=== PATIENT | female | born 1970 | race African-American/Black ===

== ENCOUNTER 2021-04-22 20:33 | Inpatient (IN) | payer OTHER ==
[2021-04-22] MEDS ORDERED: NITROGLYCERIN-D5W PMX 50 MG in DEXTROSE/WATER 1 250ML.BAG IV ONE (21:03)
[2021-04-22] MEDS ORDERED: MORPHINE SULFATE 4 MG/ML SYRINGE IVP STA (21:09)
--- NOTE | 2021-04-22 21:27 | ED ---
SOB HPI - General Chief Complaint: Chest Pain Stated Complaint: chest pain, SOB Time Seen by Provider: 04/22/21 20:52 Source: patient Mode of arrival: ambulatory Limitations: no limitations - History of Present Illness Initial Comments: This patient is a 50-year-old woman who comes in with chief complaint that she is short of breath. This is been getting progressively worse for the past 2 days. Today she has also had chest tightness accompanying. Patient denies fever or chills. No productive cough. She has noticed that her breathing has become noisy. She has orthopnea. Patient states she has history of hypertension but states has not been able take her medications for a little over a year now. No previous history of pulmonary or cardiac disease. MD Complaint: shortness of breath Onset/Timin -: days(s) Severity: moderate Quality: other (Tight) Consistency: constant Improves With: nothing Worsens With: lying flat Associated Symptoms: denies other symptoms Treatments Prior to Arrival: none - Related Data Home Oxygen Therapy: No Previous Rx's Medication Instructions Recorded Acetaminophen Tab [Tylenol] 325 mg PO Q6HR PRN tab 04/30/21 Aspirin 81 mg PO DAILY #30 chew 04/30/21 Cefuroxime Axetil [Ceftin] 500 mg PO BID 4 Days #8 tab 04/30/21 Darbepoetin Solomon [Aranesp] 60 mcg SQ Q7D syringe 04/30/21 Furosemide [Lasix] 60 mg PO DAILY #90 tab 04/30/21 Metoprolol Tartrate [Lopressor] 50 mg PO BID #60 tab 04/30/21 amLODIPine [Norvasc] 5 mg PO BID #60 tab 04/30/21 hydrALAZINE HCL [Apresoline] 25 mg PO BID #60 tab 04/30/21 levOCARNitine [Levocarnitine] 330 mg PO AC-BID #60 tablet 04/30/21 Allergies Allergy/AdvReac Type Severity Reaction Status Date / Time No Known Allergies Allergy Verified 04/22/21 22:29 Review of Systems ROS Statement: Those systems with pertinent positive or pertinent negative responses have been documented in the HPI. ROS Other: All systems not noted in ROS Statement are negative. Constitutional: Denies: fever, chills, weakness Respiratory: Reports: dyspnea. Denies: cough, wheezes, hemoptysis Cardiovascular: Reports: chest pain, orthopnea. Denies: palpitations, edema, syncope Gastrointestinal: Denies: abdominal pain, nausea, vomiting, diarrhea Genitourinary: Denies: dysuria, hematuria Musculoskeletal: Denies: back pain Skin: Denies: rash Neurological: Denies: headache, weakness, numbness Past Medical History Past Medical History: No Reported History History of Any Multi-Drug Resistant Organisms: None Reported Past Surgical History: No Surgical Hx Reported Past Psychological History: No Psychological Hx Reported Smoking Status: Former smoker Past Alcohol Use History: None Reported Past Drug Use History: None Reported - Past Family History Father History Unknown: Yes Family Medical History: Hypertension Mother History Unknown: Yes Additional Family Medical History / Comment(s): in her sleep Brother(s) Family Medical History: Myocardial Infarction (MS) Additional Family Medical History / Comment(s): Brother with myocardial infarction at 43 years old General Exam Limitations: no limitations General appearance: alert, anxious, in distress Head exam: Present: atraumatic, normocephalic Eye exam: Present: normal appearance. Absent: scleral icterus, conjunctival injection ENT exam: Present: normal oropharynx Neck exam: Present: normal inspection Respiratory exam: Present: respiratory distress, wheezes, rales, accessory muscle use. Absent: rhonchi, stridor, decreased breath sounds, prolonged expiratory Cardiovascular Exam: Present: normal rhythm, tachycardia, gallop. Absent: systolic murmur, diastolic murmur, rubs GI/Abdominal exam: Present: soft. Absent: distended, tenderness, guarding, rebound, rigid, mass Extremities exam: Present: normal inspection, normal capillary refill. Absent: pedal edema, calf tenderness Back exam: Present: normal inspection. Absent: CVA tenderness (R), CVA tenderness (L) Neurological exam: Present: alert Skin exam: Present: warm, dry, intact, normal color. Absent: rash Course Vital Signs 04/22/21 04/22/21 04/22/21 20:39 21:00 21:05 Temperature 98 F Pulse Rate 124 H 137 H Pulse Rate [ 137 H Left Pulse Oximetery] Respiratory 18 47 H 36 H Rate Blood Pressure 202/115 215/136 O2 Sat by Pulse 88 L 97 Oximetry 04/22/21 04/22/21 04/22/21 21:10 21:20 21:25 Temperature Pulse Rate 124 H 122 H 117 H Pulse Rate [ Left Pulse Oximetery] Respiratory 37 H 35 H 26 H Rate Blood Pressure 202/130 186/124 175/116 O2 Sat by Pulse 87 L 100 100 Oximetry 04/22/21 04/22/21 04/22/21 21:30 21:35 21:40 Temperature Pulse Rate 114 H 113 H 118 H Pulse Rate [ Left Pulse Oximetery] Respiratory 13 12 13 Rate Blood Pressure 181/116 175/115 178/119 O2 Sat by Pulse 100 100 100 Oximetry 04/22/21 04/22/21 04/22/21 21:45 21:50 21:55 Temperature Pulse Rate 112 H 109 H 103 H Pulse Rate [ Left Pulse Oximetery] Respiratory 19 26 H 27 H Rate Blood Pressure 188/116 176/116 180/108 O2 Sat by Pulse 100 100 100 Oximetry 04/22/21 04/22/21 04/22/21 22:00 22:05 22:10 Temperature Pulse Rate 104 H 103 H 101 H Pulse Rate [ Left Pulse Oximetery] Respiratory 25 H 18 26 H Rate Blood Pressure 168/103 156/113 179/109 O2 Sat by Pulse 100 100 100 Oximetry 04/22/21 04/22/21 04/22/21 22:15 22:30 22:45 Temperature Pulse Rate 102 H 102 H 110 H Pulse Rate [ Left Pulse Oximetery] Respiratory 19 20 22 Rate Blood Pressure 170/106 180/112 175/111 O2 Sat by Pulse 100 100 100 Oximetry 04/22/21 04/22/21 04/22/21 23:00 23:15 23:30 Temperature Pulse Rate 103 H 109 H 116 H Pulse Rate [ Left Pulse Oximetery] Respiratory 24 29 H 27 H Rate Blood Pressure 181/105 184/112 180/112 O2 Sat by Pulse 100 100 100 Oximetry 04/22/21 04/23/21 04/23/21 23:45 00:00 00:39 Temperature Pulse Rate 102 H 110 H 109 H Pulse Rate [ 137 H Left Pulse Oximetery] Respiratory 19 14 23 Rate Blood Pressure 162/102 128/79 171/100 O2 Sat by Pulse 100 100 100 Oximetry Medical Decision Making - Medical Decision Making This patient is a 50-year-old woman presenting with acute respiratory distress. I was called to see the patient and went directly to the bedside where she was tachycardic, tachypnea, hypertensive. Clinically patient does appear to be in congestive heart failure and his symptoms IV is started I began giving aliquots of intravenous nitroglycerin. Patient placed on BiPAP. Remained at the bedside for over 30 minutes and was able to stabilize patient's respiratory status. Ck comer heart rate, respiratory rate, blood pressure and pulse oximetry on improving, and she clinically appears to be in less distress. Case discussed with admitting physician, with the wreath maker on-call, and with the quilting machine helper on-call, their treatment recommendations are incorporated. - Lab Data Result diagrams: 04/30/21 04:57 04/30/21 04:57 Lab Results 04/22/21 04/22/21 04/22/21 Range/Units 21:11 21:11 21:11 WBC 9.4 (3.8-10.6) k/uL RBC 3.41 L (3.80-5.40) m/uL Hgb 8.8 L (11.4-16.0) gm/dL Hct 25.7 L (34.0-46.0) % MCV 75.4 L (80.0-100.0) fL MCH 25.8 (25.0-35.0) pg MCHC 34.3 (31.0-37.0) g/dL RDW 15.2 (11.5-15.5) % Plt Count 286 (150-450) k/uL MPV 8.6 Neutrophils % 59 % Lymphocytes % 31 % Monocytes % 3 % Eosinophils % 4 % Basophils % 1 % Neutrophils # 5.6 (1.3-7.7) k/uL Lymphocytes # 2.9 (1.0-4.8) k/uL Monocytes # 0.3 (0-1.0) k/uL Eosinophils # 0.4 (0-0.7) k/uL Basophils # 0.1 (0-0.2) k/uL Microcytosis Slight PT 10.3 (9.0-12.0) sec INR 1.0 (<1.2) APTT 23.1 (22.0-30.0) sec D-Dimer 0.92 H (<0.60) mg/L FEU Sodium 135 L (137-145) mmol/L Potassium 4.2 (3.5-5.1) mmol/L Chloride 95 L (98-107) mmol/L Carbon Dioxide 17 L (22-30) mmol/L Anion Gap 23 mmol/L BUN 110 H* (7-17) mg/dL Creatinine 17.87 H* (0.52-1.04) mg/dL Est GFR (CKD-EPI)AfAm 2 (>60 ml/min/1.73 sqM) Est GFR (CKD-EPI)NonAf 2 (>60 ml/min/1.73 sqM) Glucose 186 H (74-99) mg/dL Plasma Lactic Acid Isauro (0.7-2.0) mmol/L Calcium 7.2 L (8.4-10.2) mg/dL Total Bilirubin 0.4 (0.2-1.3) mg/dL AST 16 (14-36) U/L ALT 9 (4-34) U/L Alkaline Phosphatase 118 (38-126) U/L Troponin I (0.000-0.034) ng/mL NT-Pro-B Natriuret Pep pg/mL Total Protein 7.8 (6.3-8.2) g/dL Albumin 4.7 (3.5-5.0) g/dL 04/22/21 04/22/21 04/22/21 Range/Units 21:11 21:11 21:11 WBC (3.8-10.6) k/uL RBC (3.80-5.40) m/uL Hgb (11.4-16.0) gm/dL Hct (34.0-46.0) % MCV (80.0-100.0) fL MCH (25.0-35.0) pg MCHC (31.0-37.0) g/dL RDW (11.5-15.5) % Plt Count (150-450) k/uL MPV Neutrophils % % Lymphocytes % % Monocytes % % Eosinophils % % Basophils % % Neutrophils # (1.3-7.7) k/uL Lymphocytes # (1.0-4.8) k/uL Monocytes # (0-1.0) k/uL Eosinophils # (0-0.7) k/uL Basophils # (0-0.2) k/uL Microcytosis PT (9.0-12.0) sec INR (<1.2) APTT (22.0-30.0) sec D-Dimer (<0.60) mg/L FEU Sodium (137-145) mmol/L Potassium (3.5-5.1) mmol/L Chloride (98-107) mmol/L Carbon Dioxide (22-30) mmol/L Anion Gap mmol/L BUN (7-17) mg/dL Creatinine (0.52-1.04) mg/dL Est GFR (CKD-EPI)AfAm (>60 ml/min/1.73 sqM) Est GFR (CKD-EPI)NonAf (>60 ml/min/1.73 sqM) Glucose (74-99) mg/dL Plasma Lactic Acid Isauro 1.5 (0.7-2.0) mmol/L Calcium (8.4-10.2) mg/dL Total Bilirubin (0.2-1.3) mg/dL AST (14-36) U/L ALT (4-34) U/L Alkaline Phosphatase (38-126) U/L Troponin I 0.093 H* (0.000-0.034) ng/mL NT-Pro-B Natriuret Pep 51871 pg/mL Total Protein (6.3-8.2) g/dL Albumin (3.5-5.0) g/dL Critical Care Time Critical Care Time: Yes (50 minutes) Disposition Clinical Impression: CHF (congestive heart failure), Hypertensive emergency, Renal failure, Anemia, Elevated troponin I level Disposition: ADMITTED IP TO THIS [facility] Condition: Stable Is patient prescribed a controlled substance at d/c from ED?: No
[2021-04-22 21:30] LABS: Basophils # (A) 0.1 k/uL (0-0.2); Basophils % (A) 1 %; Eosinophils # (A) 0.4 k/uL (0-0.7); Eosinophils % (A) 4 %; HCT 25.7 % (34.0-46.0); HGB 8.8 gm/dL (11.4-16.0); Lymphocytes # (A) 2.9 k/uL (1.0-4.8); Lymphocytes % (A) 31 %; MCH 25.8 pg (25.0-35.0); MCHC 34.3 g/dL (31.0-37.0); MCV 75.4 fL (80.0-100.0); Mean Platelet Volume 8.6; Microcytosis Slight; Monocytes # (A) 0.3 k/uL (0-1.0); Monocytes % (A) 3 %; Neutrophils # (A) 5.6 k/uL (1.3-7.7); Neutrophils % (A) 59 %; Platelet Count 286 k/uL (150-450); RBC 3.41 m/uL (3.80-5.40); RDW 15.2 % (11.5-15.5); WBC 9.4 k/uL (3.8-10.6)
[2021-04-22 21:43] LABS: Albumin 4.7 g/dL (3.5-5.0); Calcium 7.2 mg/dL (8.4-10.2); Potassium 4.2 mmol/L (3.5-5.1); Total Bilirubin 0.4 mg/dL (0.2-1.3); Total Protein 7.8 g/dL (6.3-8.2)
--- NOTE | 2021-04-22 21:44 | XR ---
EXAMINATION TYPE: XR chest 1V portable DATE OF EXAM: 04/22/2021 COMPARISON: NONE HISTORY: Chest pain TECHNIQUE: Single view FINDINGS: Heart is enlarged. There is pulmonary interstitial and airspace edema. There is blunting of the costophrenic angles. There are chest leads. IMPRESSION: Changes of congestive heart failure with pulmonary edema and pleural fluid.
[2021-04-22] MEDS ORDERED: FUROSEMIDE 10 MG/ML 4 ML VIAL IV STA (21:47)
[2021-04-22 21:53] LABS: Partial Thromboplastin Time 23.1 sec (22.0-30.0); Prothrombin Time 10.3 sec (9.0-12.0)
[2021-04-22] MEDS ORDERED: MORPHINE SULFATE 4 MG/ML SYRINGE IV STA (22:03)
[2021-04-22] MEDS ORDERED: ENOXAPARIN 30 MG/0.3 ML SYRINGE SQ ONE (22:45)
[2021-04-22] MEDS ORDERED: hydrALAZINE HCL 20 MG/ML 1 ML VIAL IVP STA (23:05)
[2021-04-22] MEDS: FUROSEMIDE 10 MG/ML 4 ML VIAL IV SCH (23:10)
[2021-04-22] MEDS: SODIUM CHLORIDE 0.9% 1,000 ML IV SCH (23:13)
[2021-04-23 01:21] LABS: Glucose,Whole Blood 227 mg/dL (75-99)
[2021-04-23] MEDS ORDERED: NALOXONE 0.4 MG/ML 1 ML VIAL IV PRN (01:31)
[2021-04-23] MEDS ORDERED: hydrALAZINE HCL 20 MG/ML 1 ML VIAL IVP PRN (01:33)
[2021-04-23] MEDS: CLEVIDIPINE BUTYRATE 25 MG in EMPTY BAG 1 BAG IV SCH ×2 (02:38→08:07)
[2021-04-23 04:26] LABS: Basophils % (A) 0 %; Eosinophils # (A) 0.1 k/uL (0-0.7); Eosinophils % (A) 1 %; HCT 21.9 % (34.0-46.0); HGB 7.5 gm/dL (11.4-16.0); Lymphocytes % (A) 10 %; MCH 26.1 pg (25.0-35.0); MCHC 34.3 g/dL (31.0-37.0); MCV 75.9 fL (80.0-100.0); Microcytosis Slight; Monocytes # (A) 0.3 k/uL (0-1.0); Monocytes % (A) 3 %; Neutrophils # (A) 8.3 k/uL (1.3-7.7); Neutrophils % (A) 85 %; Platelet Count 243 k/uL (150-450); RBC 2.88 m/uL (3.80-5.40); WBC 9.8 k/uL (3.8-10.6)
[2021-04-23 05:08] LABS: Calcium 6.9 mg/dL (8.4-10.2)
[2021-04-23 05:32] LABS: Potassium 4.1 mmol/L (3.5-5.1)
--- NOTE | 2021-04-23 07:55 | XR ---
EXAMINATION TYPE: XR chest 1V DATE OF EXAM: 04/23/2021 COMPARISON: 04/22/2021 HISTORY: Chest pain TECHNIQUE: Single frontal view of the chest is obtained. FINDINGS: Improved perihilar and basilar infiltrates with pleural effusions and cardiomegaly. The cardiac silhouette size is within normal limits. The osseous structures are intact. IMPRESSION: 1. Improved perihilar and basilar infiltrates with pleural effusions and cardiomegaly.
[2021-04-23] MEDS: ENOXAPARIN 30 MG/0.3 ML SYRINGE SQ SCH (08:08)
[2021-04-23] MEDS: METOPROLOL TARTRATE 25 MG TAB PO SCH ×2 (08:52→20:56)
[2021-04-23] MEDS ORDERED: ASPIRIN 81 MG PO SCH (09:00)
[2021-04-23] MEDS ORDERED: ASPIRIN 325 MG TAB PO SCH (09:00)
--- NOTE | 2021-04-23 10:20 | P.CNPUL ---
History of Present Illness Consult date: 04/23/21 Reason for consult: dyspnea History of present illness: 50-year-old female patient, essentially negative past medical history other history of CKD GFR 14 from 2 years ago hypertension and smoking, comes in to the hospital yesterday because of worsening shortness of breath and chest pain on a 2 day duration. For that reason, the patient came in and the patient was found to have markedly abnormalities in her blood work. Her white cell count was at 9.8 with hemoglobin of 7.5. The patient's sodium level was at 135. The patient had an acute kidney injury with a BUN of 110 and a creatinine of 17.8, potassium level was at 4.2 with a serum bicarb of 17 and an anion gap of 23. Troponins were elevated at 0.09 0.1 and 0.1 respectively 3. Glucose was up to 27, LFTs were normal, proBNP level was 99,400. The blood pressure was as high as 215 over 136. As part of her workup, the patient underwent a chest x-ray that showed CHF with increased interstitial edema and probably some consolidation of the lower lobes bilaterally and addition to a cardiomegaly. No past history of cardiac disease. This morning, the patient is on oxygen at 2 L per minute nasal cannula. Overnight, the patient was on a BiPAP at a pressure of 10/5 with an FiO2 of 30% and this morning she was switched oxygen at 2 L. Her blood pressure was quite elevated and the patient was started on Cleviprex and currently is running at 2 mg an hour. The patient was also given Lasix 40 mg IV every 12 hours. Urine output is noted of 30-40 mL an hour. CBC much more comfortable. The urine output is in order of 30-40 mL an hour. 36. Review of Systems Constitutional: Denies chills, Denies fever Eyes: denies as per HPI, denies blurred vision, denies bulging eye, denies decreased vision, denies diplopia, denies discharge, denies dry eye, denies irritation, denies itching, denies pain, denies photophobia, denies loss of peripheral vision, denies loss of vision, denies tunnel vision/blind spots Ears: deny: decreased hearing, ear discharge, earache, tinnitus Ears, nose, mouth and throat: Denies headache, Denies sore throat Breasts: absent: as per HPI, change in shape, gynecomastia, masses, nipple discharge, pain, skin changes, swelling Cardiovascular: Reports decreased exercise tolerance, Reports dyspnea on exertion Respiratory: Reports dyspnea Gastrointestinal: Reports as per HPI Genitourinary: Reports as per HPI Menstruation: Reports as per HPI Musculoskeletal: Reports as per HPI Musculoskeletal: absent: ankle pain, ankle stiffness, ankle swelling Integumentary: Reports as per HPI Neurological: Reports as per HPI Psychiatric: Reports as per HPI Endocrine: Reports as per HPI Past Medical History Past Medical History: No Reported History Additional Past Medical History / Comment(s): CKD with a previous GFR GFR of 14, HTN History of Any Multi-Drug Resistant Organisms: None Reported Past Surgical History: No Surgical Hx Reported Past Psychological History: No Psychological Hx Reported Smoking Status: Former smoker Past Alcohol Use History: None Reported Past Drug Use History: None Reported - Past Family History Father History Unknown: Yes Family Medical History: Hypertension Medications and Allergies Home Medications Medication Instructions Recorded Confirmed Type No Known Home Medications 04/22/21 04/22/21 History Allergies Allergy/AdvReac Type Severity Reaction Status Date / Time No Known Allergies Allergy Verified 04/22/21 22:29 Physical Exam Vitals: Vital Signs Temp Pulse Pulse Resp BP Pulse Ox 04/23/21 10:00 100 16 133/79 97 04/23/21 09:45 103 H 19 142/82 98 04/23/21 09:30 107 H 23 144/85 98 04/23/21 09:15 112 H 18 148/81 98 04/23/21 09:00 113 H 17 150/84 97 04/23/21 08:45 123 H 16 132/73 98 04/23/21 08:30 112 H 19 130/74 96 04/23/21 08:15 112 H 18 131/84 98 04/23/21 08:00 98.3 F 112 H 16 138/80 98 04/23/21 07:52 98 04/23/21 07:45 110 H 16 135/78 98 04/23/21 07:30 111 H 16 141/109 97 04/23/21 07:15 115 H 6 L 136/80 96 04/23/21 07:00 112 H 15 134/81 99 04/23/21 06:45 111 H 135/79 99 04/23/21 06:30 112 H 133/76 99 04/23/21 06:15 112 H 137/76 99 04/23/21 06:00 112 H 16 139/80 98 04/23/21 05:45 112 H 17 134/74 98 04/23/21 05:30 113 H 19 141/80 98 04/23/21 05:15 114 H 130/76 96 04/23/21 05:00 113 H 14 124/68 99 04/23/21 04:45 112 H 127/70 04/23/21 04:30 113 H 131/71 98 04/23/21 04:15 112 H 131/74 99 04/23/21 04:00 114 H 137 H 13 132/68 99 04/23/21 03:45 111 H 15 131/73 98 04/23/21 03:30 114 H 17 132/76 100 04/23/21 03:15 114 H 16 133/79 100 04/23/21 03:00 114 H 16 162/94 99 04/23/21 02:45 111 H 153/90 100 04/23/21 02:30 112 H 155/89 99 04/23/21 02:15 113 H 164/91 04/23/21 02:00 113 H 13 166/98 04/23/21 01:45 114 H 14 157/92 99 04/23/21 01:15 97.4 F L 112 H 173/100 04/23/21 00:39 109 H 23 171/100 100 04/23/21 00:00 110 H 137 H 14 128/79 100 04/22/21 23:45 102 H 19 162/102 100 04/22/21 23:30 116 H 27 H 180/112 100 04/22/21 23:15 109 H 29 H 184/112 100 04/22/21 23:00 103 H 24 181/105 100 04/22/21 22:45 110 H 22 175/111 100 04/22/21 22:30 102 H 20 180/112 100 04/22/21 22:15 102 H 19 170/106 100 04/22/21 22:10 101 H 26 H 179/109 100 04/22/21 22:05 103 H 18 156/113 100 04/22/21 22:00 104 H 25 H 168/103 100 04/22/21 21:55 103 H 27 H 180/108 100 04/22/21 21:50 109 H 26 H 176/116 100 04/22/21 21:45 112 H 19 188/116 100 04/22/21 21:40 118 H 13 178/119 100 04/22/21 21:35 113 H 12 175/115 100 04/22/21 21:30 114 H 13 181/116 100 04/22/21 21:25 117 H 26 H 175/116 100 04/22/21 21:20 122 H 35 H 186/124 100 04/22/21 21:10 124 H 37 H 202/130 87 L 04/22/21 21:05 137 H 36 H 04/22/21 21:00 137 H 47 H 215/136 97 04/22/21 20:39 98 F 124 H 18 202/115 88 L Intake and Output 04/22/21 04/23/21 04/23/21 22:59 06:59 14:59 Intake Total 3 202.334 80 Output Total 275 110 Balance 3 -72.666 -30 Intake: IV 120 80 Sodium Chloride 0.9% 1, 120 80 000 ml @ 20 mls/hr IV . Q24H [facility] Rx#:[id number] Intake, IV Titration 3 82.334 Amount Clevidipine Butyrate 25 3.834 mg In Empty Bag 1 bag @ 1 MG/HR 2 mls/hr IV .Q24H [facility] Rx#:[id number] Nitroglycerin-D5w Pmx 50 3 78.5 mg In Dextrose/Water 1 250ml.bag @ 50 MCG/MIN 15 mls/hr IV .[id number] [facility] Rx#:[id number] Output: Urine 275 110 Other: Voiding Method Indwelling Catheter Indwelling Catheter Weight 57.606 kg 62.2 kg Gen. appearance the patient is calm and comfortable Head exam was generally normal. There was no scleral icterus or corneal arcus. Mucous membranes were moist. Neck was supple and without jugular venous distension, thyromegaly, or carotid bruits. Carotids were easily palpable bilaterally. There was no adenopathy. Lungs sounds are diminished and the patient has crackles and diminished breath on lung bases bilaterally Heart sounds there is accentuation of second heart sound without any significant murmurs appreciated. [place] is shifted to the left Abdominal exam revealed normal bowel sounds. The abdomen was soft, non-tender, and without masses, organomegaly, or appreciable enlargement of the abdominal aorta. Examination of the extremities revealed easily palpable radial, femoral and pedal pulses. There was no cyanosis, clubbing or edema. Examination of the skin revealed no evidence of significant rashes, suspicious appearing nevi or other concerning lesions. Neurologically, the patient is awake and alert and the patient does not have any focal neurological deficit. Cranial nerves are essentially intact. Results - Laboratory Findings CBC and BMP: 04/23/21 03:07 04/23/21 03:07 PT/INR, D-dimer PT 10.3 sec (9.0-12.0) 04/22/21 21:11 INR 1.0 (<1.2) 04/22/21 21:11 D-Dimer 0.92 mg/L FEU (<0.60) H 04/22/21 21:11 Abnormal lab findings: Abnormal Labs 04/22/21 04/22/21 04/22/21 21:11 21:11 21:11 RBC 3.41 L Hgb 8.8 L Hct 25.7 L MCV 75.4 L Neutrophils # D-Dimer 0.92 H Sodium 135 L Chloride 95 L Carbon Dioxide 17 L BUN 110 H* Creatinine 17.87 H* Glucose 186 H POC Glucose (mg/dL) Calcium 7.2 L Troponin I 04/22/21 04/22/21 04/23/21 21:11 23:37 01:19 RBC Hgb Hct MCV Neutrophils # D-Dimer Sodium Chloride Carbon Dioxide BUN Creatinine Glucose POC Glucose (mg/dL) 227 H Calcium Troponin I 0.093 H* 0.115 H* 04/23/21 04/23/21 04/23/21 03:07 03:07 03:07 RBC 2.88 L Hgb 7.5 L Hct 21.9 L MCV 75.9 L Neutrophils # 8.3 H D-Dimer Sodium 133 L Chloride 94 L Carbon Dioxide 17 L BUN 112 H* Creatinine 17.51 H* Glucose 193 H POC Glucose (mg/dL) Calcium 6.9 L Troponin I 0.141 H* 04/23/21 08:57 RBC Hgb Hct MCV Neutrophils # D-Dimer Sodium Chloride Carbon Dioxide BUN Creatinine Glucose POC Glucose (mg/dL) Calcium Troponin I 0.136 H* - Diagnostic Findings Chest x-ray: image reviewed Assessment and Plan Plan: 1 acute hypoxic respiratory failure secondary to pulmonary edema with bilateral pleural effusion. Consider chronic systolic heart failure versus hypertensive heart disease/diastolic failure. Echocardiogram is pending. The patient was on a BiPAP initially currently on Lasix 40 mg IV every 12 hours. BP is under better control 2 acute on chronic kidney injury. According to the patient she has chronic kidney disease with a GFR of 14. She hasn't taken any medication an outpatient basis, seen Dr. Adler an outpatient basis in the past 3 acute hypertensive emergency, currently on Cleviprex at 2 mg an hour 4 acute troponin leak/non-ST segment elevation myocardial infarction. EKG showing sinus tachycardia with LVH 5 history of hypertension 6 chronic anemia, hemoglobin is at 7.5, this is microcytic, consider iron deficiency Plan Continue the Cleviprex drip for blood pressure control Continue IV Lasix Echocardiogram to evaluate LV function Dopplers and ultrasound the kidneys Check iron studies Nephrology consultation Cardiology consultation Start beta blockers in the form of metoprolol 25 mg by mouth twice a day start The patient ASA 81 milligram by mouth daily Check a lipid profile We'll continue to follow
[2021-04-23] MEDS: FUROSEMIDE 10 MG/ML 4 ML VIAL IV SCH ×2 (10:22→23:14)
--- NOTE | 2021-04-23 10:42 | ECHOF ---
Referral Reason:sob MEASUREMENTS -------- HEIGHT: 167.6 cm WEIGHT: 62.1 kg BP: 131/84 RVIDd: 1.8 cm (< 3.3) IVSd: 1.7 cm (0.6 - 1.1) LVIDd: 4.7 cm (3.9 - 5.3) LVPWd: 1.8 cm (0.6 - 1.1) IVSs: 1.7 cm LVIDs: 3.6 cm LVPWs: 2.0 cm LAESV Index (A-L): 41.55 ml/m Ao Diam: 3.2 cm (2.0 - 3.7) AV Cusp: 2.1 cm (1.5 - 2.6) LA Diam: 3.9 cm (2.7 - 3.8) MV E Gaudencio: 1.59 m/s MV DecT: 109 ms MV A Gaudencio: 1.21 m/s MV E/A Ratio: 1.32 AV maxP.78 mmHg AV meanP.02 mmHg RAP: 5.00 mmHg RVSP: 45.48 mmHg FINDINGS -------- Resting tachycardia (HR>100bpm). This was a technically good study. The left ventricular size is normal. There is severe concentric left ventricular hypertrophy. Ove rall left ventricular systolic function is mildly impaired with, an EF between 45 - 50 %. Normal LA P Grade 1 Diastolic Dysfunction. The right ventricle is normal in size. LA is severely dilated >40 ml/m2 The right atrial size is normal. Interatrial and interventricular septum intact. The aortic valve is trileaflet and appears structurally normal. Peak/mean gradient across the Aorti c Valve is 15.78mmHg / 9.02mmHg. The mitral valve is normal. The mitral valve leaflets are mildly thickened. Severe mitral regurgi tation is present. Cannot rule out vegetation on the PMVL. The tricuspid valve appears structurally normal. Mild tricuspid regurgitation present. There is m ild pulmonary hypertension. The right ventricular systolic pressure, as measured by Doppler, is 45. 48mmHg. Trace/mild (physiologic) pulmonic regurgitation. The aortic root size is normal. Normal inferior vena cava with normal inspiratory collapse consistent with estimated right atrial pre ssure of 5 mmHg. There is a small, generalized pericardial effusion present. CONCLUSIONS -------- 1. The left ventricular size is normal. 2. There is severe concentric left ventricular hypertrophy. 3. Overall left ventricular systolic function is mildly impaired with, an EF between 45 - 50 %. 4. Normal LAP Grade 1 Diastolic Dysfunction. 5. LA is severely dilated >40 ml/m2 6. The aortic valve is trileaflet and appears structurally normal. 7. Peak/mean gradient across the Aortic Valve is 15.78mmHg / 9.02mmHg. 8. The mitral valve leaflets are mildly thickened. 9. Severe mitral regurgitation is present. 10. Cannot rule out vegetation on the PMVL. 11. Mild tricuspid regurgitation present. 12. There is mild pulmonary hypertension. 13. The right ventricular systolic pressure, as measured by Doppler, is 45.48mmHg. 14. Trace/mild (physiologic) pulmonic regurgitation. 15. There is a small, generalized pericardial effusion present. LIBRARY ASSISTANT: Edwige Centeno RDCS
[2021-04-23] MEDS ORDERED: amLODIPine 5 MG TAB PO SCH (11:15)
--- NOTE | 2021-04-23 11:26 | US ---
EXAMINATION TYPE: US kidneys/renal and bladder DATE OF EXAM: 04/23/2021 COMPARISON: us CLINICAL HISTORY: acute renal failure. barry PER patient EXAM MEASUREMENTS: Right Kidney: 7.8 x 4.4 x 3.6 cm Left Kidney: 9.0 x 4.7 x 4.1 cm Post Void Residual Volume: not assessed on inpatient with indwelling bladder catheter Right Kidney: multiple renal cysts seen with largest at inferior pole = 2.6 x 2.5 x 2.1cm. Mid pole hyperechoic parallel lines are noted and suggest vascular wall calcifications. Left Kidney: multiple renal cysts seen with largest simple cyst at superior pole = 2.4 x 2.2 x 2.6cm Bladder: indwelling bladder catheter is present Incidental US findings: bilateral pleural effusions are imaged with larger left pleural effusion seen = 6.8cm A/P and seen left coronal view. There is no evidence for hydronephrosis at this point in time. No nephrolithiasis is seen. IMPRESSION: 1. Renal cystic changes. 2. Bilateral pleural effusions incidentally noted.
--- NOTE | 2021-04-23 11:55 | P.CRDCN ---
History of Present Illness History of present illness: HISTORY OF PRESENTING ILLNESS This is a pleasant 50-year-old -[place] female past medical history significant for hypertension and kidney disease, she stopped all medical therapy approximately 2 years ago. She denies prior history of coronary artery disease and does not follow in the office with radiologist. We have been asked to see in consultation for heart failure and elevated troponin. Presented to the hospital with complaints of nausea, vomiting and diarrhea that has been going on for the previous 4-5 days. She then developed shortness of breath and palpitations over the previous 24-48 hours. She denies any chest discomfort or dizziness. She states at home she had multiple episodes where she felt hot and lightheaded however she never passed out. On arrival to the emergency department EKG reveals sinus rhythm , left axis deviation, poor R-wave progression and nonspecific ST abnormalities. Initial chest x-ray revealed pulmonary edema pleural fluid. Blood pressure was 202/115. She was initiated on IV nitroglycerin infusion. She was having a significant headache and this was discontinued. Currently she is on cleviprex. Repeat chest x-ray this morning after diuresis revealed improved. Hilar and basal infiltrates. Laboratory data reviewed, WBC 9.8, hemoglobin 7.5, platelets 243, d-dimer 0.92, sodium 133, potassium 4.1, creatinine 17, troponin 0.093, 0.115, 0.141, 0.136, NT proBNP 99,400 and TSH 3.46. Echocardiogram obtained reveals mildly impaired LV systolic function with ejection fraction 45-50%, grade 1 diastolic dysfunction, severely dilated left atrium, mild aortic stenosis with a mean gradient of 9 mmHg, severe mitral regurgitation,, mild tricuspid regurgitation and mild pulmonary hypertension with an RVSP of 45 mmHg. REVIEW OF SYSTEMS At the time of my exam: CONSTITUTIONAL: Denies fever or chills. CARDIOVASCULAR: Complains of shortness of breath and orthopnea. Denies chest pain, PND or palpitations. RESPIRATORY: Denies cough. GASTROINTESTINAL: Denies abdominal pain, diarrhea, constipation, nausea or vomiting. MUSCULOSKELETAL: Denies myalgias. NEUROLOGIC: Denies numbness, tingling, headacbe or weakness. ENDOCRINE: Denies fatigue, weight change, polydipsia or polyurina. GENITOURINARY: Denies burning, hematuria or urgency with micturation. HEMATOLOGIC: Denies history of anemia or bleeding. PHYSICAL EXAMINATION Blood pressure 132/79 heart rate 101 afebrile and maintaining oxygen saturation on room air. CONSTITUTIONAL: No apparent distress. HEENT: Head is normocephalic. Pupils are equal, round. Sclerae anicteric. Mucous membranes of the mouth are moist. No JVD. No carotid bruit. CHEST EXAMINATION: Bibasila rales. No rhonchi or wheezes. No chest wall tenderness is noted on palpation or with deep breathing. HEART EXAMINATION: Regular rate and rhythm. S1, S2 heard. Sytolic ejection murmur at the base, no gallops or rub. ABDOMEN: Soft, nontender. Positive bowel sounds. EXTREMITIES: 2+ peripheral pulses, no lower extremity edema and no calf tenderness. NEUROLOGIC EXAMINATION: Patient is awake, alert and oriented x3. ASSESSMENT Acute systolic heart failure Aortic stenosis Acute renal failure Troponin elevation secondary to renal function Anemia Hypertension emergency Medical non-compliance PLAN Continue IV diuresis. Add lopressor 25 mg BID. Follow renal function and electrolytes in the morning. Document accurate intake and output along with daily weights. Further recommendations to follow based on clinical course. Thank you kindly for this consultation. Nurse Practitioner note has been reviewed, I agree with a documented findings and plan of care. Patient was seen and examined. Past Medical History Past Medical History: No Reported History History of Any Multi-Drug Resistant Organisms: None Reported Past Surgical History: No Surgical Hx Reported Past Psychological History: No Psychological Hx Reported Smoking Status: Former smoker Past Alcohol Use History: None Reported Past Drug Use History: None Reported - Past Family History Father History Unknown: Yes Family Medical History: Hypertension Medications and Allergies Home Medications Medication Instructions Recorded Confirmed Type No Known Home Medications 04/22/21 04/22/21 History Allergies Allergy/AdvReac Type Severity Reaction Status Date / Time No Known Allergies Allergy Verified 04/22/21 22:29 Physical Exam Vitals: Vital Signs Temp Pulse Pulse Resp BP Pulse Ox 04/23/21 07:52 98 04/23/21 07:00 112 H 15 134/81 99 04/23/21 06:45 111 H 135/79 99 04/23/21 06:30 112 H 133/76 99 04/23/21 06:15 112 H 137/76 99 04/23/21 06:00 112 H 16 139/80 98 04/23/21 05:45 112 H 17 134/74 98 04/23/21 05:30 113 H 19 141/80 98 04/23/21 05:15 114 H 130/76 96 04/23/21 05:00 113 H 14 124/68 99 04/23/21 04:45 112 H 127/70 04/23/21 04:30 113 H 131/71 98 04/23/21 04:15 112 H 131/74 99 04/23/21 04:00 114 H 137 H 13 132/68 99 04/23/21 03:45 111 H 15 131/73 98 04/23/21 03:30 114 H 17 132/76 100 04/23/21 03:15 114 H 16 133/79 100 04/23/21 03:00 114 H 16 162/94 99 04/23/21 02:45 111 H 153/90 100 04/23/21 02:30 112 H 155/89 99 04/23/21 02:15 113 H 164/91 04/23/21 02:00 113 H 13 166/98 04/23/21 01:45 114 H 14 157/92 99 04/23/21 01:15 97.4 F L 112 H 173/100 04/23/21 00:39 109 H 23 171/100 04/23/21 00:00 110 H 137 H 14 128/79 100 04/22/21 23:45 102 H 19 162/102 100 04/22/21 23:30 116 H 27 H 180/112 04/22/21 23:15 109 H 29 H 184/112 100 04/22/21 23:00 103 H 24 181/105 100 04/22/21 22:45 110 H 22 175/111 100 04/22/21 22:30 102 H 20 180/112 100 04/22/21 22:15 102 H 19 170/106 100 04/22/21 22:10 101 H 26 H 179/109 100 04/22/21 22:05 103 H 18 156/113 100 04/22/21 22:00 104 H 25 H 168/103 100 04/22/21 21:55 103 H 27 H 180/108 100 04/22/21 21:50 109 H 26 H 176/116 100 04/22/21 21:45 112 H 19 188/116 100 04/22/21 21:40 118 H 13 178/119 100 04/22/21 21:35 113 H 12 175/115 100 04/22/21 21:30 114 H 13 181/116 100 04/22/21 21:25 117 H 26 H 175/116 100 04/22/21 21:20 122 H 35 H 186/124 100 04/22/21 21:10 124 H 37 H 202/130 87 L 04/22/21 21:05 137 H 36 H 04/22/21 21:00 137 H 47 H 215/136 97 04/22/21 20:39 98 F 124 H 18 202/115 88 L Intake and Output 04/22/21 04/23/21 04/23/21 22:59 06:59 14:59 Intake Total 3 202.334 Output Total 275 Balance 3 -72.666 Intake: IV 120 Sodium Chloride 0.9% 1, 120 000 ml @ 20 mls/hr IV . Q24H [facility] Rx#:[id number] Intake, IV Titration 3 82.334 Amount Clevidipine Butyrate 25 3.834 mg In Empty Bag 1 bag @ 1 MG/HR 2 mls/hr IV .Q24H [facility] Rx#:[id number] Nitroglycerin-D5w Pmx 50 3 78.5 mg In Dextrose/Water 1 250ml.bag @ 50 MCG/MIN 15 mls/hr IV .[id number] [facility] Rx#:[id number] Output: Urine 275 Other: Voiding Method Indwelling Catheter Weight 57.606 kg 62.2 kg Results 04/23/21 03:07 04/23/21 03:07 Cardiac Enzymes 04/22/21 04/22/21 04/22/21 Range/Units 21:11 21:11 23:37 AST 16 (14-36) U/L Troponin I 0.093 H* 0.115 H* (0.000-0.034) ng/mL 04/23/21 Range/Units 03:07 AST (14-36) U/L Troponin I 0.141 H* (0.000-0.034) ng/mL Coagulation 04/22/21 Range/Units 21:11 PT 10.3 (9.0-12.0) sec APTT 23.1 (22.0-30.0) sec CBC 04/22/21 04/23/21 Range/Units 21:11 03:07 WBC 9.4 9.8 (3.8-10.6) k/uL RBC 3.41 L 2.88 L (3.80-5.40) m/uL Hgb 8.8 L 7.5 L (11.4-16.0) gm/dL Hct 25.7 L 21.9 L (34.0-46.0) % Plt Count 286 243 (150-450) k/uL Comprehensive Metabolic Panel 04/22/21 04/23/21 Range/Units 21:11 03:07 Sodium 135 L 133 L (137-145) mmol/L Potassium 4.2 4.1 (3.5-5.1) mmol/L Chloride 95 L 94 L (98-107) mmol/L Carbon Dioxide 17 L 17 L (22-30) mmol/L BUN 110 H* 112 H* (7-17) mg/dL Creatinine 17.87 H* 17.51 H* (0.52-1.04) mg/dL Glucose 186 H 193 H (74-99) mg/dL Calcium 7.2 L 6.9 L (8.4-10.2) mg/dL AST 16 (14-36) U/L ALT 9 (4-34) U/L Alkaline Phosphatase 118 (38-126) U/L Total Protein 7.8 (6.3-8.2) g/dL Albumin 4.7 (3.5-5.0) g/dL Current Medications Generic Name Dose Route Start Last Admin Trade Name Freq PRN Reason Stop Dose Admin Aspirin 81 mg 04/23/21 09:00 04/23/21 08:09 Aspirin 81 Mg PO 81 mg DAILY MAKEDA Administration Enoxaparin Sodium 30 mg 04/23/21 09:00 04/23/21 08:08 Enoxaparin 30 Mg/0.3 Ml Syringe SQ 30 mg DAILY MAKEDA Administration Furosemide 40 mg 04/22/21 23:00 04/22/21 23:10 Furosemide 10 Mg/Ml 4 Ml Vial IV Not Given Q12H MAKEDA Hydralazine HCl 10 mg 04/23/21 01:33 Hydralazine Hcl 20 Mg/Ml 1 Ml Vial IVP Q6HR PRN Blood Pressure - High Sodium Chloride 1,000 mls @ 20 mls/hr 04/22/21 23:00 04/22/21 23:13 Saline 0.9% IV 20 mls/hr .Q24H MAKEDA Administration Clevidipine 25 mg/ IV Solution 50 mls @ 2 mls/hr 04/23/21 02:30 04/23/21 08:07 IV 1 mg/hr .Q24H MAKEDA 2 mls/hr Administration Protocol 1 MG/HR Naloxone HCl 0.2 mg 04/23/21 01:31 Naloxone 0.4 Mg/Ml 1 Ml Vial IV Q2M PRN Opioid Reversal Intake and Output 04/22/21 04/23/21 04/23/21 22:59 06:59 14:59 Intake Total 3 202.334 Output Total 275 Balance 3 -72.666 Intake: IV 120 Sodium Chloride 0.9% 1, 120 000 ml @ 20 mls/hr IV . Q24H [facility] Rx#:[id number] Intake, IV Titration 3 82.334 Amount Clevidipine Butyrate 25 3.834 mg In Empty Bag 1 bag @ 1 MG/HR 2 mls/hr IV .Q24H [facility] Rx#:[id number] Nitroglycerin-D5w Pmx 50 3 78.5 mg In Dextrose/Water 1 250ml.bag @ 50 MCG/MIN 15 mls/hr IV .[id number] Rx#:[id number] Output: Urine 275 Other: Voiding Method Indwelling Catheter Weight 57.606 kg 62.2 kg 04/23/21 03:07 04/23/21 03:07
[2021-04-23 11:57] LABS: Albumin 3.9 g/dL (3.5-5.0); Calcium 6.8 mg/dL (8.4-10.2); Potassium 4.3 mmol/L (3.5-5.1); Total Bilirubin 0.3 mg/dL (0.2-1.3); Total Protein 6.6 g/dL (6.3-8.2)
[2021-04-23] MEDS: DARBEPOETIN ALFA 60 MCG/0.3 ML SYRINGE SQ SCH (13:34)
--- NOTE | 2021-04-23 14:35 | P.GSCN ---
History of Present Illness Consult date: 04/23/21 Reason for Consult: acute kidney injury, need for hemodialysis catheter Requesting physician: Vanessa Adler History of present illness: This is a 50-year-old female, with a past medical history other history of CKD GFR 14 from 2 years ago hypertension and smoking, comes in to the hospital yesterday because of worsening shortness of breath and chest pain on a 2 day duration. For that reason, the patient presented to emergency department for evaluation. Her white cell count was at 9.8 with hemoglobin of 7.5. The patient's sodium level was at 135. The patient had an acute kidney injury with a BUN of 110 and a creatinine of 17.8, potassium level was at 4.2 with a serum bicarb of 17 and an anion gap of 23. Troponins were elevated at 0.09 0.1 and 0.1 respectively 3. Glucose was up to 27, LFTs were normal, proBNP level was 99,400. The blood pressure was as high as 215 over 136. As part of her workup, the patient underwent a chest x-ray that showed CHF with increased interstitial edema and probably some consolidation of the lower lobes bilaterally and addition to a cardiomegaly. No past history of cardiac disease. Overnight, the patient was on a BiPAP. Her blood pressure was quite elevated and the patient was started on Cleviprex and currently is running at 2 mg an hour. The patient was also given Lasix 40 mg IV every 12 hours. Urine output is noted of 30-40 mL an hour. The patient was noted to have acute kidney injury and seen by nephrology, who is requesting a temporary hemodialysis catheter. BUN 16, creatinine 17.23. patient states she's having shortness of breath, no chest pain, no nausea, no vomiting. She states she did notice having some decreased urine output at home prior to coming in. Review of Systems a 14 point review of systems was completed all pertinent positives and negatives as stated in the HPI Past Medical History Past Medical History: No Reported History Additional Past Medical History / Comment(s): CKD with a previous GFR GFR of 14, HTN History of Any Multi-Drug Resistant Organisms: None Reported Past Surgical History: No Surgical Hx Reported Past Psychological History: No Psychological Hx Reported Smoking Status: Former smoker Past Alcohol Use History: None Reported Past Drug Use History: None Reported - Past Family History Father History Unknown: Yes Family Medical History: Hypertension Medications and Allergies Home Medications Medication Instructions Recorded Confirmed Type No Known Home Medications 04/22/21 04/22/21 History Allergies Allergy/AdvReac Type Severity Reaction Status Date / Time No Known Allergies Allergy Verified 04/22/21 22:29 Surgical - Exam Vital Signs Temp Pulse Resp BP Pulse Ox 98 F 124 H 18 202/115 88 L 04/22/21 20:39 04/22/21 20:39 04/22/21 20:39 04/22/21 20:39 04/22/21 20:39 General appearance: The patient is alert, oriented, appears in no acute distress. HET: Head is normocephalic and atraumatic. Neck: Supple without lymphadenopathy. Trachea midline. Heart: S1 S2. Regular rate and rhythm. Lungs: Clear to auscultation. Abdomen: Soft, nontender, nondistended. Extremities: Normal skin color and turgor. Bilateral lower extremity edema. Radial and pedal pulses are 2/4 bilaterally. Neurological: No focal deficits. Alert and orientated. Results - Labs 04/23/21 03:07 04/23/21 08:57 Abnormal Lab Results - Last 24 Hours (Table) 04/22/21 04/22/21 04/22/21 Range/Units 21:11 21:11 21:11 RBC 3.41 L (3.80-5.40) m/uL Hgb 8.8 L (11.4-16.0) gm/dL Hct 25.7 L (34.0-46.0) % MCV 75.4 L (80.0-100.0) fL Neutrophils # (1.3-7.7) k/uL D-Dimer 0.92 H (<0.60) mg/L FEU Sodium 135 L (137-145) mmol/L Chloride 95 L (98-107) mmol/L Carbon Dioxide 17 L (22-30) mmol/L BUN 110 H* (7-17) mg/dL Creatinine 17.87 H* (0.52-1.04) mg/dL Glucose 186 H (74-99) mg/dL POC Glucose (mg/dL) (75-99) mg/dL Calcium 7.2 L (8.4-10.2) mg/dL Troponin I (0.000-0.034) ng/mL 04/22/21 04/22/21 04/23/21 Range/Units 21:11 23:37 01:19 RBC (3.80-5.40) m/uL Hgb (11.4-16.0) gm/dL Hct (34.0-46.0) % MCV (80.0-100.0) fL Neutrophils # (1.3-7.7) k/uL D-Dimer (<0.60) mg/L FEU Sodium (137-145) mmol/L Chloride (98-107) mmol/L Carbon Dioxide (22-30) mmol/L BUN (7-17) mg/dL Creatinine (0.52-1.04) mg/dL Glucose (74-99) mg/dL POC Glucose (mg/dL) 227 H (75-99) mg/dL Calcium (8.4-10.2) mg/dL Troponin I 0.093 H* 0.115 H* (0.000-0.034) ng/mL 04/23/21 04/23/21 04/23/21 Range/Units 03:07 03:07 03:07 RBC 2.88 L (3.80-5.40) m/uL Hgb 7.5 L (11.4-16.0) gm/dL Hct 21.9 L (34.0-46.0) % MCV 75.9 L (80.0-100.0) fL Neutrophils # 8.3 H (1.3-7.7) k/uL D-Dimer (<0.60) mg/L FEU Sodium 133 L (137-145) mmol/L Chloride 94 L (98-107) mmol/L Carbon Dioxide 17 L (22-30) mmol/L BUN 112 H* (7-17) mg/dL Creatinine 17.51 H* (0.52-1.04) mg/dL Glucose 193 H (74-99) mg/dL POC Glucose (mg/dL) (75-99) mg/dL Calcium 6.9 L (8.4-10.2) mg/dL Troponin I 0.141 H* (0.000-0.034) ng/mL 04/23/21 04/23/21 Range/Units 08:57 08:57 RBC (3.80-5.40) m/uL Hgb (11.4-16.0) gm/dL Hct (34.0-46.0) % MCV (80.0-100.0) fL Neutrophils # (1.3-7.7) k/uL D-Dimer (<0.60) mg/L FEU Sodium 131 L (137-145) mmol/L Chloride 96 L (98-107) mmol/L Carbon Dioxide 15 L (22-30) mmol/L BUN 116 H* (7-17) mg/dL Creatinine 17.23 H* (0.52-1.04) mg/dL Glucose 216 H (74-99) mg/dL POC Glucose (mg/dL) (75-99) mg/dL Calcium 6.8 L (8.4-10.2) mg/dL Troponin I 0.136 H* (0.000-0.034) ng/mL Diabetes panel 04/22/21 04/23/21 04/23/21 Range/Units 21:11 03:07 08:57 Sodium 135 L 133 L 131 L (137-145) mmol/L Potassium 4.2 4.1 4.3 (3.5-5.1) mmol/L Chloride 95 L 94 L 96 L (98-107) mmol/L Carbon Dioxide 17 L 17 L 15 L (22-30) mmol/L BUN 110 H* 112 H* 116 H* (7-17) mg/dL Creatinine 17.87 H* 17.51 H* 17.23 H* (0.52-1.04) mg/dL Glucose 186 H 193 H 216 H (74-99) mg/dL Calcium 7.2 L 6.9 L 6.8 L (8.4-10.2) mg/dL AST 16 16 (14-36) U/L ALT 9 9 (4-34) U/L Alkaline Phosphatase 118 99 (38-126) U/L Total Protein 7.8 6.6 (6.3-8.2) g/dL Albumin 4.7 3.9 (3.5-5.0) g/dL Thyroid panel 04/23/21 Range/Units 08:57 TSH 3.460 (0.465-4.680) mIU/L Calcium panel 04/22/21 04/23/21 04/23/21 Range/Units 21:11 03:07 08:57 Calcium 7.2 L 6.9 L 6.8 L (8.4-10.2) mg/dL Albumin 4.7 3.9 (3.5-5.0) g/dL Pituitary panel 04/22/21 04/23/21 04/23/21 Range/Units 21:11 03:07 08:57 Sodium 135 L 133 L (137-145) mmol/L Potassium 4.2 4.1 (3.5-5.1) mmol/L Chloride 95 L 94 L (98-107) mmol/L Carbon Dioxide 17 L 17 L (22-30) mmol/L BUN 110 H* 112 H* (7-17) mg/dL Creatinine 17.87 H* 17.51 H* (0.52-1.04) mg/dL Glucose 186 H 193 H (74-99) mg/dL Calcium 7.2 L 6.9 L (8.4-10.2) mg/dL TSH 3.460 (0.465-4.680) mIU/L 04/23/21 Range/Units 08:57 Sodium 131 L (137-145) mmol/L Potassium 4.3 (3.5-5.1) mmol/L Chloride 96 L (98-107) mmol/L Carbon Dioxide 15 L (22-30) mmol/L BUN 116 H* (7-17) mg/dL Creatinine 17.23 H* (0.52-1.04) mg/dL Glucose 216 H (74-99) mg/dL Calcium 6.8 L (8.4-10.2) mg/dL TSH (0.465-4.680) mIU/L Adrenal panel 04/22/21 04/23/21 04/23/21 Range/Units 21:11 03:07 08:57 Sodium 135 L 133 L 131 L (137-145) mmol/L Potassium 4.2 4.1 4.3 (3.5-5.1) mmol/L Chloride 95 L 94 L 96 L (98-107) mmol/L Carbon Dioxide 17 L 17 L 15 L (22-30) mmol/L BUN 110 H* 112 H* 116 H* (7-17) mg/dL Creatinine 17.87 H* 17.51 H* 17.23 H* (0.52-1.04) mg/dL Glucose 186 H 193 H 216 H (74-99) mg/dL Calcium 7.2 L 6.9 L 6.8 L (8.4-10.2) mg/dL Total Bilirubin 0.4 0.3 (0.2-1.3) mg/dL AST 16 16 (14-36) U/L ALT 9 9 (4-34) U/L Alkaline Phosphatase 118 99 (38-126) U/L Total Protein 7.8 6.6 (6.3-8.2) g/dL Albumin 4.7 3.9 (3.5-5.0) g/dL Assessment and Plan Assessment: 1. Acute on chronic Kidney Injury requiring hemodialysis Plan: Will plan for temporary hemodialysis catheter placement today. Please obtain consent. Hemodialysis per nephrology orders. Thank you for this consultation. The impression and plan of care has been dictated as directed. I performed a history and examination of this patient, discussed the same with the dictator. I agree with the dictator's note ,documented as a scribe. Any additional findings or plans will be noted.
[2021-04-23 16:11] LABS: Chol/HDL Ratio 4.04; LDL Cholesterol,Calculated 113.6 mg/dL (0.0-131.0); VLDL Calculation 26.4 mg/dL (5.00-40.00)
--- NOTE | 2021-04-23 16:34 | P.OP ---
Date of Procedure: 04/23/21 Description of Procedure: SURGEON: Anne-Marie Buckley DO TRANSPORTATION SERVICES REPRESENTATIVE: None PREOPERATIVE DIAGNOSIS: [Acute on chronic kidney injury, hypertensive emergency] POSTOPERATIVE DIAGNOSIS: Same OPERATION: Ultrasound-guided [right]common femoral vein access, placement of temporary dialysis catheter DESCRIPTION OF PROCEDURE: An ultrasound was utilized and the [right] common femoral vein was identified. The groin was prepped and draped in usual sterile fashion. A preprocedure timeout was performed, all parties were in agreement. The skin overlying the vein was anesthetized with 1% lidocaine plain. A multipurpose needle was utilized and the femoral vein was accessed on first attempt with return of dark venous, nonpulsatile blood. The guidewire was passed easily. Serial dilation was performed of the subcutaneous tissues. The catheter was placed and secured with suture. It aspirated and flushed freely. A dressing including a Biopatch was applied. The patient tolerated the procedure well.
--- NOTE | 2021-04-23 17:17 | CONS ---
CONSULTATION REASON FOR CONSULT: Renal failure. HISTORY OF PRESENT ILLNESS: Patient is a 50-year-old female with history of chronic kidney disease, NKF stage 5, who has had pretty stable renal function for many years. She also had an AV graft placed in her left arm but never needed. The patient was last seen in our office about a year ago at which time her renal function had been stable, but was lost to followup and she is admitted at this time with complaints of increased fatigue, nausea, not feeling well. She also had some diarrhea. Patient's serum creatinine is noted to be 17.87. She was volume overloaded and has been diuresed. Urine output at about 275 cc last 8 hours. Blood pressure has not been low. Patient denies any use of nonsteroidal anti-inflammatory agents prior to admission. She has not been taking any medications at home. Blood pressure was significantly elevated at the time of admission, with systolic around 230 and diastolic above 110. The patient has been started on Cleviprex drip. PAST MEDICAL HISTORY: CKD stage 5 with previous AV graft left arm which clotted. The patient had it for 3 years and it was not used as patient did not need dialysis. Also significant for anemia of chronic disease, CKD mineral bone disorder, hypertension. PAST SURGICAL HISTORY: Patient is a former smoker. No history of drug abuse or alcohol abuse. FAMILY HISTORY: Patient's brother is on dialysis. He has CKD secondary to diabetic kidney disease/ MEDICATIONS: Currently none. ALLERGIES: None. REVIEW OF SYSTEMS: As per HPI. Other systems negative. EXAMINATION: Comfortable, awake, alert, oriented x3, not in any acute distress. Blood pressure 132/79, heart rate 101 per minute, she is afebrile. Examination of the heart S1, S2. Examination of the lungs, bilateral breath sounds are heard. Abdomen is soft, nontender. Examination of lower extremities shows trace edema bilaterally. The patient is noted to have asterixis. MA[employer]CE [employer] exam otherwise grossly intact. She is moving all 4 extremities. LAB: Show sodium 133, potassium 4.1, chloride 94, CO2 17, BUN 112, serum creatinine 17.5, hemoglobin 7.5 g/dL. Troponin 0.115. TSH 3.4. ASSESSMENT: 1. Acute kidney injury on top of chronic kidney disease, most likely progression of underlying chronic kidney disease. Will start renal replacement therapy. I will check her office records as well as patient was seen about a year ago according to her. 2. Uremia. Expect improvement with hemodialysis today and then and patient will be dialyzed again tomorrow. 3. Anion gap metabolic acidosis associated with renal failure, expect improvement with dialysis. 4. Volume overload, currently improved, expect further improvement with dialysis. 5. Hypertension partly volume sensitive, improving. Can add calcium channel blockers to the Lopressor and wean off the Cleviprex drip. 6. Anemia, rule out iron deficiency. PLAN: Consult vascular surgery for dialysis catheter placement and hemodialysis today. Repeat in a.m. Check iron profile. Add Aranesp for anemia. Wean down Cleviprex drip. Add calcium channel blockers. Repeat labs in a.m. Thank you for this consultation. We will continue to follow the patient with you during her hospitalization. MMODL / IJN: [id number] /
[2021-04-23 17:21] LABS: % Iron Saturation 9.05 (12.00-45.00)
[2021-04-23 20:19] LABS: Hepatitis B Surface AB- Quant <3.5 mIU/mL; Hepatitis B Surface Antibody Non-Reactive (Non-Reactive); Hepatitis B Surface Antigen Non-Reactive (Non-Reactive)
[2021-04-23 20:56] LABS: Glucose,Whole Blood 253 mg/dL (75-99)
[2021-04-23] MEDS: amLODIPine 5 MG TAB PO SCH (20:56)
[2021-04-23] MEDS: INSULIN ASPART (NovoLOG) 100 UNIT/ML VIAL SQ SCH (21:00)
--- NOTE | 2021-04-24 00:49 | P.HPIM ---
History of Present Illness H&P Date: 04/23/21 Chief Complaint: SOB Patient is a 50-year-old female with a known history of hypertension, chronic kidney disease currently not on follow-up and not take any medications presents to ER with complaints of nausea vomiting and diarrhea for the past 1 week. She is also complaining of shortness of breath on admission which has been getting worse for the past 2 days. Shortness of breath is with chest tightness. No prior history of coronary disease. No complaints of fever or chills. Denies any severe abdominal pain. Also developed orthopnea and minimal swelling of the legs. Episodes of lightheadedness. Patient is not taking any medications at home currently. Chest x-ray showed changes consistent with CHF with pulmonary edema and pleural fluid. EKG showed sinus tachycardia with possible left atrial enlargement. Repeat chest x-ray this morning after diuresis seems improved. Laboratory data showed WBC 9.4 hemoglobin 8.8 MCV 75.4 Sodium 135 potassium 4.2 bicarb is 17 BUN 110 and creatinine 17.87 Blood sugar is 186 and calcium 7.2 Troponin 0 0.093, 0.115 and 0.141 and 0.136 proBNP 54014 TSH 3.46 and hepatitis panel nonreactive. 2D echocardiogram showed mildly impaired left ventricular systolic function with ejection fraction 45 to 50% with severely dilated left atrium, mild aortic stenosis and severe MR and mild pulmonary hypertension. On admission blood pressure was 202/115 with pulse 124, respiration 18 and pulse ox 88% on room air. Review of Systems Constitutional: Patient denies any fever or chills . No generalized weakness or weight loss. Abdomen: Patient does have nausea vomiting and diarrhea. No abdominal pain. Cardiovascular: Patient does have shortness of breath and chest tightness on admission, no palpitations. Respiratory: patient denied any cough or sputum production. No shortness of breath Neurologic: Patient denied any numbness or tingling headache. Musculoskeletal: Patient denies any complaints of joint swelling or deformity. Skin: Negative Psychiatric: Negative Endocrine: No heat or cold intolerance. No recent weight gain. Genitourinary: No dysuria or hematuria. All other 14 point ROS negative except the above Past Medical History Past Medical History: No Reported History History of Any Multi-Drug Resistant Organisms: None Reported Past Surgical History: No Surgical Hx Reported Past Psychological History: No Psychological Hx Reported Smoking Status: Former smoker Past Alcohol Use History: None Reported Past Drug Use History: None Reported - Past Family History Father History Unknown: Yes Family Medical History: Hypertension Medications and Allergies Home Medications Medication Instructions Recorded Confirmed Type No Known Home Medications 04/22/21 04/22/21 History Allergies Allergy/AdvReac Type Severity Reaction Status Date / Time No Known Allergies Allergy Verified 04/22/21 22:29 Physical Exam Vitals: Vital Signs Temp Pulse Pulse Resp BP Pulse Ox 04/23/21 09:00 113 H 17 150/84 97 04/23/21 08:45 123 H 16 132/73 98 04/23/21 08:30 112 H 19 130/74 96 04/23/21 08:15 112 H 18 131/84 98 04/23/21 08:00 98.3 F 112 H 16 138/80 98 04/23/21 07:52 98 04/23/21 07:45 110 H 16 135/78 98 04/23/21 07:30 111 H 16 141/109 97 04/23/21 07:15 115 H 6 L 136/80 96 04/23/21 07:00 112 H 15 134/81 99 04/23/21 06:45 111 H 135/79 99 04/23/21 06:30 112 H 133/76 99 04/23/21 06:15 112 H 137/76 99 04/23/21 06:00 112 H 16 139/80 98 04/23/21 05:45 112 H 17 134/74 98 04/23/21 05:30 113 H 19 141/80 98 04/23/21 05:15 114 H 130/76 96 04/23/21 05:00 113 H 14 124/68 99 04/23/21 04:45 112 H 127/70 04/23/21 04:30 113 H 131/71 98 04/23/21 04:15 112 H 131/74 99 04/23/21 04:00 114 H 137 H 13 132/68 99 04/23/21 03:45 111 H 15 131/73 98 04/23/21 03:30 114 H 17 132/76 100 04/23/21 03:15 114 H 16 133/79 100 04/23/21 03:00 114 H 16 162/94 99 04/23/21 02:45 111 H 153/90 100 04/23/21 02:30 112 H 155/89 99 04/23/21 02:15 113 H 164/91 04/23/21 02:00 113 H 13 166/98 04/23/21 01:45 114 H 14 157/92 99 04/23/21 01:15 97.4 F L 112 H 173/100 04/23/21 00:39 109 H 23 171/100 100 04/23/21 00:00 110 H 137 H 14 128/79 100 04/22/21 23:45 102 H 19 162/102 100 04/22/21 23:30 116 H 27 H 180/112 100 04/22/21 23:15 109 H 29 H 184/112 100 04/22/21 23:00 103 H 24 181/105 100 04/22/21 22:45 110 H 22 175/111 100 04/22/21 22:30 102 H 20 180/112 100 04/22/21 22:15 102 H 19 170/106 100 04/22/21 22:10 101 H 26 H 179/109 100 04/22/21 22:05 103 H 18 156/113 100 04/22/21 22:00 104 H 25 H 168/103 100 04/22/21 21:55 103 H 27 H 180/108 100 04/22/21 21:50 109 H 26 H 176/116 100 04/22/21 21:45 112 H 19 188/116 100 04/22/21 21:40 118 H 13 178/119 100 04/22/21 21:35 113 H 12 175/115 100 04/22/21 21:30 114 H 13 181/116 100 04/22/21 21:25 117 H 26 H 175/116 100 04/22/21 21:20 122 H 35 H 186/124 100 04/22/21 21:10 124 H 37 H 202/130 87 L 04/22/21 21:05 137 H 36 H 04/22/21 21:00 137 H 47 H 215/136 97 04/22/21 20:39 98 F 124 H 18 202/115 88 L Intake and Output 04/22/21 04/23/21 04/23/21 22:59 06:59 14:59 Intake Total 3 202.334 60 Output Total 275 80 Balance 3 -72.666 -20 Intake: IV 120 60 Sodium Chloride 0.9% 1, 120 60 000 ml @ 20 mls/hr IV . Q24H [facility] Rx#:[id number] Intake, IV Titration 3 82.334 Amount Clevidipine Butyrate 25 3.834 mg In Empty Bag 1 bag @ 1 MG/HR 2 mls/hr IV .Q24H [facility] Rx#:[id number] Nitroglycerin-D5w Pmx 50 3 78.5 mg In Dextrose/Water 1 250ml.bag @ 50 MCG/MIN 15 mls/hr IV .[id number] [facility] Rx#:[id number] Output: Urine 275 80 Other: Voiding Method Indwelling Catheter Indwelling Catheter Weight 57.606 kg 62.2 kg PHYSICAL EXAMINATION: Patient is lying in the bed comfortably, no acute distress, awake alert and puneet ented.. HEENT: Normocephalic. Neck is supple. Pupils reactive. Nostrils clear. Oral cavity is moist. Neck reveals no JVD, carotid bruits, or thyromegaly. CHEST EXAMINATION: Trachea is central. Symmetrical expansion. Basal crackles. No wheezing.. Nonlabored breathing. CARDIAC: Normal S1, S2 with no gallops. Systolic murmur present. ABDOMEN: Soft. Bowel sounds normal. No organomegaly. No abdominal bruits. Extremities: trace edema. No clubbing or cyanosis Neurologically awake, alert, oriented x3 with well-coordinated movements. No focal deficits noted Skin: No rash or skin lesions. Psychiatric: Coperative. Nonsuicidal Musculoskeletal: No joint swelling or deformity. Normal range of motion. Results CBC & Chem 7: 04/23/21 03:07 04/23/21 08:57 Labs: Abnormal Lab Results - Last 24 Hours (Table) 04/22/21 04/22/21 04/22/21 Range/Units 21:11 21:11 21:11 RBC 3.41 L (3.80-5.40) m/uL Hgb 8.8 L (11.4-16.0) gm/dL Hct 25.7 L (34.0-46.0) % MCV 75.4 L (80.0-100.0) fL Neutrophils # (1.3-7.7) k/uL D-Dimer 0.92 H (<0.60) mg/L FEU Sodium 135 L (137-145) mmol/L Chloride 95 L (98-107) mmol/L Carbon Dioxide 17 L (22-30) mmol/L BUN 110 H* (7-17) mg/dL Creatinine 17.87 H* (0.52-1.04) mg/dL Glucose 186 H (74-99) mg/dL POC Glucose (mg/dL) (75-99) mg/dL Calcium 7.2 L (8.4-10.2) mg/dL Troponin I (0.000-0.034) ng/mL 04/22/21 04/22/21 04/23/21 Range/Units 21:11 23:37 01:19 RBC (3.80-5.40) m/uL Hgb (11.4-16.0) gm/dL Hct (34.0-46.0) % MCV (80.0-100.0) fL Neutrophils # (1.3-7.7) k/uL D-Dimer (<0.60) mg/L FEU Sodium (137-145) mmol/L Chloride (98-107) mmol/L Carbon Dioxide (22-30) mmol/L BUN (7-17) mg/dL Creatinine (0.52-1.04) mg/dL Glucose (74-99) mg/dL POC Glucose (mg/dL) 227 H (75-99) mg/dL Calcium (8.4-10.2) mg/dL Troponin I 0.093 H* 0.115 H* (0.000-0.034) ng/mL 04/23/21 04/23/21 04/23/21 Range/Units 03:07 03:07 03:07 RBC 2.88 L (3.80-5.40) m/uL Hgb 7.5 L (11.4-16.0) gm/dL Hct 21.9 L (34.0-46.0) % MCV 75.9 L (80.0-100.0) fL Neutrophils # 8.3 H (1.3-7.7) k/uL D-Dimer (<0.60) mg/L FEU Sodium 133 L (137-145) mmol/L Chloride 94 L (98-107) mmol/L Carbon Dioxide 17 L (22-30) mmol/L BUN 112 H* (7-17) mg/dL Creatinine 17.51 H* (0.52-1.04) mg/dL Glucose 193 H (74-99) mg/dL POC Glucose (mg/dL) (75-99) mg/dL Calcium 6.9 L (8.4-10.2) mg/dL Troponin I 0.141 H* (0.000-0.034) ng/mL Thrombosis Risk Factor Assmnt - DVT/VTE Prophylaxis DVT/VTE Prophylaxis: Pharmacologic Prophylaxis ordered - Choose All That Apply Each Factor Represents 1 point: Age 41-60 years Thrombosis Risk Factor Assessment Total Risk Factor Score: 1 Thrombosis Risk Factor Assessment Level: Low Risk Assessment and Plan Assessment: Acute hypoxic respiratory failure secondary to pulmonary edema requiring BiPAP Acute CHF with systolic dysfunction ejection fraction 5 to 45%. Severe MR and mild AR and TR. Acute on chronic kidney injury stage IV with creatinine level 17.87 on admission. baseline creatinine not known. Metabolic acidosis secondary to acute kidney injury Hypertensive emergency on admission Elevated troponin level/leak likely due to acute kidney injury Iron deficiency anemia and ACD Hypertension Noncompliance with medications and follow-up. DVT prophylaxis with lovenox Sq. Plan: Patient was admitted to MICU. Started on Cleviprex drip for blood pressure control. Patient is being dosed with IV Lasix 40 mg every 12 hourly. 2D echocardiogram showed ejection fraction of 45% and severe MR. Nephrology is planning for hemodialysis. Pulmonary and cardiology on board. Patient was started on aspirin and metoprolol. Continue to follow closely. Prognosis guarded at this time. Time with Patient: Greater than 30
[2021-04-24 01:35] LABS: Glucose,Whole Blood 151 mg/dL (75-99)
[2021-04-24 04:12] LABS: Basophils % (A) 1 %; Eosinophils # (A) 0.1 k/uL (0-0.7); Eosinophils % (A) 2 %; HCT 21.2 % (34.0-46.0); HGB 7.1 gm/dL (11.4-16.0); Lymphocytes # (A) 1.5 k/uL (1.0-4.8); Lymphocytes % (A) 22 %; MCH 25.6 pg (25.0-35.0); MCHC 33.5 g/dL (31.0-37.0); MCV 76.3 fL (80.0-100.0); Mean Platelet Volume 8.8; Microcytosis Slight; Monocytes # (A) 0.3 k/uL (0-1.0); Monocytes % (A) 4 %; Neutrophils # (A) 4.9 k/uL (1.3-7.7); Neutrophils % (A) 71 %; Platelet Count 188 k/uL (150-450); RBC 2.77 m/uL (3.80-5.40); RDW 15.2 % (11.5-15.5); WBC 6.9 k/uL (3.8-10.6)
[2021-04-24 04:21] LABS: Calcium 7.3 mg/dL (8.4-10.2); Potassium 4.2 mmol/L (3.5-5.1)
[2021-04-24 07:01] LABS: Glucose,Whole Blood 121 mg/dL (75-99)
[2021-04-24] MEDS ORDERED: SODIUM CHLORIDE 0.9% 1,000 ML in EMPTY BAG 1 BAG IV ONE (08:06)
[2021-04-24] MEDS ORDERED: ALPRAZolam 0.25 MG TAB PO PRN (08:06)
[2021-04-24] MEDS ORDERED: ASPIRIN 325 MG TAB PO STA (08:06)
[2021-04-24] MEDS ORDERED: ATORVASTATIN 80 MG TAB PO STA (08:06)
[2021-04-24] MEDS ORDERED: NITROGLYCERIN SL TABS 0.4 MG TAB SUBLINGUAL PRN (08:06)
[2021-04-24] MEDS: INSULIN ASPART (NovoLOG) 100 UNIT/ML VIAL SQ SCH ×4 (08:49→21:40)
[2021-04-24] MEDS: METOPROLOL TARTRATE 25 MG TAB PO SCH ×2 (09:07→21:39)
[2021-04-24] MEDS: ALPRAZolam 0.5 MG TAB PO PRN ×2 (09:07→21:39)
[2021-04-24] MEDS: amLODIPine 5 MG TAB PO SCH ×2 (09:07→21:39)
[2021-04-24] MEDS: ENOXAPARIN 30 MG/0.3 ML SYRINGE SQ SCH (09:07)
--- NOTE | 2021-04-24 09:53 | P.PN ---
Subjective Progress Note Date: 04/24/21 50-year-old female patient, essentially negative past medical history other history of CKD GFR 14 from 2 years ago hypertension and smoking, comes in to the hospital yesterday because of worsening shortness of breath and chest pain on a 2 day duration. For that reason, the patient came in and the patient was found to have markedly abnormalities in her blood work. Her white cell count was at 9.8 with hemoglobin of 7.5. The patient's sodium level was at 135. The patient had an acute kidney injury with a BUN of 110 and a creatinine of 17.8, potassium level was at 4.2 with a serum bicarb of 17 and an anion gap of 23. Troponins were elevated at 0.09 0.1 and 0.1 respectively 3. Glucose was up to 27, LFTs were normal, proBNP level was 99,400. The blood pressure was as high as 215 over 136. As part of her workup, the patient underwent a chest x-ray that showed CHF with increased interstitial edema and probably some consolidation of the lower lobes bilaterally and addition to a cardiomegaly. No past history of cardiac disease. This morning, the patient is on oxygen at 2 L per minute nasal cannula. Overnight, the patient was on a BiPAP at a pressure of 10/5 with an FiO2 of 30% and this morning she was switched oxygen at 2 L. Her blood pressure was quite elevated and the patient was started on Cleviprex and currently is running at 2 mg an hour. The patient was also given Lasix 40 mg IV every 12 hours. Urine output is noted of 30-40 mL an hour. CBC much more comfortable. The urine output is in order of 30-40 mL an hour. 77 2020, patient is being seen for a follow-up. The patient is feeling better. She is less short of breath compared to yesterday. Note that she is off the BiPAP and the patient is currently on oxygen at 3 L per minute. On examination she continues to have bilateral pleural effusions. She is on Lasix 40 mg IV every 12 hours and her urine output is in order of 30-40 mL an hour. He is diuresing well while being on Lasix. Meanwhile, ultrasound the kidneys shows no evidence of any hydronephrosis. It revealed bilateral pleural effusions. The echocardiogram showed an ejection fraction of 40-45%. Nevertheless the patient had severe mitral regurgitation and the possibility of vegetation was also entertained. Based on that, the patient is going to have a TASNEEM done today. Not sure if she's been ago for a cardiac catheterization as the patient's renal function is impaired. This basically further discussed with nephrology. The patient is going to undergo a TASNEEM today. In terms of blood pressure control, her BPs under better control for now and she is also on Norvasc at a dose of 5 mg by mouth twice a day. She is also on Lopressor 25 mg by mouth twice a day. No other significant events overnight. The blood work from today shows a white cell count of 6.9 with a hemoglobin of 7.4. Note that she has chronic microcytic anemia. Her iron studies showed low iron level of 21. She has also a BUN of 72 with a creatinine of 11.5 improved compared to yesterday. Potassium level is at 4.2. Hepatitis profile has been negative. No other significant events otherwise for now. Dialysis catheter has been inserted yesterday and the dialysis cath is currently at her right femoral vein. The patient underwent hemodialysis yesterday and with limited ultrafiltration. A total of 1 L of fluid was removed during hemodialysis. Objective - Vital Signs Vital signs: Vital Signs Temp 98.7 F 04/24/21 04:00 Pulse 102 H 04/24/21 08:00 Resp 15 04/24/21 08:00 BP 138/86 04/24/21 08:00 Pulse Ox 92 L 04/24/21 09:08 Intake & Output 04/23/21 04/24/21 04/24/21 18:59 06:59 18:59 Intake Total 267.3 420 40 Output Total 557 876 8893 Balance -208.7 83 -1025 Weight 62.8 kg Intake: IV 260 220 40 Sodium Chloride 0.9% 1, 260 220 40 000 ml @ 20 mls/hr IV . Q24H [id number] Rx#:[id number] Intake, IV Titration 7.3 Amount Clevidipine Butyrate 25 7.3 mg In Empty Bag 1 bag @ 1 MG/HR 2 mls/hr IV .Q24H [facility] Rx#:[id number] Oral 200 Output: Urine 476 337 65 Hemodialysis 1000 Other: Voiding Method Indwelling Catheter Indwelling Catheter - Exam Gen. appearance the patient is calm and comfortable, currently on 3 L of oxygen by nasal cannula Head exam was generally normal. There was no scleral icterus or corneal arcus. M ucous membranes were moist. Neck was supple and without jugular venous distension, thyromegaly, or carotid bruits. Carotids were easily palpable bilaterally. There was no adenopathy. Lungs sounds are diminished and the patient has crackles and diminished breath on lung bases bilaterally Heart sounds there is accentuation of second heart sound without any significant murmurs appreciated. [place] is shifted to the left Abdominal exam revealed normal bowel sounds. The abdomen was soft, non-tender, and without masses, organomegaly, or appreciable enlargement of the abdominal aorta. Examination of the extremities revealed easily palpable radial, femoral and pedal pulses. There was no cyanosis, clubbing or edema. Examination of the skin revealed no evidence of significant rashes, suspicious appearing nevi or other concerning lesions. Neurologically, the patient is awake and alert and the patient does not have any focal neurological deficit. Cranial nerves are essentially intact. - Labs CBC & Chem 7: 04/24/21 03:02 04/24/21 03:02 Labs: Abnormal Lab Results - Last 24 Hours (Table) 04/23/21 04/23/21 04/23/21 Range/Units 08:57 08:57 08:57 RBC (3.80-5.40) m/uL Hgb (11.4-16.0) gm/dL Hct (34.0-46.0) % MCV (80.0-100.0) fL Sodium 131 L (137-145) mmol/L Chloride 96 L (98-107) mmol/L Carbon Dioxide 15 L (22-30) mmol/L BUN 116 H* (7-17) mg/dL Creatinine 17.23 H* (0.52-1.04) mg/dL Glucose 216 H (74-99) mg/dL POC Glucose (mg/dL) (75-99) mg/dL Plasma Lactic Acid Isauro (0.7-2.0) mmol/L Calcium 6.8 L (8.4-10.2) mg/dL Iron 21 L (50-170) ug/dL % Saturation 9.05 L (12.00-45.00) Troponin I 0.136 H* (0.000-0.034) ng/mL 04/23/21 04/24/21 04/24/21 Range/Units 20:53 01:33 03:02 RBC 2.77 L (3.80-5.40) m/uL Hgb 7.1 L (11.4-16.0) gm/dL Hct 21.2 L (34.0-46.0) % MCV 76.3 L (80.0-100.0) fL Sodium (137-145) mmol/L Chloride (98-107) mmol/L Carbon Dioxide (22-30) mmol/L BUN (7-17) mg/dL Creatinine (0.52-1.04) mg/dL Glucose (74-99) mg/dL POC Glucose (mg/dL) 253 H 151 H (75-99) mg/dL Plasma Lactic Acid Isauro (0.7-2.0) mmol/L Calcium (8.4-10.2) mg/dL Iron (50-170) ug/dL % Saturation (12.00-45.00) Troponin I (0.000-0.034) ng/mL 04/24/21 04/24/21 04/24/21 Range/Units 03:02 06:59 07:47 RBC (3.80-5.40) m/uL Hgb (11.4-16.0) gm/dL Hct (34.0-46.0) % MCV (80.0-100.0) fL Sodium 133 L (137-145) mmol/L Chloride 96 L (98-107) mmol/L Carbon Dioxide (22-30) mmol/L BUN 72 H (7-17) mg/dL Creatinine 11.59 H* (0.52-1.04) mg/dL Glucose (74-99) mg/dL POC Glucose (mg/dL) 121 H (75-99) mg/dL Plasma Lactic Acid Isauro 0.6 L (0.7-2.0) mmol/L Calcium 7.3 L (8.4-10.2) mg/dL Iron (50-170) ug/dL % Saturation (12.00-45.00) Troponin I (0.000-0.034) ng/mL Assessment and Plan Plan: 1 acute hypoxic respiratory failure secondary to pulmonary edema with bilateral pleural effusion. Consider chronic systolic heart failure versus hypertensive heart disease/diastolic failure. Cardiac exam showed an ejection fraction of 40-45%. A consent and the patient was found to have severe mitral regurgitation and TASNEEM to follow. Questionable vegetation. Clinically doesn't look to be a case of infective endocarditis. 2 acute on chronic kidney injury. According to the patient she has chronic kidney disease with a GFR of 14. The patient underwent a hemodialysis catheter insertion and the patient has a temporary dialysis catheter in right groin and the patient will be started on hemodialysis. She received her first session of hemodialysis yesterday. The second is to follow following her TASNEEM today. 3 acute hypertensive emergency, currently off Cleviprex today morning and the patient is currently on a combination of metoprolol and Norvasc and she is also on IV Lasix with adequate urine output 4 acute troponin leak/non-ST segment elevation myocardial infarction. EKG showing sinus tachycardia with LVH 5 history of hypertension 6 chronic anemia, hemoglobin is at 7.1 with microcytosis and iron deficiency Plan TASNEEM today regarding severe mitral regurgitation Possible catheterization Hemodialysis today following the TASNEEM Continue IV Lasix Echocardiogram was noted Dopplers and ultrasound the kidneys was noted Put the patient IV iron to replace iron deficiency Nephrology consultation Cardiology consultation metoprolol 25 mg by mouth twice a day, and Norvasc 5 mg by mouth twice a day start The patient ASA 81 milligram by mouth daily Check a lipid profile, LDL level is at 113 We'll continue to follow
[2021-04-24 10:40] VITALS: BMI 22.3
--- NOTE | 2021-04-24 11:00 | P.GSCN ---
<Edwige Beckham - Last Filed: 04/24/21 10:31> History of Present Illness Consult date: 04/24/21 Reason for Consult: Acute mitral regurgitation Requesting physician: Daiana Aguilar History of present illness: This is a 50-year-old active female patient who follows on an outpatient basis with Dr. Guzman for primary care. She has a previous medical history of hypertension, diabetes mellitus, previous tobacco dependence with recent cessation, and family history of premature coronary artery disease with a brother having myocardial infarction at 43 years old. She states she has been off all medication for approximately one year, she previously was on antihypertensives and diabetic medication, but took herself off because she didn't like the way they made her feel. She presented to [facility] emergency room 04/22/2021 with complaints of severe progressive shortness of breath and lower extremity edema for approximately 2 days along with nausea and vomiting for approximately one week. She denies ever having this symptomatology prior. She denied any chest pain or any other aggravating or alleviating symptoms. In the emergency room she was found to be extremely hypertensive with blood pressures 200s/100s, tachycardic, and was hypoxic on room air with oxygen saturation in the mid to high 80s. She was initiated on BiPAP and administered antihypertensives with blood pressure slowly getting under control. She was admitted for evaluation and treatment with consultation placed to cardiology and pulmonology. She was also found to be in acute renal failure with creatinine as high as 17.87, nephrology was consulted as well as vascular surgery for temporary dialysis catheter placement with subsequent planned dialysis. Yesterday a transthoracic echocardiogram was completed demonstrating mildly impaired left ventricular systolic function with EF of 45-50%, normal diastolic dysfunction, severely dilated left atrium, and severe mitral regurgitation. Due to these findings plans were made for patient to be nothing by mouth after midnight for transesophageal echocardiogram and heart catheterization this morning, and consultation was placed to cardiothoracic surgery for recommendations. Review of Systems Review of systems was completed and was negative except as noted - Constitutional Reports weight loss - Cardiovascular Reports as per HPI, Reports high blood pressure, Reports leg edema, Reports rapid heart beat, Reports shortness of breath - Gastrointestinal Reports as per HPI, Reports nausea, Reports vomiting Past Medical History Past Medical History: Diabetes Mellitus, Hypertension, Renal Disease Additional Past Medical History / Comment(s): CKD with a previous GFR GFR of 14 History of Any Multi-Drug Resistant Organisms: None Reported Additional Past Surgical History / Comment(s): Colposcopy after finding of abnormal cervical cells Past Psychological History: No Psychological Hx Reported Smoking Status: Former smoker Past Alcohol Use History: None Reported Past Drug Use History: None Reported Additional History: Quit smoking 3 months ago, prior to that smoked half a pack a day for 30 years; no Covid vaccine - Past Family History Father History Unknown: Yes Family Medical History: Hypertension, Renal Disease Mother History Unknown: Yes Additional Family Medical History / Comment(s): in her sleep Brother(s) Family Medical History: Myocardial Infarction ([place]) Additional Family Medical History / Comment(s): Brother with myocardial infarction at 43 years old Medications and Allergies Home Medications Medication Instructions Recorded Confirmed Type No Known Home Medications 04/22/21 04/22/21 History Allergies Allergy/AdvReac Type Severity Reaction Status Date / Time No Known Allergies Allergy Verified 04/22/21 22:29 Surgical - Exam Vital Signs Temp Pulse Resp BP Pulse Ox 98 F 124 H 18 202/115 88 L 04/22/21 20:39 04/22/21 20:39 04/22/21 20:39 04/22/21 20:39 04/22/21 20:39 CONSTITUTIONAL: Awake and alert, appears comfortable, cooperative, well- developed, well-nourished, no pain, no acute distress EYES: Pupils equal, round, reactive to light, normal ocular movement ENT: Moist mucous membranes without oral lesions present NECK: No masses, no bruits, trachea midline RESPIRATORY: Lungs sounds clear to auscultation bilaterally. Respirations even, nonlabored. Currently on 3 L nasal cannula with oxygen saturation 92%. Strong cough. No chest wall deformities. No clubbing or cyanosis present CARDIOVASCULAR: S1, S2 present. Tachycardic but regular rate and rhythm, sinus tach in the low 100s on telemetry. Palpable peripheral pulses bilaterally. No edema present. No calf pain or tenderness noted. GASTROINTESTINAL: Abdomen soft, nontender, nondistended without masses or organomegaly noted. There is no rebound or guarding present. Active bowel sounds present 4 quadrants. GENITOURINARY: Deferred INTEGUMENTARY: Skin is warm and dry with evidence of good perfusion. NEUROLOGIC: Cranial nerves II through XII intact, normal coordination, no obvious motor or sensory deficits, speech is normal MUSKULOSKELETAL: Able to move all extremities, strength equal bilaterally, normal posture PSYCHIATRIC: Alert and oriented to person place and time, appropriate affect, intact judgment and insight, a little teary-eyed, overwhelmed Results - Labs 04/24/21 03:02 04/24/21 03:02 Abnormal Lab Results - Last 24 Hours (Table) 04/23/21 04/23/21 04/23/21 Range/Units 08:57 08:57 20:53 RBC (3.80-5.40) m/uL Hgb (11.4-16.0) gm/dL Hct (34.0-46.0) % MCV (80.0-100.0) fL Sodium 131 L (137-145) mmol/L Chloride 96 L (98-107) mmol/L Carbon Dioxide 15 L (22-30) mmol/L BUN 116 H* (7-17) mg/dL Creatinine 17.23 H* (0.52-1.04) mg/dL Glucose 216 H (74-99) mg/dL POC Glucose (mg/dL) 253 H (75-99) mg/dL Plasma Lactic Acid Isauro (0.7-2.0) mmol/L Calcium 6.8 L (8.4-10.2) mg/dL Iron 21 L (50-170) ug/dL % Saturation 9.05 L (12.00-45.00) 04/24/21 04/24/21 04/24/21 Range/Units 01:33 03:02 03:02 RBC 2.77 L (3.80-5.40) m/uL Hgb 7.1 L (11.4-16.0) gm/dL Hct 21.2 L (34.0-46.0) % MCV 76.3 L (80.0-100.0) fL Sodium 133 L (137-145) mmol/L Chloride 96 L (98-107) mmol/L Carbon Dioxide (22-30) mmol/L BUN 72 H (7-17) mg/dL Creatinine 11.59 H* (0.52-1.04) mg/dL Glucose (74-99) mg/dL POC Glucose (mg/dL) 151 H (75-99) mg/dL Plasma Lactic Acid Isauro (0.7-2.0) mmol/L Calcium 7.3 L (8.4-10.2) mg/dL Iron (50-170) ug/dL % Saturation (12.00-45.00) 04/24/21 04/24/21 Range/Units 06:59 07:47 RBC (3.80-5.40) m/uL Hgb (11.4-16.0) gm/dL Hct (34.0-46.0) % MCV (80.0-100.0) fL Sodium (137-145) mmol/L Chloride (98-107) mmol/L Carbon Dioxide (22-30) mmol/L BUN (7-17) mg/dL Creatinine (0.52-1.04) mg/dL Glucose (74-99) mg/dL POC Glucose (mg/dL) 121 H (75-99) mg/dL Plasma Lactic Acid Isauro 0.6 L (0.7-2.0) mmol/L Calcium (8.4-10.2) mg/dL Iron (50-170) ug/dL % Saturation (12.00-45.00) Diabetes panel 04/23/21 04/23/21 04/24/21 Range/Units 08:57 08:57 03:02 Sodium 131 L 133 L (137-145) mmol/L Potassium 4.3 4.2 (3.5-5.1) mmol/L Chloride 96 L 96 L (98-107) mmol/L Carbon Dioxide 15 L 25 (22-30) mmol/L BUN 116 H* 72 H (7-17) mg/dL Creatinine 17.23 H* 11.59 H* (0.52-1.04) mg/dL Glucose 216 H 91 (74-99) mg/dL Calcium 6.8 L 7.3 L (8.4-10.2) mg/dL AST 16 (14-36) U/L ALT 9 (4-34) U/L Alkaline Phosphatase 99 (38-126) U/L Total Protein 6.6 (6.3-8.2) g/dL Albumin 3.9 (3.5-5.0) g/dL Triglycerides 132.0 (0.0-149.0) mg/dL HDL Cholesterol 46.0 (40.0-60.0) mg/dL Calcium panel 04/23/21 04/24/21 Range/Units 08:57 03:02 Calcium 6.8 L 7.3 L (8.4-10.2) mg/dL Albumin 3.9 (3.5-5.0) g/dL Pituitary panel 04/23/21 04/24/21 Range/Units 08:57 03:02 Sodium 131 L 133 L (137-145) mmol/L Potassium 4.3 4.2 (3.5-5.1) mmol/L Chloride 96 L 96 L (98-107) mmol/L Carbon Dioxide 15 L 25 (22-30) mmol/L BUN 116 H* 72 H (7-17) mg/dL Creatinine 17.23 H* 11.59 H* (0.52-1.04) mg/dL Glucose 216 H 91 (74-99) mg/dL Calcium 6.8 L 7.3 L (8.4-10.2) mg/dL Adrenal panel 04/23/21 04/24/21 Range/Units 08:57 03:02 Sodium 131 L 133 L (137-145) mmol/L Potassium 4.3 4.2 (3.5-5.1) mmol/L Chloride 96 L 96 L (98-107) mmol/L Carbon Dioxide 15 L 25 (22-30) mmol/L BUN 116 H* 72 H (7-17) mg/dL Creatinine 17.23 H* 11.59 H* (0.52-1.04) mg/dL Glucose 216 H 91 (74-99) mg/dL Calcium 6.8 L 7.3 L (8.4-10.2) mg/dL Total Bilirubin 0.3 (0.2-1.3) mg/dL AST 16 (14-36) U/L ALT 9 (4-34) U/L Alkaline Phosphatase 99 (38-126) U/L Total Protein 6.6 (6.3-8.2) g/dL Albumin 3.9 (3.5-5.0) g/dL - Imaging Chest x-ray: report reviewed, image reviewed EKG: image reviewed Additional studies: Transthoracic echocardiogram films reviewed with Dr. Barbosa Assessment and Plan Assessment: 1. Severe mitral regurgitation with possible flail posterior leaflet 2. Mildly impaired left ventricular systolic function with EF 45-50%, acute systolic heart failure 3. Hypertensive emergency on admission 4. Acute troponin leak, possible non-STEMI, more likely from kidney failure 5. Acute hypoxic respiratory failure on admission, placed on BiPAP, currently on nasal cannula 6. Acute renal failure on admission, subsequent placement of temporary dialysis catheter with planned dialysis 7. Anemia 8. History of hypertension 9. History of diabetes 10. Previous tobacco dependence with recent cessation 11. Family history of premature coronary artery disease 12. Medical noncompliance, patient took herself off antihypertensives and diabetic medication proximal vein one year ago because she didn't like the way they made her feel Plan: The patient was seen and examined at the bedside. Chart/diagnostics were reviewed with Dr. Barbosa including transthoracic echocardiogram completed yesterday. The usual perioperative course open heart surgery was discussed with the patient, risks and benefits were reviewed, all questions were answered. At this time we will await the results of transesophageal echocardiogram and left heart catheterization for further recommendations regarding surgery. The patient will not need dental clearance as she has full dentures. She does need continued management of her failure, kidney failure, respiratory failure. Continue to maximize medical therapy with aspirin, antihypertensives, diuresis. Preoperative testing initiated. Medical management of other comorbidities per primary care, cardiology, nephrology, pulmonology. More recommendations to follow. Thank you for this consult. We will follow along with you Time with Patient: Greater than 30 <Topher Barbosa - Last Filed: 04/24/21 17:03> Surgical - Exam Vital Signs Temp Pulse Resp BP Pulse Ox 98 F 124 H 18 202/115 88 L 04/22/21 20:39 04/22/21 20:39 04/22/21 20:39 04/22/21 20:39 04/22/21 20:39 Results - Labs 04/24/21 03:02 04/24/21 03:02 Abnormal Lab Results - Last 24 Hours (Table) 04/23/21 04/23/21 04/24/21 Range/Units 08:57 20:53 01:33 RBC (3.80-5.40) m/uL Hgb (11.4-16.0) gm/dL Hct (34.0-46.0) % MCV (80.0-100.0) fL Sodium (137-145) mmol/L Chloride (98-107) mmol/L BUN (7-17) mg/dL Creatinine (0.52-1.04) mg/dL POC Glucose (mg/dL) 253 H 151 H (75-99) mg/dL Plasma Lactic Acid Isauro (0.7-2.0) mmol/L Calcium (8.4-10.2) mg/dL Iron 21 L (50-170) ug/dL % Saturation 9.05 L (12.00-45.00) 04/24/21 04/24/21 04/24/21 Range/Units 03:02 03:02 06:59 RBC 2.77 L (3.80-5.40) m/uL Hgb 7.1 L (11.4-16.0) gm/dL Hct 21.2 L (34.0-46.0) % MCV 76.3 L (80.0-100.0) fL Sodium 133 L (137-145) mmol/L Chloride 96 L (98-107) mmol/L BUN 72 H (7-17) mg/dL Creatinine 11.59 H* (0.52-1.04) mg/dL POC Glucose (mg/dL) 121 H (75-99) mg/dL Plasma Lactic Acid Isauro (0.7-2.0) mmol/L Calcium 7.3 L (8.4-10.2) mg/dL Iron (50-170) ug/dL % Saturation (12.00-45.00) 04/24/21 04/24/21 Range/Units 07:47 16:57 RBC (3.80-5.40) m/uL Hgb (11.4-16.0) gm/dL Hct (34.0-46.0) % MCV (80.0-100.0) fL Sodium (137-145) mmol/L Chloride (98-107) mmol/L BUN (7-17) mg/dL Creatinine (0.52-1.04) mg/dL POC Glucose (mg/dL) 173 H (75-99) mg/dL Plasma Lactic Acid Isauro 0.6 L (0.7-2.0) mmol/L Calcium (8.4-10.2) mg/dL Iron (50-170) ug/dL % Saturation (12.00-45.00) Diabetes panel 04/24/21 04/24/21 Range/Units 03:02 03:02 Sodium 133 L (137-145) mmol/L Potassium 4.2 (3.5-5.1) mmol/L Chloride 96 L (98-107) mmol/L Carbon Dioxide 25 (22-30) mmol/L BUN 72 H (7-17) mg/dL Creatinine 11.59 H* (0.52-1.04) mg/dL Glucose 91 (74-99) mg/dL Hemoglobin A1c 5.7 (4.0-6.0) % Calcium 7.3 L (8.4-10.2) mg/dL Calcium panel 04/24/21 Range/Units 03:02 Calcium 7.3 L (8.4-10.2) mg/dL Pituitary panel 04/24/21 Range/Units 03:02 Sodium 133 L (137-145) mmol/L Potassium 4.2 (3.5-5.1) mmol/L Chloride 96 L (98-107) mmol/L Carbon Dioxide 25 (22-30) mmol/L BUN 72 H (7-17) mg/dL Creatinine 11.59 H* (0.52-1.04) mg/dL Glucose 91 (74-99) mg/dL Calcium 7.3 L (8.4-10.2) mg/dL Adrenal panel 04/24/21 Range/Units 03:02 Sodium 133 L (137-145) mmol/L Potassium 4.2 (3.5-5.1) mmol/L Chloride 96 L (98-107) mmol/L Carbon Dioxide 25 (22-30) mmol/L BUN 72 H (7-17) mg/dL Creatinine 11.59 H* (0.52-1.04) mg/dL Glucose 91 (74-99) mg/dL Calcium 7.3 L (8.4-10.2) mg/dL Assessment and Plan Plan: Transesophageal echo reveals moderate, central, functional mitral regurgitation which appears improved after initiating mediacal therapy when compared to surfa ce echo. No indication for surgical intervention at this time. Plan for medical management for now. Thank you for this consult. Please call with any questions.
--- NOTE | 2021-04-24 11:02 | US ---
EXAMINATION TYPE: US carotid duplex BILAT DATE OF EXAM: 04/24/2021 COMPARISON: NONE CLINICAL HISTORY: preop cardiac surgery. Exam done portable in ICU. EXAM MEASUREMENTS: RIGHT: Peak Systolic Velocity (PSV) cm/sec ----- Right CCA: 73.2 ----- Right ICA: 86.5 ----- Right ECA: 73.1 ICA/CCA ratio: 1.2 RIGHT: End Diastole cm/sec ----- Right CCA: 19.3 ----- Right ICA: 34.8 ----- Right ECA: 3.6 LEFT: Peak Systolic Velocity (PSV) cm/sec ----- Left CCA: 66.2 ----- Left ICA: 87.9 ----- Left ECA: 54.7 ICA/CCA ratio: 1.3 LEFT: End Diastole cm/sec ----- Left CCA: 14.2 ----- Left ICA: 34.3 ----- Left ECA: 7.2 VERTEBRALS (direction of flow): Right Vertebral: Antegrade Left Vertebral: Antegrade Rhythm: Normal No significant stenosis. IMPRESSION: 1. No significant flow-limiting stenosis Criteria for Assigning % of Stenosis / Diameter reduction (Estimation based on the indirect measurements of the internal carotid artery velocities (ICA PSV). 1. Normal (no stenosis)=ICA PSV < 125 cm/s: ratio < 2.0: ICA EDV<40 cm/s. 2. Less than 50% stenosis=ICA PSV < 125 cm/s: ratio < 2.0: ICA EDV<40 cm/s. 3. 50 to 69% stenosis=ICA PSV of 125 to 230 cm/s: ration 2.0 ? 4.0: ICA EDV 40-100 cm/s. 4. Greater than 70% stenosis to near occlusion= ICA PSV > 230 cm/s: ratio > 4.0: ICA EDV > 100 cm/s. 5. Near occlusion= ICA PSV velocities may be low or undetectable: variable ratio and ICA EDV. 6. Total occlusion=unable to detect flow.
--- NOTE | 2021-04-24 11:56 | P.PN ---
Subjective HISTORY OF PRESENTING ILLNESS This is a pleasant 50-year-old -[place] female past medical history significant for hypertension and kidney disease, she stopped all medical therapy approximately 2 years ago. She denies prior history of coronary artery disease and does not follow in the office with radiologist. We have been asked to see in consultation for heart failure and elevated troponin. Presented to the hospital with complaints of nausea, vomiting and diarrhea that has been going on for the previous 4-5 days. She then developed shortness of breath and palpitations over the previous 24-48 hours. She denies any chest discomfort or dizziness. She states at home she had multiple episodes where she felt hot and lightheaded casarez dalia she never passed out. On arrival to the emergency department EKG reveals sinus rhythm , left axis deviation, poor R-wave progression and nonspecific ST abnormalities. Initial chest x-ray revealed pulmonary edema pleural fluid. Blood pressure was 202/115. She was initiated on IV nitroglycerin infusion. She was having a significant headache and this was discontinued. Currently she is on cleviprex. Repeat chest x-ray this morning after diuresis revealed improved. Hilar and basal infiltrates. Laboratory data reviewed, WBC 9.8, hemoglobin 7.5, platelets 243, d-dimer 0.92, sodium 133, potassium 4.1, creatinine 17, troponin 0.093, 0.115, 0.141, 0.136, NT proBNP 99,400 and TSH 3.46. Echocardiogram obtained reveals mildly impaired LV systolic function with ejection fraction 45-50%, grade 1 diastolic dysfunction, severely dilated left atrium, mild aortic stenosis with a mean gradient of 9 mmHg, severe mitral regurgitation,, mild tricuspid regurgitation and mild pulmonary hypertension with an RVSP of 45 mmHg. 04/24/2021 Pt seen and examined sitting up in bed. She states her breathing improved initially after dialysis and then shortly thereafter her breathing worsened again. Echo reviewed again by Dr. Chan. He is recommending TASNEEM, R/LHC and CT surgery evaluation. Blood pressure 138/86 heart rate 102 afebrile maintaining oxygen saturation on room air. Laboratory data reviewed, WBC 6.9, hemoglobin 7.1, platelets 188, sodium 133, potassium 4.2 and creatinine 11.59. On further discussion with the patient she states she had previously been diagnosed with diabetes and renal failure. In fact, she had a fistual placed in preparation to start dialysis. According to her the fistula never matured properly and was never used. PHYSICAL EXAMINATION CONSTITUTIONAL: No apparent distress. HEENT: Head is normocephalic. Pupils are equal, round. Sclerae anicteric. Mucous membranes of the mouth are moist. No JVD. No carotid bruit. CHEST EXAMINATION: Bibasila rales. No rhonchi or wheezes. No chest wall tenderness is noted on palpation or with deep breathing. HEART EXAMINATION: Regular rate and rhythm. S1, S2 heard. Sytolic ejection murmur at the base, no gallops or rub. EXTREMITIES: 2+ peripheral pulses, no lower extremity edema and no calf tenderness. ASSESSMENT Acute systolic heart failure Mitral regurgitation with possible flail vs vegetation Acute renal failure Troponin elevation secondary to renal function Anemia Diabetes mellitus Hypertension emergency Medical non-compliance PLAN Plan for TASNEEM today to further assess the mitral valve. Discussed in detail with the patient the need for also performing R\LHC. She is hesitant to do this due to the contrast. Discussed in detail with her that Dr. Adler is agreeable to the procedure and Dr. Chan plans to use 20-30cc of dye. She is agreeable however, would like to possibly wait to speak with Dr. Adler herself first. In the meantime, proceed with TASNEEM. Consult CT surgery. Check blood cultures and lactic acid. Nurse Practitioner note has been reviewed, I agree with a documented findings and plan of care. Patient was seen and examined. Objective - Vital Signs Vital signs: Vital Signs Temp 98.7 F 04/24/21 04:00 Pulse 97 04/24/21 07:00 Resp 19 04/24/21 07:00 BP 128/78 04/24/21 07:00 Pulse Ox 95 04/24/21 07:00 Intake & Output 04/23/21 04/24/21 04/24/21 18:59 06:59 18:59 Intake Total 267.3 420 20 Output Total 476 337 30 Balance -208.7 83 -10 Weight 62.8 kg Intake: IV 260 220 20 Sodium Chloride 0.9% 1, 260 220 20 000 ml @ 20 mls/hr IV . Q24H MAKEDA Rx#:[id number] Intake, IV Titration 7.3 Amount Clevidipine Butyrate 25 7.3 mg In Empty Bag 1 bag @ 1 MG/HR 2 mls/hr IV .Q24H MAKEDA Rx#:[id number] Oral 200 Output: Urine 476 337 30 Other: Voiding Method Indwelling Catheter Indwelling Catheter - Labs CBC & Chem 7: 04/24/21 03:02 04/24/21 03:02 Labs: Abnormal Lab Results - Last 24 Hours (Table) 04/23/21 04/23/21 04/23/21 Range/Units 08:57 08:57 08:57 RBC (3.80-5.40) m/uL Hgb (11.4-16.0) gm/dL Hct (34.0-46.0) % MCV (80.0-100.0) fL Sodium 131 L (137-145) mmol/L Chloride 96 L (98-107) mmol/L Carbon Dioxide 15 L (22-30) mmol/L BUN 116 H* (7-17) mg/dL Creatinine 17.23 H* (0.52-1.04) mg/dL Glucose 216 H (74-99) mg/dL POC Glucose (mg/dL) (75-99) mg/dL Calcium 6.8 L (8.4-10.2) mg/dL Iron 21 L (50-170) ug/dL % Saturation 9.05 L (12.00-45.00) Troponin I 0.136 H* (0.000-0.034) ng/mL 04/23/21 04/24/21 04/24/21 Range/Units 20:53 01:33 03:02 RBC 2.77 L (3.80-5.40) m/uL Hgb 7.1 L (11.4-16.0) gm/dL Hct 21.2 L (34.0-46.0) % MCV 76.3 L (80.0-100.0) fL Sodium (137-145) mmol/L Chloride (98-107) mmol/L Carbon Dioxide (22-30) mmol/L BUN (7-17) mg/dL Creatinine (0.52-1.04) mg/dL Glucose (74-99) mg/dL POC Glucose (mg/dL) 253 H 151 H (75-99) mg/dL Calcium (8.4-10.2) mg/dL Iron (50-170) ug/dL % Saturation (12.00-45.00) Troponin I (0.000-0.034) ng/mL 04/24/21 04/24/21 Range/Units 03:02 06:59 RBC (3.80-5.40) m/uL Hgb (11.4-16.0) gm/dL Hct (34.0-46.0) % MCV (80.0-100.0) fL Sodium 133 L (137-145) mmol/L Chloride 96 L (98-107) mmol/L Carbon Dioxide (22-30) mmol/L BUN 72 H (7-17) mg/dL Creatinine 11.59 H* (0.52-1.04) mg/dL Glucose (74-99) mg/dL POC Glucose (mg/dL) 121 H (75-99) mg/dL Calcium 7.3 L (8.4-10.2) mg/dL Iron (50-170) ug/dL % Saturation (12.00-45.00) Troponin I (0.000-0.034) ng/mL
[2021-04-24] MEDS ORDERED: CALCIUM CHLORIDE 100 MG/ML 10 ML SYRINGE IVP ONE (12:04)
[2021-04-24] MEDS ORDERED: MIDAZOLAM 2 MG/2 ML VIAL ONE ×2 (12:19→12:39)
[2021-04-24] MEDS ORDERED: fentaNYL (PF) 50 MCG/ML 2 ML AMP ONE (12:19)
[2021-04-24] MEDS ORDERED: NOREPINEPHRIN 4 MG-0.9% NS PMX 4 MG/250 ML ML IV ONE (12:20)
--- NOTE | 2021-04-24 12:21 | P.PN ---
Subjective Progress Note Date: 04/24/21 Principal diagnosis: Acute renal failure Seen and examined lying in bed. She underwent hemodialysis yesterday status post right femoral vein temporary hemodialysis catheter placement. She is scheduled again for later today. She is also scheduled for a TASNEEM and possible cardiac catheterization this afternoon. There was some improvement in her kidney function today. There is discussion for possible need for long-term hemodialysis. Objective - Vital Signs Vital signs: Vital Signs Temp 98.7 F 04/24/21 04:00 Pulse 102 H 04/24/21 08:00 Resp 15 04/24/21 08:00 BP 138/86 04/24/21 08:00 Pulse Ox 92 L 04/24/21 09:08 Intake & Output 04/23/21 04/24/21 04/24/21 18:59 06:59 18:59 Intake Total 267.3 420 40 Output Total 830 603 5316 Balance -208.7 83 -1025 Weight 62.8 kg 62.8 kg Intake: IV 260 220 40 Sodium Chloride 0.9% 1, 260 220 40 000 ml @ 20 mls/hr IV . Q24H [facility]A Rx#:[id number] Intake, IV Titration 7.3 Amount Clevidipine Butyrate 25 7.3 mg In Empty Bag 1 bag @ 1 MG/HR 2 mls/hr IV .Q24H MAKEDA Rx#:[id number] Oral 200 Output: Urine 476 337 65 Hemodialysis 1000 Other: Voiding Method Indwelling Catheter Indwelling Catheter - Exam General appearance: The patient is alert, oriented, appears in no acute distress. HET: Head is normocephalic and atraumatic. Neck: Supple without lymphadenopathy. Trachea midline. Heart: S1 S2. Regular rate and rhythm. Lungs: Diminished. Abdomen: Soft, nontender, nondistended. Extremities: Normal skin color and turgor. No cyanosis, rash, ulceration, clubbing, or edema. Radial and pedal pulses are 2/4 bilaterally. Hemodialysis catheter intact and right groin. Neurological: No focal deficits. Strength and sensation are grossly intact. - Labs CBC & Chem 7: 04/24/21 03:02 04/24/21 03:02 Labs: Abnormal Lab Results - Last 24 Hours (Table) 04/23/21 04/23/21 04/23/21 Range/Units 08:57 08:57 20:53 RBC (3.80-5.40) m/uL Hgb (11.4-16.0) gm/dL Hct (34.0-46.0) % MCV (80.0-100.0) fL Sodium 131 L (137-145) mmol/L Chloride 96 L (98-107) mmol/L Carbon Dioxide 15 L (22-30) mmol/L BUN 116 H* (7-17) mg/dL Creatinine 17.23 H* (0.52-1.04) mg/dL Glucose 216 H (74-99) mg/dL POC Glucose (mg/dL) 253 H (75-99) mg/dL Plasma Lactic Acid Isauro (0.7-2.0) mmol/L Calcium 6.8 L (8.4-10.2) mg/dL Iron 21 L (50-170) ug/dL % Saturation 9.05 L (12.00-45.00) 04/24/21 04/24/21 04/24/21 Range/Units 01:33 03:02 03:02 RBC 2.77 L (3.80-5.40) m/uL Hgb 7.1 L (11.4-16.0) gm/dL Hct 21.2 L (34.0-46.0) % MCV 76.3 L (80.0-100.0) fL Sodium 133 L (137-145) mmol/L Chloride 96 L (98-107) mmol/L Carbon Dioxide (22-30) mmol/L BUN 72 H (7-17) mg/dL Creatinine 11.59 H* (0.52-1.04) mg/dL Glucose (74-99) mg/dL POC Glucose (mg/dL) 151 H (75-99) mg/dL Plasma Lactic Acid Isauro (0.7-2.0) mmol/L Calcium 7.3 L (8.4-10.2) mg/dL Iron (50-170) ug/dL % Saturation (12.00-45.00) 04/24/21 04/24/21 Range/Units 06:59 07:47 RBC (3.80-5.40) m/uL Hgb (11.4-16.0) gm/dL Hct (34.0-46.0) % MCV (80.0-100.0) fL Sodium (137-145) mmol/L Chloride (98-107) mmol/L Carbon Dioxide (22-30) mmol/L BUN (7-17) mg/dL Creatinine (0.52-1.04) mg/dL Glucose (74-99) mg/dL POC Glucose (mg/dL) 121 H (75-99) mg/dL Plasma Lactic Acid Isauro 0.6 L (0.7-2.0) mmol/L Calcium (8.4-10.2) mg/dL Iron (50-170) ug/dL % Saturation (12.00-45.00) Assessment and Plan Assessment: 1. Acute on chronic Kidney Injury requiring hemodialysis Plan: 1. Continue hemodialysis per nephrology recommendations 2. Continue ICU medical management 3. Vascular surgery will be on standby, please call us back if tunneled dialysis catheter will be needed.. Thank you for this consultation. The impression and plan of care has been dictated as directed. Dr. Escamilla I performed a history and examination of this patient, discussed the same with the dictator. I agree with the dictator's note ,documented as a scribe. Any additional findings or plans will be noted.
[2021-04-24] MEDS: SODIUM FERRIC GLUCONAT-SUCROSE 125 MG in SODIUM CHLORIDE 0.9% 100 ML IVPB SCH (12:55)
[2021-04-24 13:13] LABS: Glucose,Whole Blood 98 mg/dL (75-99)
--- NOTE | 2021-04-24 13:48 | XR ---
EXAMINATION TYPE: XR chest 1V portable DATE OF EXAM: 04/24/2021 COMPARISON: 04/23/2021 INDICATION: Infiltrates TECHNIQUE: Single frontal view of the chest is obtained. FINDINGS: The heart size is moderately prominent. The pulmonary vasculature is normal. Mild bibasilar infiltrates are present. Correlate for atelectasis and pneumonia. Findings at the left base have improved from comparison IMPRESSION: 1. Improving left lower lobe infiltrate. Stable right lower lobe infiltrate is present. Follow-up is recommended.
--- NOTE | 2021-04-24 14:03 | PN ---
PROGRESS NOTE Patient is seen for followup for chronic kidney disease and acute kidney injury. She was admitted with complaints of increased weakness, fatigue, serum creatinine of 17. The patient has had hemodialysis yesterday. Her creatinine is down to 11.59. She has had fair urine output, currently at about 30-35 cc an hour. The patient was quite hypertensive on initial admission. Currently she is off Cleviprex drip. She is awake, comfortable. Patient tolerated her first treatment of hemodialysis fairly well yesterday. We had about 1 L of fluid removed. PHYSICAL EXAMINATION: On examination today, blood pressure 138/86, heart rate 102 per minute. Patient is afebrile. Examination of the heart S1, S2. Examination of the lungs, bilateral breath sounds are heard. Abdomen is soft, nontender. Examination of lower extremities shows no evidence of edema. DESIGN AGENT exam grossly intact. LAB: Show sodium 133, potassium 4.2, chloride 96, BUN 72, creatinine 11.59, hemoglobin 7.1 g/dL. ASSESSMENT: 1. Acute kidney injury on top of chronic kidney disease, currently started on dialysis. The patient is going to have her second treatment today. We will plan for another treatment tomorrow. 2. Acute kidney injury, most likely acute tubular necrosis, currently nonoliguric. 3. Anemia, multifactorial. 4. Iron deficiency status post IV iron. 5. Hypertension currently off Cleviprex and doing better. 6. Severe valvular dysfunction noted on echocardiogram, being followed by Cardiology with plans for TASNEEM and cardiac catheterization today. Severe mitral regurgitation was noted. There was concern for possible vegetation. PLAN: Repeat hemodialysis in a.m. If patient has her cardiac catheterization earlier on today, we will dialyze her after the procedure. Otherwise, we will plan for a treatment again tomorrow. MMODL / IJN: [id number] /
--- NOTE | 2021-04-24 14:06 | P.TEE ---
Description of Procedure(s): Procedure performed: Transesophageal Echocardiogram with color flow doppler, pulsed wave doppler and continuous wave doppler, moderate conscious sedation Moderate conscious sedation: Moderate conscious sedation was supplied with direct supervision of myself using Versed and Fentanyl. Complications: none Indications: Mitral regurgitation History: Patient is a pleasant 50 year old female with history of CKD, HTN and mitral regurgitation. Patient presented with new onset of worsened SOB, orthopnea, as well as nause and diarrhea and worsened CKD needing HD. She was found to have what appeared to be severe mitral regurgitation with possible echodensity concerning for vegetation or flail leaflet by TTE and therefore TASNEEM was recommended. PROCEDURE: After the risks, benefits and alternatives of the above mentioned procedure was explained in detail with the patient, informed consent was obtained. Patient was brought to the lab in a fasting state. Patient was given IV Versed and Fentanyl for sedation. The throat was sprayed with Hurricane to anesthetize the throat. A lubricated Omni probe was then introduced into the esophagus and stomach and multiple views were obtained. 2D echo with color flow doppler, pulsed wave doppler and continuous wave doppler was utilized. Agitated saline bubbles were injected to assess for any intra-atrial shunt. The probe was then removed. Patient tolerated the procedure well. Patient was transferred to the post procedure area in stable and satisfactory condition. FINDINGS: 1. The aortic valve is tricuspid with normal function. There is no significant aortic regurgitation or stenosis. 2. The mitral valve appears be normal. There is moderate central mitral regurgitation which appears improved from TTE. There is no flail leaflet or prolapse and appears to be secondary MR from annulus dilation. There is blunting of pulmonary vein however no significant systolic flow reversal. 3. Tricuspid valve appears to be normal. 4. The interatrial septum is intact. No evidence of PFO. 5. Left atrial appendage is free of clot. 6. Left ventricular size and function appear to be low normal with EF 50%
[2021-04-24] MEDS: levOCARNitine (WITH SUGAR) 100 MG/ML BOTTLE PO SCH ×2 (14:22→21:41)
[2021-04-24] MEDS: FUROSEMIDE 10 MG/ML 4 ML VIAL IV SCH ×2 (14:25→21:40)
[2021-04-24 15:40] LABS: Hemoglobin A1C 5.7 % (4.0-6.0)
[2021-04-24 16:58] LABS: Glucose,Whole Blood 173 mg/dL (75-99)
[2021-04-24 18:40] LABS: Appearance,Urine Clear (Clear); Bacteria,Urine Rare /hpf; Bilirubin,Urine Negative (Negative); Blood,Urine Small (Negative); Color,Urine Light Yellow; Glucose,Urine (UA) 1+ (Negative); Ketones,Urine Negative (Negative); Leukocyte Esterase,Urine Large (Negative); Mucus,Urine Rare /hpf; Nitrite,Urine Negative (Negative); PH, Urine 6.5 (5.0-8.0); Protein,Urine 1+ (Negative); RBC,Urine 2 /hpf (0-5); Specific Gravity,Urine 1.006 (1.001-1.035); Squamous Epithelial Cell,Urine <1 /hpf (0-4); Urobilinogen,Urine <2.0 mg/dL (<2.0); WBC,Urine 28 /hpf (0-5)
[2021-04-24 20:41] LABS: Glucose,Whole Blood 166 mg/dL (75-99)
[2021-04-25] MEDS ORDERED: ALPRAZolam 0.5 MG TAB ONE (03:47)
[2021-04-25 05:22] LABS: Basophils % (A) 1 %; Eosinophils # (A) 0.3 k/uL (0-0.7); Eosinophils % (A) 5 %; Lymphocytes # (A) 1.4 k/uL (1.0-4.8); Lymphocytes % (A) 23 %; MCH 25.9 pg (25.0-35.0); MCHC 33.5 g/dL (31.0-37.0); MCV 77.3 fL (80.0-100.0); Mean Platelet Volume 8.2; Microcytosis Slight; Monocytes # (A) 0.3 k/uL (0-1.0); Monocytes % (A) 5 %; Neutrophils # (A) 4.1 k/uL (1.3-7.7); Neutrophils % (A) 66 %; Platelet Count 182 k/uL (150-450); RBC 2.71 m/uL (3.80-5.40); RDW 15.5 % (11.5-15.5); WBC 6.3 k/uL (3.8-10.6)
[2021-04-25 05:28] LABS: Albumin 3.1 g/dL (3.5-5.0); Calcium 7.9 mg/dL (8.4-10.2); Potassium 4.6 mmol/L (3.5-5.1); Total Bilirubin 0.3 mg/dL (0.2-1.3); Total Protein 5.9 g/dL (6.3-8.2)
[2021-04-25 06:56] LABS: Glucose,Whole Blood 124 mg/dL (75-99)
[2021-04-25] MEDS ORDERED: HEPARIN SODIUM,PORCINE 2,500 UNIT in SODIUM CHLORIDE 0.9% 250 ML IRRIGATION PRN (07:00)
[2021-04-25] MEDS ORDERED: HEPARIN SODIUM,PORCINE 10,000 UNIT in SODIUM CHLORIDE 0.9% 1,000 ML IRRIGATION PRN (07:00)
[2021-04-25] MEDS: INSULIN ASPART (NovoLOG) 100 UNIT/ML VIAL SQ SCH ×4 (07:55→20:57)
[2021-04-25] MEDS ORDERED: FUROSEMIDE 10 MG/ML 4 ML VIAL IV SCH ×2 (08:00→14:00)
[2021-04-25] MEDS: levOCARNitine (WITH SUGAR) 100 MG/ML BOTTLE PO SCH ×2 (08:37→20:57)
[2021-04-25] MEDS: ASPIRIN 81 MG PO SCH (08:37)
[2021-04-25] MEDS: ENOXAPARIN 30 MG/0.3 ML SYRINGE SQ SCH (08:37)
[2021-04-25] MEDS: amLODIPine 5 MG TAB PO SCH ×2 (08:37→20:56)
[2021-04-25] MEDS: SODIUM FERRIC GLUCONAT-SUCROSE 125 MG in SODIUM CHLORIDE 0.9% 100 ML IVPB SCH (08:38)
[2021-04-25] MEDS: METOPROLOL TARTRATE 50 MG TAB PO SCH ×2 (08:39→20:56)
[2021-04-25] MEDS: ALPRAZolam 0.5 MG TAB PO PRN ×2 (08:44→20:56)
--- NOTE | 2021-04-25 09:22 | P.PN ---
Subjective Progress Note Date: 04/25/21 Principal diagnosis: shortness of breath On 04/25/2021 patient seen in follow-up in the intensive care unit. She is awake and alert, oriented 3, she is currently resting comfortably in bed, she is on 2 L of oxygen the pulse ox of 98-100%. Is breathing comfortably, no complaints of chest pain, she is in sinus mechanism still slightly tachycardic at a rate of 102 BPM, cardiology is following and has increased her metoprolol 50 mg twice daily. She is currently not on any drips. Pressure control medications include metoprolol 50 mg twice daily as mentioned above, Norvasc 10 mg daily, she is also on Lasix at 60 mg twice daily, and she is producing urine in the order of 25 ML per hour, she did have hemodialysis session again yesterday with removal of 1 L of fluid. She is in -450 ML net fluid balance over the last 24 hours. Yesterday chest x-ray showed improving lateral lower lobe infiltrates. Transesophageal echocardiogram showed no significant aortic stenosis or regurgitation, mitral valve appeared normal with moderate central mitral regurgitation, there was no flail leaflet or prolapse, there was a blunting of the pulmonary vein however no systolic flow reversal. Tricuspid valve was normal. No evidence of PFO, left atrial appendage was free of clot. Left ventricular systolic function was low-normal at 50%. Absolute been reviewed, white blood cell count is 6.3, hemoglobin is 7.0, and patient received iron supplementation with IV Iron. Electrolytes were within normal limits, renal function is improving, BUN is 51, creatinine is 9.03. There are acute events overnight, no nausea or vomiting, patient is tolerating oral diet. Objective - Vital Signs Vital signs: Vital Signs Temp 98.6 F 04/25/21 04:00 Pulse 93 04/25/21 08:00 Resp 14 04/25/21 08:00 BP 150/89 04/25/21 08:00 Pulse Ox 100 04/25/21 08:00 Intake & Output 04/24/21 04/25/21 04/25/21 18:59 06:59 18:59 Intake Total 795 740 40 Output Total 1555 430 65 Balance -760 310 -25 Weight 62.8 kg 59.7 kg Intake: IV 555 240 40 Sodium Chloride 0.9% 1, 455 240 40 000 ml @ 20 mls/hr IV . Q24H [facility] Rx#:[id number] Sodium Ferric Gluconat- 100 Sucrose 125 mg In Sodium Chloride 0.9% 100 ml @ 100 mls/hr IVPB DAILY [facility] Rx#:[id number] Oral 240 500 Output: Urine 555 430 65 Hemodialysis 1000 Other: Voiding Method Indwelling Catheter Indwelling Catheter Indwelling Catheter - Exam GENERAL EXAM: Alert, 3 pleasant, 50-year-old -[place]aur[place] female, on 2 L of oxygen and pulse ox of 100% comfortable in no apparent distress. HEAD: Normocephalic/atraumatic. EYES: Normal reaction of pupils, equal size. Conjunctiva pink, sclera white. NOSE: Clear with pink turbinates. THROAT: No erythema or exudates. NECK: No masses, no JVD, no thyroid enlargement, no adenopathy. CHEST: No chest wall deformity. Symmetrical expansion. LUNGS: Equal air entry with diffuse crackles CVS: Regular rate and rhythm, normal S1 and S2, no gallops, no murmurs, no rubs ABDOMEN: Soft, nontender. No hepatosplenomegaly, normal bowel sounds, no guarding or rigidity. EXTREMITIES: No clubbing, no edema, no cyanosis, 2+ pulses and upper and lower extremities. MUSCULOSKELETAL: Muscle strength and tone normal. SPINE: No scoliosis or deformity SKIN: No rashes CENTRAL NERVOUS SYSTEM: Alert and oriented -3. No focal deficits, tone is normal in all 4 extremities. PSYCHIATRIC: Alert and oriented -3. Appropriate affect. Intact judgment and insight. - Labs CBC & Chem 7: 04/25/21 03:14 04/25/21 03:14 Labs: Abnormal Lab Results - Last 24 Hours (Table) 04/24/21 04/24/21 04/24/21 Range/Units 12:05 16:57 17:50 RBC (3.80-5.40) m/uL Hgb (11.4-16.0) gm/dL Hct (34.0-46.0) % MCV (80.0-100.0) fL BUN (7-17) mg/dL Creatinine (0.52-1.04) mg/dL Glucose (74-99) mg/dL POC Glucose (mg/dL) 173 H (75-99) mg/dL Calcium (8.4-10.2) mg/dL Total Protein (6.3-8.2) g/dL Albumin (3.5-5.0) g/dL Vitamin D 25-Hydroxy 21.5 L (30.0-100.0) ng/mL Urine Protein 1+ H (Negative) Urine Glucose (UA) 1+ H (Negative) Urine Blood Small H (Negative) Ur Leukocyte Esterase Large H (Negative) Urine WBC 28 H (0-5) /hpf Urine Bacteria Rare H (None) /hpf Urine Mucus Rare H (None) /hpf 04/24/21 04/25/21 04/25/21 Range/Units 20:40 03:14 03:14 RBC 2.71 L (3.80-5.40) m/uL Hgb 7.0 L (11.4-16.0) gm/dL Hct 21.0 L (34.0-46.0) % MCV 77.3 L (80.0-100.0) fL BUN 51 H (7-17) mg/dL Creatinine 9.03 H* (0.52-1.04) mg/dL Glucose 135 H (74-99) mg/dL POC Glucose (mg/dL) 166 H (75-99) mg/dL Calcium 7.9 L (8.4-10.2) mg/dL Total Protein 5.9 L (6.3-8.2) g/dL Albumin 3.1 L (3.5-5.0) g/dL Vitamin D 25-Hydroxy (30.0-100.0) ng/mL Urine Protein (Negative) Urine Glucose (UA) (Negative) Urine Blood (Negative) Ur Leukocyte Esterase (Negative) Urine WBC (0-5) /hpf Urine Bacteria (None) /hpf Urine Mucus (None) /hpf 04/25/21 Range/Units 06:55 RBC (3.80-5.40) m/uL Hgb (11.4-16.0) gm/dL Hct (34.0-46.0) % MCV (80.0-100.0) fL BUN (7-17) mg/dL Creatinine (0.52-1.04) mg/dL Glucose (74-99) mg/dL POC Glucose (mg/dL) 124 H (75-99) mg/dL Calcium (8.4-10.2) mg/dL Total Protein (6.3-8.2) g/dL Albumin (3.5-5.0) g/dL Vitamin D 25-Hydroxy (30.0-100.0) ng/mL Urine Protein (Negative) Urine Glucose (UA) (Negative) Urine Blood (Negative) Ur Leukocyte Esterase (Negative) Urine WBC (0-5) /hpf Urine Bacteria (None) /hpf Urine Mucus (None) /hpf Microbiology - Last 24 Hours (Table) 04/24/21 17:50 Urine Culture - Preliminary Urine,Voided Assessment and Plan Plan: assessment: #1. Acute hypoxic respiratory failure related to pulmonary edema with bilateral pleural effusions. TASNEEM showed central mitral regurgitation, which was improved from the previous echocardiogram. There was no evidence of vegetation, no flail leaflet or prolapse on the transesophageal echocardiogram from 04/24/2021. EF w as low normal at 50% #2. Acute on chronic kidney disease, requiring hemodialysis #3. Hypertensive emergency, patient was on Archie proximal infusion, currently on metoprolol, Norvasc and IV Lasix #4. Troponin leak/non-ST segment elevated myocardial infarction #5. Chronic kidney disease, with a baseline GFR of 14 #6. History of hypertension #7. Chronic anemia, hemoglobin is 7.1 with a microcytosis related to iron deficiency anemia #8. 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 Family history of premature coronary artery disease Plan: We will switch the IV Lasix to oral Lasix 60 mg twice daily Blood pressure is better controlled on combination of oral medications Yesterday's chest x-ray showed improving pulmonary infiltrates Transesophageal echocardiogram has been reviewed Hemodialysis per nephrology Patient may need to be considered for a tunneled hemodialysis catheter We'll defer to vascular surgery for that decision For now she still has a hemodialysis catheter in the right groin Otherwise hemodynamically she has been stable Once the decision is made on the tunneled hemodialysis catheter we may transfer the patient to the [address] [place] [address] I performed a history & physical examination of the patient and discussed their management with my nurse practitioner, Marley Guerra. I reviewed the nurse practitioner's note and agree with the documented findings and plan of care. Lung sounds are positive for diffuse crackles throughout the lung aguilar. The findings and the impression was discussed with the patient. I attest to the documentation by the nurse practitioner. Time with Patient: Less than 30
--- NOTE | 2021-04-25 09:40 | P.PN ---
Subjective HISTORY OF PRESENTING ILLNESS This is a pleasant 50-year-old -[place] female past medical history significant for hypertension and kidney disease, she stopped all medical therapy approximately 2 years ago. She denies prior history of coronary artery disease and does not follow in the office with radiologist. We have been asked to see in consultation for heart failure and elevated troponin. Presented to the hospital with complaints of nausea, vomiting and diarrhea that has been going on for the previous 4-5 days. She then developed shortness of breath and palpitations over the previous 24-48 hours. She denies any chest discomfort or dizziness. She states at home she had multiple episodes where she felt hot and lightheaded casarez dalia she never passed out. On arrival to the emergency department EKG reveals sinus rhythm , left axis deviation, poor R-wave progression and nonspecific ST abnormalities. Initial chest x-ray revealed pulmonary edema pleural fluid. Blood pressure was 202/115. She was initiated on IV nitroglycerin infusion. She was having a significant headache and this was discontinued. Currently she is on cleviprex. Repeat chest x-ray this morning after diuresis revealed improved. Hilar and basal infiltrates. Laboratory data reviewed, WBC 9.8, hemoglobin 7.5, platelets 243, d-dimer 0.92, sodium 133, potassium 4.1, creatinine 17, troponin 0.093, 0.115, 0.141, 0.136, NT proBNP 99,400 and TSH 3.46. Echocardiogram obtained reveals mildly impaired LV systolic function with ejection fraction 45-50%, grade 1 diastolic dysfunction, severely dilated left atrium, mild aortic stenosis with a mean gradient of 9 mmHg, severe mitral regurgitation,, mild tricuspid regurgitation and mild pulmonary hypertension with an RVSP of 45 mmHg. 04/25/2021 Patient seen and examined sitting up in bed in no acute distress. She states yesterday after dialysis her breathing was improved initially and then seemed to decline at the evening went on. She had 1 L removed. She underwent a TASNEEM yesterday revealing moderate central mitral regurgitation with no evidence of flail leaflet. Blood pressure today 150/89 heart rate 93 afebrile maintaining oxygen saturation on nasal cannula. Laboratory data reviewed, WBC 6.3, hemoglobin 7, platelets 92, sodium 140, potassium 4.6, creatinine 9.03. 24 hour urine output is 985 mL. She continues to maintain a negative fluid balance. PHYSICAL EXAMINATION CONSTITUTIONAL: No apparent distress. HEENT: Head is normocephalic. Pupils are equal, round. Sclerae anicteric. Mucous membranes of the mouth are moist. No JVD. No carotid bruit. CHEST EXAMINATION: Clear to auscultation. No rales, rhonchi or wheezes. No chest wall tenderness is noted on palpation or with deep breathing. HEART EXAMINATION: Regular rate and rhythm. S1, S2 heard. Sytolic ejection murmur at the base, no gallops or rub. EXTREMITIES: 2+ peripheral pulses, no lower extremity edema and no calf tender ness. ASSESSMENT Acute systolic heart failure Mitral regurgitation with possible flail vs vegetation Acute renal failure Troponin elevation secondary to renal function Anemia Diabetes mellitus Hypertension emergency Medical non-compliance PLAN Increase Lopressor to 50 mg twice a day. No plans for cardiac catheterization at this time given appearance of mitral valve. Close monitoring of fluid status. Dialysis again today per nephrology. Further recommendations to follow based on clinical course. Nurse Practitioner note has been reviewed, I agree with a documented findings and plan of care. Patient was seen and examined. Objective - Vital Signs Vital signs: Vital Signs Temp 98.6 F 04/25/21 04:00 Pulse 93 04/25/21 08:00 Resp 14 04/25/21 08:00 BP 150/89 04/25/21 08:00 Pulse Ox 100 04/25/21 08:00 Intake & Output 04/24/21 04/25/21 04/25/21 18:59 06:59 18:59 Intake Total 795 740 40 Output Total 1555 430 65 Balance -760 310 -25 Weight 62.8 kg 59.7 kg Intake: IV 555 240 40 Sodium Chloride 0.9% 1, 455 240 40 000 ml @ 20 mls/hr IV . Q24H [facility] Rx#:[id number] Sodium Ferric Gluconat- 100 Sucrose 125 mg In Sodium Chloride 0.9% 100 ml @ 100 mls/hr IVPB DAILY [facility] Rx#:[id number] Oral 240 500 Output: Urine 555 430 65 Hemodialysis 1000 Other: Voiding Method Indwelling Catheter Indwelling Catheter Indwelling Catheter - Labs CBC & Chem 7: 04/25/21 03:14 04/25/21 03:14 Labs: Abnormal Lab Results - Last 24 Hours (Table) 04/24/21 04/24/21 04/24/21 Range/Units 12:05 16:57 17:50 RBC (3.80-5.40) m/uL Hgb (11.4-16.0) gm/dL Hct (34.0-46.0) % MCV (80.0-100.0) fL BUN (7-17) mg/dL Creatinine (0.52-1.04) mg/dL Glucose (74-99) mg/dL POC Glucose (mg/dL) 173 H (75-99) mg/dL Calcium (8.4-10.2) mg/dL Total Protein (6.3-8.2) g/dL Albumin (3.5-5.0) g/dL Vitamin D 25-Hydroxy 21.5 L (30.0-100.0) ng/mL Urine Protein 1+ H (Negative) Urine Glucose (UA) 1+ H (Negative) Urine Blood Small H (Negative) Ur Leukocyte Esterase Large H (Negative) Urine WBC 28 H (0-5) /hpf Urine Bacteria Rare H (None) /hpf Urine Mucus Rare H (None) /hpf 04/24/21 04/25/21 04/25/21 Range/Units 20:40 03:14 03:14 RBC 2.71 L (3.80-5.40) m/uL Hgb 7.0 L (11.4-16.0) gm/dL Hct 21.0 L (34.0-46.0) % MCV 77.3 L (80.0-100.0) fL BUN 51 H (7-17) mg/dL Creatinine 9.03 H* (0.52-1.04) mg/dL Glucose 135 H (74-99) mg/dL POC Glucose (mg/dL) 166 H (75-99) mg/dL Calcium 7.9 L (8.4-10.2) mg/dL Total Protein 5.9 L (6.3-8.2) g/dL Albumin 3.1 L (3.5-5.0) g/dL Vitamin D 25-Hydroxy (30.0-100.0) ng/mL Urine Protein (Negative) Urine Glucose (UA) (Negative) Urine Blood (Negative) Ur Leukocyte Esterase (Negative) Urine WBC (0-5) /hpf Urine Bacteria (None) /hpf Urine Mucus (None) /hpf 04/25/21 Range/Units 06:55 RBC (3.80-5.40) m/uL Hgb (11.4-16.0) gm/dL Hct (34.0-46.0) % MCV (80.0-100.0) fL BUN (7-17) mg/dL Creatinine (0.52-1.04) mg/dL Glucose (74-99) mg/dL POC Glucose (mg/dL) 124 H (75-99) mg/dL Calcium (8.4-10.2) mg/dL Total Protein (6.3-8.2) g/dL Albumin (3.5-5.0) g/dL Vitamin D 25-Hydroxy (30.0-100.0) ng/mL Urine Protein (Negative) Urine Glucose (UA) (Negative) Urine Blood (Negative) Ur Leukocyte Esterase (Negative) Urine WBC (0-5) /hpf Urine Bacteria (None) /hpf Urine Mucus (None) /hpf Microbiology - Last 24 Hours (Table) 04/24/21 17:50 Urine Culture - Preliminary Urine,Voided
[2021-04-25] MEDS: FUROSEMIDE 20 MG TAB PO SCH ×2 (11:32→17:31)
[2021-04-25 11:49] LABS: Glucose,Whole Blood 236 mg/dL (75-99)
--- NOTE | 2021-04-25 11:57 | PN ---
PROGRESS NOTE Patient is seen for followup for acute kidney injury on top of chronic kidney disease. She was admitted with severe uremia, volume overload, hypertensive urgency. Patient has been dialyzed. She will receive her third treatment today. Serum creatinine remains elevated currently at 9 from 17.87 on initial admission. She has had fair urine output. I have discussed with the patient today that she will likely need to continue with long-term dialysis however she needs to contact the transplant center again as she has possible living donors. PHYSICAL EXAMINATION: On examination today, blood pressure is 150/89, heart rate is 93 per minute. She is afebrile examination of the heart S1, S2. Examination of the lungs, bilateral breath sounds are heard. Abdomen is soft, nontender. Examination of lower extremities shows no significant edema. EMBOSSER OPERATOR exam grossly intact. LAB: Show sodium 140, potassium 4.6, chloride 106, BUN 51, creatinine 9.0, hemoglobin 7.0 g/dL. ASSESSMENT: 1. Acute kidney injury, mostly progression of underlying chronic kidney disease. The patient will likely need long-term renal replacement therapy. She has good urine output. However, creatinine remains significantly elevated. case planner has potentially worked up [facility] for outpatient dialysis. 2. Volume overload and hypertensive urgency on initial admission currently improved. 3. Significant mitral regurgitation with no plans for further intervention from cardiology standpoint. 4. Uremia now improved post dialysis. 5. Chronic kidney disease, mineral bone disorder. 6. Iron deficiency status post IV iron. PLAN: Hemodialysis today. We will hold dialysis tomorrow. Continue to monitor labs. Avoid nephrotoxic agents and repeat labs in a.m. [id number] / IJN: [id number] /
--- NOTE | 2021-04-25 14:50 | P.PN ---
Subjective Progress Note Date: 04/25/21 Principal diagnosis: Acute renal failure Patient is seen and examined sitting up in bed she is undergoing hemodialysis. Nephrology is following closely and will give the patient a day off from hemodialysis tomorrow and see how her kidney function is. Patient possibly will need tunneled dialysis catheter placement for long-term hemodialysis. Objective - Vital Signs Vital signs: Vital Signs Temp 98.6 F 04/25/21 04:00 Pulse 93 04/25/21 08:00 Resp 14 04/25/21 08:00 BP 150/89 04/25/21 08:00 Pulse Ox 100 04/25/21 08:00 Intake & Output 04/24/21 04/25/21 04/25/21 18:59 06:59 18:59 Intake Total 795 740 680 Output Total 1555 430 165 Balance -760 310 515 Weight 62.8 kg 59.7 kg Intake: IV 555 240 40 Sodium Chloride 0.9% 1, 455 240 40 000 ml @ 20 mls/hr IV . Q24H [facility] Rx#:[id number] Sodium Ferric Gluconat- 100 Sucrose 125 mg In Sodium Chloride 0.9% 100 ml @ 100 mls/hr IVPB DAILY MAKEDA Rx#:[id number] Oral 240 500 640 Output: Urine 555 430 165 Hemodialysis 1000 Other: Voiding Method Indwelling Catheter Indwelling Catheter Indwelling Catheter - Exam General appearance: The patient is alert, oriented, appears in no acute distress. HET: Head is normocephalic and atraumatic. Neck: Supple without lymphadenopathy. Trachea midline. Heart: S1 S2. Regular rate and rhythm. Lungs: Diminished. Abdomen: Soft, nontender, nondistended. Extremities: Normal skin color and turgor. No cyanosis, rash, ulceration, clubbing, or edema. Radial and pedal pulses are 2/4 bilaterally. Hemodialysis catheter intact and right groin. Neurological: No focal deficits. Strength and sensation are grossly intact. - Labs CBC & Chem 7: 04/25/21 03:14 04/25/21 03:14 Labs: Abnormal Lab Results - Last 24 Hours (Table) 04/24/21 04/24/21 04/24/21 Range/Units 12:05 16:57 17:50 RBC (3.80-5.40) m/uL Hgb (11.4-16.0) gm/dL Hct (34.0-46.0) % MCV (80.0-100.0) fL BUN (7-17) mg/dL Creatinine (0.52-1.04) mg/dL Glucose (74-99) mg/dL POC Glucose (mg/dL) 173 H (75-99) mg/dL Calcium (8.4-10.2) mg/dL Total Protein (6.3-8.2) g/dL Albumin (3.5-5.0) g/dL Vitamin D 25-Hydroxy 21.5 L (30.0-100.0) ng/mL Urine Protein 1+ H (Negative) Urine Glucose (UA) 1+ H (Negative) Urine Blood Small H (Negative) Ur Leukocyte Esterase Large H (Negative) Urine WBC 28 H (0-5) /hpf Urine Bacteria Rare H (None) /hpf Urine Mucus Rare H (None) /hpf 04/24/21 04/25/21 04/25/21 Range/Units 20:40 03:14 03:14 RBC 2.71 L (3.80-5.40) m/uL Hgb 7.0 L (11.4-16.0) gm/dL Hct 21.0 L (34.0-46.0) % MCV 77.3 L (80.0-100.0) fL BUN 51 H (7-17) mg/dL Creatinine 9.03 H* (0.52-1.04) mg/dL Glucose 135 H (74-99) mg/dL POC Glucose (mg/dL) 166 H (75-99) mg/dL Calcium 7.9 L (8.4-10.2) mg/dL Total Protein 5.9 L (6.3-8.2) g/dL Albumin 3.1 L (3.5-5.0) g/dL Vitamin D 25-Hydroxy (30.0-100.0) ng/mL Urine Protein (Negative) Urine Glucose (UA) (Negative) Urine Blood (Negative) Ur Leukocyte Esterase (Negative) Urine WBC (0-5) /hpf Urine Bacteria (None) /hpf Urine Mucus (None) /hpf 04/25/21 04/25/21 Range/Units 06:55 11:47 RBC (3.80-5.40) m/uL Hgb (11.4-16.0) gm/dL Hct (34.0-46.0) % MCV (80.0-100.0) fL BUN (7-17) mg/dL Creatinine (0.52-1.04) mg/dL Glucose (74-99) mg/dL POC Glucose (mg/dL) 124 H 236 H (75-99) mg/dL Calcium (8.4-10.2) mg/dL Total Protein (6.3-8.2) g/dL Albumin (3.5-5.0) g/dL Vitamin D 25-Hydroxy (30.0-100.0) ng/mL Urine Protein (Negative) Urine Glucose (UA) (Negative) Urine Blood (Negative) Ur Leukocyte Esterase (Negative) Urine WBC (0-5) /hpf Urine Bacteria (None) /hpf Urine Mucus (None) /hpf Microbiology - Last 24 Hours (Table) 04/24/21 07:47 Blood Culture - Preliminary Blood No Growth after 24 hours 04/24/21 17:50 Urine Culture - Preliminary Urine,Voided Assessment and Plan Assessment: 1. Acute on chronic Kidney Injury requiring hemodialysis Plan: 1. Continue hemodialysis per nephrology recommendations 2. Continue medical management per primary care team 3. Vascular surgery will be on standby, please call us back if tunneled dialysis catheter will be needed. Thank you for this consultation. The impression and plan of care has been dictated as directed. Dr. Buckley I performed a history and examination of this patient, discussed the same with the dictator. I agree with the dictator's note ,documented as a scribe. Any additional findings or plans will be noted.
[2021-04-25 16:57] LABS: Glucose,Whole Blood 120 mg/dL (75-99)
[2021-04-25 19:49] LABS: Glucose,Whole Blood 204 mg/dL (75-99)
[2021-04-26 06:16] LABS: Glucose,Whole Blood 117 mg/dL (75-99)
[2021-04-26] MEDS: INSULIN ASPART (NovoLOG) 100 UNIT/ML VIAL SQ SCH ×4 (06:26→21:33)
[2021-04-26 07:47] LABS: Basophils % (A) 0 %; Eosinophils # (A) 0.3 k/uL (0-0.7); Eosinophils % (A) 3 %; HCT 24.9 % (34.0-46.0); HGB 8.1 gm/dL (11.4-16.0); Lymphocytes # (A) 1.8 k/uL (1.0-4.8); Lymphocytes % (A) 18 %; MCH 25.8 pg (25.0-35.0); MCHC 32.5 g/dL (31.0-37.0); MCV 79.6 fL (80.0-100.0); Mean Platelet Volume 9.3; Monocytes # (A) 0.6 k/uL (0-1.0); Monocytes % (A) 6 %; Neutrophils # (A) 7.3 k/uL (1.3-7.7); Neutrophils % (A) 72 %; Platelet Count 122 k/uL (150-450); RBC 3.13 m/uL (3.80-5.40); RDW 15.2 % (11.5-15.5); WBC 10.3 k/uL (3.8-10.6)
[2021-04-26 08:21] LABS: Calcium 7.8 mg/dL (8.4-10.2); Magnesium 1.6 mg/dL (1.6-2.3); Potassium 3.9 mmol/L (3.5-5.1)
[2021-04-26] MEDS: ASPIRIN 81 MG PO SCH (08:23)
[2021-04-26] MEDS: METOPROLOL TARTRATE 50 MG TAB PO SCH ×2 (08:23→21:33)
[2021-04-26] MEDS: ENOXAPARIN 30 MG/0.3 ML SYRINGE SQ SCH (08:23)
[2021-04-26] MEDS: FUROSEMIDE 20 MG TAB PO SCH ×2 (08:23→15:24)
[2021-04-26] MEDS: levOCARNitine (WITH SUGAR) 100 MG/ML BOTTLE PO SCH ×2 (08:24→21:57)
[2021-04-26] MEDS: amLODIPine 5 MG TAB PO SCH ×2 (08:24→21:33)
[2021-04-26] MEDS: ACETAMINOPHEN TAB 325 MG TAB PO PRN (11:53)
--- NOTE | 2021-04-26 12:08 | XR ---
EXAMINATION TYPE: XR chest 1V portable DATE OF EXAM: 04/26/2021 COMPARISON: 04/24/2021 INDICATION: Short of breath TECHNIQUE: Single frontal view of the chest is obtained. FINDINGS: The heart size is mildly prominent. The pulmonary vasculature is mildly prominent. Bibasilar infiltrates are present. Small pleural effusions are present. IMPRESSION: 1. Clinical consideration for congestive heart failure is recommended. 2. Bibasilar infiltrates with adjacent small pleural effusions can be related to atelectasis.
[2021-04-26] MEDS: MAGNESIUM SULFATE-D5W PMX 1 GM in DEXTROSE/WATER 1 100ML.BAG IVPB SCH ×2 (12:12→13:49)
[2021-04-26] MEDS: ALPRAZolam 0.5 MG TAB PO PRN ×2 (12:17→21:33)
[2021-04-26 12:51] LABS: Glucose,Whole Blood 169 mg/dL (75-99)
[2021-04-26] MEDS ORDERED: FUROSEMIDE 10 MG/ML 10 ML VIAL IV STA (13:22)
--- NOTE | 2021-04-26 13:39 | P.PN ---
Subjective Progress Note Date: 04/26/21 Principal diagnosis: Acute renal failure Patient seen and examined lying in bed. States she has a little better today. States that she is making more urine output. Dialysis is being held off today. Awaiting recommendations per nephrology if patient will need tunneled dialysis catheter. Objective - Vital Signs Vital signs: Vital Signs Temp 98.4 F 04/26/21 08:25 Pulse 103 H 04/26/21 08:25 Resp 18 04/26/21 08:25 BP 161/83 04/26/21 08:25 Pulse Ox 100 04/26/21 08:25 Intake & Output 04/25/21 04/26/21 04/26/21 18:59 06:59 18:59 Intake Total 1710 Output Total 1415 Balance 295 Weight 59.3 kg Intake: IV 40 Sodium Chloride 0.9% 1, 40 000 ml @ 20 mls/hr IV . Q24H [facility] Rx#:[id number] Oral 1360 Blood Product 310 Rc As-1 Unit 310 [id number] Output: Urine 415 Hemodialysis 1000 Other: Voiding Method Indwelling Catheter Toilet # Voids 0 - Exam General appearance: The patient is alert, oriented, appears in no acute distress. HET: Head is normocephalic and atraumatic. Neck: Supple without lymphadenopathy. Trachea midline. Heart: S1 S2. Regular rate and rhythm. Lungs: Diminished. Abdomen: Soft, nontender, nondistended. Extremities: Normal skin color and turgor. No cyanosis, rash, ulceration, clubbing, or edema. Radial and pedal pulses are 2/4 bilaterally. Hemodialysis catheter intact and right groin. Neurological: No focal deficits. Strength and sensation are grossly intact. - Labs CBC & Chem 7: 04/26/21 06:57 04/26/21 06:57 Labs: Abnormal Lab Results - Last 24 Hours (Table) 04/25/21 04/25/21 04/25/21 Range/Units 11:47 13:25 16:56 RBC (3.80-5.40) m/uL Hgb (11.4-16.0) gm/dL Hct (34.0-46.0) % MCV (80.0-100.0) fL Plt Count (150-450) k/uL BUN (7-17) mg/dL Creatinine (0.52-1.04) mg/dL Glucose (74-99) mg/dL POC Glucose (mg/dL) 236 H 120 H (75-99) mg/dL Calcium (8.4-10.2) mg/dL Crossmatch See Detail 04/25/21 04/26/21 04/26/21 Range/Units 19:48 06:11 06:57 RBC 3.13 L (3.80-5.40) m/uL Hgb 8.1 L (11.4-16.0) gm/dL Hct 24.9 L (34.0-46.0) % MCV 79.6 L (80.0-100.0) fL Plt Count 122 L (150-450) k/uL BUN (7-17) mg/dL Creatinine (0.52-1.04) mg/dL Glucose (74-99) mg/dL POC Glucose (mg/dL) 204 H 117 H (75-99) mg/dL Calcium (8.4-10.2) mg/dL Crossmatch 04/26/21 Range/Units 06:57 RBC (3.80-5.40) m/uL Hgb (11.4-16.0) gm/dL Hct (34.0-46.0) % MCV (80.0-100.0) fL Plt Count (150-450) k/uL BUN 30 H (7-17) mg/dL Creatinine 6.38 H (0.52-1.04) mg/dL Glucose 117 H (74-99) mg/dL POC Glucose (mg/dL) (75-99) mg/dL Calcium 7.8 L (8.4-10.2) mg/dL Crossmatch Microbiology - Last 24 Hours (Table) 04/24/21 17:50 Urine Culture - Preliminary Urine,Voided Gram Neg Bacilli 04/24/21 12:07 Blood Culture - Preliminary Blood No Growth after 24 hours 04/24/21 07:47 Blood Culture - Preliminary Blood No Growth after 24 hours Assessment and Plan Assessment: 1. Acute on chronic Kidney Injury requiring hemodialysis Plan: 1. Continue hemodialysis per nephrology recommendations 2. Continue medical management per primary care team 3. Patient is tentatively scheduled for her tunneled dialysis catheter tomorrow if recommended per nephrology. 4. Please make nothing by mouth after midnight Thank you for this consultation. The impression and plan of care has been dictated as directed. Dr. Buckley I performed a history and examination of this patient, discussed the same with the dictator. I agree with the dictator's note ,documented as a scribe. Any additional findings or plans will be noted.
--- NOTE | 2021-04-26 14:42 | P.PN ---
Subjective This is a pleasant 50-year-old -[place] female past medical history significant for hypertension and kidney disease, she stopped all medical therapy approximately 2 years ago. She denies prior history of coronary artery disease and does not follow in the office with radiologist. We have been asked to see in consultation for heart failure and elevated troponin. Presented to the hospital with complaints of nausea, vomiting and diarrhea that has been going on for the previous 4-5 days. She then developed shortness of breath and palpitations over the previous 24-48 hours. On arrival to the emergency department EKG reveals sinus rhythm , left axis deviation, poor R-wave progression and nonspecific ST abnormalities. Initial chest x-ray revealed pulmonary edema pleural fluid. Blood pressure was 202/115. She was initiated on IV nitroglycerin infusion. She was having a significant headache and this was discontinued. She was started on IV cleviprex. Repeat chest x-ray showed improvement in Hilar and basal infiltrates. Laboratory data revealed troponin 0.093, 0.115, 0.141, 0.136, NT proBNP 99,400 and TSH 3.46. Echocardiogram obtained reveals mildly impaired LV systolic function with ejection fraction 45-50%, grade 1 diastolic dysfunction, severely dilated left atrium, mild aortic stenosis with a mean gradient of 9 mmHg, severe mitral regurgitation,, mild tricuspid regurgitation and mild pulmonary hypertension with an RVSP of 45 mmHg. 04/24- She underwent a TASNEEM yesterday revealing moderate central mitral regurgitation with no evidence of flail leaflet. She underwent dialysis and her breathing was improved initially and then seemed to decline at the evening went on. She had 1 L removed. 04/26/2021 Patient seen and examined sitting in bed. She states this morning she is not feeling well. Walking to the bathroom she is getting short of breath. She appears fatigued, short of breath, and states she does not feel well. Blood pressure 161/83, heart rate 103, afebrile, maintaining oxygen saturations on 2 L nasal cannula. Patient underwent dialysis yesterday with 1L removed. Laboratory data reviewed, WBC 10.3, hemoglobin 8.1, platelets 122, sodium 140, potassium 3.9, BUN 60, serum creatinine 6.3, magnesium 1.6. 24 hour urine output is 1.9L. She continues to maintain a negative fluid balance. She currently maintained on aspirin 81mg daily, amlodipine 5mg BID, metoprolol tartrate 50mg BID, Lasix by mouth 60 mg twice daily, hydralazine 25 mg twice a day PHYSICAL EXAMINATION CONSTITUTIONAL: Appears tired, fatigued and short of breath HEENT: Head is normocephalic. No JVD. No carotid bruit. CHEST EXAMINATION: Bilateral crackles in the bases. No rhonchi or wheezes. No chest wall tenderness is noted on palpation or with deep breathing. HEART EXAMINATION: Regular rate and rhythm. S1, S2 heard. Sytolic ejection murmur at the base, no gallops or rub. EXTREMITIES: 2+ peripheral pulses, no lower extremity edema and no calf tenderness. ASSESSMENT Acute systolic heart failure Moderate Mitral regurgitation Acute renal failure Troponin elevation secondary to renal function Anemia Diabetes mellitus Hypertension emergency Medical non-compliance PLAN We will obtain chest xray Start nitroglycerin drip at 5mcg/min No plans for cardiac catheterization at this time given appearance of mitral valve. Close monitoring of blood pressure and fluid status. Nephrology following appreciate recommendations Further recommendations to follow based on clinical course. Nurse Practitioner note has been reviewed, I agree with a documented findings and plan of care. Patient was seen and examined. Objective - Vital Signs Vital signs: Vital Signs Temp 98.6 F 04/25/21 04:00 Pulse 93 04/25/21 08:00 Resp 14 04/25/21 08:00 BP 150/89 04/25/21 08:00 Pulse Ox 100 04/25/21 08:00 Intake & Output 04/24/21 04/25/21 04/25/21 18:59 06:59 18:59 Intake Total 795 740 680 Output Total 1555 430 165 Balance -760 310 515 Weight 62.8 kg 59.7 kg Intake: IV 555 240 40 Sodium Chloride 0.9% 1, 455 240 40 000 ml @ 20 mls/hr IV . Q24H [facility] Rx#:[id number] Sodium Ferric Gluconat- 100 Sucrose 125 mg In Sodium Chloride 0.9% 100 ml @ 100 mls/hr IVPB DAILY [facility] Rx#:[id number] Oral 240 500 640 Output: Urine 555 430 165 Hemodialysis 1000 Other: Voiding Method Indwelling Catheter Indwelling Catheter Indwelling Catheter - Labs CBC & Chem 7: 04/26/21 06:57 04/26/21 06:57 Labs: Abnormal Lab Results - Last 24 Hours (Table) 07/04/24/21 04/24/21 Range/Units 12:05 16:57 17:50 RBC (3.80-5.40) m/uL Hgb (11.4-16.0) gm/dL Hct (34.0-46.0) % MCV (80.0-100.0) fL BUN (7-17) mg/dL Creatinine (0.52-1.04) mg/dL Glucose (74-99) mg/dL POC Glucose (mg/dL) 173 H (75-99) mg/dL Calcium (8.4-10.2) mg/dL Total Protein (6.3-8.2) g/dL Albumin (3.5-5.0) g/dL Vitamin D 25-Hydroxy 21.5 L (30.0-100.0) ng/mL Urine Protein 1+ H (Negative) Urine Glucose (UA) 1+ H (Negative) Urine Blood Small H (Negative) Ur Leukocyte Esterase Large H (Negative) Urine WBC 28 H (0-5) /hpf Urine Bacteria Rare H (None) /hpf Urine Mucus Rare H (None) /hpf 04/24/21 04/25/21 04/25/21 Range/Units 20:40 03:14 03:14 RBC 2.71 L (3.80-5.40) m/uL Hgb 7.0 L (11.4-16.0) gm/dL Hct 21.0 L (34.0-46.0) % MCV 77.3 L (80.0-100.0) fL BUN 51 H (7-17) mg/dL Creatinine 9.03 H* (0.52-1.04) mg/dL Glucose 135 H (74-99) mg/dL POC Glucose (mg/dL) 166 H (75-99) mg/dL Calcium 7.9 L (8.4-10.2) mg/dL Total Protein 5.9 L (6.3-8.2) g/dL Albumin 3.1 L (3.5-5.0) g/dL Vitamin D 25-Hydroxy (30.0-100.0) ng/mL Urine Protein (Negative) Urine Glucose (UA) (Negative) Urine Blood (Negative) Ur Leukocyte Esterase (Negative) Urine WBC (0-5) /hpf Urine Bacteria (None) /hpf Urine Mucus (None) /hpf 04/25/21 04/25/21 Range/Units 06:55 11:47 RBC (3.80-5.40) m/uL Hgb (11.4-16.0) gm/dL Hct (34.0-46.0) % MCV (80.0-100.0) fL BUN (7-17) mg/dL Creatinine (0.52-1.04) mg/dL Glucose (74-99) mg/dL POC Glucose (mg/dL) 124 H 236 H (75-99) mg/dL Calcium (8.4-10.2) mg/dL Total Protein (6.3-8.2) g/dL Albumin (3.5-5.0) g/dL Vitamin D 25-Hydroxy (30.0-100.0) ng/mL Urine Protein (Negative) Urine Glucose (UA) (Negative) Urine Blood (Negative) Ur Leukocyte Esterase (Negative) Urine WBC (0-5) /hpf Urine Bacteria (None) /hpf Urine Mucus (None) /hpf Microbiology - Last 24 Hours (Table) 04/24/21 07:47 Blood Culture - Preliminary Blood No Growth after 24 hours 04/24/21 17:50 Urine Culture - Preliminary Urine,Voided
--- NOTE | 2021-04-26 14:54 | US ---
EXAMINATION TYPE: US chest DATE OF EXAM: 04/26/2021 COMPARISON: NONE CLINICAL HISTORY: amina pleural effusion. SOB TECHNIQUE: Targeted ultrasound of the posterior lower bilateral hemithoraces EXAM MEASUREMENTS: Right Pleural Effusion pocket size: 8.7 cm Right skin surface to fluid distance: 2.2 cm Lung tissue visualized in fluid pocket at 1.2 cm. Left Pleural Effusion pocket size: 8.6 cm Left skin surface to fluid distance: 2.5 cm Lung tissue visualized at 1 cm in fluid pocket. Right side marked for possible thoracentesis outside the dept. Pulmonologists are able to review the images in the patient?s EMR. IMPRESSIONS: 1. Bilateral pleural effusions
--- NOTE | 2021-04-26 14:55 | P.PN ---
Subjective Progress Note Date: 04/26/21 Principal diagnosis: shortness of breath On 04/25/2021 patient seen in follow-up in the intensive care unit. She is awake and alert, oriented 3, she is currently resting comfortably in bed, she is on 2 L of oxygen the pulse ox of 98-100%. Is breathing comfortably, no complaints of chest pain, she is in sinus mechanism still slightly tachycardic at a rate of 102 BPM, cardiology is following and has increased her metoprolol 50 mg twice daily. She is currently not on any drips. Pressure control medications include metoprolol 50 mg twice daily as mentioned above, Norvasc 10 mg daily, she is also on Lasix at 60 mg twice daily, and she is producing urine in the order of 25 ML per hour, she did have hemodialysis session again yesterday with removal of 1 L of fluid. She is in -450 ML net fluid balance over the last 24 hours. Yesterday chest x-ray showed improving lateral lower lobe infiltrates. Transesophageal echocardiogram showed no significant aortic stenosis or regurgitation, mitral valve appeared normal with moderate central mitral regurgitation, there was no flail leaflet or prolapse, there was a blunting of the pulmonary vein however no systolic flow reversal. Tricuspid valve was normal. No evidence of PFO, left atrial appendage was free of clot. Left ventricular systolic function was low-normal at 50%. Absolute been reviewed, white blood cell count is 6.3, hemoglobin is 7.0, and patient received iron supplementation with IV Iron. Electrolytes were within normal limits, renal function is improving, BUN is 51, creatinine is 9.03. There are acute events overnight, no nausea or vomiting, patient is tolerating oral diet. On 04/26/2021 patient seen in follow-up on selective care unit, patient is awake and alert, in no acute distress, she is oriented 3, she is on room air, pulse ox is 96 -100%, afebrile, patient does have episodes of shortness of breath, no chest discomfort. He had a hemodialysis treatment yesterday with removal of 1 L of fluid. She remains on Lasix 60 mg twice daily, she received an additional dose of Lasix this afternoon for an episode of increased shortness of breath. Her chest x-ray today shows bibasilar infiltrates with bilateral small pleural effusions and adjacent atelectasis. Net fluid balance is difficult to estimate however her weight is down by 0.4 kg in the last 24 hours. Cardiology is following, her blood pressure is stable, however patient is being started on nitroglycerin infusion for blood pressure control in addition to her oral medications. She is currently on hydralazine 25 mg twice daily, metoprolol 50 mg twice daily Objective - Vital Signs Vital signs: Vital Signs Temp 98.6 F 04/26/21 11:45 Pulse 89 04/26/21 11:45 Resp 16 04/26/21 11:45 BP 154/91 04/26/21 11:45 Pulse Ox 96 04/26/21 11:45 Intake & Output 04/25/21 04/26/21 04/26/21 18:59 06:59 18:59 Intake Total 1710 798 Output Total 1415 Balance 295 798 Weight 59.3 kg Intake: IV 40 Sodium Chloride 0.9% 1, 40 000 ml @ 20 mls/hr IV . Q24H [facility] Rx#:[id number] Intake, IV Titration 200 Amount Magnesium Sulfate-D5w Pmx 100 1 gm In Dextrose/Water 1 100ml.bag @ 100 mls/hr IVPB Q1H [facility] Rx#: [id number] cefTRIAXone 1 gm In 100 Sodium Chloride 0.9% 50 ml @ 100 mls/hr IVPB Q24HR [facility] Rx#:[id number] Oral 1360 598 Blood Product 310 Rc As-1 Unit 310 [id number] Output: Urine 415 Hemodialysis 1000 Other: Voiding Method Indwelling Catheter Toilet Toilet # Voids 0 3 - Exam GENERAL EXAM: Alert, 3 pleasant, 50-year-old -English female, on room air with pulse ox of 96-100% comfortable in no apparent distress. HEAD: Normocephalic/atraumatic. EYES: Normal reaction of pupils, equal size. Conjunctiva pink, sclera white. NOSE: Clear with pink turbinates. THROAT: No erythema or exudates. NECK: No masses, no JVD, no thyroid enlargement, no adenopathy. CHEST: No chest wall deformity. Symmetrical expansion. LUNGS: Equal air entry with diffuse crackles CVS: Regular rate and rhythm, normal S1 and S2, no gallops, no murmurs, no rubs ABDOMEN: Soft, nontender. No hepatosplenomegaly, normal bowel sounds, no guarding or rigidity. EXTREMITIES: No clubbing, no edema, no cyanosis, 2+ pulses and upper and lower extremities. MUSCULOSKELETAL: Muscle strength and tone normal. SPINE: No scoliosis or deformity SKIN: No rashes CENTRAL NERVOUS SYSTEM: Alert and oriented -3. No focal deficits, tone is normal in all 4 extremities. PSYCHIATRIC: Alert and oriented -3. Appropriate affect. Intact judgment and insight. - Labs CBC & Chem 7: 04/26/21 06:57 04/26/21 06:57 Labs: Abnormal Lab Results - Last 24 Hours (Table) 04/25/21 04/25/21 04/25/21 Range/Units 13:25 16:56 19:48 RBC (3.80-5.40) m/uL Hgb (11.4-16.0) gm/dL Hct (34.0-46.0) % MCV (80.0-100.0) fL Plt Count (150-450) k/uL BUN (7-17) mg/dL Creatinine (0.52-1.04) mg/dL Glucose (74-99) mg/dL POC Glucose (mg/dL) 120 H 204 H (75-99) mg/dL Calcium (8.4-10.2) mg/dL Crossmatch See Detail 04/26/21 04/26/21 04/26/21 Range/Units 06:11 06:57 06:57 RBC 3.13 L (3.80-5.40) m/uL Hgb 8.1 L (11.4-16.0) gm/dL Hct 24.9 L (34.0-46.0) % MCV 79.6 L (80.0-100.0) fL Plt Count 122 L (150-450) k/uL BUN 30 H (7-17) mg/dL Creatinine 6.38 H (0.52-1.04) mg/dL Glucose 117 H (74-99) mg/dL POC Glucose (mg/dL) 117 H (75-99) mg/dL Calcium 7.8 L (8.4-10.2) mg/dL Crossmatch 04/26/21 Range/Units 12:23 RBC (3.80-5.40) m/uL Hgb (11.4-16.0) gm/dL Hct (34.0-46.0) % MCV (80.0-100.0) fL Plt Count (150-450) k/uL BUN (7-17) mg/dL Creatinine (0.52-1.04) mg/dL Glucose (74-99) mg/dL POC Glucose (mg/dL) 169 H (75-99) mg/dL Calcium (8.4-10.2) mg/dL Crossmatch Microbiology - Last 24 Hours (Table) 04/24/21 12:07 Blood Culture - Preliminary Blood No Growth after 48 hours 04/24/21 07:47 Blood Culture - Preliminary Blood No Growth after 48 hours 04/24/21 17:50 Urine Culture - Preliminary Urine,Voided Gram Neg Bacilli Assessment and Plan Plan: assessment: #1. Acute hypoxic respiratory failure related to pulmonary edema with bilateral pleural effusions. TASNEEM showed central mitral regurgitation, which was improved from the previous echocardiogram. There was no evidence of vegetation, no flail leaflet or prolapse on the transesophageal echocardiogram from 04/24/2021. EF was low normal at 50% #2. Acute on chronic kidney disease, requiring hemodialysis #3. Hypertensive emergency, patient was on [place] proximal infusion, currently on metoprolol, Norvasc and IV Lasix #4. Troponin leak/non-ST segment elevated myocardial infarction #5. Chronic kidney disease, with a baseline GFR of 14 #6. History of hypertension #7. Chronic anemia, hemoglobin is 7.1 with a microcytosis related to iron deficiency anemia #8. 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 Family history of premature coronary artery disease Plan: Continue diuretics Today's chest x-ray has been reviewed showing bilateral small pleural effusions and atelectasis Hemodialysis per nephrology Blood pressure medications per cardiology Vital signs have been stable She is on minimal supplemental oxygen Accurate weight, accurate intake and output Chest x-ray in the morning and follow-up labs Yesterday's chest x-ray showed improving pulmonary infiltrates I performed a history & physical examination of the patient and discussed their management with my nurse practitioner, Marley Guerra. I reviewed the nurse practitioner's note and agree with the documented findings and plan of care. Lung sounds are positive for diffuse crackles throughout the lung aguilar. The findings and the impression was discussed with the patient. I attest to the documentation by the nurse practitioner. Time with Patient: Less than 30
[2021-04-26] MEDS: hydrALAZINE HCL 25 MG TAB PO SCH ×2 (15:24→21:33)
[2021-04-26 15:30] LABS: Appearance,Urine Cloudy (Clear); Bacteria,Urine Rare /hpf; Bilirubin,Urine Negative (Negative); Blood,Urine Large (Negative); Budding Yeast,Urine Occasional /hpf; Color,Urine Light Yellow; Glucose,Urine (UA) 2+ (Negative); Ketones,Urine Negative (Negative); Leukocyte Esterase,Urine Large (Negative); Nitrite,Urine Negative (Negative); PH, Urine 7.5 (5.0-8.0); Protein,Urine 2+ (Negative); RBC,Urine 56 /hpf (0-5); Specific Gravity,Urine 1.008 (1.001-1.035); Squamous Epithelial Cell,Urine 1 /hpf (0-4); Urobilinogen,Urine <2.0 mg/dL (<2.0); WBC,Urine >182 /hpf (0-5)
[2021-04-26] MEDS: NITROGLYCERIN-D5W PMX 50 MG in DEXTROSE/WATER 1 250ML.BAG IV SCH (15:39)
[2021-04-26 16:46] LABS: Glucose,Whole Blood 110 mg/dL (75-99)
--- NOTE | 2021-04-26 16:55 | PN ---
PROGRESS NOTE Patient is seen for followup for chronic kidney disease and possible component of acute kidney injury. The patient was admitted to the hospital with hypertensive emergency and uremia. She has had 2 treatments of dialysis. The patient was transferred out of the ICU yesterday. This morning she states that she was feeling slightly short of breath. She denied any chest pain. No abdominal pain, nausea, vomiting. Patient continues to void. EXAMINATION: This morning when patient was seen earlier today, blood pressure was 161/83, heart rate of 100 per minute. She is afebrile. Examination of the heart S1, S2. Examination of lungs, decreased breath sounds at the bases. Basal crackles are heard. Abdomen is soft, nontender. Examination of lower extremities shows no significant edema. [employer]LE INSPECTOR exam grossly intact. LABS: From today show hemoglobin 8.1, sodium 140, potassium 3.9, serum creatinine 6.38. ASSESSMENT: 1. Chronic kidney disease with a component of acute kidney injury, status post hemodialysis. The patient has had 3 treatments. Overall, she states she is feeling better, but between yesterday and today she is complaining of mild shortness of breath which was not there yesterday. Her blood pressure has been running slightly on the higher side as well. Plan is to dialyze the patient tomorrow. 2. Volume overload and hypertensive emergency, currently transferred out of the ICU. Patient was on Cleviprex drip. Blood pressure is on the higher side. I will add hydralazine. Continue with the beta blockers and calcium channel blockers. Dialysis and ultrafiltration will help as well. The patient will be dialyzed in a.m. 3. Severe mitral regurgitation with no plans for further intervention. 4. Chronic kidney disease, mineral bone disorder. 5. Iron deficiency maintained on IV iron. PLAN: Add hydralazine. Change Lasix to IV. Check chest x-ray from this morning. The patient is currently not in acute distress. We will arrange for hemodialysis in a.m. unless her respiratory status changes later on today. MMODL / IJN: [id number] /
[2021-04-26 21:15] LABS: Glucose,Whole Blood 185 mg/dL (75-99)
[2021-04-27] MEDS: ALPRAZolam 0.5 MG TAB PO PRN ×3 (03:06→20:26)
[2021-04-27 04:06] LABS: Basophils % (A) 0 %; Eosinophils # (A) 0.5 k/uL (0-0.7); Eosinophils % (A) 4 %; HCT 24.9 % (34.0-46.0); HGB 8.4 gm/dL (11.4-16.0); Lymphocytes % (A) 18 %; MCHC 33.8 g/dL (31.0-37.0); Mean Platelet Volume 9.4; Monocytes # (A) 0.5 k/uL (0-1.0); Monocytes % (A) 4 %; Neutrophils # (A) 8.2 k/uL (1.3-7.7); Neutrophils % (A) 72 %; Platelet Count 141 k/uL (150-450); RBC 3.11 m/uL (3.80-5.40); RDW 15.4 % (11.5-15.5); WBC 11.3 k/uL (3.8-10.6)
[2021-04-27 04:22] LABS: Albumin 3.3 g/dL (3.5-5.0); Calcium 7.9 mg/dL (8.4-10.2); Potassium 4.2 mmol/L (3.5-5.1); Total Bilirubin 0.3 mg/dL (0.2-1.3); Total Protein 6.1 g/dL (6.3-8.2)
--- NOTE | 2021-04-27 07:57 | P.PN ---
Subjective This is a pleasant 50-year-old -[place] female past medical history significant for hypertension and kidney disease, she stopped all medical therapy approximately 2 years ago. She denies prior history of coronary artery disease and does not follow in the office with radiologist. We have been asked to see in consultation for heart failure and elevated troponin. Presented to the hospital with complaints of nausea, vomiting and diarrhea that has been going on for the previous 4-5 days. She then developed shortness of breath and palpitations over the previous 24-48 hours. On arrival to the emergency department EKG reveals sinus rhythm , left axis deviation, poor R-wave progression and nonspecific ST abnormalities. Initial chest x-ray revealed pulmonary edema pleural fluid. Blood pressure was 202/115. She was initiated on IV nitroglycerin infusion. She was having a significant headache and this was discontinued. She was started on IV cleviprex. Repeat chest x-ray showed improvement in Hilar and basal infiltrates. Laboratory data revealed troponin 0.093, 0.115, 0.141, 0.136, NT proBNP 99,400 and TSH 3.46. Echocardiogram obtained reveals mildly impaired LV systolic function with ejection fraction 45-50%, grade 1 diastolic dysfunction, severely dilated left atrium, mild aortic stenosis with a mean gradient of 9 mmHg, severe mitral regurgitation,, mild tricuspid regurgitation and mild pulmonary hypertension with an RVSP of 45 mmHg. 04/24- She underwent a TASNEEM yesterday revealing moderate central mitral regurgitation with no evidence of flail leaflet. She underwent dialysis and her breathing was improved initially and then seemed to decline at the evening went on. She had 1 L removed. 04/26/2021 Patient seen and examined sitting in bed. She states this morning she is not feeling well. Walking to the bathroom she is getting short of breath. She appears fatigued, short of breath, and states she does not feel well. Blood pressure 161/83, heart rate 103, afebrile, maintaining oxygen saturations on 2 L nasal cannula. Patient underwent dialysis yesterday with 1L removed. Laboratory data reviewed, WBC 10.3, hemoglobin 8.1, platelets 122, sodium 140, potassium 3.9, BUN 60, serum creatinine 6.3, magnesium 1.6. 24 hour urine output is 1.9L. She continues to maintain a negative fluid balance. She currently maintained on aspirin 81mg daily, amlodipine 5mg BID, metoprolol tartrate 50mg BID, Lasix by mouth 60 mg twice daily, hydralazine 25 mg twice a day 04/27 Patient transferred to ICU secondary to increased respiratory rate, increased work of breathing yesterday afternoon. She was placed on nitro drip at 35 and admits she felt better after this. CXray consistent with CHF. BP's are better since nitro drip. Amlodipine was added yesterday. She denies any chest pain or pressure. PHYSICAL EXAMINATION CONSTITUTIONAL: No acute distress HEENT: Head is normocephalic. No JVD. No carotid bruit. CHEST EXAMINATION: Bilateral crackles in the bases. No rhonchi or wheezes. No chest wall tenderness is noted on palpation or with deep breathing. HEART EXAMINATION: Regular rate and rhythm. S1, S2 heard. Sytolic ejection murmur at the base, no gallops or rub. EXTREMITIES: 2+ peripheral pulses, no lower extremity edema and no calf tenderness. ASSESSMENT Acute on chronic diastolic heart failure, EF 50%, mainly exacerbated by ARF Moderate Mitral regurgitation, initial concern of flail however only functional MR, likely related to volume overload, no flail Acute renal failure, s/p HD Troponin elevation secondary to renal function Anemia Diabetes mellitus Hypertension emergency Medical non-compliance PLAN Patient appears much better than yesterday. Chest x-ray showed continued vascular congestion and suspect some component of increased pulmonary edema related to increased blood pressure, volume overload yesterday. We will increase hydralazine and hopefully after dialysis blood pressure will be better controlled. Continue nitroglycerin drip until after dialysis and likely if respiratory status stable patient may again be transferred from the ICU. Objective - Vital Signs Vital signs: Vital Signs Temp 98 F 04/27/21 00:00 Pulse 96 04/27/21 07:00 Resp 12 04/27/21 07:00 BP 138/86 04/27/21 07:00 Pulse Ox 94 L 04/27/21 07:00 Intake & Output 04/26/21 04/27/21 04/27/21 18:59 06:59 18:59 Intake Total 809.850 80 Output Total 300 Balance 809.850 -220 Weight 64.436 kg Intake: Intake, IV Titration 211.850 Amount Magnesium Sulfate-D5w Pmx 100 1 gm In Dextrose/Water 1 100ml.bag @ 100 mls/hr IVPB Q1H [facility] Rx#: [id number] Nitroglycerin-D5w Pmx 50 11.850 mg In Dextrose/Water 1 250ml.bag @ 5 MCG/MIN 1.5 mls/hr IV .Q24H [facility] Rx#: [id number] cefTRIAXone 1 gm In 100 Sodium Chloride 0.9% 50 ml @ 100 mls/hr IVPB Q24HR [facility] Rx#:[id number] Oral 598 80 Output: Urine 300 Other: Voiding Method Toilet Toilet # Voids 3 1 # Bowel Movements 1 - Labs CBC & Chem 7: 04/27/21 03:36 04/27/21 03:36 Labs: Abnormal Lab Results - Last 24 Hours (Table) 04/26/21 04/26/21 04/26/21 Range/Units 06:57 12:23 14:35 WBC (3.8-10.6) k/uL RBC (3.80-5.40) m/uL Hgb (11.4-16.0) gm/dL Hct (34.0-46.0) % Plt Count (150-450) k/uL Neutrophils # (1.3-7.7) k/uL Sodium (137-145) mmol/L BUN 30 H (7-17) mg/dL Creatinine 6.38 H (0.52-1.04) mg/dL Glucose 117 H (74-99) mg/dL POC Glucose (mg/dL) 169 H (75-99) mg/dL Calcium 7.8 L (8.4-10.2) mg/dL Total Protein (6.3-8.2) g/dL Albumin (3.5-5.0) g/dL Urine Appearance Cloudy H (Clear) Urine Protein 2+ H (Negative) Urine Glucose (UA) 2+ H (Negative) Urine Blood Large H (Negative) Ur Leukocyte Esterase Large H (Negative) Urine RBC 56 H (0-5) /hpf Urine WBC >182 H (0-5) /hpf Urine WBC Clumps Moderate H (None) /hpf Urine Bacteria Rare H (None) /hpf Urine Yeast (Budding) Occasional H (None) /hpf 04/26/21 04/26/21 04/27/21 Range/Units 16:44 21:14 03:36 WBC 11.3 H (3.8-10.6) k/uL RBC 3.11 L (3.80-5.40) m/uL Hgb 8.4 L (11.4-16.0) gm/dL Hct 24.9 L (34.0-46.0) % Plt Count 141 L (150-450) k/uL Neutrophils # 8.2 H (1.3-7.7) k/uL Sodium (137-145) mmol/L BUN (7-17) mg/dL Creatinine (0.52-1.04) mg/dL Glucose (74-99) mg/dL POC Glucose (mg/dL) 110 H 185 H (75-99) mg/dL Calcium (8.4-10.2) mg/dL Total Protein (6.3-8.2) g/dL Albumin (3.5-5.0) g/dL Urine Appearance (Clear) Urine Protein (Negative) Urine Glucose (UA) (Negative) Urine Blood (Negative) Ur Leukocyte Esterase (Negative) Urine RBC (0-5) /hpf Urine WBC (0-5) /hpf Urine WBC Clumps (None) /hpf Urine Bacteria (None) /hpf Urine Yeast (Budding) (None) /hpf 04/27/21 Range/Units 03:36 WBC (3.8-10.6) k/uL RBC (3.80-5.40) m/uL Hgb (11.4-16.0) gm/dL Hct (34.0-46.0) % Plt Count (150-450) k/uL Neutrophils # (1.3-7.7) k/uL Sodium 136 L (137-145) mmol/L BUN 36 H (7-17) mg/dL Creatinine 7.61 H* (0.52-1.04) mg/dL Glucose 120 H (74-99) mg/dL POC Glucose (mg/dL) (75-99) mg/dL Calcium 7.9 L (8.4-10.2) mg/dL Total Protein 6.1 L (6.3-8.2) g/dL Albumin 3.3 L (3.5-5.0) g/dL Urine Appearance (Clear) Urine Protein (Negative) Urine Glucose (UA) (Negative) Urine Blood (Negative) Ur Leukocyte Esterase (Negative) Urine RBC (0-5) /hpf Urine WBC (0-5) /hpf Urine WBC Clumps (None) /hpf Urine Bacteria (None) /hpf Urine Yeast (Budding) (None) /hpf Microbiology - Last 24 Hours (Table) 04/26/21 14:35 Urine Culture - Preliminary Urine,Clean Catch 04/24/21 12:07 Blood Culture - Preliminary Blood No Growth after 48 hours 04/24/21 07:47 Blood Culture - Preliminary Blood No Growth after 48 hours
--- NOTE | 2021-04-27 08:30 | XR ---
EXAMINATION TYPE: XR chest 1V portable DATE OF EXAM: 04/27/2021 Comparison: 04/26/2021 Clinical History: 50-year-old female shortness of breath, CHF Findings: The heart margins remain obscured by adjacent pleural parenchymal opacity. Increased, now moderate le ft and continued small right effusions with adjacent bibasilar opacities. Interstitial prominence per sists. Impression: 1. Increased, now moderate left and continued small right pleural effusions with prominent adjacent a telectasis and/or consolidation. 2. Continued interstitial prominence could reflect pulmonary vascular congestion.
[2021-04-27 08:39] LABS: Glucose,Whole Blood 169 mg/dL (75-99)
--- NOTE | 2021-04-27 09:15 | P.PN ---
Subjective Progress Note Date: 04/27/21 On 04/25/2021 patient seen in follow-up in the intensive care unit. She is awake and alert, oriented 3, she is currently resting comfortably in bed, she is on 2 L of oxygen the pulse ox of 98-100%. Is breathing comfortably, no complaints of chest pain, she is in sinus mechanism still slightly tachycardic at a rate of 102 BPM, cardiology is following and has increased her metoprolol 50 mg twice daily. She is currently not on any drips. Pressure control medications include metoprolol 50 mg twice daily as mentioned above, Norvasc 10 mg daily, she is also on Lasix at 60 mg twice daily, and she is producing urine in the order of 25 ML per hour, she did have hemodialysis session again yesterday with removal of 1 L of fluid. She is in -450 ML net fluid balance over the last 24 hours. Yesterday chest x-ray showed improving lateral lower lobe infiltrates. Transesophageal echocardiogram showed no significant aortic stenosis or regurgitation, mitral valve appeared normal with moderate central mitral regurgitation, there was no flail leaflet or prolapse, there was a blunting of the pulmonary vein however no systolic flow reversal. Tricuspid valve was normal. No evidence of PFO, left atrial appendage was free of clot. Left ventricular systolic function was low-normal at 50%. Absolute been reviewed, white blood cell count is 6.3, hemoglobin is 7.0, and patient received iron supplementation with IV Iron. Electrolytes were within normal limits, renal function is improving, BUN is 51, creatinine is 9.03. There are acute events overnight, no nausea or vomiting, patient is tolerating oral diet. On 04/26/2021 patient seen in follow-up on selective care unit, patient is awake and alert, in no acute distress, she is oriented 3, she is on room air, pulse ox is 96 -100%, afebrile, patient does have episodes of shortness of breath, no chest discomfort. He had a hemodialysis treatment yesterday with removal of 1 L of fluid. She remains on Lasix 60 mg twice daily, she received an additional dose of Lasix this afternoon for an episode of increased shortness of breath. Her chest x-ray today shows bibasilar infiltrates with bilateral small pleural effusions and adjacent atelectasis. Net fluid balance is difficult to estimate however her weight is down by 0.4 kg in the last 24 hours. Cardiology is following, her blood pressure is stable, however patient is being started on nitroglycerin infusion for blood pressure control in addition to her oral medications. She is currently on hydralazine 25 mg twice daily, metoprolol 50 mg twice daily ,, the patient is being seen for a follow-up. The patient was transferred back to the intensive care unit for blood pressure control mode patient was placed on a nitroglycerin drip which is currently running at 30 mcg/m. Most recent systolic blood pressure is 176 with a diastolic blood pressure of 80. She is undergoing hemodialysis. Goal of ultrafiltration is around 2.8 L. She has dialysis catheter in the right femoral vein. He is also making urine. She still short of breath. She is on oxygen at 4 L. The chest x-ray was showing bilateral pleural effusion and ultrasound the chest was done and showed 8.6 cm pocket in the lungs bilaterally. As such, she may benefit from thoracentesis that may be done post dialysis. Hemodynamically stable. No nausea. No vomiting. No diarrhea. No abdominal pain. Remains on hydralazine 25 mg by mouth twice a day metoprolol 50 mg by mouth twice a day. She is also on IV Rocephin for a gram-negative bacteria that symptoms are urine. No other significant events otherwise for now. Objective - Vital Signs Vital signs: Vital Signs Temp 98 F 04/27/21 00:00 Pulse 96 04/27/21 07:00 Resp 12 04/27/21 07:00 BP 138/86 04/27/21 07:00 Pulse Ox 94 L 04/27/21 07:00 Intake & Output 04/26/21 04/27/21 04/27/21 18:59 06:59 18:59 Intake Total 809.850 80 81.2 Output Total 300 Balance 809.850 -220 81.2 Weight 64.436 kg Intake: Intake, IV Titration 211.850 81.2 Amount Magnesium Sulfate-D5w Pmx 100 1 gm In Dextrose/Water 1 100ml.bag @ 100 mls/hr IVPB Q1H [facility] Rx#: [id number] Nitroglycerin-D5w Pmx 50 11.850 81.2 mg In Dextrose/Water 1 250ml.bag @ 5 MCG/MIN 1.5 mls/hr IV .Q24H [facility] Rx#: [id number] cefTRIAXone 1 gm In 100 Sodium Chloride 0.9% 50 ml @ 100 mls/hr IVPB Q24HR [facility] Rx#:[id number] Oral 598 80 Output: Urine 300 Other: Voiding Method Toilet Toilet # Voids 3 1 # Bowel Movements 1 - Exam Gen. appearance the patient is calm and comfortable, currently on 4 L of oxygen by nasal cannula Head exam was generally normal. There was no scleral icterus or corneal arcus. M ucous membranes were moist. Neck was supple and without jugular venous distension, thyromegaly, or carotid bruits. Carotids were easily palpable bilaterally. There was no adenopathy. Lungs sounds are diminished and the patient has crackles and diminished breath on lung bases bilaterally Heart sounds there is accentuation of second heart sound without any significant murmurs appreciated. [place] is shifted to the left Abdominal exam revealed normal bowel sounds. The abdomen was soft, non-tender, and without masses, organomegaly, or appreciable enlargement of the abdominal aorta. Examination of the extremities revealed easily palpable radial, femoral and pedal pulses. There was no cyanosis, clubbing or edema. Examination of the skin revealed no evidence of significant rashes, suspicious appearing nevi or other concerning lesions. Neurologically, the patient is awake and alert and the patient does not have any focal neurological deficit. Cranial nerves are essentially intact. - Labs CBC & Chem 7: 04/27/21 03:36 04/27/21 03:36 Labs: Abnormal Lab Results - Last 24 Hours (Table) 04/26/21 04/26/21 04/26/21 Range/Units 12:23 14:35 16:44 WBC (3.8-10.6) k/uL RBC (3.80-5.40) m/uL Hgb (11.4-16.0) gm/dL Hct (34.0-46.0) % Plt Count (150-450) k/uL Neutrophils # (1.3-7.7) k/uL Sodium (137-145) mmol/L BUN (7-17) mg/dL Creatinine (0.52-1.04) mg/dL Glucose (74-99) mg/dL POC Glucose (mg/dL) 169 H 110 H (75-99) mg/dL Calcium (8.4-10.2) mg/dL Total Protein (6.3-8.2) g/dL Albumin (3.5-5.0) g/dL Urine Appearance Cloudy H (Clear) Urine Protein 2+ H (Negative) Urine Glucose (UA) 2+ H (Negative) Urine Blood Large H (Negative) Ur Leukocyte Esterase Large H (Negative) Urine RBC 56 H (0-5) /hpf Urine WBC >182 H (0-5) /hpf Urine WBC Clumps Moderate H (None) /hpf Urine Bacteria Rare H (None) /hpf Urine Yeast (Budding) Occasional H (None) /hpf 04/26/21 04/27/21 04/27/21 Range/Units 21:14 03:36 03:36 WBC 11.3 H (3.8-10.6) k/uL RBC 3.11 L (3.80-5.40) m/uL Hgb 8.4 L (11.4-16.0) gm/dL Hct 24.9 L (34.0-46.0) % Plt Count 141 L (150-450) k/uL Neutrophils # 8.2 H (1.3-7.7) k/uL Sodium 136 L (137-145) mmol/L BUN 36 H (7-17) mg/dL Creatinine 7.61 H* (0.52-1.04) mg/dL Glucose 120 H (74-99) mg/dL POC Glucose (mg/dL) 185 H (75-99) mg/dL Calcium 7.9 L (8.4-10.2) mg/dL Total Protein 6.1 L (6.3-8.2) g/dL Albumin 3.3 L (3.5-5.0) g/dL Urine Appearance (Clear) Urine Protein (Negative) Urine Glucose (UA) (Negative) Urine Blood (Negative) Ur Leukocyte Esterase (Negative) Urine RBC (0-5) /hpf Urine WBC (0-5) /hpf Urine WBC Clumps (None) /hpf Urine Bacteria (None) /hpf Urine Yeast (Budding) (None) /hpf 04/27/21 Range/Units 08:37 WBC (3.8-10.6) k/uL RBC (3.80-5.40) m/uL Hgb (11.4-16.0) gm/dL Hct (34.0-46.0) % Plt Count (150-450) k/uL Neutrophils # (1.3-7.7) k/uL Sodium (137-145) mmol/L BUN (7-17) mg/dL Creatinine (0.52-1.04) mg/dL Glucose (74-99) mg/dL POC Glucose (mg/dL) 169 H (75-99) mg/dL Calcium (8.4-10.2) mg/dL Total Protein (6.3-8.2) g/dL Albumin (3.5-5.0) g/dL Urine Appearance (Clear) Urine Protein (Negative) Urine Glucose (UA) (Negative) Urine Blood (Negative) Ur Leukocyte Esterase (Negative) Urine RBC (0-5) /hpf Urine WBC (0-5) /hpf Urine WBC Clumps (None) /hpf Urine Bacteria (None) /hpf Urine Yeast (Budding) (None) /hpf Microbiology - Last 24 Hours (Table) 04/26/21 14:35 Urine Culture - Preliminary Urine,Clean Catch 04/24/21 12:07 Blood Culture - Preliminary Blood No Growth after 48 hours 04/24/21 07:47 Blood Culture - Preliminary Blood No Growth after 48 hours Assessment and Plan Plan: 1 acute hypoxic respiratory failure secondary to pulmonary edema with bilateral pleural effusion. Consider chronic systolic heart failure versus hypertensive heart disease/diastolic failure. Cardiac exam showed an ejection fraction of 40-45%. Has valvular heart disease with mitral regurgitation. Further investigation with the TASNEEM showed the mitral valve appeared to be normal. There was moderate central mitral regurgitation and there was no flail leaflet or prolapse identified on the TASNEEM. 2 acute on chronic kidney injury. According to the patient she has chronic kidney disease with a GFR of 14. The patient is undergoing hemodialysis. Patient is undergoing dialysis and she has already done 2 sessions of hemodi alysis with 1 L of ultrafiltration and the patient is going to have her third hemodialysis today with a goal of 2.8 L of fluid ultrafiltration 3 acute hypertensive emergency, currently on nitroglycerin drip. The patient is also on metoprolol 50 mg twice a day and hydralazine 25 mg by mouth twice a day and Norvasc 5 mg by mouth twice a day. The patient is also on Lasix 60 mg by mouth twice a day. Blood pressure was controlled for now. 4 acute troponin leak/non-ST segment elevation myocardial infarction. EKG showing sinus tachycardia with LVH 5 history of hypertension 6 chronic anemia, with microcytosis and iron deficiency received iron, received Aranesp, hemoglobin is at 8.4 7 valvular heart disease with moderate degree of mitral regurgitation 8 gram-negative bacillus in the urine currently on IV Rocephin Plan Hemodialysis today Continue po Lasix Echocardiogram/TASNEEM was noted metoprolol 50 mg by mouth twice a day, and Norvasc 5 mg by mouth twice a day, and hydralazine 25 mg by mouth twice a day ASA 81 milligram by mouth daily Check a lipid profile, LDL level is at 113 Ceftriaxone for gram-negative bacillus in the urine Possible thoracentesis today as the patient has 8.6 cm pocket in the lungs bilaterally We'll continue to follow
[2021-04-27] MEDS: INSULIN ASPART (NovoLOG) 100 UNIT/ML VIAL SQ SCH ×4 (10:23→20:27)
--- NOTE | 2021-04-27 10:27 | P.PN ---
Subjective Progress Note Date: 04/24/21 Principal diagnosis: Acute kidney injury requiring hemodialysis Patient is a 50-year-old female with a known history of hypertension, chronic kidney disease currently not on follow-up and not take any medications presents to ER with complaints of nausea vomiting and diarrhea for the past 1 week. She is also complaining of shortness of breath on admission which has been getting worse for the past 2 days. Shortness of breath is with chest tightness. No prior history of coronary disease. No complaints of fever or chills. Denies any severe abdominal pain. Also developed orthopnea and minimal swelling of the legs. Episodes of lightheadedness. Patient is not taking any medications at home currently. Chest x-ray showed changes consistent with CHF with pulmonary edema and pleural fluid. EKG showed sinus tachycardia with possible left atrial enlargement. Repeat chest x-ray this morning after diuresis seems improved. Laboratory data showed WBC 9.4 hemoglobin 8.8 MCV 75.4 Sodium 135 potassium 4.2 bicarb is 17 BUN 110 and creatinine 17.87 Blood sugar is 186 and calcium 7.2 Troponin 0 0.093, 0.115 and 0.141 and 0.136 proBNP 46941 TSH 3.46 and hepatitis panel nonreactive. 2D echocardiogram showed mildly impaired left ventricular systolic function with ejection fraction 45 to 50% with severely dilated left atrium, mild aortic stenosis and severe MR and mild pulmonary hypertension. On admission blood pressure was 202/115 with pulse 124, respiration 18 and pulse ox 88% on room air. 04/24/2021 and patient is currently resting in the bed. Shortness of breath is better. Patient is undergoing hemodialysis. Patient is being continued on Lasix 40 mg every 12 hours and patient is able to make urine. Renal ultrasound showed no evidence of hydronephrosis. Cardiology is planning for TASNEEM today. Probably is on board. Blood pressure is better today. Laboratory data showed WBC 6.9 hemoglobin 7.1 and platelets 188 and line sodium 133 potassium or 0.2 chloride 96 BUN 722 and creatinine came down to 11.59. Chest x-ray showed improving left lower lobe infiltrate. Stable right lower lobe infiltrate is present. Current medications reviewed. Objective - Vital Signs Vital signs: Vital Signs Temp 97.7 F 04/24/21 18:00 Pulse 93 04/24/21 19:00 Resp 12 04/24/21 19:00 BP 140/73 04/24/21 19:00 Pulse Ox 96 04/24/21 19:00 Intake & Output 04/24/21 04/24/21 04/25/21 06:59 18:59 06:59 Intake Total 420 795 320 Output Total 337 1555 45 Balance 83 -760 275 Weight 62.8 kg 62.8 kg Intake: IV 220 555 20 Sodium Chloride 0.9% 1, 220 455 20 000 ml @ 20 mls/hr IV . Q24H [facility] Rx#:[id number] Sodium Ferric Gluconat- 100 Sucrose 125 mg In Sodium Chloride 0.9% 100 ml @ 100 mls/hr IVPB DAILY [facility] Rx#:[id number] Oral 200 240 300 Output: Urine 337 555 45 Hemodialysis 1000 Other: Voiding Method Indwelling Catheter Indwelling Catheter - Exam PHYSICAL EXAMINATION: Patient is lying in the bed comfortably, no acute distress, awake alert and oriented.. HEENT: Normocephalic. Neck is supple. Pupils reactive. Nostrils clear. Oral cavity is moist. Neck reveals no JVD, carotid bruits, or thyromegaly. CHEST EXAMINATION: Trachea is central. Symmetrical expansion. Basal crackles. No wheezing.. Nonlabored breathing. CARDIAC: Normal S1, S2 with no gallops. Systolic murmur present. ABDOMEN: Soft. Bowel sounds normal. No organomegaly. No abdominal bruits. Extremities: trace edema. No clubbing or cyanosis Neurologically awake, alert, oriented x3 with well-coordinated movements. No focal deficits noted Skin: No rash or skin lesions. Psychiatric: Coperative. Nonsuicidal Musculoskeletal: No joint swelling or deformity. Normal range of motion. - Labs CBC & Chem 7: 04/27/21 03:36 04/27/21 03:36 Labs: Abnormal Lab Results - Last 24 Hours (Table) 04/24/21 04/24/21 04/24/21 Range/Units 01:33 03:02 03:02 RBC 2.77 L (3.80-5.40) m/uL Hgb 7.1 L (11.4-16.0) gm/dL Hct 21.2 L (34.0-46.0) % MCV 76.3 L (80.0-100.0) fL Sodium 133 L (137-145) mmol/L Chloride 96 L (98-107) mmol/L BUN 72 H (7-17) mg/dL Creatinine 11.59 H* (0.52-1.04) mg/dL POC Glucose (mg/dL) 151 H (75-99) mg/dL Plasma Lactic Acid Isauro (0.7-2.0) mmol/L Calcium 7.3 L (8.4-10.2) mg/dL Urine Protein (Negative) Urine Glucose (UA) (Negative) Urine Blood (Negative) Ur Leukocyte Esterase (Negative) Urine WBC (0-5) /hpf Urine Bacteria (None) /hpf Urine Mucus (None) /hpf 04/24/21 04/24/21 04/24/21 Range/Units 06:59 07:47 16:57 RBC (3.80-5.40) m/uL Hgb (11.4-16.0) gm/dL Hct (34.0-46.0) % MCV (80.0-100.0) fL Sodium (137-145) mmol/L Chloride (98-107) mmol/L BUN (7-17) mg/dL Creatinine (0.52-1.04) mg/dL POC Glucose (mg/dL) 121 H 173 H (75-99) mg/dL Plasma Lactic Acid Isauro 0.6 L (0.7-2.0) mmol/L Calcium (8.4-10.2) mg/dL Urine Protein (Negative) Urine Glucose (UA) (Negative) Urine Blood (Negative) Ur Leukocyte Esterase (Negative) Urine WBC (0-5) /hpf Urine Bacteria (None) /hpf Urine Mucus (None) /hpf 04/24/21 04/24/21 Range/Units 17:50 20:40 RBC (3.80-5.40) m/uL Hgb (11.4-16.0) gm/dL Hct (34.0-46.0) % MCV (80.0-100.0) fL Sodium (137-145) mmol/L Chloride (98-107) mmol/L BUN (7-17) mg/dL Creatinine (0.52-1.04) mg/dL POC Glucose (mg/dL) 166 H (75-99) mg/dL Plasma Lactic Acid Isauro (0.7-2.0) mmol/L Calcium (8.4-10.2) mg/dL Urine Protein 1+ H (Negative) Urine Glucose (UA) 1+ H (Negative) Urine Blood Small H (Negative) Ur Leukocyte Esterase Large H (Negative) Urine WBC 28 H (0-5) /hpf Urine Bacteria Rare H (None) /hpf Urine Mucus Rare H (None) /hpf Assessment and Plan Assessment: Acute hypoxic respiratory failure secondary to pulmonary edema requiring BiPAP . currently transitioned to nasal cannula. Acute CHF with systolic dysfunction ejection fraction 40 to 45%. Severe MR and mild AR and TR. Acute on chronic kidney injury stage IV with creatinine level 17.87 on admission. Initiated on hemodialysis. baseline creatinine not known. Metabolic acidosis secondary to acute kidney injury Hypertensive emergency on admission Elevated troponin level/leak likely due to acute kidney injury Iron deficiency anemia and ACD Hypertension Noncompliance with medications and follow-up. DVT prophylaxis with lovenox Sq. Plan: Patient will be monitored in the MICU. Patient was started on hemodialysis today after TASNEEM. Patient was started on IV supplementation and IV iron. Continue with aspirin, metoprolol and Norvasc. Cardiology, nephrology and pulmonary is on board. Time with Patient: Greater than 30
--- NOTE | 2021-04-27 10:33 | P.PN ---
Subjective Progress Note Date: 04/25/21 Principal diagnosis: Acute kidney injury requiring hemodialysis Patient is a 50-year-old female with a known history of hypertension, chronic kidney disease currently not on follow-up and not take any medications presents to ER with complaints of nausea vomiting and diarrhea for the past 1 week. She is also complaining of shortness of breath on admission which has been getting worse for the past 2 days. Shortness of breath is with chest tightness. No prior history of coronary disease. No complaints of fever or chills. Denies any severe abdominal pain. Also developed orthopnea and minimal swelling of the legs. Episodes of lightheadedness. Patient is not taking any medications at home currently. Chest x-ray showed changes consistent with CHF with pulmonary edema and pleural fluid. EKG showed sinus tachycardia with possible left atrial enlargement. Repeat chest x-ray this morning after diuresis seems improved. Laboratory data showed WBC 9.4 hemoglobin 8.8 MCV 75.4 Sodium 135 potassium 4.2 bicarb is 17 BUN 110 and creatinine 17.87 Blood sugar is 186 and calcium 7.2 Troponin 0 0.093, 0.115 and 0.141 and 0.136 proBNP 01136 TSH 3.46 and hepatitis panel nonreactive. 2D echocardiogram showed mildly impaired left ventricular systolic function with ejection fraction 45 to 50% with severely dilated left atrium, mild aortic stenosis and severe MR and mild pulmonary hypertension. On admission blood pressure was 202/115 with pulse 124, respiration 18 and pulse ox 88% on room air. 04/24/2021 patient is currently resting in the bed. Shortness of breath is better. Patient is undergoing hemodialysis. Patient is being continued on Lasix 40 mg every 12 hours and patient is able to make urine. Renal ultrasound showed no evidence of hydronephrosis. Cardiology is planning for TASNEEM today. Probably is on board. Blood pressure is better today. Laboratory data showed WBC 6.9 hemoglobin 7.1 and platelets 188 and line sodium 133 potassium or 0.2 chloride 96 BUN 722 and creatinine came down to 11.59. Chest x-ray showed improving left lower lobe infiltrate. Stable right lower lobe infiltrate is present. 04/25/2021 Patient is currently in the MICU. Awake alert and oriented 3. Requiring oxygen at 2 L when as a cannula. Breathing status is better. Patient was initiated on hemodialysis. Blood pressure is in proving. Chest x-ray showed improving left lower lobe infiltrates. TASNEEM showed no sick with what I aortic stenosis and agitation, mitral valve a ppears normal and moderate central mitral regurgitation no leaflet flail or prolapse. Tricuspid valve is normal. No PFO. Left atrial appendage was free of clot. Ejection fraction 50%. Laboratory data showed WBC 6.3 hemoglobin and 7.0 and platelets 182 BUN 51 and creatinine 9.03 and potassium 4.6 Patient is being continued on Lasix 60 mg IV every 12, amlodipine, metoprolol. Current medications reviewed. Objective - Vital Signs Vital signs: Vital Signs Temp 98.6 F 04/26/21 11:45 Pulse 89 04/26/21 11:45 Resp 16 04/26/21 11:45 BP 154/91 04/26/21 11:45 Pulse Ox 96 04/26/21 11:45 Intake & Output 04/25/21 04/26/21 04/26/21 18:59 06:59 18:59 Intake Total 1710 798 Output Total 1415 Balance 295 798 Weight 59.3 kg Intake: IV 40 Sodium Chloride 0.9% 1, 40 000 ml @ 20 mls/hr IV . Q24H [facility] Rx#:[id number] Intake, IV Titration 200 Amount Magnesium Sulfate-D5w Pmx 100 1 gm In Dextrose/Water 1 100ml.bag @ 100 mls/hr IVPB Q1H [facility] Rx#: [id number] cefTRIAXone 1 gm In 100 Sodium Chloride 0.9% 50 ml @ 100 mls/hr IVPB Q24HR [facility] Rx#:[id number] Oral 1360 598 Blood Product 310 Rc As-1 Unit 310 [id number] Output: Urine 415 Hemodialysis 1000 Other: Voiding Method Indwelling Catheter Toilet Toilet # Voids 0 3 - Exam PHYSICAL EXAMINATION: Patient is lying in the bed comfortably, no acute distress, awake alert and oriented.. HEENT: Normocephalic. Neck is supple. Pupils reactive. Nostrils clear. Oral cavity is moist. Neck reveals no JVD, carotid bruits, or thyromegaly. CHEST EXAMINATION: Trachea is central. Symmetrical expansion. Basal crackles. No wheezing.. Nonlabored breathing. CARDIAC: Normal S1, S2 with no gallops. Systolic murmur present. ABDOMEN: Soft. Bowel sounds normal. No organomegaly. No abdominal bruits. Extremities: trace edema. No clubbing or cyanosis Neurologically awake, alert, oriented x3 with well-coordinated movements. No focal deficits noted Skin: No rash or skin lesions. Psychiatric: Coperative. Nonsuicidal Musculoskeletal: No joint swelling or deformity. Normal range of motion. - Labs CBC & Chem 7: 04/27/21 03:36 04/27/21 03:36 Labs: Abnormal Lab Results - Last 24 Hours (Table) 04/25/21 04/25/21 04/25/21 Range/Units 13:25 16:56 19:48 RBC (3.80-5.40) m/uL Hgb (11.4-16.0) gm/dL Hct (34.0-46.0) % MCV (80.0-100.0) fL Plt Count (150-450) k/uL BUN (7-17) mg/dL Creatinine (0.52-1.04) mg/dL Glucose (74-99) mg/dL POC Glucose (mg/dL) 120 H 204 H (75-99) mg/dL Calcium (8.4-10.2) mg/dL Crossmatch See Detail 04/26/21 04/26/21 04/26/21 Range/Units 06:11 06:57 06:57 RBC 3.13 L (3.80-5.40) m/uL Hgb 8.1 L (11.4-16.0) gm/dL Hct 24.9 L (34.0-46.0) % MCV 79.6 L (80.0-100.0) fL Plt Count 122 L (150-450) k/uL BUN 30 H (7-17) mg/dL Creatinine 6.38 H (0.52-1.04) mg/dL Glucose 117 H (74-99) mg/dL POC Glucose (mg/dL) 117 H (75-99) mg/dL Calcium 7.8 L (8.4-10.2) mg/dL Crossmatch 04/26/21 Range/Units 12:23 RBC (3.80-5.40) m/uL Hgb (11.4-16.0) gm/dL Hct (34.0-46.0) % MCV (80.0-100.0) fL Plt Count (150-450) k/uL BUN (7-17) mg/dL Creatinine (0.52-1.04) mg/dL Glucose (74-99) mg/dL POC Glucose (mg/dL) 169 H (75-99) mg/dL Calcium (8.4-10.2) mg/dL Crossmatch Microbiology - Last 24 Hours (Table) 04/24/21 12:07 Blood Culture - Preliminary Blood No Growth after 48 hours 04/24/21 07:47 Blood Culture - Preliminary Blood No Growth after 48 hours 04/24/21 17:50 Urine Culture - Preliminary Urine,Voided Gram Neg Bacilli Assessment and Plan Assessment: Acute hypoxic respiratory failure secondary to pulmonary edema requiring BiPAP . currently transitioned to nasal cannula. Acute CHF with systolic dysfunction ejection fraction 50%. TASNEEM on 04/24/2021 showed central mitral regurgitation. No evidence of visitation R flail leaflet or prolapse.. Acute on chronic kidney injury stage IV with creatinine level 17.87 on admission. Initiated on hemodialysis. baseline creatinine not known. Metabolic acidosis secondary to acute kidney injury Hypertensive emergency on admission Elevated troponin level/leak likely due to acute kidney injury Iron deficiency anemia and ACD Hypertension Noncompliance with medications and follow-up. DVT prophylaxis with lovenox Sq. Plan: Patient will be monitored in the MICU. Patient was started on hemodialysis TASNEEM showed no evidence of visitation or severe mitral regurgitation.. Blood pressure is better controlled. Patient was started on IV supplementation and IV iron. Continue with aspirin, metoprolol and Norvasc. Hemodialysis as per nephrology. Cardiology, nephrology and pulmonary is on board. Patient is being transferred to medical floor today. Time with Patient: Greater than 30
--- NOTE | 2021-04-27 10:37 | P.PN ---
Subjective Progress Note Date: 04/26/21 Principal diagnosis: Acute kidney injury requiring hemodialysis Patient is a 50-year-old female with a known history of hypertension, chronic kidney disease currently not on follow-up and not take any medications presents to ER with complaints of nausea vomiting and diarrhea for the past 1 week. She is also complaining of shortness of breath on admission which has been getting worse for the past 2 days. Shortness of breath is with chest tightness. No prior history of coronary disease. No complaints of fever or chills. Denies any severe abdominal pain. Also developed orthopnea and minimal swelling of the legs. Episodes of lightheadedness. Patient is not taking any medications at home currently. Chest x-ray showed changes consistent with CHF with pulmonary edema and pleural fluid. EKG showed sinus tachycardia with possible left atrial enlargement. Repeat chest x-ray this morning after diuresis seems improved. Laboratory data showed WBC 9.4 hemoglobin 8.8 MCV 75.4 Sodium 135 potassium 4.2 bicarb is 17 BUN 110 and creatinine 17.87 Blood sugar is 186 and calcium 7.2 Troponin 0 0.093, 0.115 and 0.141 and 0.136 proBNP 48011 TSH 3.46 and hepatitis panel nonreactive. 2D echocardiogram showed mildly impaired left ventricular systolic function with ejection fraction 45 to 50% with severely dilated left atrium, mild aortic stenosis and severe MR and mild pulmonary hypertension. On admission blood pressure was 202/115 with pulse 124, respiration 18 and pulse ox 88% on room air. 04/24/2021 patient is currently resting in the bed. Shortness of breath is better. Patient is undergoing hemodialysis. Patient is being continued on Lasix 40 mg every 12 hours and patient is able to make urine. Renal ultrasound showed no evidence of hydronephrosis. Cardiology is planning for TASNEEM today. Probably is on board. Blood pressure is better today. Laboratory data showed WBC 6.9 hemoglobin 7.1 and platelets 188 and line sodium 133 potassium or 0.2 chloride 96 BUN 722 and creatinine came down to 11.59. Chest x-ray showed improving left lower lobe infiltrate. Stable right lower lobe infiltrate is present. 04/25/2021 Patient is currently in the MICU. Awake alert and oriented 3. Requiring oxygen at 2 L when as a cannula. Breathing status is better. Patient was initiated on hemodialysis. Blood pressure is in proving. Chest x-ray showed improving left lower lobe infiltrates. TASNEEM showed no sick with what I aortic stenosis and agitation, mitral valve a ppears normal and moderate central mitral regurgitation no leaflet flail or prolapse. Tricuspid valve is normal. No PFO. Left atrial appendage was free of clot. Ejection fraction 50%. Laboratory data showed WBC 6.3 hemoglobin and 7.0 and platelets 182 BUN 51 and creatinine 9.03 and potassium 4.6 Patient is being continued on Lasix 60 mg IV every 12, amlodipine, metoprolol. 04/26/2021 Patient is in the telemetry telemetry unit. Awake alert and oriented 3. On room air. Complaining of shortness of breath this morning. Blood pressure is elevated again. Patient had last hemodialysis yesterday. Continued on Lasix 60 mg twice daily, Norvasc and metoprolol. Hydralazine was added as per nephrology. Chest x-ray showed bilateral basilar infiltrates and lateral small pleural effusions and adjacent atelectasis. Cardiology recommends nitroglycerin infusion for better blood pressure control. He is being transferred to MICU today. Laboratory data showed WBC 10.3 hemoglobin 8.1 and platelets 122 BUN 30 and creatinine 6.38 and magnesium 1.6 Current medications reviewed. Objective - Vital Signs Vital signs: Vital Signs Temp 98.6 F 04/26/21 11:45 Pulse 89 04/26/21 11:45 Resp 16 04/26/21 11:45 BP 154/91 04/26/21 11:45 Pulse Ox 96 04/26/21 11:45 Intake & Output 04/25/21 04/26/21 04/26/21 18:59 06:59 18:59 Intake Total 1710 798 Output Total 1415 Balance 295 798 Weight 59.3 kg Intake: IV 40 Sodium Chloride 0.9% 1, 40 000 ml @ 20 mls/hr IV . Q24H MAKEDA Rx#:[id number] Intake, IV Titration 200 Amount Magnesium Sulfate-D5w Pmx 100 1 gm In Dextrose/Water 1 100ml.bag @ 100 mls/hr IVPB Q1H MAKEDA Rx#: [id number] cefTRIAXone 1 gm In 100 Sodium Chloride 0.9% 50 ml @ 100 mls/hr IVPB Q24HR MAKEDA Rx#:[id number] Oral 1360 598 Blood Product 310 Rc As-1 Unit 310 [id number] Output: Urine 415 Hemodialysis 1000 Other: Voiding Method Indwelling Catheter Toilet Toilet # Voids 0 3 - Exam PHYSICAL EXAMINATION: Patient is lying in the bed comfortably, no acute distress, awake alert and oriented.. HEENT: Normocephalic. Neck is supple. Pupils reactive. Nostrils clear. Oral cavity is moist. Neck reveals no JVD, carotid bruits, or thyromegaly. CHEST EXAMINATION: Trachea is central. Symmetrical expansion. Basal crackles. No wheezing.. Nonlabored breathing. CARDIAC: Normal S1, S2 with no gallops. Systolic murmur present. ABDOMEN: Soft. Bowel sounds normal. No organomegaly. No abdominal bruits. Extremities: trace edema. No clubbing or cyanosis Neurologically awake, alert, oriented x3 with well-coordinated movements. No focal deficits noted Skin: No rash or skin lesions. Psychiatric: Coperative. Nonsuicidal Musculoskeletal: No joint swelling or deformity. Normal range of motion. - Labs CBC & Chem 7: 04/27/21 03:36 04/27/21 03:36 Labs: Abnormal Lab Results - Last 24 Hours (Table) 04/25/21 04/25/21 04/25/21 Range/Units 13:25 16:56 19:48 RBC (3.80-5.40) m/uL Hgb (11.4-16.0) gm/dL Hct (34.0-46.0) % MCV (80.0-100.0) fL Plt Count (150-450) k/uL BUN (7-17) mg/dL Creatinine (0.52-1.04) mg/dL Glucose (74-99) mg/dL POC Glucose (mg/dL) 120 H 204 H (75-99) mg/dL Calcium (8.4-10.2) mg/dL Crossmatch See Detail 04/26/21 04/26/21 04/26/21 Range/Units 06:11 06:57 06:57 RBC 3.13 L (3.80-5.40) m/uL Hgb 8.1 L (11.4-16.0) gm/dL Hct 24.9 L (34.0-46.0) % MCV 79.6 L (80.0-100.0) fL Plt Count 122 L (150-450) k/uL BUN 30 H (7-17) mg/dL Creatinine 6.38 H (0.52-1.04) mg/dL Glucose 117 H (74-99) mg/dL POC Glucose (mg/dL) 117 H (75-99) mg/dL Calcium 7.8 L (8.4-10.2) mg/dL Crossmatch 04/26/21 Range/Units 12:23 RBC (3.80-5.40) m/uL Hgb (11.4-16.0) gm/dL Hct (34.0-46.0) % MCV (80.0-100.0) fL Plt Count (150-450) k/uL BUN (7-17) mg/dL Creatinine (0.52-1.04) mg/dL Glucose (74-99) mg/dL POC Glucose (mg/dL) 169 H (75-99) mg/dL Calcium (8.4-10.2) mg/dL Crossmatch Microbiology - Last 24 Hours (Table) 04/24/21 12:07 Blood Culture - Preliminary Blood No Growth after 48 hours 04/24/21 07:47 Blood Culture - Preliminary Blood No Growth after 48 hours 04/24/21 17:50 Urine Culture - Preliminary Urine,Voided Gram Neg Bacilli Assessment and Plan Assessment: Acute hypoxic respiratory failure secondary to pulmonary edema requiring BiPAP . currently transitioned to nasal cannula. Acute CHF with systolic dysfunction ejection fraction 50%. TASNEEM on 04/24/2021 showed central mitral regurgitation. No evidence of visitation R flail leaflet or prolapse.. Acute on chronic kidney injury stage IV with creatinine level 17.87 on admission. Initiated on hemodialysis. baseline creatinine not known. Metabolic acidosis secondary to acute kidney injury Hypertensive emergency on admission Elevated troponin level/leak likely due to acute kidney injury Iron deficiency anemia and ACD Hypertension Noncompliance with medications and follow-up. DVT prophylaxis with lovenox Sq. Plan: Patient will be monitored in the MICU. Patient was started on hemodialysis TASNEEM showed no evidence of visitation or severe mitral regurgitation.. Nitroglycerin drip as per cardiology recommendations for better blood pressure control. Patient was started on IV supplementation and IV iron. Continue with aspirin, metoprolol and Norvasc and hydralazine.. Continued on Lasix 60 mg twice daily. Hemodialysis as per nephrology. Cardiology, nephrology and pulmonary is on board. Time with Patient: Greater than 30
--- NOTE | 2021-04-27 11:28 | P.PN ---
Subjective Progress Note Date: 04/27/21 Principal diagnosis: Acute renal failure Patient is seen and examined in the ICU. She is currently undergoing hemodialysis. She was transferred back to the ICU from the medical floor for elevated blood pressure and shortness of breath. Patient underwent chest x-ray showing bilateral pleural effusion, chest ultrasound showed 8.6 cm pocket in the lungs bilaterally. Patient is hemodynamically stable. No nausea vomiting or diarrhea and no abdominal pain she remains afebrile. She is resting comfortably with nonlabored breathing. States she is still making small amounts of urine. Plan is for placing tunneled hemodialysis permacatheter today with Dr. Buckley. Objective - Vital Signs Vital signs: Vital Signs Temp 99.1 F 04/27/21 08:00 Pulse 99 04/27/21 11:00 Resp 21 04/27/21 11:00 BP 128/87 04/27/21 11:00 Pulse Ox 93 L 04/27/21 11:00 Intake & Output 04/26/21 04/27/21 04/27/21 18:59 06:59 18:59 Intake Total 809.850 80 127.5 Output Total 300 Balance 809.850 -220 127.5 Weight 64.436 kg Intake: IV 40 0.9 Sodium Chloride 40 Intake, IV Titration 211.850 87.5 Amount Magnesium Sulfate-D5w Pmx 100 1 gm In Dextrose/Water 1 100ml.bag @ 100 mls/hr IVPB Q1H [facility] Rx#: [id number] Nitroglycerin-D5w Pmx 50 11.850 87.5 mg In Dextrose/Water 1 250ml.bag @ 5 MCG/MIN 1.5 mls/hr IV .Q24H MAKEDA Rx#: [id number] cefTRIAXone 1 gm In 100 Sodium Chloride 0.9% 50 ml @ 100 mls/hr IVPB Q24HR MAKEDA Rx#:[id number] Oral 598 80 Output: Urine 300 Other: Voiding Method Toilet Toilet # Voids 3 1 # Bowel Movements 1 - Exam General appearance: The patient is alert, oriented, appears in no acute distress. HET: Head is normocephalic and atraumatic. Neck: Supple without lymphadenopathy. Trachea midline. Heart: S1 S2. Regular rate and rhythm. Lungs: Diminished bilaterally. Abdomen: Soft, nontender, nondistended. Extremities: Normal skin color and turgor. Hemodialysis catheter intact and right groin. Neurological: No focal deficits. Alert and oriented 3. - Labs CBC & Chem 7: 04/27/21 03:36 04/27/21 03:36 Labs: Abnormal Lab Results - Last 24 Hours (Table) 04/26/21 04/26/21 04/26/21 Range/Units 12:23 14:35 16:44 WBC (3.8-10.6) k/uL RBC (3.80-5.40) m/uL Hgb (11.4-16.0) gm/dL Hct (34.0-46.0) % Plt Count (150-450) k/uL Neutrophils # (1.3-7.7) k/uL Sodium (137-145) mmol/L BUN (7-17) mg/dL Creatinine (0.52-1.04) mg/dL Glucose (74-99) mg/dL POC Glucose (mg/dL) 169 H 110 H (75-99) mg/dL Calcium (8.4-10.2) mg/dL Total Protein (6.3-8.2) g/dL Albumin (3.5-5.0) g/dL Urine Appearance Cloudy H (Clear) Urine Protein 2+ H (Negative) Urine Glucose (UA) 2+ H (Negative) Urine Blood Large H (Negative) Ur Leukocyte Esterase Large H (Negative) Urine RBC 56 H (0-5) /hpf Urine WBC >182 H (0-5) /hpf Urine WBC Clumps Moderate H (None) /hpf Urine Bacteria Rare H (None) /hpf Urine Yeast (Budding) Occasional H (None) /hpf 04/26/21 04/27/21 04/27/21 Range/Units 21:14 03:36 03:36 WBC 11.3 H (3.8-10.6) k/uL RBC 3.11 L (3.80-5.40) m/uL Hgb 8.4 L (11.4-16.0) gm/dL Hct 24.9 L (34.0-46.0) % Plt Count 141 L (150-450) k/uL Neutrophils # 8.2 H (1.3-7.7) k/uL Sodium 136 L (137-145) mmol/L BUN 36 H (7-17) mg/dL Creatinine 7.61 H* (0.52-1.04) mg/dL Glucose 120 H (74-99) mg/dL POC Glucose (mg/dL) 185 H (75-99) mg/dL Calcium 7.9 L (8.4-10.2) mg/dL Total Protein 6.1 L (6.3-8.2) g/dL Albumin 3.3 L (3.5-5.0) g/dL Urine Appearance (Clear) Urine Protein (Negative) Urine Glucose (UA) (Negative) Urine Blood (Negative) Ur Leukocyte Esterase (Negative) Urine RBC (0-5) /hpf Urine WBC (0-5) /hpf Urine WBC Clumps (None) /hpf Urine Bacteria (None) /hpf Urine Yeast (Budding) (None) /hpf 04/27/21 Range/Units 08:37 WBC (3.8-10.6) k/uL RBC (3.80-5.40) m/uL Hgb (11.4-16.0) gm/dL Hct (34.0-46.0) % Plt Count (150-450) k/uL Neutrophils # (1.3-7.7) k/uL Sodium (137-145) mmol/L BUN (7-17) mg/dL Creatinine (0.52-1.04) mg/dL Glucose (74-99) mg/dL POC Glucose (mg/dL) 169 H (75-99) mg/dL Calcium (8.4-10.2) mg/dL Total Protein (6.3-8.2) g/dL Albumin (3.5-5.0) g/dL Urine Appearance (Clear) Urine Protein (Negative) Urine Glucose (UA) (Negative) Urine Blood (Negative) Ur Leukocyte Esterase (Negative) Urine RBC (0-5) /hpf Urine WBC (0-5) /hpf Urine WBC Clumps (None) /hpf Urine Bacteria (None) /hpf Urine Yeast (Budding) (None) /hpf Microbiology - Last 24 Hours (Table) 04/24/21 07:47 Blood Culture - Preliminary Blood No Growth after 72 hours 04/26/21 14:35 Urine Culture - Preliminary Urine,Clean Catch 04/24/21 12:07 Blood Culture - Preliminary Blood No Growth after 48 hours Assessment and Plan Assessment: 1. Acute on chronic Kidney Injury requiring hemodialysis Plan: 1. Continue hemodialysis per nephrology recommendations 2. Continue medical management per primary care team 3. Plan is to proceed with tunneled dialysis permacath today 4. Keep nothing by mouth Thank you for this consultation. The impression and plan of care has been dictated as directed. Dr. Buckley I performed a history and examination of this patient, discussed the same with the dictator. I agree with the dictator's note ,documented as a scribe. Any additional findings or plans will be noted.
[2021-04-27 11:48] LABS: Glucose,Whole Blood 136 mg/dL (75-99)
--- NOTE | 2021-04-27 12:24 | PN ---
PROGRESS NOTE Patient is seen for followup for chronic kidney disease and acute kidney injury. Patient developed worsening shortness of breath. She was started on nitro drip. The patient is currently seen on dialysis. She was offered dialysis treatment yesterday but elected to postpone it for today. There are plans for possible thoracentesis as well today. PHYSICAL EXAMINATION: On examination today, blood pressure is 126/74, heart rate 94 per minute. She is afebrile. Examination of the heart S1, S2. Systolic murmur is heard. Examination of the lungs bilateral breath sounds are heard. Decreased breath sounds at bases. Abdomen is soft, nontender. Examination of lower extremities shows edema trace bilaterally. BELT BRANDER exam grossly intact. LAB: Show sodium 136, potassium 4.2, serum creatinine 7.6, hemoglobin 8.4 g/dL. ASSESSMENT: 1. Chronic kidney disease with progressive renal failure, maintained on hemodialysis. I have advised the patient that she will need to continue with long-term renal replacement therapy for now. We will plan for repeat dialysis tomorrow. Her catheter is not working well. Goal UF is 2-3 L and we will plan for about the same again tomorrow. 2. Anemia of chronic disease with element of iron deficiencies status post IV iron. 3. Mitral regurgitation, status post TASNEEM with no plans for further intervention. 4. Congestive heart failure exacerbation, mostly systolic, ejection fraction 45% to 50% with severely dilated left atrium. 5. Volume overload. 6. Hypertension partly volume sensitive, maintained on hydralazine, calcium channel blockers, beta blockers, currently off nitro drip. PLAN: Hemodialysis today and then again in a.m, proceed with PermCath placement. Discussed with patient. MMODL / IJN: [id number] / SHAHANA
[2021-04-27] MEDS: ASPIRIN 81 MG PO SCH (12:50)
[2021-04-27] MEDS: amLODIPine 5 MG TAB PO SCH ×2 (12:50→20:27)
[2021-04-27] MEDS: hydrALAZINE HCL 25 MG TAB PO SCH ×2 (12:50→20:27)
[2021-04-27] MEDS: METOPROLOL TARTRATE 50 MG TAB PO SCH ×2 (12:50→20:27)
[2021-04-27] MEDS: ENOXAPARIN 30 MG/0.3 ML SYRINGE SQ SCH (12:51)
[2021-04-27] MEDS: FUROSEMIDE 10 MG/ML 10 ML VIAL IV SCH ×2 (12:53→20:27)
[2021-04-27] MEDS ORDERED: IV FLUID CONTINUATION 1,000 ML IV ONE (13:20)
[2021-04-27] MEDS: MIDAZOLAM 2 MG/2 ML VIAL IV ONE ×2 (13:37→13:43)
[2021-04-27] MEDS ORDERED: LIDOCAINE 1% INJ 10MG/ML (20 ML MDV) SQ ONE (13:37)
[2021-04-27] MEDS ORDERED: fentaNYL (PF) 50 MCG/ML 2 ML AMP IV ONE (13:37)
--- NOTE | 2021-04-27 14:07 | IR ---
EXAMINATION TYPE: IR cvc insert central tunneled DATE OF EXAM: 04/27/2021 COMPARISON: NONE HISTORY: Fluoroscopy time. Fluoroscopy was provided to the referring clinician.
--- NOTE | 2021-04-27 14:09 | P.OP ---
Date of Procedure: 04/27/21 Description of Procedure: DATE OF PROCEDURE: PREOPERATIVE DIAGNOSIS: [04/27/2021]. PROCEDURE: 1. Ultrasound-guided access of the right internal jugular vein 2. Fluoroscopic assistance with placement of tunneled dialysis catheter, 19 cm 3. Moderate conscious sedation 23 minutes PROCEDURE: This patient was brought to the laborer bituminous paving. The [right] side of the neck and chest was prepped and draped in sterile manner. 1% lidocaine was infiltrated in the neck and chest area. After that, ultrasound-guided axis of the right internal jugular was obtained . After that, we advanced the guidewire under fluoroscopy control to the inferior vena cava and tunnel was created. Through the tunnel we brought 19 cm dialysis catheter. After that dilator was used along with the sheath and dialysis catheter was advanced through the sheath. Tip of the catheter in the superior vena cava and atrium, flushed with heparin an saline. It was in good position. Sheath was removed. Pressure was held. Patient tolerated the procedure well. Catheter was secured with Vicryl and nylon.
--- NOTE | 2021-04-27 15:18 | XR ---
EXAMINATION TYPE: XR chest 1V portable DATE OF EXAM: 04/27/2021 COMPARISON: 04/27/2021 HISTORY: line placement TECHNIQUE: Single frontal view of the chest is obtained. FINDINGS: Central venous line is noted with its distal tip overlying the SVC. No evidence for pneumothorax. Pul monary venous congestion with basilar effusions and atelectasis. Continued cardiomegaly. The osseous structures are intact. IMPRESSION: 1. Central venous line as noted without evidence for pneumothorax. Changes of congestive failure vers us fluid overload.
[2021-04-27] MEDS: levOCARNitine (WITH SUGAR) 100 MG/ML BOTTLE PO SCH ×2 (16:19→20:28)
[2021-04-27] MEDS: ACETAMINOPHEN TAB 325 MG TAB PO PRN ×2 (16:27→22:38)
[2021-04-27 16:45] LABS: Glucose,Whole Blood 228 mg/dL (75-99)
[2021-04-27] MEDS: NITROGLYCERIN-D5W PMX 50 MG in DEXTROSE/WATER 1 250ML.BAG IV SCH (20:19)
[2021-04-27 20:20] LABS: Glucose,Whole Blood 136 mg/dL (75-99)
[2021-04-28 03:51] LABS: HCT 25.4 % (34.0-46.0); HGB 8.4 gm/dL (11.4-16.0); MCH 26.7 pg (25.0-35.0); MCV 80.8 fL (80.0-100.0); Mean Platelet Volume 8.8; Platelet Count 122 k/uL (150-450); RBC 3.14 m/uL (3.80-5.40); RDW 15.6 % (11.5-15.5); WBC 10.4 k/uL (3.8-10.6)
[2021-04-28 04:03] LABS: Calcium 8.4 mg/dL (8.4-10.2); Potassium 4.4 mmol/L (3.5-5.1)
[2021-04-28 06:39] LABS: Glucose,Whole Blood 110 mg/dL (75-99)
[2021-04-28] MEDS: INSULIN ASPART (NovoLOG) 100 UNIT/ML VIAL SQ SCH ×4 (06:51→21:30)
--- NOTE | 2021-04-28 07:02 | XR ---
EXAMINATION TYPE: XR chest 1V portable DATE OF EXAM: 04/28/2021 COMPARISON: 04/27/2021 HISTORY: Shortness of breath TECHNIQUE: Single frontal view of the chest is obtained. FINDINGS: There is persistent mild pulmonary vascular congestion and small to moderate bilateral ple ural effusions. Retrocardiac opacity most likely also reflects a degree of atelectasis which is less dense than on the prior study. The right sided central venous catheter is unchanged in position and t here is no pneumothorax. The osseous structures are intact. IMPRESSION: Mild improvement in the left lung base atelectasis. Persistent pulmonary vascular congestion and effu sions most likely related to CHF.
--- NOTE | 2021-04-28 08:51 | P.PN ---
Subjective Progress Note Date: 04/28/21 On 04/25/2021 patient seen in follow-up in the intensive care unit. She is awake and alert, oriented 3, she is currently resting comfortably in bed, she is on 2 L of oxygen the pulse ox of 98-100%. Is breathing comfortably, no complaints of chest pain, she is in sinus mechanism still slightly tachycardic at a rate of 102 BPM, cardiology is following and has increased her metoprolol 50 mg twice daily. She is currently not on any drips. Pressure control medications include metoprolol 50 mg twice daily as mentioned above, Norvasc 10 mg daily, she is also on Lasix at 60 mg twice daily, and she is producing urine in the order of 25 ML per hour, she did have hemodialysis session again yesterday with removal of 1 L of fluid. She is in -450 ML net fluid balance over the last 24 hours. Yesterday chest x-ray showed improving lateral lower lobe infiltrates. Transesophageal echocardiogram showed no significant aortic stenosis or regurgitation, mitral valve appeared normal with moderate central mitral regurgitation, there was no flail leaflet or prolapse, there was a blunting of the pulmonary vein however no systolic flow reversal. Tricuspid valve was normal. No evidence of PFO, left atrial appendage was free of clot. Left ventricular systolic function was low-normal at 50%. Absolute been reviewed, white blood cell count is 6.3, hemoglobin is 7.0, and patient received iron supplementation with IV Iron. Electrolytes were within normal limits, renal function is improving, BUN is 51, creatinine is 9.03. There are acute events overnight, no nausea or vomiting, patient is tolerating oral diet. On 04/26/2021 patient seen in follow-up on selective care unit, patient is awake and alert, in no acute distress, she is oriented 3, she is on room air, pulse ox is 96 -100%, afebrile, patient does have episodes of shortness of breath, no chest discomfort. He had a hemodialysis treatment yesterday with removal of 1 L of fluid. She remains on Lasix 60 mg twice daily, she received an additional dose of Lasix this afternoon for an episode of increased shortness of breath. Her chest x-ray today shows bibasilar infiltrates with bilateral small pleural effusions and adjacent atelectasis. Net fluid balance is difficult to estimate however her weight is down by 0.4 kg in the last 24 hours. Cardiology is following, her blood pressure is stable, however patient is being started on nitroglycerin infusion for blood pressure control in addition to her oral medications. She is currently on hydralazine 25 mg twice daily, metoprolol 50 mg twice daily 04/27/2021, the patient is being seen for a follow-up. The patient was transferred back to the intensive care unit for blood pressure control mode patient was placed on a nitroglycerin drip which is currently running at 30 mcg /m. Most recent systolic blood pressure is 176 with a diastolic blood pressure of 80. She is undergoing hemodialysis. Goal of ultrafiltration is around 2.8 L. She has dialysis catheter in the right femoral vein. He is also making urine. She still short of breath. She is on oxygen at 4 L. The chest x-ray was showing bilateral pleural effusion and ultrasound the chest was done and showed 8.6 cm pocket in the lungs bilaterally. As such, she may benefit from thoracentesis that may be done post dialysis. Hemodynamically stable. No nausea. No vomiting. No diarrhea. No abdominal pain. Remains on hydralazine 25 mg by mouth twice a day metoprolol 50 mg by mouth twice a day. She is also on IV Rocephin for a gram-negative bacteria that symptoms are urine. No other significant events otherwise for now. 04/28/2021, patient is being seen for a follow-up. As mentioned, the patient un derwent hemodialysis yesterday with a total of 3 L of fluid removal. She does have moderate-sized pleural effusion bilaterally and the plan is to undergo a right-sided thoracentesis today. The ultrasound marking of the chest on the been done. Blood pressures under better control for now and the patient is on room air oxygen. She is still having some respiratory difficulties and this is probably attributed to her pleural fluid. She is off the nitroglycerin drip. She is on IV Rocephin for an E. coli UTI. She is taking Lasix 60 mg IV every 12 hours. Urine output over the past 24 hours has been only 300 mL. However, based on the net fluid balance along with the hemodialysis, the neck fluid balance was in the order of -2.6 L. The patient was advised to come 0.4 with a hemoglobin of 8.4. BUN is 38, creatinine is 8.06, sodium is at 139. No altered mentation. No chest pain. No other complaints otherwise for now. Objective - Vital Signs Vital signs: Vital Signs Temp 98.2 F 04/28/21 04:00 Pulse 89 04/28/21 08:30 Resp 12 04/28/21 08:30 BP 148/89 04/28/21 08:30 Pulse Ox 96 04/28/21 08:30 Intake & Output 04/27/21 04/28/21 04/28/21 18:59 06:59 18:59 Intake Total 222.5 360 20 Output Total 3250 Balance -3027.5 360 20 Weight 60.2 kg Intake: IV 135 120 20 0.9 Sodium Chloride 110 120 20 Intake, IV Titration 87.5 Amount Nitroglycerin-D5w Pmx 50 87.5 mg In Dextrose/Water 1 250ml.bag @ 5 MCG/MIN 1.5 mls/hr IV .Q24H [facility] Rx#: [id number] Oral 240 Output: Urine 250 Hemodialysis 3000 Other: Voiding Method Bedside Commode Bedside Commode # Voids 1 1 # Bowel Movements 1 1 - Exam Gen. appearance the patient is calm and comfortable, currently on RA oxygen Head exam was generally normal. There was no scleral icterus or corneal arcus. Mucous membranes were moist. Neck was supple and without jugular venous distension, thyromegaly, or carotid bruits. Carotids were easily palpable bilaterally. There was no adenopathy. Lungs sounds are diminished and the patient has crackles and diminished breath on lung bases bilaterally Heart sounds there is accentuation of second heart sound without any significant murmurs appreciated. Davis is shifted to the left Abdominal exam revealed normal bowel sounds. The abdomen was soft, non-tender, and without masses, organomegaly, or appreciable enlargement of the abdominal aorta. Examination of the extremities revealed easily palpable radial, femoral and pedal pulses. There was no cyanosis, clubbing or edema. Examination of the skin revealed no evidence of significant rashes, suspicious a ppearing nevi or other concerning lesions. Neurologically, the patient is awake and alert and the patient does not have any focal neurological deficit. Cranial nerves are essentially intact. - Labs CBC & Chem 7: 04/28/21 03:19 04/28/21 03:19 Labs: Abnormal Lab Results - Last 24 Hours (Table) 04/27/21 04/27/21 04/27/21 Range/Units 11:46 16:43 20:18 RBC (3.80-5.40) m/uL Hgb (11.4-16.0) gm/dL Hct (34.0-46.0) % RDW (11.5-15.5) % Plt Count (150-450) k/uL BUN (7-17) mg/dL Creatinine (0.52-1.04) mg/dL Glucose (74-99) mg/dL POC Glucose (mg/dL) 136 H 228 H 136 H (75-99) mg/dL 04/28/21 04/28/21 04/28/21 Range/Units 03:19 03:19 06:37 RBC 3.14 L (3.80-5.40) m/uL Hgb 8.4 L (11.4-16.0) gm/dL Hct 25.4 L (34.0-46.0) % RDW 15.6 H (11.5-15.5) % Plt Count 122 L (150-450) k/uL BUN 38 H (7-17) mg/dL Creatinine 8.06 H* (0.52-1.04) mg/dL Glucose 106 H (74-99) mg/dL POC Glucose (mg/dL) 110 H (75-99) mg/dL Microbiology - Last 24 Hours (Table) 04/26/21 14:35 Urine Culture - Preliminary Urine,Clean Catch Gram Neg Bacilli 04/24/21 17:50 Urine Culture - Final Urine,Voided Escherichia coli 04/24/21 12:07 Blood Culture - Preliminary Blood No Growth after 72 hours 04/24/21 07:47 Blood Culture - Preliminary Blood No Growth after 72 hours Assessment and Plan Plan: 1 acute hypoxic respiratory failure secondary to pulmonary edema with bilateral pleural effusion. Consider chronic systolic heart failure versus hypertensive heart disease/diastolic failure. Cardiac exam showed an ejection fraction of 40-45%. Has valvular heart disease with mitral regurgitation. Further investigation with the TASNEEM showed the mitral valve appeared to be normal. There was moderate central mitral regurgitation and there was no flail leaflet or prolapse identified on the TASNEEM. The patient continues to have bilateral pleural effusion ultrasound marking of the chest was done bilaterally. 2 acute on chronic kidney injury. According to the patient she has chronic kidney disease with a GFR of 14. The patient is undergoing hemodialysis. Patient is undergoing dialysis and she has already done 2 sessions of hemodialysis with 1 L of ultrafiltration and the patient is going to have her third hemodialysis was done yesterday on 04/27/2021 with a total of 3 L of ultrafiltration. 3 acute hypertensive emergency, currently on nitroglycerin drip. The patient is also on metoprolol 50 mg twice a day and hydralazine 25 mg by mouth twice a day and Norvasc 5 mg by mouth twice a day. The patient is also on Lasix 60 mg by mouth twice a day. Blood pressure was controlled for now. 4 acute troponin leak/non-ST segment elevation myocardial infarction. EKG showing sinus tachycardia with LVH 5 history of hypertension 6 chronic anemia, with microcytosis and iron deficiency received iron, received Aranesp, hemoglobin is at 8.4 7 valvular heart disease with moderate degree of mitral regurgitation 8 UTI secondary to E. coli in the urine currently on IV Rocephin Plan Associated with thoracentesis today. We will drain the right lung. Switch this patient to oral Lasix 60 mg by mouth once a day Hemodialysis per nephrology Echocardiogram/TASNEEM was noted metoprolol 50 mg by mouth twice a day, and Norvasc 5 mg by mouth twice a day, and hydralazine 25 mg by mouth twice a day ASA 81 milligram by mouth daily Check a lipid profile, LDL level is at 113 Ceftriaxone for coli in the urine We'll continue to follow
--- NOTE | 2021-04-28 08:57 | P.PCN ---
Date of Procedure: 04/28/21 Preoperative Diagnosis: Right-sided pleural effusion Postoperative Diagnosis: Right-sided pleural effusion Procedure(s) Performed: Right-sided thoracentesis Anesthesia: local Surgeon: Micheal Meza Estimated Blood Loss (ml): 0 Pathology: other Disposition: ICU Operative Findings: A time out was performed and the chest x-ray was reviewed, the appropriate side was confirmed and marked. My hands were washed immediately prior to the procedure. I wore a surgical cap, mask with protective eyewear, sterile gown and sterile gloves throughout the procedure. The patient was prepped and draped in a sterile manner using chlorhexidine scrub after the appropriate level was percussed and confirmed by ultrasound. 1% lidocaine was used to anesthesize the skin, subcutaneous tissue, superior aspect of the rib periosteum and parietal pleura. A finder needle was then introduced over the superior aspect of the rib to locate the pleural fluid; 2colored fluid was aspirated at a depth of approximately 2 cm. A 10-blade scalpel was used to wilner the skin at the insertion site. The [id number] needle was then introduced through the skin incision into the pleural space using negative aspiration pressure and the red colometric indicator to confirm appropriate positioning of the needle. The thoracentesis catheter was then threaded without difficulty. 450 ml of turbid colored fluid was removed without difficulty. The catheter was then removed. No immediate complications were noted during the procedure. A post-procedure chest x-ray is pending at the time of this note. The fluid will be sent for studies. Estimated blood loss is 0cc
--- NOTE | 2021-04-28 09:08 | P.PN ---
Subjective This is a pleasant 50-year-old -[place] female past medical history significant for hypertension and kidney disease, she stopped all medical therapy approximately 2 years ago. She denies prior history of coronary artery disease and does not follow in the office with radiologist. We have been asked to see in consultation for heart failure and elevated troponin. Presented to the hospital with complaints of nausea, vomiting and diarrhea that has been going on for the previous 4-5 days. She then developed shortness of breath and palpitations over the previous 24-48 hours. On arrival to the emergency department EKG reveals sinus rhythm , left axis deviation, poor R-wave progression and nonspecific ST abnormalities. Initial chest x-ray revealed pulmonary edema pleural fluid. Blood pressure was 202/115. She was initiated on IV nitroglycerin infusion. She was having a significant headache and this was discontinued. She was started on IV cleviprex. Repeat chest x-ray showed improvement in Hilar and basal infiltrates. Laboratory data revealed troponin 0.093, 0.115, 0.141, 0.136, NT proBNP 99,400 and TSH 3.46. Echocardiogram obtained reveals mildly impaired LV systolic function with ejection fraction 45-50%, grade 1 diastolic dysfunction, severely dilated left atrium, mild aortic stenosis with a mean gradient of 9 mmHg, severe mitral regurgitation,, mild tricuspid regurgitation and mild pulmonary hypertension with an RVSP of 45 mmHg. 04/24- She underwent a TASNEEM yesterday revealing moderate central mitral regurgitation with no evidence of flail leaflet. She underwent dialysis and her breathing was improved initially and then seemed to decline at the evening went on. She had 1 L removed. 04/26/2021 Patient seen and examined sitting in bed. She states this morning she is not feeling well. Walking to the bathroom she is getting short of breath. She appears fatigued, short of breath, and states she does not feel well. Blood pressure 161/83, heart rate 103, afebrile, maintaining oxygen saturations on 2 L nasal cannula. Patient underwent dialysis yesterday with 1L removed. Laboratory data reviewed, WBC 10.3, hemoglobin 8.1, platelets 122, sodium 140, potassium 3.9, BUN 60, serum creatinine 6.3, magnesium 1.6. 24 hour urine output is 1.9L. She continues to maintain a negative fluid balance. She currently maintained on aspirin 81mg daily, amlodipine 5mg BID, metoprolol tartrate 50mg BID, Lasix by mouth 60 mg twice daily, hydralazine 25 mg twice a day 04/27 Patient transferred to ICU secondary to increased respiratory rate, increased work of breathing yesterday afternoon. She was placed on nitro drip at 35 and admits she felt better after this. CXray consistent with CHF. BP's are better since nitro drip. Amlodipine was added yesterday. She denies any chest pain or pressure. 04/28 Patient seen and examined. Patient underwent hemodialysis yesterday and nitroglycerin drip was weaned off. Patient did still have some pleural effusions and a thoracentesis was performed this morning with 450 mL fluid off the right lung. Patient states she feels much better after thoracentesis. Blood pressures have been mildly on the higher end. She denies any chest pain or pressure. PHYSICAL EXAMINATION CONSTITUTIONAL: No acute distress HEENT: Head is normocephalic. No JVD. No carotid bruit. CHEST EXAMINATION: Bilateral crackles in the bases. No rhonchi or wheezes. No chest wall tenderness is noted on palpation or with deep breathing. HEART EXAMINATION: Regular rate and rhythm. S1, S2 heard. Sytolic ejection murmur at the base, no gallops or rub. EXTREMITIES: 2+ peripheral pulses, no lower extremity edema and no calf tenderness. ASSESSMENT Acute on chronic diastolic heart failure, EF 50%, mainly exacerbated by ARF Moderate Mitral regurgitation, initial concern of flail however only functional MR, likely related to volume overload, no flail Acute renal failure, s/p HD Troponin elevation secondary to renal function Anemia Diabetes mellitus Hypertension emergency Medical non-compliance PLAN Patient's respiratory status is much improved. Appears majority of patient's symptoms related to volume overloaded, pleural effusions and kidney failure. Mitral regurgitation appears mostly functional related to volume overload state. Continue with current regimen. Antihypertensives per nephrology. No further recommendations from a cardiology standpoint. Please call with any questions. Objective - Vital Signs Vital signs: Vital Signs Temp 98.2 F 04/28/21 04:00 Pulse 89 04/28/21 08:30 Resp 12 04/28/21 08:30 BP 148/89 04/28/21 08:30 Pulse Ox 96 04/28/21 08:30 Intake & Output 04/27/21 04/28/21 04/28/21 18:59 06:59 18:59 Intake Total 222.5 360 20 Output Total 3250 Balance -3027.5 360 20 Weight 60.2 kg Intake: IV 135 120 20 0.9 Sodium Chloride 110 120 20 Intake, IV Titration 87.5 Amount Nitroglycerin-D5w Pmx 50 87.5 mg In Dextrose/Water 1 250ml.bag @ 5 MCG/MIN 1.5 mls/hr IV .Q24H [facility] Rx#: [id number] Oral 240 Output: Urine 250 Hemodialysis 3000 Other: Voiding Method Bedside Commode Bedside Commode # Voids 1 1 # Bowel Movements 1 1 - Labs CBC & Chem 7: 04/28/21 03:19 04/28/21 03:19 Labs: Abnormal Lab Results - Last 24 Hours (Table) 04/27/21 04/27/21 04/27/21 Range/Units 11:46 16:43 20:18 RBC (3.80-5.40) m/uL Hgb (11.4-16.0) gm/dL Hct (34.0-46.0) % RDW (11.5-15.5) % Plt Count (150-450) k/uL BUN (7-17) mg/dL Creatinine (0.52-1.04) mg/dL Glucose (74-99) mg/dL POC Glucose (mg/dL) 136 H 228 H 136 H (75-99) mg/dL 04/28/21 04/28/21 04/28/21 Range/Units 03:19 03:19 06:37 RBC 3.14 L (3.80-5.40) m/uL Hgb 8.4 L (11.4-16.0) gm/dL Hct 25.4 L (34.0-46.0) % RDW 15.6 H (11.5-15.5) % Plt Count 122 L (150-450) k/uL BUN 38 H (7-17) mg/dL Creatinine 8.06 H* (0.52-1.04) mg/dL Glucose 106 H (74-99) mg/dL POC Glucose (mg/dL) 110 H (75-99) mg/dL Microbiology - Last 24 Hours (Table) 04/26/21 14:35 Urine Culture - Preliminary Urine,Clean Catch Gram Neg Bacilli 04/24/21 17:50 Urine Culture - Final Urine,Voided Escherichia coli 04/24/21 12:07 Blood Culture - Preliminary Blood No Growth after 72 hours 04/24/21 07:47 Blood Culture - Preliminary Blood No Growth after 72 hours
--- NOTE | 2021-04-28 09:53 | XR ---
EXAMINATION TYPE: XR chest 1V DATE OF EXAM: 04/28/2021 COMPARISON: 04/28/2021 HISTORY: Post thoracentesis TECHNIQUE: Single frontal view of the chest is obtained. FINDINGS: Following thoracentesis is been a marked reduction right pleural effusion. The left pleura l effusion and atelectasis. There is decreased interstitial opacity in the upper lung aguilar compared to prior study. There is no pneumothorax. There is a central venous catheter in SVC/RA junction IMPRESSION: Marked reduction in the right pleural effusion following thoracentesis. There is no pneu mothorax. No change in the left lung base.
[2021-04-28] MEDS: levOCARNitine (WITH SUGAR) 100 MG/ML BOTTLE PO SCH ×2 (10:26→22:17)
[2021-04-28] MEDS: ENOXAPARIN 30 MG/0.3 ML SYRINGE SQ SCH (10:26)
[2021-04-28 11:44] LABS: Glucose,Whole Blood 156 mg/dL (75-99)
[2021-04-28] MEDS: hydrALAZINE HCL 25 MG TAB PO SCH ×2 (12:24→21:29)
[2021-04-28] MEDS: METOPROLOL TARTRATE 50 MG TAB PO SCH ×2 (12:24→21:29)
[2021-04-28] MEDS: amLODIPine 5 MG TAB PO SCH ×2 (12:24→21:29)
[2021-04-28] MEDS: FUROSEMIDE 20 MG TAB PO SCH ×2 (12:24→13:14)
[2021-04-28] MEDS: ASPIRIN 81 MG PO SCH (12:24)
--- NOTE | 2021-04-28 12:29 | P.PN ---
Subjective Progress Note Date: 04/28/21 Local is doing well. She is currently receiving dialysis via her tunneled chest wall catheter. No issues with her groin site. She has been having some oozing from her chest wall catheter. Objective - Vital Signs Vital signs: Vital Signs Temp 98.2 F 04/28/21 04:00 Pulse 95 04/28/21 12:00 Resp 12 04/28/21 12:00 BP 132/86 04/28/21 12:00 Pulse Ox 92 L 04/28/21 09:00 Intake & Output 04/27/21 04/28/21 04/28/21 18:59 06:59 18:59 Intake Total 222.5 360 260 Output Total 3250 3150 Balance -3027.5 360 -2890 Weight 60.2 kg Intake: IV 135 120 40 0.9 Sodium Chloride 110 120 40 Intake, IV Titration 87.5 100 Amount Nitroglycerin-D5w Pmx 50 87.5 mg In Dextrose/Water 1 250ml.bag @ 5 MCG/MIN 1.5 mls/hr IV .Q24H [facility] Rx#: [id number] cefTRIAXone 1 gm In 100 Sodium Chloride 0.9% 50 ml @ 100 mls/hr IVPB Q24HR [facility] Rx#:[id number] Oral 240 120 Output: Urine 250 150 Hemodialysis 3000 3000 Other: Voiding Method Bedside Commode Bedside Commode Bedside Commode # Voids 1 1 0 # Bowel Movements 1 1 - Exam Gen. is a pleasant cooperative female in no acute distress. HEENT is normocephalic, atraumatic, extraocular motion intact. Heart appears regular. Lungs are clear. Abdomen is soft. Catheter site is clean and intact. There is some mild oozing from the site of the chest wall currently receiving dialysis - Labs CBC & Chem 7: 04/28/21 03:19 04/28/21 03:19 Labs: Abnormal Lab Results - Last 24 Hours (Table) 04/27/21 04/27/21 04/28/21 Range/Units 16:43 20:18 03:19 RBC 3.14 L (3.80-5.40) m/uL Hgb 8.4 L (11.4-16.0) gm/dL Hct 25.4 L (34.0-46.0) % RDW 15.6 H (11.5-15.5) % Plt Count 122 L (150-450) k/uL BUN (7-17) mg/dL Creatinine (0.52-1.04) mg/dL Glucose (74-99) mg/dL POC Glucose (mg/dL) 228 H 136 H (75-99) mg/dL 04/28/21 04/28/21 04/28/21 Range/Units 03:19 06:37 11:43 RBC (3.80-5.40) m/uL Hgb (11.4-16.0) gm/dL Hct (34.0-46.0) % RDW (11.5-15.5) % Plt Count (150-450) k/uL BUN 38 H (7-17) mg/dL Creatinine 8.06 H* (0.52-1.04) mg/dL Glucose 106 H (74-99) mg/dL POC Glucose (mg/dL) 110 H 156 H (75-99) mg/dL Microbiology - Last 24 Hours (Table) 04/24/21 07:47 Blood Culture - Preliminary Blood No Growth after 96 hours 04/26/21 14:35 Urine Culture - Preliminary Urine,Clean Catch Gram Neg Bacilli 04/24/21 17:50 Urine Culture - Final Urine,Voided Escherichia coli 04/24/21 12:07 Blood Culture - Preliminary Blood No Growth after 72 hours Assessment and Plan Assessment: End-stage renal disease on dialysis Plan: Continue pressure dressings were chest wall using. Next 24-[address] topical versus placing stitches necessary.
[2021-04-28] MEDS: SODIUM CHLORIDE 0.9% 1,000 ML IV SCH (13:14)
--- NOTE | 2021-04-28 15:42 | P.PN ---
Subjective Progress Note Date: 04/28/21 f/u for CKD on dialysis. had dialysis today. admits making urine. Objective - Vital Signs Vital signs: Vital Signs Temp 98.2 F 04/28/21 04:00 Pulse 95 04/28/21 12:00 Resp 12 04/28/21 12:00 BP 132/86 04/28/21 12:00 Pulse Ox 92 L 04/28/21 09:00 Intake & Output 04/27/21 04/28/21 04/28/21 18:59 06:59 18:59 Intake Total 222.5 360 260 Output Total 3250 3150 Balance -3027.5 360 -2890 Weight 60.2 kg Intake: IV 135 120 40 0.9 Sodium Chloride 110 120 40 Intake, IV Titration 87.5 100 Amount Nitroglycerin-D5w Pmx 50 87.5 mg In Dextrose/Water 1 250ml.bag @ 5 MCG/MIN 1.5 mls/hr IV .Q24H [facility] Rx#: [id number] cefTRIAXone 1 gm In 100 Sodium Chloride 0.9% 50 ml @ 100 mls/hr IVPB Q24HR [facility] Rx#:[id number] Oral 240 120 Output: Urine 250 150 Hemodialysis 3000 3000 Other: Voiding Method Bedside Commode Bedside Commode Toilet Bedside Commode # Voids 1 1 0 # Bowel Movements 1 1 - Exam no acute distress s1 s2 herd rt jugular permcath edema - Labs CBC & Chem 7: 04/28/21 03:19 04/28/21 03:19 Labs: Abnormal Lab Results - Last 24 Hours (Table) 04/27/21 04/27/21 04/28/21 Range/Units 16:43 20:18 03:19 RBC 3.14 L (3.80-5.40) m/uL Hgb 8.4 L (11.4-16.0) gm/dL Hct 25.4 L (34.0-46.0) % RDW 15.6 H (11.5-15.5) % Plt Count 122 L (150-450) k/uL BUN (7-17) mg/dL Creatinine (0.52-1.04) mg/dL Glucose (74-99) mg/dL POC Glucose (mg/dL) 228 H 136 H (75-99) mg/dL 04/28/21 04/28/21 04/28/21 Range/Units 03:19 06:37 11:43 RBC (3.80-5.40) m/uL Hgb (11.4-16.0) gm/dL Hct (34.0-46.0) % RDW (11.5-15.5) % Plt Count (150-450) k/uL BUN 38 H (7-17) mg/dL Creatinine 8.06 H* (0.52-1.04) mg/dL Glucose 106 H (74-99) mg/dL POC Glucose (mg/dL) 110 H 156 H (75-99) mg/dL Microbiology - Last 24 Hours (Table) 04/24/21 12:07 Blood Culture - Preliminary Blood No Growth after 96 hours 04/24/21 07:47 Blood Culture - Preliminary Blood No Growth after 96 hours 04/26/21 14:35 Urine Culture - Preliminary Urine,Clean Catch Gram Neg Bacilli 04/24/21 17:50 Urine Culture - Final Urine,Voided Escherichia coli Assessment and Plan Assessment: 1. ckd-5 currently on dialysis. hd today 2. Anemia with CKD 3. htn emergency curretly better 4. ckd-mbd Plan: 1. hd today, plan again tomorrow 2. out pt dialysis placement 3. ckd medications
[2021-04-28 17:05] LABS: Glucose,Whole Blood 138 mg/dL (75-99)
[2021-04-28] MEDS: ALPRAZolam 0.5 MG TAB PO PRN (19:26)
[2021-04-28 21:17] LABS: Glucose,Whole Blood 228 mg/dL (75-99)
[2021-04-28] MEDS: ACETAMINOPHEN TAB 325 MG TAB PO PRN (21:28)
[2021-04-29 07:08] LABS: Glucose,Whole Blood 98 mg/dL (75-99)
[2021-04-29] MEDS: INSULIN ASPART (NovoLOG) 100 UNIT/ML VIAL SQ SCH ×4 (07:23→20:44)
[2021-04-29] MEDS: ASPIRIN 81 MG PO SCH (09:09)
[2021-04-29] MEDS: ENOXAPARIN 30 MG/0.3 ML SYRINGE SQ SCH (09:09)
[2021-04-29] MEDS: FUROSEMIDE 20 MG TAB PO SCH (09:09)
[2021-04-29] MEDS: amLODIPine 5 MG TAB PO SCH ×2 (09:09→20:43)
[2021-04-29] MEDS: METOPROLOL TARTRATE 50 MG TAB PO SCH ×2 (09:09→20:43)
[2021-04-29] MEDS: hydrALAZINE HCL 25 MG TAB PO SCH ×2 (09:09→20:44)
--- NOTE | 2021-04-29 10:01 | P.PN ---
Subjective Progress Note Date: 04/27/21 Principal diagnosis: Acute kidney injury requiring hemodialysis Patient is a 50-year-old female with a known history of hypertension, chronic kidney disease currently not on follow-up and not take any medications presents to ER with complaints of nausea vomiting and diarrhea for the past 1 week. She is also complaining of shortness of breath on admission which has been getting worse for the past 2 days. Shortness of breath is with chest tightness. No prior history of coronary disease. No complaints of fever or chills. Denies any severe abdominal pain. Also developed orthopnea and minimal swelling of the legs. Episodes of lightheadedness. Patient is not taking any medications at home currently. Chest x-ray showed changes consistent with CHF with pulmonary edema and pleural fluid. EKG showed sinus tachycardia with possible left atrial enlargement. Repeat chest x-ray this morning after diuresis seems improved. Laboratory data showed WBC 9.4 hemoglobin 8.8 MCV 75.4 Sodium 135 potassium 4.2 bicarb is 17 BUN 110 and creatinine 17.87 Blood sugar is 186 and calcium 7.2 Troponin 0 0.093, 0.115 and 0.141 and 0.136 proBNP 26256 TSH 3.46 and hepatitis panel nonreactive. 2D echocardiogram showed mildly impaired left ventricular systolic function with ejection fraction 45 to 50% with severely dilated left atrium, mild aortic stenosis and severe MR and mild pulmonary hypertension. On admission blood pressure was 202/115 with pulse 124, respiration 18 and pulse ox 88% on room air. 04/24/2021 patient is currently resting in the bed. Shortness of breath is better. Patient is undergoing hemodialysis. Patient is being continued on Lasix 40 mg every 12 hours and patient is able to make urine. Renal ultrasound showed no evidence of hydronephrosis. Cardiology is planning for TASNEEM today. Probably is on board. Blood pressure is better today. Laboratory data showed WBC 6.9 hemoglobin 7.1 and platelets 188 and line sodium 133 potassium or 0.2 chloride 96 BUN 722 and creatinine came down to 11.59. Chest x-ray showed improving left lower lobe infiltrate. Stable right lower lobe infiltrate is present. 04/25/2021 Patient is currently in the MICU. Awake alert and oriented 3. Requiring oxygen at 2 L when as a cannula. Breathing status is better. Patient was initiated on hemodialysis. Blood pressure is in proving. Chest x-ray showed improving left lower lobe infiltrates. TASNEEM showed no sick with what I aortic stenosis and agitation, mitral valve a ppears normal and moderate central mitral regurgitation no leaflet flail or prolapse. Tricuspid valve is normal. No PFO. Left atrial appendage was free of clot. Ejection fraction 50%. Laboratory data showed WBC 6.3 hemoglobin and 7.0 and platelets 182 BUN 51 and creatinine 9.03 and potassium 4.6 Patient is being continued on Lasix 60 mg IV every 12, amlodipine, metoprolol. 04/26/2021 Patient is in the telemetry telemetry unit. Awake alert and oriented 3. On room air. Complaining of shortness of breath this morning. Blood pressure is elevated again. Patient had last hemodialysis yesterday. Continued on Lasix 60 mg twice daily, Norvasc and metoprolol. Hydralazine was added as per nephrology. Chest x-ray showed bilateral basilar infiltrates and lateral small pleural effusions and adjacent atelectasis. Cardiology recommends nitroglycerin infusion for better blood pressure control. He is being transferred to MICU today. Laboratory data showed WBC 10.3 hemoglobin 8.1 and platelets 122 BUN 30 and creatinine 6.38 and magnesium 1.6 04/27/2021 Patient is currently in the MICU. Blood pressure was still elevated in 170s this morning. Patient is being continued on nitro drip. Neckline chest x-ray showed bilateral pleural effusion and ultrasound showed 8.6 cm pocket bilaterall y. Power is considering thoracentesis. Patient did get hemodialysis with ultrafiltration of 2.8 L. Denied any complaints of headache or dizziness. No fever no chills. No cough or sputum production. Patient is being continued on metoprolol, Lasix and hydralazine. On antibiotics in the form of ceftriaxone for urinary tract infection. Pulmonary and cardiology and nephrology is on board. Current medications reviewed. Objective - Vital Signs Vital signs: Vital Signs Temp 99.1 F 04/27/21 08:00 Pulse 96 04/27/21 10:00 Resp 36 H 04/27/21 10:00 BP 145/91 04/27/21 10:00 Pulse Ox 94 L 04/27/21 10:00 Intake & Output 04/26/21 04/27/21 04/27/21 18:59 06:59 18:59 Intake Total 809.850 80 117.5 Output Total 300 Balance 809.850 -220 117.5 Weight 64.436 kg Intake: IV 30 0.9 Sodium Chloride 30 Intake, IV Titration 211.850 87.5 Amount Magnesium Sulfate-D5w Pmx 100 1 gm In Dextrose/Water 1 100ml.bag @ 100 mls/hr IVPB Q1H [facility] Rx#: [id number] Nitroglycerin-D5w Pmx 50 11.850 87.5 mg In Dextrose/Water 1 250ml.bag @ 5 MCG/MIN 1.5 mls/hr IV .Q24H [facility] Rx#: [id number] cefTRIAXone 1 gm In 100 Sodium Chloride 0.9% 50 ml @ 100 mls/hr IVPB Q24HR [facility] Rx#:[id number] Oral 598 80 Output: Urine 300 Other: Voiding Method Toilet Toilet # Voids 3 1 # Bowel Movements 1 - Exam PHYSICAL EXAMINATION: Patient is lying in the bed comfortably, no acute distress, awake alert and oriented.. HEENT: Normocephalic. Neck is supple. Pupils reactive. Nostrils clear. Oral cavity is moist. Neck reveals no JVD, carotid bruits, or thyromegaly. CHEST EXAMINATION: Trachea is central. Symmetrical expansion. Basal crackles. No wheezing.. Nonlabored breathing. CARDIAC: Normal S1, S2 with no gallops. Systolic murmur present. ABDOMEN: Soft. Bowel sounds normal. No organomegaly. No abdominal bruits. Extremities: trace edema. No clubbing or cyanosis Neurologically awake, alert, oriented x3 with well-coordinated movements. No focal deficits noted Skin: No rash or skin lesions. Psychiatric: Coperative. Nonsuicidal Musculoskeletal: No joint swelling or deformity. Normal range of motion. - Labs CBC & Chem 7: 04/28/21 03:19 04/28/21 03:19 Labs: Abnormal Lab Results - Last 24 Hours (Table) 04/26/21 04/26/21 04/26/21 Range/Units 12:23 14:35 16:44 WBC (3.8-10.6) k/uL RBC (3.80-5.40) m/uL Hgb (11.4-16.0) gm/dL Hct (34.0-46.0) % Plt Count (150-450) k/uL Neutrophils # (1.3-7.7) k/uL Sodium (137-145) mmol/L BUN (7-17) mg/dL Creatinine (0.52-1.04) mg/dL Glucose (74-99) mg/dL POC Glucose (mg/dL) 169 H 110 H (75-99) mg/dL Calcium (8.4-10.2) mg/dL Total Protein (6.3-8.2) g/dL Albumin (3.5-5.0) g/dL Urine Appearance Cloudy H (Clear) Urine Protein 2+ H (Negative) Urine Glucose (UA) 2+ H (Negative) Urine Blood Large H (Negative) Ur Leukocyte Esterase Large H (Negative) Urine RBC 56 H (0-5) /hpf Urine WBC >182 H (0-5) /hpf Urine WBC Clumps Moderate H (None) /hpf Urine Bacteria Rare H (None) /hpf Urine Yeast (Budding) Occasional H (None) /hpf 04/26/21 04/27/21 04/27/21 Range/Units 21:14 03:36 03:36 WBC 11.3 H (3.8-10.6) k/uL RBC 3.11 L (3.80-5.40) m/uL Hgb 8.4 L (11.4-16.0) gm/dL Hct 24.9 L (34.0-46.0) % Plt Count 141 L (150-450) k/uL Neutrophils # 8.2 H (1.3-7.7) k/uL Sodium 136 L (137-145) mmol/L BUN 36 H (7-17) mg/dL Creatinine 7.61 H* (0.52-1.04) mg/dL Glucose 120 H (74-99) mg/dL POC Glucose (mg/dL) 185 H (75-99) mg/dL Calcium 7.9 L (8.4-10.2) mg/dL Total Protein 6.1 L (6.3-8.2) g/dL Albumin 3.3 L (3.5-5.0) g/dL Urine Appearance (Clear) Urine Protein (Negative) Urine Glucose (UA) (Negative) Urine Blood (Negative) Ur Leukocyte Esterase (Negative) Urine RBC (0-5) /hpf Urine WBC (0-5) /hpf Urine WBC Clumps (None) /hpf Urine Bacteria (None) /hpf Urine Yeast (Budding) (None) /hpf 04/27/21 Range/Units 08:37 WBC (3.8-10.6) k/uL RBC (3.80-5.40) m/uL Hgb (11.4-16.0) gm/dL Hct (34.0-46.0) % Plt Count (150-450) k/uL Neutrophils # (1.3-7.7) k/uL Sodium (137-145) mmol/L BUN (7-17) mg/dL Creatinine (0.52-1.04) mg/dL Glucose (74-99) mg/dL POC Glucose (mg/dL) 169 H (75-99) mg/dL Calcium (8.4-10.2) mg/dL Total Protein (6.3-8.2) g/dL Albumin (3.5-5.0) g/dL Urine Appearance (Clear) Urine Protein (Negative) Urine Glucose (UA) (Negative) Urine Blood (Negative) Ur Leukocyte Esterase (Negative) Urine RBC (0-5) /hpf Urine WBC (0-5) /hpf Urine WBC Clumps (None) /hpf Urine Bacteria (None) /hpf Urine Yeast (Budding) (None) /hpf Microbiology - Last 24 Hours (Table) 04/24/21 07:47 Blood Culture - Preliminary Blood No Growth after 72 hours 04/26/21 14:35 Urine Culture - Preliminary Urine,Clean Catch 04/24/21 12:07 Blood Culture - Preliminary Blood No Growth after 48 hours Assessment and Plan Assessment: Acute hypoxic respiratory failure secondary to pulmonary edema requiring BiPAP . currently transitioned to nasal cannula. Acute CHF with systolic dysfunction ejection fraction 50%. TASNEEM on 04/24/2021 showed central mitral regurgitation. No evidence of visitation R flail leaflet or prolapse.. Acute on chronic kidney injury stage IV with creatinine level 17.87 on admission. Initiated on hemodialysis. baseline creatinine not known. Metabolic acidosis secondary to acute kidney injury Hypertensive emergency on admission Acute kidney injury Elevated troponin level/leak likely due to acute kidney injury Iron deficiency anemia and ACD Hypertension Noncompliance with medications and follow-up. DVT prophylaxis with lovenox Sq. Plan: Patient will be monitored in the MICU. Patient was started on hemodialysis TASNEEM showed no evidence of visitation or severe mitral regurgitation.. Nitroglycerin drip as per cardiology recommendations for better blood pressure control. Continue with aspirin, metoprolol and Norvasc and hydralazine.. Continued on Lasix 60 mg twice daily. Hemodialysis as per nephrology. Cardiology, nephrology and pulmonary is on board. Time with Patient: Greater than 30
[2021-04-29] MEDS: levOCARNitine (WITH SUGAR) 100 MG/ML BOTTLE PO SCH ×2 (10:08→20:49)
[2021-04-29] MEDS: ALPRAZolam 0.5 MG TAB PO PRN ×2 (10:11→20:48)
--- NOTE | 2021-04-29 10:17 | P.PN ---
Subjective Progress Note Date: 04/28/21 Principal diagnosis: Acute kidney injury requiring hemodialysis Patient is a 50-year-old female with a known history of hypertension, chronic kidney disease currently not on follow-up and not take any medications presents to ER with complaints of nausea vomiting and diarrhea for the past 1 week. She is also complaining of shortness of breath on admission which has been getting worse for the past 2 days. Shortness of breath is with chest tightness. No prior history of coronary disease. No complaints of fever or chills. Denies any severe abdominal pain. Also developed orthopnea and minimal swelling of the legs. Episodes of lightheadedness. Patient is not taking any medications at home currently. Chest x-ray showed changes consistent with CHF with pulmonary edema and pleural fluid. EKG showed sinus tachycardia with possible left atrial enlargement. Repeat chest x-ray this morning after diuresis seems improved. Laboratory data showed WBC 9.4 hemoglobin 8.8 MCV 75.4 Sodium 135 potassium 4.2 bicarb is 17 BUN 110 and creatinine 17.87 Blood sugar is 186 and calcium 7.2 Troponin 0 0.093, 0.115 and 0.141 and 0.136 proBNP 95194 TSH 3.46 and hepatitis panel nonreactive. 2D echocardiogram showed mildly impaired left ventricular systolic function with ejection fraction 45 to 50% with severely dilated left atrium, mild aortic stenosis and severe MR and mild pulmonary hypertension. On admission blood pressure was 202/115 with pulse 124, respiration 18 and pulse ox 88% on room air. 04/24/2021 patient is currently resting in the bed. Shortness of breath is better. Patient is undergoing hemodialysis. Patient is being continued on Lasix 40 mg every 12 hours and patient is able to make urine. Renal ultrasound showed no evidence of hydronephrosis. Cardiology is planning for TASNEEM today. Probably is on board. Blood pressure is better today. Laboratory data showed WBC 6.9 hemoglobin 7.1 and platelets 188 and line sodium 133 potassium or 0.2 chloride 96 BUN 722 and creatinine came down to 11.59. Chest x-ray showed improving left lower lobe infiltrate. Stable right lower lobe infiltrate is present. 04/25/2021 Patient is currently in the MICU. Awake alert and oriented 3. Requiring oxygen at 2 L when as a cannula. Breathing status is better. Patient was initiated on hemodialysis. Blood pressure is in proving. Chest x-ray showed improving left lower lobe infiltrates. TASNEEM showed no sick with what I aortic stenosis and agitation, mitral valve a ppears normal and moderate central mitral regurgitation no leaflet flail or prolapse. Tricuspid valve is normal. No PFO. Left atrial appendage was free of clot. Ejection fraction 50%. Laboratory data showed WBC 6.3 hemoglobin and 7.0 and platelets 182 BUN 51 and creatinine 9.03 and potassium 4.6 Patient is being continued on Lasix 60 mg IV every 12, amlodipine, metoprolol. 04/26/2021 Patient is in the telemetry telemetry unit. Awake alert and oriented 3. On room air. Complaining of shortness of breath this morning. Blood pressure is elevated again. Patient had last hemodialysis yesterday. Continued on Lasix 60 mg twice daily, Norvasc and metoprolol. Hydralazine was added as per nephrology. Chest x-ray showed bilateral basilar infiltrates and lateral small pleural effusions and adjacent atelectasis. Cardiology recommends nitroglycerin infusion for better blood pressure control. He is being transferred to MICU today. Laboratory data showed WBC 10.3 hemoglobin 8.1 and platelets 122 BUN 30 and creatinine 6.38 and magnesium 1.6 04/27/2021 Patient is currently in the MICU. Blood pressure was still elevated in 170s this morning. Patient is being continued on nitro drip. Neckline chest x-ray showed bilateral pleural effusion and ultrasound showed 8.6 cm pocket bilaterall y. Power is considering thoracentesis. Patient did get hemodialysis with ultrafiltration of 2.8 L. Denied any complaints of headache or dizziness. No fever no chills. No cough or sputum production. Patient is being continued on metoprolol, Lasix and hydralazine. On antibiotics in the form of ceftriaxone for urinary tract infection. Pulmonary and cardiology and nephrology is on board. 04/28/2021 Patient is currently resting in the bed comfortably. Awake alert and oriented 3. Blood pressure is better controlled. Nitroglycerin drip has been discontinued yesterday after hemodialysis. Patient underwent thoracentesis due to moderate-sized bilateral pleural effusion. Patient underwent right thoracentesis. Otherwise patient is being continued on 60 mg of Lasix IV every 12 and other blood pressure medications. Urine culture showed E. coli on 04/24/2021 and Klebsiella a on 04/26/2021 Patient is being transferred to medical floor today. Current medications reviewed. Objective - Vital Signs Vital signs: Vital Signs Temp 99.2 F 04/28/21 19:22 Pulse 94 04/28/21 19:22 Resp 16 04/28/21 19:22 BP 137/76 04/28/21 19:22 Pulse Ox 97 04/28/21 19:22 Intake & Output 04/28/21 04/28/21 04/29/21 06:59 18:59 06:59 Intake Total 360 740 Output Total 3150 Balance 360 -2410 Weight 60.2 kg Intake: IV 120 40 0.9 Sodium Chloride 120 40 Intake, IV Titration 100 Amount cefTRIAXone 1 gm In 100 Sodium Chloride 0.9% 50 ml @ 100 mls/hr IVPB Q24HR [facility] Rx#:[id number] Oral 240 600 Output: Urine 150 Hemodialysis 3000 Other: Voiding Method Bedside Commode Toilet Bedside Commode # Voids 1 0 0 # Bowel Movements 1 - Exam PHYSICAL EXAMINATION: Patient is lying in the bed comfortably, no acute distress, awake alert and oriented.. HEENT: Normocephalic. Neck is supple. Pupils reactive. Nostrils clear. Oral cavity is moist. Neck reveals no JVD, carotid bruits, or thyromegaly. CHEST EXAMINATION: Trachea is central. Symmetrical expansion. Basal crackles. No wheezing.. Nonlabored breathing. CARDIAC: Normal S1, S2 with no gallops. Systolic murmur present. ABDOMEN: Soft. Bowel sounds normal. No organomegaly. No abdominal bruits. Extremities: trace edema. No clubbing or cyanosis Neurologically awake, alert, oriented x3 with well-coordinated movements. No focal deficits noted Skin: No rash or skin lesions. Psychiatric: Coperative. Nonsuicidal Musculoskeletal: No joint swelling or deformity. Normal range of motion. - Labs CBC & Chem 7: 04/28/21 03:19 04/28/21 03:19 Labs: Abnormal Lab Results - Last 24 Hours (Table) 04/28/21 04/28/21 04/28/21 Range/Units 03:19 03:19 06:37 RBC 3.14 L (3.80-5.40) m/uL Hgb 8.4 L (11.4-16.0) gm/dL Hct 25.4 L (34.0-46.0) % RDW 15.6 H (11.5-15.5) % Plt Count 122 L (150-450) k/uL BUN 38 H (7-17) mg/dL Creatinine 8.06 H* (0.52-1.04) mg/dL Glucose 106 H (74-99) mg/dL POC Glucose (mg/dL) 110 H (75-99) mg/dL 04/28/21 04/28/21 04/28/21 Range/Units 11:43 16:49 21:16 RBC (3.80-5.40) m/uL Hgb (11.4-16.0) gm/dL Hct (34.0-46.0) % RDW (11.5-15.5) % Plt Count (150-450) k/uL BUN (7-17) mg/dL Creatinine (0.52-1.04) mg/dL Glucose (74-99) mg/dL POC Glucose (mg/dL) 156 H 138 H 228 H (75-99) mg/dL Microbiology - Last 24 Hours (Table) 04/26/21 14:35 Urine Culture - Final Urine,Clean Catch Klebsiella pneumoniae 04/28/21 09:15 Body Fluid Culture - Preliminary Pleural Fluid 04/24/21 12:07 Blood Culture - Preliminary Blood No Growth after 96 hours 04/24/21 07:47 Blood Culture - Preliminary Blood No Growth after 96 hours Assessment and Plan Assessment: Acute hypoxic respiratory failure secondary to pulmonary edema requiring BiPAP . currently transitioned to nasal cannula. Acute CHF with systolic dysfunction ejection fraction 50%. TASNEEM on 04/24/2021 showed central mitral regurgitation. No evidence of visitation R flail leaflet or prolapse.. Moderate sized bilateral pleural effusion. Status post right thoracentesis on 04/28/2021 Acute on chronic kidney injury stage IV with creatinine level 17.87 on admission. Initiated on hemodialysis. baseline creatinine not known. Metabolic acidosis secondary to acute kidney injury. Improved. Hypertensive emergency on admission Acute kidney injury Elevated troponin level/leak likely due to acute kidney injury Iron deficiency anemia and ACD Hypertension Noncompliance with medications and follow-up. DVT prophylaxis with lovenox Sq. Plan: Patient is being transferred to medical floor. Continue with Lasix IV 60 mg every 12. Blood pressure is better controlled and nitro drip off. Patient is status post right thoracentesis today. Patient was started on hemodialysis TASNEEM showed no evidence of visitation or severe mitral regurgitation.. Continue with aspirin, metoprolol and Norvasc and hydralazine.. Hemodialysis as per nephrology. Cardiology, nephrology and pulmonary is on board. Time with Patient: Greater than 30
[2021-04-29 10:54] LABS: % Iron Saturation 25.32 (12.00-45.00); Phosphorus 4.9 mg/dL (2.4-5.1)
[2021-04-29 11:42] LABS: Glucose,Whole Blood 219 mg/dL (75-99)
--- NOTE | 2021-04-29 13:38 | P.PN ---
Subjective Progress Note Date: 04/29/21 On 04/25/2021 patient seen in follow-up in the intensive care unit. She is awake and alert, oriented 3, she is currently resting comfortably in bed, she is on 2 L of oxygen the pulse ox of 98-100%. Is breathing comfortably, no complaints of chest pain, she is in sinus mechanism still slightly tachycardic at a rate of 102 BPM, cardiology is following and has increased her metoprolol 50 mg twice daily. She is currently not on any drips. Pressure control medications include metoprolol 50 mg twice daily as mentioned above, Norvasc 10 mg daily, she is also on Lasix at 60 mg twice daily, and she is producing urine in the order of 25 ML per hour, she did have hemodialysis session again yesterday with removal of 1 L of fluid. She is in -450 ML net fluid balance over the last 24 hours. Yesterday chest x-ray showed improving lateral lower lobe infiltrates. Transesophageal echocardiogram showed no significant aortic stenosis or regurgitation, mitral valve appeared normal with moderate central mitral regurgitation, there was no flail leaflet or prolapse, there was a blunting of the pulmonary vein however no systolic flow reversal. Tricuspid valve was normal. No evidence of PFO, left atrial appendage was free of clot. Left ventricular systolic function was low-normal at 50%. Absolute been reviewed, white blood cell count is 6.3, hemoglobin is 7.0, and patient received iron supplementation with IV Iron. Electrolytes were within normal limits, renal function is improving, BUN is 51, creatinine is 9.03. There are acute events overnight, no nausea or vomiting, patient is tolerating oral diet. On 04/26/2021 patient seen in follow-up on selective care unit, patient is awake and alert, in no acute distress, she is oriented 3, she is on room air, pulse ox is 96 -100%, afebrile, patient does have episodes of shortness of breath, no chest discomfort. He had a hemodialysis treatment yesterday with removal of 1 L of fluid. She remains on Lasix 60 mg twice daily, she received an additional dose of Lasix this afternoon for an episode of increased shortness of breath. Her chest x-ray today shows bibasilar infiltrates with bilateral small pleural effusions and adjacent atelectasis. Net fluid balance is difficult to estimate however her weight is down by 0.4 kg in the last 24 hours. Cardiology is following, her blood pressure is stable, however patient is being started on nitroglycerin infusion for blood pressure control in addition to her oral medications. She is currently on hydralazine 25 mg twice daily, metoprolol 50 mg twice daily 04/27/2021, the patient is being seen for a follow-up. The patient was transferred back to the intensive care unit for blood pressure control mode patient was placed on a nitroglycerin drip which is currently running at 30 mcg /m. Most recent systolic blood pressure is 176 with a diastolic blood pressure of 80. She is undergoing hemodialysis. Goal of ultrafiltration is around 2.8 L. She has dialysis catheter in the right femoral vein. He is also making urine. She still short of breath. She is on oxygen at 4 L. The chest x-ray was showing bilateral pleural effusion and ultrasound the chest was done and showed 8.6 cm pocket in the lungs bilaterally. As such, she may benefit from thoracentesis that may be done post dialysis. Hemodynamically stable. No nausea. No vomiting. No diarrhea. No abdominal pain. Remains on hydralazine 25 mg by mouth twice a day metoprolol 50 mg by mouth twice a day. She is also on IV Rocephin for a gram-negative bacteria that symptoms are urine. No other significant events otherwise for now. 04/28/2021, patient is being seen for a follow-up. As mentioned, the patient un derwent hemodialysis yesterday with a total of 3 L of fluid removal. She does have moderate-sized pleural effusion bilaterally and the plan is to undergo a right-sided thoracentesis today. The ultrasound marking of the chest on the been done. Blood pressures under better control for now and the patient is on room air oxygen. She is still having some respiratory difficulties and this is probably attributed to her pleural fluid. She is off the nitroglycerin drip. She is on IV Rocephin for an E. coli UTI. She is taking Lasix 60 mg IV every 12 hours. Urine output over the past 24 hours has been only 300 mL. However, based on the net fluid balance along with the hemodialysis, the neck fluid balance was in the order of -2.6 L. The patient was advised to come 0.4 with a hemoglobin of 8.4. BUN is 38, creatinine is 8.06, sodium is at 139. No altered mentation. No chest pain. No other complaints otherwise for now. 04/29/2021, the patient is being seen for a follow-up. She is out of the intensive care unit. She is undergoing hemodialysis regularly. I performed a thoracentesis of her lung yesterday on the right side and approximately 450 mL of fluid was aspirated without any major difficulties. Chest x-ray subsequently showed no evidence of any complications. The patient is doing well. Her BP is under good control. She has gram-negative bacteria in her urine which turned out to be a combination of E. coli and Klebsiella. The patient remains on IV Rocephin. She is smiling. She is doing good. She has no complaints. She is on room air oxygen. Her breathing improved after the fluid was drained out of her chest. Also has a permacath in place. She has no complaints for now. Objective - Vital Signs Vital signs: Vital Signs Temp 97.9 F 04/29/21 11:45 Pulse 81 04/29/21 11:45 Resp 16 04/29/21 11:45 BP 117/65 04/29/21 11:45 Pulse Ox 99 04/29/21 11:45 Intake & Output 04/28/21 04/29/21 04/29/21 18:59 06:59 18:59 Intake Total 740 540 Output Total 3150 Balance -2410 540 Intake: IV 40 0.9 Sodium Chloride 40 Intake, IV Titration 100 Amount cefTRIAXone 1 gm In 100 Sodium Chloride 0.9% 50 ml @ 100 mls/hr IVPB Q24HR [facility] Rx#:[id number] Oral 600 540 Output: Urine 150 Hemodialysis 3000 Other: Voiding Method Toilet Toilet Toilet Bedside Commode # Voids 0 3 - Exam Gen. appearance the patient is calm and comfortable, currently on RA oxygen Head exam was generally normal. There was no scleral icterus or corneal arcus. Mucous membranes were moist. Neck was supple and without jugular venous distension, thyromegaly, or carotid bruits. Carotids were easily palpable bilaterally. There was no adenopathy. Lungs sounds are diminished and the patient has crackles and diminished breath on lung bases bilaterally Heart sounds there is accentuation of second heart sound without any significant murmurs appreciated. [place] is shifted to the left Abdominal exam revealed normal bowel sounds. The abdomen was soft, non-tender, and without masses, organomegaly, or appreciable enlargement of the abdominal aorta. Examination of the extremities revealed easily palpable radial, femoral and pedal pulses. There was no cyanosis, clubbing or edema. Examination of the skin revealed no evidence of significant rashes, suspicious appearing nevi or other concerning lesions. Neurologically, the patient is awake and alert and the patient does not have any focal neurological deficit. Cranial nerves are essentially intact. - Labs CBC & Chem 7: 04/28/21 03:19 04/28/21 03:19 Labs: Abnormal Lab Results - Last 24 Hours (Table) 04/28/21 04/28/21 04/29/21 Range/Units 16:49 21:16 11:40 POC Glucose (mg/dL) 138 H 228 H 219 H (75-99) mg/dL Microbiology - Last 24 Hours (Table) 04/28/21 09:15 Gram Stain - Preliminary Pleural Fluid Body Fluid Culture - Preliminary 04/24/21 07:47 Blood Culture - Preliminary Blood No Growth after 120 hours 04/26/21 14:35 Urine Culture - Final Urine,Clean Catch Klebsiella pneumoniae 04/24/21 12:07 Blood Culture - Preliminary Blood No Growth after 96 hours Assessment and Plan Plan: 1 acute hypoxic respiratory failure secondary to pulmonary edema with bilateral pleural effusion . The patient underwent thoracentesis of the evacuation approximately 450 mL of pleural fluid. She is breathing better for now. No chest pain. 2 acute on chronic kidney injury. According to the patient she has chronic kidney disease with a GFR of 14. The patient is undergoing hemodialysis. Patient is undergoing dialysis and she has already done 2 sessions of hemodialysis with 1 L of ultrafiltration and the patient is going to have her third hemodialysis was done on 04/27/2021 with a total of 3 L of ultrafiltration. Another session of hemodialysis yesterday on 04/28/2021 where another 3 L of fluid was removed. 3 acute hypertensive emergency, currently on nitroglycerin drip. The patient is also on metoprolol 50 mg twice a day and hydralazine 25 mg by mouth twice a day and Norvasc 5 mg by mouth twice a day. The patient is also on Lasix 60 mg by mouth twice a day. Blood pressure was controlled for now. 4 acute troponin leak/non-ST segment elevation myocardial infarction. EKG showing sinus tachycardia with LVH 5 history of hypertension 6 chronic anemia, with microcytosis and iron deficiency received iron, received Aranesp, hemoglobin is stable 7 valvular heart disease with moderate degree of mitral regurgitation 8 UTI secondary to E. coli in the urine currently on IV Rocephin Plan Status is stable and the patient is currently on room air oxygen Switch this patient to oral Lasix 60 mg by mouth once a day Hemodialysis per nephrology Echocardiogram/TASNEEM was noted metoprolol 50 mg by mouth twice a day, and Norvasc 5 mg by mouth twice a day, and hydralazine 25 mg by mouth twice a day ASA 81 milligram by mouth daily Check a lipid profile, LDL level is at 113 Ceftriaxone for coli in the urine Pulmonary critical care services we'll sign off the case
--- NOTE | 2021-04-29 16:09 | P.PN ---
Subjective Progress Note Date: 04/29/21 f/u for CKD on dialysis. had dialysis yesterday. admits making urine. Objective - Vital Signs Vital signs: Vital Signs Temp 97.9 F 04/29/21 11:45 Pulse 81 04/29/21 11:45 Resp 16 04/29/21 11:45 BP 117/65 04/29/21 11:45 Pulse Ox 99 04/29/21 11:45 Intake & Output 04/28/21 04/29/21 04/29/21 18:59 06:59 18:59 Intake Total 740 540 Output Total 3150 Balance -2410 540 Intake: IV 40 0.9 Sodium Chloride 40 Intake, IV Titration 100 Amount cefTRIAXone 1 gm In 100 Sodium Chloride 0.9% 50 ml @ 100 mls/hr IVPB Q24HR [facility] Rx#:[id number] Oral 600 540 Output: Urine 150 Hemodialysis 3000 Other: Voiding Method Toilet Toilet Toilet Bedside Commode # Voids 0 3 - Exam no acute distress s1 s2 herd rt jugular permcath edema - Labs CBC & Chem 7: 04/28/21 03:19 04/28/21 03:19 Labs: Abnormal Lab Results - Last 24 Hours (Table) 04/28/21 04/28/21 04/29/21 Range/Units 16:49 21:16 11:40 POC Glucose (mg/dL) 138 H 228 H 219 H (75-99) mg/dL Microbiology - Last 24 Hours (Table) 04/24/21 12:07 Blood Culture - Preliminary Blood No Growth after 120 hours 04/28/21 09:15 Gram Stain - Preliminary Pleural Fluid Body Fluid Culture - Preliminary 04/24/21 07:47 Blood Culture - Preliminary Blood No Growth after 120 hours 04/26/21 14:35 Urine Culture - Final Urine,Clean Catch Klebsiella pneumoniae Assessment and Plan Assessment: 1. ckd-5 currently on dialysis. 2. Anemia with CKD 3. htn emergency curretly better 4. ckd-mbd Plan: 1. hd yesterday, plan again tomorrow 2. out pt dialysis placement 3. ckd medications
[2021-04-29 17:21] LABS: Glucose,Whole Blood 141 mg/dL (75-99)
[2021-04-29 20:00] VITALS: PULSE 89
[2021-04-29 20:12] LABS: Glucose,Whole Blood 185 mg/dL (75-99)
[2021-04-29] MEDS: ACETAMINOPHEN TAB 325 MG TAB PO PRN (20:43)
--- NOTE | 2021-04-30 01:07 | P.PN ---
Subjective Progress Note Date: 04/29/21 Principal diagnosis: Acute kidney injury requiring hemodialysis Patient is a 50-year-old female with a known history of hypertension, chronic kidney disease currently not on follow-up and not take any medications presents to ER with complaints of nausea vomiting and diarrhea for the past 1 week. She is also complaining of shortness of breath on admission which has been getting worse for the past 2 days. Shortness of breath is with chest tightness. No prior history of coronary disease. No complaints of fever or chills. Denies any severe abdominal pain. Also developed orthopnea and minimal swelling of the legs. Episodes of lightheadedness. Patient is not taking any medications at home currently. Chest x-ray showed changes consistent with CHF with pulmonary edema and pleural fluid. EKG showed sinus tachycardia with possible left atrial enlargement. Repeat chest x-ray this morning after diuresis seems improved. Laboratory data showed WBC 9.4 hemoglobin 8.8 MCV 75.4 Sodium 135 potassium 4.2 bicarb is 17 BUN 110 and creatinine 17.87 Blood sugar is 186 and calcium 7.2 Troponin 0 0.093, 0.115 and 0.141 and 0.136 proBNP 50664 TSH 3.46 and hepatitis panel nonreactive. 2D echocardiogram showed mildly impaired left ventricular systolic function with ejection fraction 45 to 50% with severely dilated left atrium, mild aortic stenosis and severe MR and mild pulmonary hypertension. On admission blood pressure was 202/115 with pulse 124, respiration 18 and pulse ox 88% on room air. 04/24/2021 patient is currently resting in the bed. Shortness of breath is better. Patient is undergoing hemodialysis. Patient is being continued on Lasix 40 mg every 12 hours and patient is able to make urine. Renal ultrasound showed no evidence of hydronephrosis. Cardiology is planning for TASNEEM today. Probably is on board. Blood pressure is better today. Laboratory data showed WBC 6.9 hemoglobin 7.1 and platelets 188 and line sodium 133 potassium or 0.2 chloride 96 BUN 722 and creatinine came down to 11.59. Chest x-ray showed improving left lower lobe infiltrate. Stable right lower lobe infiltrate is present. 04/25/2021 Patient is currently in the MICU. Awake alert and oriented 3. Requiring oxygen at 2 L when as a cannula. Breathing status is better. Patient was initiated on hemodialysis. Blood pressure is in proving. Chest x-ray showed improving left lower lobe infiltrates. TASNEEM showed no sick with what I aortic stenosis and agitation, mitral valve a ppears normal and moderate central mitral regurgitation no leaflet flail or prolapse. Tricuspid valve is normal. No PFO. Left atrial appendage was free of clot. Ejection fraction 50%. Laboratory data showed WBC 6.3 hemoglobin and 7.0 and platelets 182 BUN 51 and creatinine 9.03 and potassium 4.6 Patient is being continued on Lasix 60 mg IV every 12, amlodipine, metoprolol. 04/26/2021 Patient is in the telemetry telemetry unit. Awake alert and oriented 3. On room air. Complaining of shortness of breath this morning. Blood pressure is elevated again. Patient had last hemodialysis yesterday. Continued on Lasix 60 mg twice daily, Norvasc and metoprolol. Hydralazine was added as per nephrology. Chest x-ray showed bilateral basilar infiltrates and lateral small pleural effusions and adjacent atelectasis. Cardiology recommends nitroglycerin infusion for better blood pressure control. He is being transferred to MICU today. Laboratory data showed WBC 10.3 hemoglobin 8.1 and platelets 122 BUN 30 and creatinine 6.38 and magnesium 1.6 04/27/2021 Patient is currently in the MICU. Blood pressure was still elevated in 170s this morning. Patient is being continued on nitro drip. Neckline chest x-ray showed bilateral pleural effusion and ultrasound showed 8.6 cm pocket bilaterall y. Power is considering thoracentesis. Patient did get hemodialysis with ultrafiltration of 2.8 L. Denied any complaints of headache or dizziness. No fever no chills. No cough or sputum production. Patient is being continued on metoprolol, Lasix and hydralazine. On antibiotics in the form of ceftriaxone for urinary tract infection. Pulmonary and cardiology and nephrology is on board. 04/28/2021 Patient is currently resting in the bed comfortably. Awake alert and oriented 3. Blood pressure is better controlled. Nitroglycerin drip has been discontinued yesterday after hemodialysis. Patient underwent thoracentesis due to moderate-sized bilateral pleural effusion. Patient underwent right thoracentesis. Otherwise patient is being continued on 60 mg of Lasix IV every 12 and other blood pressure medications. Urine culture showed E. coli on 04/24/2021 and Klebsiella a on 04/26/2021 Patient is being transferred to medical floor today. 04/29/2021 Patient is currently sitting in the bed comfortably. Currently in the telemetry unit. Respiratory status is much improved. No complaints of chest pain. Blood pressure is also controlled. Urine culture showed E. coli and is being vitaliy nued on ceftriaxone. Patient is saturating well on room air. Nephrology is following and patient will need outpatient hemodialysis arrangement. manager event will be consulted. Current medications reviewed. Objective - Vital Signs Vital signs: Vital Signs Temp 98.0 F 04/29/21 05:00 Pulse 87 04/29/21 05:00 Resp 16 04/29/21 05:00 BP 131/74 04/29/21 05:00 Pulse Ox 100 04/29/21 05:00 Intake & Output 04/28/21 04/29/21 04/29/21 18:59 06:59 18:59 Intake Total 740 540 Output Total 3150 Balance -2410 540 Intake: IV 40 0.9 Sodium Chloride 40 Intake, IV Titration 100 Amount cefTRIAXone 1 gm In 100 Sodium Chloride 0.9% 50 ml @ 100 mls/hr IVPB Q24HR [facility] Rx#:[id number] Oral 600 540 Output: Urine 150 Hemodialysis 3000 Other: Voiding Method Toilet Toilet Bedside Commode # Voids 0 3 - Exam PHYSICAL EXAMINATION: Patient is lying in the bed comfortably, no acute distress, awake alert and oriented.. HEENT: Normocephalic. Neck is supple. Pupils reactive. Nostrils clear. Oral cavity is moist. Neck reveals no JVD, carotid bruits, or thyromegaly. CHEST EXAMINATION: Trachea is central. Symmetrical expansion. Basal crackles. No wheezing.. Nonlabored breathing. CARDIAC: Normal S1, S2 with no gallops. Systolic murmur present. ABDOMEN: Soft. Bowel sounds normal. No organomegaly. No abdominal bruits. Extremities: trace edema. No clubbing or cyanosis Neurologically awake, alert, oriented x3 with well-coordinated movements. No focal deficits noted Skin: No rash or skin lesions. Psychiatric: Coperative. Nonsuicidal Musculoskeletal: No joint swelling or deformity. Normal range of motion. - Labs CBC & Chem 7: 04/28/21 03:19 04/28/21 03:19 Labs: Abnormal Lab Results - Last 24 Hours (Table) 04/28/21 04/28/21 04/28/21 Range/Units 11:43 16:49 21:16 POC Glucose (mg/dL) 156 H 138 H 228 H (75-99) mg/dL Microbiology - Last 24 Hours (Table) 04/24/21 07:47 Blood Culture - Preliminary Blood No Growth after 120 hours 04/28/21 09:15 Gram Stain - Preliminary Pleural Fluid Body Fluid Culture - Preliminary 04/26/21 14:35 Urine Culture - Final Urine,Clean Catch Klebsiella pneumoniae 04/24/21 12:07 Blood Culture - Preliminary Blood No Growth after 96 hours Assessment and Plan Assessment: Acute hypoxic respiratory failure secondary to pulmonary edema requiring BiPAP . currently transitioned to nasal cannula. Acute CHF with systolic dysfunction ejection fraction 50%. TASNEEM on 04/24/2021 showed central mitral regurgitation. No evidence of visitation R flail leaflet or prolapse.. Moderate sized bilateral pleural effusion. Status post right thoracentesis on 04/28/2021 Acute on chronic kidney injury stage IV with creatinine level 17.87 on admission. Initiated on hemodialysis. baseline creatinine not known. Metabolic acidosis secondary to acute kidney injury. Improved. Hypertensive emergency on admission Acute kidney injury Elevated troponin level/leak likely due to acute kidney injury Iron deficiency anemia and ACD Hypertension Noncompliance with medications and follow-up. DVT prophylaxis with lovenox Sq. Plan: Patient is being transferred to medical floor. Continue with Lasix IV 60 mg every 12---> PO 60mg daily. Blood pressure is better controlled and nitro drip off. Patient is status post right thoracentesis on 04/28. Patient was started on hemodialysis TASNEEM showed no evidence of visitation or severe mitral regurgitation.. Continue with aspirin, metoprolol and Norvasc and hydralazine.. Hemodialysis as per nephrology. Cardiology, nephrology and pulmonary is on board. Time with Patient: Greater than 30
[2021-04-30 05:26] LABS: Anisocytosis Slight; Basophils % (A) 0 %; Eosinophils # (A) 0.3 k/uL (0-0.7); Eosinophils % (A) 4 %; HCT 25.6 % (34.0-46.0); HGB 8.5 gm/dL (11.4-16.0); Lymphocytes # (A) 2.6 k/uL (1.0-4.8); Lymphocytes % (A) 34 %; MCH 27.2 pg (25.0-35.0); MCHC 33.4 g/dL (31.0-37.0); MCV 81.5 fL (80.0-100.0); Mean Platelet Volume 9.2; Monocytes # (A) 0.3 k/uL (0-1.0); Monocytes % (A) 4 %; Neutrophils # (A) 4.3 k/uL (1.3-7.7); Neutrophils % (A) 56 %; Platelet Count 144 k/uL (150-450); RBC 3.14 m/uL (3.80-5.40); RDW 16.2 % (11.5-15.5); WBC 7.7 k/uL (3.8-10.6)
[2021-04-30 07:13] LABS: Glucose,Whole Blood 92 mg/dL (75-99)
[2021-04-30] MEDS: INSULIN ASPART (NovoLOG) 100 UNIT/ML VIAL SQ SCH ×2 (07:14→12:17)
[2021-04-30] MEDS: FUROSEMIDE 20 MG TAB PO SCH (08:26)
[2021-04-30] MEDS: hydrALAZINE HCL 25 MG TAB PO SCH (08:26)
[2021-04-30] MEDS: METOPROLOL TARTRATE 50 MG TAB PO SCH (08:26)
[2021-04-30] MEDS: ASPIRIN 81 MG PO SCH (08:26)
[2021-04-30] MEDS: amLODIPine 5 MG TAB PO SCH (08:27)
[2021-04-30] MEDS: ENOXAPARIN 30 MG/0.3 ML SYRINGE SQ SCH (08:35)
--- NOTE | 2021-04-30 09:49 | P.PN ---
Subjective Patient is seen in follow-up for end-stage renal disease. No active complaints. Blood pressure controlled. No chest pain or shortness of breath. Does make urine. No active complaints at this time. Vital signs are stable. General: The patient appeared well nourished and normally developed. HEENT: Head exam is unremarkable. Neck is without jugular venous distension. LUNGS: Breath sounds decreased. HEART: Rate and Rhythm are regular. ABDOMEN: Soft, no distention. EXTREMITITES: No edema. Objective - Vital Signs Vital signs: Vital Signs Temp 98.4 F 04/30/21 05:00 Pulse 89 04/30/21 05:00 Resp 16 04/30/21 05:00 BP 138/73 04/30/21 05:00 Pulse Ox 99 04/30/21 05:00 Intake & Output 04/29/21 04/30/21 04/30/21 18:59 06:59 18:59 Intake Total 50 Balance 50 Intake: Intake, IV Titration 50 Amount cefTRIAXone 1 gm In 50 Sodium Chloride 0.9% 50 ml @ 100 mls/hr IVPB Q24HR [facility] Rx#:[id number] Other: Voiding Method Toilet Toilet # Voids 2 - Labs CBC & Chem 7: 04/30/21 04:57 04/28/21 03:19 Labs: Abnormal Lab Results - Last 24 Hours (Table) 04/29/21 04/29/21 04/29/21 Range/Units 11:40 17:09 20:10 RBC (3.80-5.40) m/uL Hgb (11.4-16.0) gm/dL Hct (34.0-46.0) % RDW (11.5-15.5) % Plt Count (150-450) k/uL POC Glucose (mg/dL) 219 H 141 H 185 H (75-99) mg/dL 04/30/21 Range/Units 04:57 RBC 3.14 L (3.80-5.40) m/uL Hgb 8.5 L (11.4-16.0) gm/dL Hct 25.6 L (34.0-46.0) % RDW 16.2 H (11.5-15.5) % Plt Count 144 L (150-450) k/uL POC Glucose (mg/dL) (75-99) mg/dL Microbiology - Last 24 Hours (Table) 04/24/21 12:07 Blood Culture - Preliminary Blood No Growth after 120 hours 04/28/21 09:15 Gram Stain - Preliminary Pleural Fluid Body Fluid Culture - Preliminary 04/24/21 07:47 Blood Culture - Preliminary Blood No Growth after 120 hours Assessment and Plan Plan: Assessment: 1. End-stage renal disease started on hemodialysis this admission. 2. Hypertensive emergency. Improved. Blood pressure controlled. 3. Anemia of chronic kidney disease maintained on Aranesp. 4. Chronic kidney disease mineral bone disease. Plan: Hemodialysis today. Outpatient dialysis has been set up. She will be maintained on a Friday ay Friday schedule.
[2021-04-30 09:50] LABS: African American GFR (CKD) 5.8 (60.0-200.0); Anion Gap 12.1 mmol/L (4.00-12.00); BUN/Creat Ratio 4.76 Ratio (12.00-20.00); Calcium 8.1 mg/dL (8.7-10.3); Carbon Dioxide 21.9 mmol/L (21.6-31.8); Potassium 4.3 mmol/L (3.5-5.5)
[2021-04-30 11:15] LABS: Glucose,Whole Blood 171 mg/dL (75-99)
--- NOTE | 2021-04-30 11:56 | P.PN ---
Subjective Progress Note Date: 04/30/21 Principal diagnosis: shortness of breath On 04/25/2021 patient seen in follow-up in the intensive care unit. She is awake and alert, oriented 3, she is currently resting comfortably in bed, she is on 2 L of oxygen the pulse ox of 98-100%. Is breathing comfortably, no complaints of chest pain, she is in sinus mechanism still slightly tachycardic at a rate of 102 BPM, cardiology is following and has increased her metoprolol 50 mg twice daily. She is currently not on any drips. Pressure control medications include metoprolol 50 mg twice daily as mentioned above, Norvasc 10 mg daily, she is also on Lasix at 60 mg twice daily, and she is producing urine in the order of 25 ML per hour, she did have hemodialysis session again yesterday with removal of 1 L of fluid. She is in -450 ML net fluid balance over the last 24 hours. Yesterday chest x-ray showed improving lateral lower lobe infiltrates. Transesophageal echocardiogram showed no significant aortic stenosis or regurgitation, mitral valve appeared normal with moderate central mitral regurgitation, there was no flail leaflet or prolapse, there was a blunting of the pulmonary vein however no systolic flow reversal. Tricuspid valve was normal. No evidence of PFO, left atrial appendage was free of clot. Left ventricular systolic function was low-normal at 50%. Absolute been reviewed, white blood cell count is 6.3, hemoglobin is 7.0, and patient received iron supplementation with IV Iron. Electrolytes were within normal limits, renal function is improving, BUN is 51, creatinine is 9.03. There are acute events overnight, no nausea or vomiting, patient is tolerating oral diet. On 04/26/2021 patient seen in follow-up on selective care unit, patient is awake and alert, in no acute distress, she is oriented 3, she is on room air, pulse ox is 96 -100%, afebrile, patient does have episodes of shortness of breath, no chest discomfort. He had a hemodialysis treatment yesterday with removal of 1 L of fluid. She remains on Lasix 60 mg twice daily, she received an additional dose of Lasix this afternoon for an episode of increased shortness of breath. Her chest x-ray today shows bibasilar infiltrates with bilateral small pleural effusions and adjacent atelectasis. Net fluid balance is difficult to estimate however her weight is down by 0.4 kg in the last 24 hours. Cardiology is following, her blood pressure is stable, however patient is being started on nitroglycerin infusion for blood pressure control in addition to her oral medications. She is currently on hydralazine 25 mg twice daily, metoprolol 50 mg twice daily On 04/30/2021 patient seen in follow-up on medical oncology floor. She is awake and alert, in no acute distress, she is on room air, breathing comfortably she is satting 99% on room air, blood pressure is stable 138/73 this morning, has been controlled. She has had no compressive chest pain or worsening dyspnea, her last chest x-ray was last Friday on 04/28/2021 and this was post right thoracentesis 450 mL of turbid colored fluid was removed without difficulty, following chest x-ray showed no evidence of pneumothorax and improved right base aeration. Repeat chest x-ray was done since. Her last hemodialysis session was on 04/28/2021 with removal of 3 L of fluid. Today she is having a hemodialysis session. She also voids. She is on maintenance dose of Lasix 60 mg daily. She continues on Rocephin for Klebsiella pneumonia in the urine culture. Blood cultures have been negative, pleural fluid cultures are pending, Gram stain showed no organisms. Objective - Vital Signs Vital signs: Vital Signs Temp 98.4 F 04/30/21 05:00 Pulse 89 04/30/21 05:00 Resp 16 04/30/21 05:00 BP 138/73 04/30/21 05:00 Pulse Ox 99 04/30/21 05:00 Intake & Output 04/29/21 04/30/21 04/30/21 18:59 06:59 18:59 Intake Total 50 Balance 50 Intake: Intake, IV Titration 50 Amount cefTRIAXone 1 gm In 50 Sodium Chloride 0.9% 50 ml @ 100 mls/hr IVPB Q24HR [facility] Rx#:[id number] Other: Voiding Method Toilet Toilet # Voids 2 - Exam GENERAL EXAM: Alert, 3 pleasant, 50-year-old -[place] female, on room air with pulse ox of 96-100% comfortable in no apparent distress. HEAD: Normocephalic/atraumatic. EYES: Normal reaction of pupils, equal size. Conjunctiva pink, sclera white. NOSE: Clear with pink turbinates. THROAT: No erythema or exudates. NECK: No masses, no JVD, no thyroid enlargement, no adenopathy. CHEST: No chest wall deformity. Symmetrical expansion. Patient has a right upper chest permacath LUNGS: Equal air entry with diffuse crackles CVS: Regular rate and rhythm, normal S1 and S2, no gallops, no murmurs, no rubs ABDOMEN: Soft, nontender. No hepatosplenomegaly, normal bowel sounds, no guarding or rigidity. EXTREMITIES: No clubbing, no edema, no cyanosis, 2+ pulses and upper and lower extremities. MUSCULOSKELETAL: Muscle strength and tone normal. SPINE: No scoliosis or deformity SKIN: No rashes CENTRAL NERVOUS SYSTEM: Alert and oriented -3. No focal deficits, tone is normal in all 4 extremities. PSYCHIATRIC: Alert and oriented -3. Appropriate affect. Intact judgment and insight. - Labs CBC & Chem 7: 04/30/21 04:57 04/30/21 04:57 Labs: Abnormal Lab Results - Last 24 Hours (Table) 04/29/21 04/29/21 04/30/21 Range/Units 17:09 20:10 04:57 RBC 3.14 L (3.80-5.40) m/uL Hgb 8.5 L (11.4-16.0) gm/dL Hct 25.6 L (34.0-46.0) % RDW 16.2 H (11.5-15.5) % Plt Count 144 L (150-450) k/uL Anion Gap (4.00-12.00) mmol/L BUN (9.0-27.0) mg/dL Creatinine (0.6-1.5) mg/dL Est GFR (CKD-EPI)AfAm (60.0-200.0) Est GFR (CKD-EPI)NonAf (60.0-200.0) BUN/Creatinine Ratio (12.00-20.00) Ratio POC Glucose (mg/dL) 141 H 185 H (75-99) mg/dL Calcium (8.7-10.3) mg/dL 04/30/21 04/30/21 Range/Units 04:57 11:13 RBC (3.80-5.40) m/uL Hgb (11.4-16.0) gm/dL Hct (34.0-46.0) % RDW (11.5-15.5) % Plt Count (150-450) k/uL Anion Gap 12.10 H (4.00-12.00) mmol/L BUN 40.0 H (9.0-27.0) mg/dL Creatinine 8.4 H* (0.6-1.5) mg/dL Est GFR (CKD-EPI)AfAm 5.8 L (60.0-200.0) Est GFR (CKD-EPI)NonAf 5.0 L (60.0-200.0) BUN/Creatinine Ratio 4.76 L (12.00-20.00) Ratio POC Glucose (mg/dL) 171 H (75-99) mg/dL Calcium 8.1 L (8.7-10.3) mg/dL Microbiology - Last 24 Hours (Table) 04/24/21 07:47 Blood Culture - Final Blood No Growth after 144 hours 04/24/21 12:07 Blood Culture - Preliminary Blood No Growth after 120 hours 04/28/21 09:15 Gram Stain - Preliminary Pleural Fluid Body Fluid Culture - Preliminary Assessment and Plan Plan: assessment: #1. Acute hypoxic respiratory failure related to pulmonary edema with bilateral pleural effusions. TASNEEM showed central mitral regurgitation, which was improved from the previous echocardiogram. There was no evidence of vegetation, no flail leaflet or prolapse on the transesophageal echocardiogram from 04/24/2021. EF was low normal at 50% #2. Acute on chronic kidney disease, requiring hemodialysis #3. Hypertensive emergency, patient is off nitroglycerin, and Cleviprex Currently blood pressure is controlled on the combination of oral medications including Norvasc, oral Lasix, hydralazine, and metoprolol #4. Troponin leak/non-ST segment elevated myocardial infarction #5. Chronic kidney disease, with a baseline GFR of 14 #6. History of hypertension #7. Chronic anemia, hemoglobin is 7.1 with a microcytosis related to iron deficiency anemia #8. 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 Family history of premature coronary artery disease #10. Bilateral pleural effusions, status post right-sided thoracentesis on 04/28/2021 with removal of 450 mL of pleural fluid Plan: Patient is doing well Hemodynamically stable Blood pressure is controlled on a combination of oral medications Breathing comfortably Maintaining stable O2 saturations on room air Her last chest x-ray has been reviewed, Increase activity as tolerated The remaining left-sided pleural effusion is anticipated to improve in size with hemodialysis and diuretics Clinically stable Patient received a permacath in the left subclavian area, temperature hemodialysis catheter has been removed From pulmonary perspective she stable for discharge home today I performed a history & physical examination of the patient and discussed their management with my nurse practitioner, Marley Guerra. I reviewed the nurse practitioner's note and agree with the documented findings and plan of care. Lung sounds are positive for diffuse crackles throughout the lung aguilar. The findings and the impression was discussed with the patient. I attest to the documentation by the nurse practitioner. Time with Patient: Less than 30
[2021-04-30] MEDS: levOCARNitine (WITH SUGAR) 100 MG/ML BOTTLE PO SCH (12:06)
[2021-04-30] MEDS: DARBEPOETIN ALFA 60 MCG/0.3 ML SYRINGE SQ SCH (12:17)
[2021-04-30 13:10] VITALS: BP 142/89; RESP 18; TEMP 96.6
--- NOTE | 2021-05-02 03:12 | P.DS ---
Providers Date of admission: 04/22/21 23:02 Expected date of discharge: 04/30/21 Attending physician: Henry Vivar MD Consults: 04/22/21 22:54 Consult Physician Routine Consulting Provider: Maninder Dumont Consult Reason/Comments: Dyspnea, acute pulmonary edema ,on BiPAP Do you want consulting provider notified?: Already Contacted Consult Physician Routine Consulting Provider: Edgar Downing Consult Reason/Comments: Acute renal failure Do you want consulting provider notified?: Already Contacted 04/23/21 11:30 Consult Physician Routine Consulting Provider: Kennedy Escamilla Consult Reason/Comments: insertion of hemodialysis catheter Do you want consulting provider notified?: Already Contacted 04/24/21 07:25 Consult Physician Routine Consulting Provider: Blake Pandya Consult Reason/Comments: acute MR, Do you want consulting provider notified?: Yes Primary care physician: Thomas López [facility] Course: Final Diagnosis Acute hypoxic respiratory failure secondary to pulmonary edema requiring BiPAP, improved Acute CHF with systolic dysfunction ejection fraction 50%. TASNEEM on 04/24/2021 showed central mitral regurgitation. No evidence of visitation R flail leaflet or prolapse Moderate sized bilateral pleural effusion. Status post right thoracentesis on 04/28/2021 Acute on chronic kidney injury stage IV with creatinine level 17.87 on admission. Initiated on hemodialysis. baseline creatinine not known. Metabolic acidosis secondary to acute kidney injury. Improved. Hypertensive emergency on admission Acute kidney injury Elevated troponin level/leak likely due to acute kidney injury Iron deficiency anemia and ACD Hypertension Noncompliance with medications and follow-up. DVT prophylaxis Discharge disposition Patient is being discharged in a stable condition with guarded prognosis to home. Patient will follow-up with Dr. Guzman in the outpatient setting upon discharge. Patient will continue with hemodialysis Mon/Wed/Fri and follow up w [facility] nephrology outpatient. Patient to continue with oral Ceftin 500mg twice daily for the next few days to complete the course. Total time taken is greater than 35 minutes. Hospital course Acute kidney injury requiring hemodialysis Patient is a 50-year-old female with a known history of hypertension, chronic kidney disease currently not on follow-up and not take any medications presents to ER with complaints of nausea vomiting and diarrhea for the past 1 week. She is also complaining of shortness of breath on admission which has been getting worse for the past 2 days. Shortness of breath is with chest tightness. No prior history of coronary disease. No complaints of fever or chills. Denies any severe abdominal pain. Also developed orthopnea and minimal swelling of the legs. Episodes of lightheadedness. Patient is not taking any medications at home currently. Chest x-ray showed changes consistent with CHF with pulmonary edema and pleural fluid. EKG showed sinus tachycardia with possible left atrial enlargement. Repeat chest x-ray this morning after diuresis seems improved. Laboratory data showed WBC 9.4 hemoglobin 8.8 MCV 75.4 Sodium 135 potassium 4.2 bicarb is 17 BUN 110 and creatinine 17.87 Blood sugar is 186 and calcium 7.2 Troponin 0 0.093, 0.115 and 0.141 and 0.136 proBNP 91416 TSH 3.46 and hepatitis panel nonreactive. 2D echocardiogram showed mildly impaired left ventricular systolic function with ejection fraction 45 to 50% with severely dilated left atrium, mild aortic stenosis and severe MR and mild pulmonary hypertension. On admission blood pressure was 202/115 with pulse 124, respiration 18 and pulse ox 88% on room air. 04/24/2021 patient is currently resting in the bed. Shortness of breath is better. Patient is undergoing hemodialysis. Patient is being continued on Lasix 40 mg every 12 hours and patient is able to make urine. Renal ultrasound showed no evidence of hydronephrosis. Cardiology is planning for TASNEEM today. Probably is on board. Blood pressure is better today. Laboratory data showed WBC 6.9 hemoglobin 7.1 and platelets 188 and line sodium 133 potassium or 0.2 chloride 96 BUN 722 and creatinine came down to 11.59. Chest x-ray showed improving left lower lobe infiltrate. Stable right lower lobe infiltrate is present. 04/25/2021 Patient is currently in the MICU. Awake alert and oriented 3. Requiring oxygen at 2 L when as a cannula. Breathing status is better. Patient was initiated on hemodialysis. Blood pressure is in proving. Chest x-ray showed improving left lower lobe infiltrates. TASNEEM showed no sick with what I aortic stenosis and agitation, mitral valve appears normal and moderate central mitral regurgitation no leaflet flail or prolapse. Tricuspid valve is normal. No PFO. Left atrial appendage was free of clot. Ejection fraction 50%. Laboratory data showed WBC 6.3 hemoglobin and 7.0 and platelets 182 BUN 51 and creatinine 9.03 and potassium 4.6 Patient is being continued on Lasix 60 mg IV every 12, amlodipine, metoprolol. 04/26/2021 Patient is in the telemetry telemetry unit. Awake alert and oriented 3. On room air. Complaining of shortness of breath this morning. Blood pressure is elevated again. Patient had last hemodialysis yesterday. Continued on Lasix 60 mg twice daily, Norvasc and metoprolol. Hydralazine was added as per nephrology. Chest x-ray showed bilateral basilar infiltrates and lateral small pleural effusions and adjacent atelectasis. Cardiology recommends nitroglycerin infusion for better blood pressure control. He is being transferred to MICU today. Laboratory data showed WBC 10.3 hemoglobin 8.1 and platelets 122 BUN 30 and creatinine 6.38 and magnesium 1.6 04/27/2021 Patient is currently in the MICU. Blood pressure was still elevated in 170s this morning. Patient is being continued on nitro drip. Neckline chest x-ray showed bilateral pleural effusion and ultrasound showed 8.6 cm pocket bilaterally. Power is considering thoracentesis. Patient did get hemodialysis with ultrafiltration of 2.8 L. Denied any complaints of headache or dizziness. No fever no chills. No cough or sputum production. Patient is being continued on metoprolol, Lasix and hydralazine. On antibiotics in the form of ceftriaxone for urinary tract infection. Pulmonary and cardiology and nephrology is on board. 04/28/2021 Patient is currently resting in the bed comfortably. Awake alert and oriented 3. Blood pressure is better controlled. Nitroglycerin drip has been discontinued yesterday after hemodialysis. Patient underwent thoracentesis due to moderate-sized bilateral pleural effusion. Patient underwent right thoracentesis. Otherwise patient is being continued on 60 mg of Lasix IV every 12 and other blood pressure medications. Urine culture showed E. coli on 04/24/2021 and Klebsiella a on 04/26/2021 Patient is being transferred to medical floor today. 04/29/2021 Patient is currently sitting in the bed comfortably. Currently in the telemetry unit. Respiratory status is much improved. No complaints of chest pain. Blood pressure is also controlled. Urine culture showed E. coli and is being continued on ceftriaxone. Patient is saturating well on room air. Nephrology is following and patient will need outpatient hemodialysis arrangement. research laboratory manager will be consulted. 04/30/2021 Patient is seen in follow-up with no acute overnight issues noted. Patient currently receiving hemodialysis and tolerating well. Patient will continue with hemodialysis on Friday/ Fri/ Friday schedule at [facility]. Patient to follow up with cardiology outpatient in 2 weeks as well. Patient was being treated for acute UTI as well and will continue with oral ceftin to complete the course. Final cultures show Klebsiella pneumonia with sensitivity. Patient instructed to continue with renal diet and repeat labs outpatient. Patient is adamant about going home today. Currently no reports of chest pain, shortness of breath, or palpitations. Patient is afebrile. No reports of nausea or vomiting and patient is tolerating diet. Patient will be discharged home. On exam vital signs are stable. Cardio S1, S2 are muffled. Respiratory system shows diminished breath sounds at the bases with no wheezing or rhonchi noted. Abdomen is soft and nontender. Nervous system shows no focal deficit. Please refer to medication reconciliation sheet for a list of medications. Patient Condition at Discharge: Stable Plan - Discharge Summary Discharge Rx Participant: Yes New Discharge Prescriptions: New hydrALAZINE HCL [Apresoline] 25 mg PO BID #60 tab Aspirin 81 mg PO DAILY #30 chew Cefuroxime Axetil [Ceftin] 500 mg PO BID 4 Days #8 tab levOCARNitine [Levocarnitine] 330 mg PO AC-BID #60 tablet Darbepoetin Solomon [Aranesp] 60 mcg SQ Q7D syringe Furosemide [Lasix] 60 mg PO DAILY #90 tab Metoprolol Tartrate [Lopressor] 50 mg PO BID #60 tab amLODIPine [Norvasc] 5 mg PO BID #60 tab Acetaminophen Tab [Tylenol] 325 mg PO Q6HR PRN tab PRN Reason: Fever And/ Or Pain Discharge Medication List Acetaminophen Tab [Tylenol] 325 mg PO Q6HR PRN tab 04/30/21 [Rx] Aspirin 81 mg PO DAILY #30 chew 04/30/21 [Rx] Cefuroxime Axetil [Ceftin] 500 mg PO BID 4 Days #8 tab 04/30/21 [Rx] Darbepoetin Solomon [Aranesp] 60 mcg SQ Q7D syringe 04/30/21 [Rx] Furosemide [Lasix] 60 mg PO DAILY #90 tab 04/30/21 [Rx] Metoprolol Tartrate [Lopressor] 50 mg PO BID #60 tab 04/30/21 [Rx] amLODIPine [Norvasc] 5 mg PO BID #60 tab 04/30/21 [Rx] hydrALAZINE HCL [Apresoline] 25 mg PO BID #60 tab 04/30/21 [Rx] levOCARNitine [Levocarnitine] 330 mg PO AC-BID #60 tablet 04/30/21 [Rx] Follow up Appointment(s)/Referral(s): Maribel Guzman MD [Primary Care Provider] - 05/02/21 1:00 pm (please bring insurance card to visit) [facility] [NON-STAFF] - 05/02/21 5:00 pm (HemoDialysis will be on Mondays/Wednesdays/Fridays at 5:00PM. On your day, please arrive a half hour early.) Bharat Chan DO [STAFF PHYSICIAN] - 2 Weeks (office will call patient with appt time and date.) Patient Instructions/Handouts: Cefuroxime (By mouth), Metoprolol (By mouth), Furosemide (By mouth), Aspirin (By mouth), Hydralazine (By mouth), Amlodipine (By mouth), Levocarnitine (By mouth), Dialysis Diet (DC), Basic Carbohydrate Counting (DC), Hemodialysis (DC) Activity/Diet/Wound Care/Special Instructions: [employer] is a mail order service for your Glucometer and supplies. They will mail your Glucometer to your home. If you do not receive please call them at [phone]. The free Glucometer you received during hospital stay, supplies can be purchased at [employer] until your other glucometer comes in. If you need transportation to appointments and/or Dialysis you can call the number on the back of your insurance card to set these up Continue to monitor blood sugars and keep a diary and discuss with primary care provider about oral versus insulin medications for sugar control Continue with consistent carb heart healthy renal diet Continue with dialysis and follow-up nephrology outpatient Follow-up with pulmonary outpatient Take medications as prescribed Take antibiotics until finished Follow-up primary care provider upon discharge. Discharge Disposition: HOME SELF-CARE
== END 2021-04-30 15:10 | disposition home or self-care (01) | DRG 280 ==
LOC: EC 20:33 → 2SICU 23:02 → 3SCARD 04-25 12:19 → 2SICU 04-26 14:44 → 5NMEDONC 04-28 12:40
PROVIDERS: ADMIT Internal Medicine; ATTEND Internal Medicine
PROC: 5A1D70Z Performance of Urinary Filtration, Intermittent, Less than 6 Hours Per Day (ICD-10-PCS; 2021-04-22)
PROC: 5A09357 Assistance with Respiratory Ventilation, Less than 24 Consecutive Hours, Continuous Positive Airway Pressure (ICD-10-PCS; 2021-04-22)
PROC: 06HM33Z Insertion of Infusion Device into Right Femoral Vein, Percutaneous Approach (ICD-10-PCS; 2021-04-23)
PROC: B54BZZA Ultrasonography of Right Lower Extremity Veins, Guidance (ICD-10-PCS; 2021-04-23)
PROC: B246ZZ4 Ultrasonography of Right and Left Heart, Transesophageal (ICD-10-PCS; 2021-04-24)
PROC: 02HV33Z Insertion of Infusion Device into Superior Vena Cava, Percutaneous Approach (ICD-10-PCS; 2021-04-27)
PROC: 0JH63XZ Insertion of Tunneled Vascular Access Device into Chest Subcutaneous Tissue and Fascia, Percutaneous Approach (ICD-10-PCS; 2021-04-27 07:30)
PROC: 0W993ZZ Drainage of Right Pleural Cavity, Percutaneous Approach (ICD-10-PCS; principal; 2021-04-28)
DX: I13.2 Hypertensive heart and chronic kidney disease with heart failure and with stage 5 chronic kidney disease, or end stage renal disease (principal); N18.6 End stage renal disease; I21.4 Non-ST elevation (NSTEMI) myocardial infarction; J96.01 Acute respiratory failure with hypoxia; I50.43 Acute on chronic combined systolic (congestive) and diastolic (congestive) heart failure; E87.2 Acidosis; I16.1 Hypertensive emergency; N39.0 Urinary tract infection, site not specified; J98.11 Atelectasis; N17.9 Acute kidney failure, unspecified; Z87.891 Personal history of nicotine dependence; Z82.49 Family history of ischemic heart disease and other diseases of the circulatory system; I27.20 Pulmonary hypertension, unspecified; D50.9 Iron deficiency anemia, unspecified; Z91.14 Patient's other noncompliance with medication regimen; Z91.19 Patient's noncompliance with other medical treatment and regimen; Z99.2 Dependence on renal dialysis; E11.22 Type 2 diabetes mellitus with diabetic chronic kidney disease; I08.0 Rheumatic disorders of both mitral and aortic valves; Z79.82 Long term (current) use of aspirin; Z79.899 Other long term (current) drug therapy; D63.1 Anemia in chronic kidney disease; B96.20 Unspecified Escherichia coli [E. coli] as the cause of diseases classified elsewhere; B96.1 Klebsiella pneumoniae [K. pneumoniae] as the cause of diseases classified elsewhere; M89.9 Disorder of bone, unspecified; M89.8X9 Other specified disorders of bone, unspecified site
CPT/HCPCS: 36415; 36558; 71045; 76604; 76770; 76937; 77001; 80048; 80053; 80061; 81001; 82306; 83036; 83540; 83550; 83605; 83735; 83880; 84100; 84443; 84484; 85025; 85027; 85379; 85610; 85730; 86704; 86706; 86850; 86900; 86901; 86920; 87040; 87070; 87077; 87086; 87186; 87205; 87340; 88108; 88305; 90935; 93005; 93306; 93312; 93320; 93325; 93880; 94660; 96374; 96375; 96376; 99291

== ENCOUNTER → 2021-05-24 | Day surgery (SDC) | payer OTHER ==
[~2021-05-24] MED LIST: LACTATED RINGERS 1,000 ML IV SCH
[2021-05-24 10:03] VITALS: BP 150/86; PULSE 80; RESP 16; TEMP 97.8
== END | disposition home or self-care (01) ==
LOC: OR 09:29
PROVIDERS: ATTEND Surgery
DX: N18.6 End stage renal disease (principal); Z53.09 Procedure and treatment not carried out because of other contraindication

== ENCOUNTER 2021-06-20 15:28 | Inpatient (IN) | payer OTHER ==
--- NOTE | 2021-06-20 16:28 | ED ---
Weakness HPI - General Chief complaint: Weakness Stated complaint: Kidney Failure Time Seen by Provider: 06/20/21 15:46 Source: patient, RN notes reviewed Mode of arrival: ambulatory Limitations: no limitations - History of Present Illness Initial comments: Is a 50-year-old female presents emergency Department with chief complaint of generalized weakness. Patient states that last month she cannot she had renal failure she presented emergency from at that time for shortness of breath. Patient states she had a catheter placed in which she states that she was doing dialysis but states that she has not been to dialysis in 3 weeks. Patient states that she's having increasing weakness. She denies any dyspnea, denies any leg swelling. She has complaint abdominal pain. Denies any fevers chills no cough or URI symptoms. Patient states that she does have a history of hypertension. - Related Data Home Medications Medication Instructions Recorded Confirmed Furosemide [Lasix] 20 mg PO DAILY 06/20/21 06/20/21 Previous Rx's Medication Instructions Recorded Metoprolol Tartrate [Lopressor] 50 mg PO BID #60 tab 04/30/21 amLODIPine [Norvasc] 5 mg PO BID #60 tab 04/30/21 hydrALAZINE HCL [Apresoline] 25 mg PO BID #60 tab 04/30/21 levOCARNitine [Levocarnitine] 330 mg PO AC-BID #60 tablet 04/30/21 Allergies Allergy/AdvReac Type Severity Reaction Status Date / Time No Known Allergies Allergy Verified 06/20/21 16:44 Review of Systems ROS Statement: Those systems with pertinent positive or pertinent negative responses have been documented in the HPI. ROS Other: All systems not noted in ROS Statement are negative. Past Medical History Past Medical History: Diabetes Mellitus, Hypertension, Renal Disease Additional Past Medical History / Comment(s): CKD with a previous GFR GFR of 14 History of Any Multi-Drug Resistant Organisms: None Reported Past Surgical History: No Surgical Hx Reported Additional Past Surgical History / Comment(s): Colposcopy. Past Anesthesia/Blood Transfusion Reactions: No Reported Reaction Past Psychological History: No Psychological Hx Reported Smoking Status: Former smoker Past Alcohol Use History: None Reported Past Drug Use History: None Reported - Past Family History Father History Unknown: Yes Family Medical History: Hypertension Mother History Unknown: Yes Additional Family Medical History / Comment(s): in her sleep. Brother(s) Family Medical History: Myocardial Infarction ([place]) Additional Family Medical History / Comment(s): Brother with myocardial infarcti on at 43 years old. General Exam Limitations: no limitations General appearance: alert, in no apparent distress Head exam: Present: atraumatic, normocephalic, normal inspection Eye exam: Present: normal appearance, PERRL, EOMI. Absent: scleral icterus, conjunctival injection, periorbital swelling ENT exam: Present: normal exam, normal oropharynx, mucous membranes moist Neck exam: Present: normal inspection, full ROM. Absent: tenderness, meningismus, lymphadenopathy Respiratory exam: Present: normal lung sounds bilaterally. Absent: respiratory distress, wheezes, rales, rhonchi, stridor Cardiovascular Exam: Present: regular rate, normal rhythm, normal heart sounds. Absent: systolic murmur, diastolic murmur, rubs, gallop, clicks GI/Abdominal exam: Present: soft, tenderness, normal bowel sounds. Absent: distended, guarding, rebound, rigid Extremities exam: Absent: pedal edema Neurological exam: Present: alert, oriented X3 Skin exam: Present: warm, dry, intact, normal color. Absent: rash Course Vital Signs 06/20/21 06/20/21 15:39 16:40 Temperature 98.4 F Pulse Rate 92 80 Respiratory 16 18 Rate Blood Pressure 160/98 159/87 O2 Sat by Pulse 100 99 Oximetry Medical Decision Making - Medical Decision Making 50-year-old presented for generalized weakness. Patient is end-stage renal failure on dialysis has missed 3 weeks of dialysis. She has severe uremia, hypocalcemia, metabolic acidosis. Patient's case discussed with nephrology Dr. ochoa patient will have dialysis emergency night, admission for further monitoring and treatment. - Lab Data Result diagrams: 06/20/21 16:30 06/20/21 16:30 Lab Results 06/20/21 06/20/21 06/20/21 Range/Units 16:30 16:30 16:30 WBC 7.6 (3.8-10.6) k/uL RBC 3.91 (3.80-5.40) m/uL Hgb 10.4 L (11.4-16.0) gm/dL Hct 30.5 L (34.0-46.0) % MCV 78.0 L (80.0-100.0) fL MCH 26.6 (25.0-35.0) pg MCHC 34.1 (31.0-37.0) g/dL RDW 15.0 (11.5-15.5) % Plt Count 167 (150-450) k/uL MPV 9.4 Neutrophils % 70 % Lymphocytes % 20 % Monocytes % 4 % Eosinophils % 5 % Basophils % 0 % Neutrophils # 5.3 (1.3-7.7) k/uL Lymphocytes # 1.5 (1.0-4.8) k/uL Monocytes # 0.3 (0-1.0) k/uL Eosinophils # 0.4 (0-0.7) k/uL Basophils # 0.0 (0-0.2) k/uL PT 9.9 (9.0-12.0) sec INR 0.9 (<1.2) APTT 23.8 (22.0-30.0) sec Sodium (137-145) mmol/L Potassium (3.5-5.1) mmol/L Chloride (98-107) mmol/L Carbon Dioxide (22-30) mmol/L Anion Gap mmol/L BUN (7-17) mg/dL Creatinine (0.52-1.04) mg/dL Est GFR (CKD-EPI)AfAm (>60 ml/min/1.73 sqM) Est GFR (CKD-EPI)NonAf (>60 ml/min/1.73 sqM) Glucose (74-99) mg/dL Calcium (8.4-10.2) mg/dL Phosphorus (2.5-4.5) mg/dL Magnesium (1.6-2.3) mg/dL Total Bilirubin (0.2-1.3) mg/dL AST (14-36) U/L ALT (4-34) U/L Alkaline Phosphatase (38-126) U/L Troponin I (0.000-0.034) ng/mL NT-Pro-B Natriuret Pep pg/mL Total Protein (6.3-8.2) g/dL Albumin (3.5-5.0) g/dL Urine Color Light Yellow Urine Appearance Cloudy H (Clear) Urine pH 5.5 (5.0-8.0) Ur Specific [place] 1.011 (1.001-1.035) Urine Protein 1+ H (Negative) Urine Glucose (UA) 1+ H (Negative) Urine Ketones Negative (Negative) Urine Blood Trace H (Negative) Urine Nitrite Negative (Negative) Urine Bilirubin Negative (Negative) Urine Urobilinogen <2.0 (<2.0) mg/dL Ur Leukocyte Esterase Small H (Negative) Urine RBC 3 (0-5) /hpf Urine WBC 2 (0-5) /hpf Ur Squamous Epith Cells 7 H (0-4) /hpf Urine Mucus Rare H (None) /hpf 06/20/21 06/20/21 06/20/21 Range/Units 16:30 16:30 16:30 WBC (3.8-10.6) k/uL RBC (3.80-5.40) m/uL Hgb (11.4-16.0) gm/dL Hct (34.0-46.0) % MCV (80.0-100.0) fL MCH (25.0-35.0) pg MCHC (31.0-37.0) g/dL RDW (11.5-15.5) % Plt Count (150-450) k/uL MPV Neutrophils % % Lymphocytes % % Monocytes % % Eosinophils % % Basophils % % Neutrophils # (1.3-7.7) k/uL Lymphocytes # (1.0-4.8) k/uL Monocytes # (0-1.0) k/uL Eosinophils # (0-0.7) k/uL Basophils # (0-0.2) k/uL PT (9.0-12.0) sec INR (<1.2) APTT (22.0-30.0) sec Sodium 142 (137-145) mmol/L Potassium 5.2 H (3.5-5.1) mmol/L Chloride 107 (98-107) mmol/L Carbon Dioxide 8 L* (22-30) mmol/L Anion Gap 27 mmol/L BUN 160 H* (7-17) mg/dL Creatinine 25.69 H* (0.52-1.04) mg/dL Est GFR (CKD-EPI)AfAm 2 (>60 ml/min/1.73 sqM) Est GFR (CKD-EPI)NonAf 1 (>60 ml/min/1.73 sqM) Glucose 100 H (74-99) mg/dL Calcium 5.8 L* (8.4-10.2) mg/dL Phosphorus 15.4 H* (2.5-4.5) mg/dL Magnesium 2.3 (1.6-2.3) mg/dL Total Bilirubin 0.5 (0.2-1.3) mg/dL AST 27 (14-36) U/L ALT 32 (4-34) U/L Alkaline Phosphatase 107 (38-126) U/L Troponin I 0.082 H* (0.000-0.034) ng/mL NT-Pro-B Natriuret Pep 40062 pg/mL Total Protein 7.3 (6.3-8.2) g/dL Albumin 4.4 (3.5-5.0) g/dL Urine Color Urine Appearance (Clear) Urine pH (5.0-8.0) Ur Specific [place] (1.001-1.035) Urine Protein (Negative) Urine Glucose (UA) (Negative) Urine Ketones (Negative) Urine Blood (Negative) Urine Nitrite (Negative) Urine Bilirubin (Negative) Urine Urobilinogen (<2.0) mg/dL Ur Leukocyte Esterase (Negative) Urine RBC (0-5) /hpf Urine WBC (0-5) /hpf Ur Squamous Epith Cells (0-4) /hpf Urine Mucus (None) /hpf Critical Care Time Critical Care Time: Yes Total Critical Care Time: 35 Disposition Clinical Impression: ESRD on dialysis, Uremia, Hypocalcemia, Metabolic acidosis Disposition: ADMITTED IP TO THIS [facility] Condition: Serious Referrals: Maribel Guzman MD [Primary Care Provider] - 1-2 days
[2021-06-20 16:42] LABS: Basophils % (A) 0 %; Eosinophils # (A) 0.4 k/uL (0-0.7); Eosinophils % (A) 5 %; HCT 30.5 % (34.0-46.0); HGB 10.4 gm/dL (11.4-16.0); Lymphocytes # (A) 1.5 k/uL (1.0-4.8); Lymphocytes % (A) 20 %; MCH 26.6 pg (25.0-35.0); MCHC 34.1 g/dL (31.0-37.0); Mean Platelet Volume 9.4; Monocytes # (A) 0.3 k/uL (0-1.0); Monocytes % (A) 4 %; Neutrophils # (A) 5.3 k/uL (1.3-7.7); Neutrophils % (A) 70 %; Platelet Count 167 k/uL (150-450); RBC 3.91 m/uL (3.80-5.40); WBC 7.6 k/uL (3.8-10.6)
[2021-06-20 16:50] LABS: Appearance,Urine Cloudy (Clear); Bilirubin,Urine Negative (Negative); Blood,Urine Trace (Negative); Color,Urine Light Yellow; Glucose,Urine (UA) 1+ (Negative); Ketones,Urine Negative (Negative); Leukocyte Esterase,Urine Small (Negative); Mucus,Urine Rare /hpf; Nitrite,Urine Negative (Negative); PH, Urine 5.5 (5.0-8.0); Protein,Urine 1+ (Negative); RBC,Urine 3 /hpf (0-5); Specific Gravity,Urine 1.011 (1.001-1.035); Squamous Epithelial Cell,Urine 7 /hpf (0-4); Urobilinogen,Urine <2.0 mg/dL (<2.0); WBC,Urine 2 /hpf (0-5)
[2021-06-20 16:52] LABS: INR 0.9 (<1.2); Partial Thromboplastin Time 23.8 sec (22.0-30.0); Prothrombin Time 9.9 sec (9.0-12.0)
--- NOTE | 2021-06-20 16:59 | XR ---
EXAMINATION TYPE: XR chest 2V DATE OF EXAM: 06/20/2021 COMPARISON: Weakness. HISTORY: Chest x-ray April 28, 2021. TECHNIQUE: Frontal and lateral views of the chest are obtained. FINDINGS: Stable large bore right internal jugular dialysis catheter. Stable cardiomegaly with ather osclerotic aorta. Improved aeration left lung base. Right lung remains clear. The osseous structures are intact. IMPRESSION: Cardiomegaly without acute pulmonary process currently.
[2021-06-20 17:18] LABS: Albumin 4.4 g/dL (3.5-5.0); Magnesium 2.3 mg/dL (1.6-2.3); Potassium 5.2 mmol/L (3.5-5.1); Total Bilirubin 0.5 mg/dL (0.2-1.3); Total Protein 7.3 g/dL (6.3-8.2)
[2021-06-20 17:31] LABS: Calcium 5.8 mg/dL (8.4-10.2)
[2021-06-20 17:32] LABS: Phosphorus 15.4 mg/dL (2.5-4.5)
[2021-06-20] MEDS ORDERED: CALCIUM GLUCONATE 1 GM in SODIUM CHLORIDE 0.9% 100 ML IVPB ONE (17:54)
[2021-06-20] MEDS ORDERED: ACETAMINOPHEN TAB 325 MG TAB PO PRN (18:00)
[2021-06-20] MEDS ORDERED: NALOXONE 0.4 MG/ML 1 ML VIAL IV PRN (18:00)
[2021-06-20] MEDS: hydrALAZINE HCL 25 MG TAB PO SCH (21:34)
[2021-06-20] MEDS: METOPROLOL TARTRATE 50 MG TAB PO SCH (21:34)
[2021-06-20] MEDS: amLODIPine 5 MG TAB PO SCH (21:34)
[2021-06-21] MEDS: levOCARNitine (WITH SUGAR) 100 MG/ML BOTTLE PO SCH ×2 (06:42→17:04)
[2021-06-21 07:24] LABS: Basophils % (A) 1 %; Eosinophils # (A) 0.3 k/uL (0-0.7); Eosinophils % (A) 5 %; HCT 25.6 % (34.0-46.0); Hyperchromasia Slight; Lymphocytes # (A) 1.2 k/uL (1.0-4.8); Lymphocytes % (A) 17 %; MCH 26.9 pg (25.0-35.0); MCHC 34.9 g/dL (31.0-37.0); MCV 77.2 fL (80.0-100.0); Mean Platelet Volume 9.6; Microcytosis Slight; Monocytes # (A) 0.3 k/uL (0-1.0); Monocytes % (A) 4 %; Neutrophils # (A) 4.8 k/uL (1.3-7.7); Neutrophils % (A) 72 %; Platelet Count 135 k/uL (150-450); RBC 3.32 m/uL (3.80-5.40); RDW 14.8 % (11.5-15.5); WBC 6.7 k/uL (3.8-10.6)
[2021-06-21 07:37] LABS: Calcium 6.5 mg/dL (8.4-10.2); Potassium 3.5 mmol/L (3.5-5.1)
[2021-06-21 07:54] LABS: HGB 8.9 gm/dL (11.4-16.0)
[2021-06-21 11:06] VITALS: BMI 20.4
--- NOTE | 2021-06-21 11:29 | P.HPIM ---
History of Present Illness Patient is pleasant 50-year-old female came in with compensative generalized weakness found to have significantly abnormal electrolytes secondary to 2 not having hemodialysis for 3 weeks. Patient was recently started on hemodialysis and patient did not believe she'll require any hemodialysis because of which she stopped going to hemodialysis. Patient has end-stage renal disease secondary to hypertensive nephrosclerosis. denied any significant shortness of breath chest x-ray did not show any pulmonary edema patient still urinates normally. Patient does have highly elevated phosphorus anion gap metabolic acidosis ure neida. Patient was complaining of some nausea able to tolerate liquid diet. Patient was also comparing of abdominal discomfort all of which are from uremia. Patient usually takes Tums for phosphorus. Patient has mildly elevated troponin without any complaints of chest pain and EKG showing some chronic prolonged QT which is expected to improve with the and applied correction left axis deviation and left atrial enlargement and left endocrine hypertrophy which is from hypertension. REVIEW OF SYSTEMS: CONSTITUTIONAL: No fever HEENT: No recent visual problems or hearing problems. Denied any sore throat. CARDIOVASCULAR: No chest pain, orthopnea, PND, no palpitations, no syncope. PULMONARY: No shortness of breath, no cough, no hemoptysis. GASTROINTESTINAL: No diarrhea. NEUROLOGICAL: No headaches, no weakness, no numbness. HEMATOLOGICAL: Denies any bleeding or petechiae. GENITOURINARY: Denies any burning micturition, frequency, or urgency. MUSCULOSKELETAL/RHEUMATOLOGICAL: Denies any joint pain, swelling, or any muscle pain. ENDOCRINE: Denies any polyuria or polydipsia. The rest of the 14-point review of systems is negative. PHYSICAL EXAMINATION: GENERAL: The patient is alert and oriented x3, not in any acute distress. Well developed, well nourished. HEENT: Pupils are round and equally reacting to light. EOMI. No scleral icterus. No conjunctival pallor. Normocephalic, atraumatic. No pharyngeal erythema. No thyromegaly. CARDIOVASCULAR: S1 and S2 present. No murmurs, rubs, or gallops. PULMONARY: Chest is clear to auscultation, no wheezing or crackles. ABDOMEN: Soft, nontender, nondistended, normoactive bowel sounds. No palpable organomegaly. MUSCULOSKELETAL: No joint swelling or deformity. EXTREMITIES: No cyanosis, clubbing, or pedal edema. NEUROLOGICAL: Gross neurological examination did not reveal any focal deficits. SKIN: No rashes. Assessment and plan -Fatigue nausea abdominal discomfort: All of which are secondary to end-stage disease and not having hemodialysis. Patient had hematemesis yesterday and will receive a urinalysis today and after that patient will be discharged -Anion gap metabolic acidosis secondary to renal failure and hyperuricemia patient will continue her Tums -Hyperphosphatasemia secondary to missing hemodialysis patient will be started on phosphate binders and patient will continue with Tums as mentioned above patient will receive hemodialysis -Elevated troponins without any acute ST-T wave changes troponin elevation secondary to end-stage renal disease -Anemia of chronic kidney disease further evaluation with ferritin and erythropoietin supplementation as an outpatient. -Hyperkalemia secondary to renal failure -Hypertension: Patient will be resumed on home medication patient blood pressure is still elevated further management as an outpatient depending on her blood pressure response secondary to hemodialysis Past Medical History Past Medical History: Dialysis, Hypertension, Renal Disease Additional Past Medical History / Comment(s): CKD with a previous GFR GFR of 14 History of Any Multi-Drug Resistant Organisms: None Reported Past Surgical History: No Surgical Hx Reported Additional Past Surgical History / Comment(s): lt upper arm graft fistula not working Past Anesthesia/Blood Transfusion Reactions: No Reported Reaction Past Psychological History: No Psychological Hx Reported Smoking Status: Former smoker Past Alcohol Use History: None Reported Additional Past Alcohol Use History / Comment(s): Quit smoking 4 months ago, sm oked 20 +yrs, 1 pack q48h. Past Drug Use History: None Reported - Past Family History Father History Unknown: Yes Family Medical History: Hypertension, Renal Disease Mother History Unknown: Yes Additional Family Medical History / Comment(s): in her sleep. Brother(s) Family Medical History: Myocardial Infarction ([place]) Additional Family Medical History / Comment(s): Brother with myocardial infarction at 43 years old HD. Medications and Allergies Home Medications Medication Instructions Recorded Confirmed Type Metoprolol Tartrate [Lopressor] 50 mg PO BID #60 tab 04/30/21 06/20/21 Rx amLODIPine [Norvasc] 5 mg PO BID #60 tab 04/30/21 06/20/21 Rx hydrALAZINE HCL [Apresoline] 25 mg PO BID #60 tab 04/30/21 06/20/21 Rx levOCARNitine [Levocarnitine] 330 mg PO AC-BID #60 tablet 04/30/21 06/20/21 Rx Furosemide [Lasix] 20 mg PO DAILY 06/20/21 06/20/21 History Calcium Acetate [PhosLo] 1,334 mg PO TID-W/MEALS #90 tab 06/21/21 Rx Allergies Allergy/AdvReac Type Severity Reaction Status Date / Time No Known Allergies Allergy Verified 06/20/21 16:44 Physical Exam Vitals: Vital Signs Temp Pulse Pulse Resp BP BP Pulse Ox 06/21/21 08:00 99.6 F 87 16 167/79 06/21/21 04:25 99 F 84 16 164/79 100 06/20/21 23:55 98.5 F 79 16 167/83 99 06/20/21 21:00 98.5 F 73 16 165/79 100 06/20/21 18:28 97.7 F 95 16 181/86 99 06/20/21 18:11 84 17 170/91 99 06/20/21 16:40 80 18 159/87 99 06/20/21 15:39 98.4 F 92 16 160/98 100 Intake and Output 06/20/21 06/21/21 06/21/21 22:59 06:59 14:59 Intake Total 240 Output Total 500 Balance -500 240 Intake: Oral 240 Output: Hemodialysis 500 Other: Voiding Method Toilet Toilet Toilet # Voids 1 Weight 57.606 kg 57.3 kg 57.3 kg Results CBC & Chem 7: 06/21/21 06:48 06/21/21 06:48 Labs: Abnormal Lab Results - Last 24 Hours (Table) 06/20/21 06/20/21 06/20/21 Range/Units 16:30 16:30 16:30 RBC (3.80-5.40) m/uL Hgb 10.4 L (11.4-16.0) gm/dL Hct 30.5 L (34.0-46.0) % MCV 78.0 L (80.0-100.0) fL Plt Count (150-450) k/uL Potassium 5.2 H (3.5-5.1) mmol/L Carbon Dioxide 8 L* (22-30) mmol/L BUN 160 H* (7-17) mg/dL Creatinine 25.69 H* (0.52-1.04) mg/dL Glucose 100 H (74-99) mg/dL Calcium 5.8 L* (8.4-10.2) mg/dL Phosphorus 15.4 H* (2.5-4.5) mg/dL Troponin I (0.000-0.034) ng/mL Urine Appearance Cloudy H (Clear) Urine Protein 1+ H (Negative) Urine Glucose (UA) 1+ H (Negative) Urine Blood Trace H (Negative) Ur Leukocyte Esterase Small H (Negative) Ur Squamous Epith Cells 7 H (0-4) /hpf Urine Mucus Rare H (None) /hpf 06/20/21 06/21/21 06/21/21 Range/Units 16:30 06:48 06:48 RBC 3.32 L (3.80-5.40) m/uL Hgb 8.9 L D (11.4-16.0) gm/dL Hct 25.6 L (34.0-46.0) % MCV 77.2 L (80.0-100.0) fL Plt Count 135 L (150-450) k/uL Potassium (3.5-5.1) mmol/L Carbon Dioxide 17 L (22-30) mmol/L BUN 94 H (7-17) mg/dL Creatinine 17.32 H* (0.52-1.04) mg/dL Glucose (74-99) mg/dL Calcium 6.5 L (8.4-10.2) mg/dL Phosphorus (2.5-4.5) mg/dL Troponin I 0.082 H* (0.000-0.034) ng/mL Urine Appearance (Clear) Urine Protein (Negative) Urine Glucose (UA) (Negative) Urine Blood (Negative) Ur Leukocyte Esterase (Negative) Ur Squamous Epith Cells (0-4) /hpf Urine Mucus (None) /hpf Thrombosis Risk Factor Assmnt - Choose All That Apply Each Factor Represents 1 point: Age 41-60 years Thrombosis Risk Factor Assessment Total Risk Factor Score: 1 Thrombosis Risk Factor Assessment Level: Low Risk
--- NOTE | 2021-06-21 11:30 | P.DS ---
Providers Date of admission: 06/20/21 17:43 Attending physician: Krish Sanchez Consults: 06/20/21 17:54 Consult Physician Stat Consulting Provider: Vanessa Adler Consult Reason/Comments: Dialysis Do you want consulting provider notified?: Already Contacted Primary care physician: Thomas L[facility] Course: Please refer to HPI for further details Patient Condition at Discharge: Serious Plan - Discharge Summary Discharge Rx Participant: Yes New Discharge Prescriptions: New Calcium Acetate [PhosLo] 1,334 mg PO TID-W/MEALS #90 tab Continue hydrALAZINE HCL [Apresoline] 25 mg PO BID #60 tab levOCARNitine [Levocarnitine] 330 mg PO AC-BID #60 tablet Furosemide [Lasix] 20 mg PO DAILY Metoprolol Tartrate [Lopressor] 50 mg PO BID #60 tab amLODIPine [Norvasc] 5 mg PO BID #60 tab Discharge Medication List Metoprolol Tartrate [Lopressor] 50 mg PO BID #60 tab 04/30/21 [Rx] amLODIPine [Norvasc] 5 mg PO BID #60 tab 04/30/21 [Rx] hydrALAZINE HCL [Apresoline] 25 mg PO BID #60 tab 04/30/21 [Rx] levOCARNitine [Levocarnitine] 330 mg PO AC-BID #60 tablet 04/30/21 [Rx] Furosemide [Lasix] 20 mg PO DAILY 06/20/21 [History] Calcium Acetate [PhosLo] 1,334 mg PO TID-W/MEALS #90 tab 06/21/21 [Rx] Follow up Appointment(s)/Referral(s): Vanessa Adler MD [STAFF PHYSICIAN] - 1 Week Maribel Guzman MD [Primary Care Provider] - 3 Days
[2021-06-21] MEDS: amLODIPine 5 MG TAB PO SCH ×2 (12:27→20:04)
[2021-06-21] MEDS: hydrALAZINE HCL 25 MG TAB PO SCH ×2 (12:28→20:04)
[2021-06-21] MEDS: METOPROLOL TARTRATE 50 MG TAB PO SCH ×2 (12:28→20:04)
[2021-06-21] MEDS: CALCIUM ACETATE 667 MG TAB PO SCH ×2 (12:30→17:02)
--- NOTE | 2021-06-21 13:05 | CONS ---
CONSULTATION REASON FOR CONSULT: Renal failure, end-stage renal disease. HISTORY OF PRESENT ILLNESS: The patient is a 50-year-old female with history of end-stage renal disease who had stopped coming to her outpatient treatment stating that she did not need dialysis anymore. The patient has had urine output and she states that she had been in denial and eventually came into the hospital yesterday as she was feeling sick with nausea, vomiting. She was also having some abdominal discomfort and diarrhea and patient was extremely fatigued. She was found to have a BUN of 160 and serum creatinine 25.6 yesterday with CO2 of 8. Patient was dialyzed last night and she will be dialyzed again today. Her phosphorus was 15.4. No history of fevers, chills, cough. She did have diarrhea and some abdominal discomfort. No major vomiting but patient is nauseated. PAST MEDICAL HISTORY: End-stage renal disease, hypertension, CKD mineral bone disorder, anemia of chronic disease. PAST SURGICAL HISTORY: Left arm AV fistula which is nonfunctional. SOCIAL HISTORY: The patient is a former smoker. No history of drug abuse or alcohol abuse. MEDICATIONS: Medications at home prior to admission included Lopressor, Norvasc, hydralazine, levocarnitine, Lasix, PhosLo. ALLERGIES: None. REVIEW OF SYSTEMS: As per HPI. Other systems negative. EXAMINATION: Patient is comfortable, awake, not in any acute distress. Blood pressure was 167/79, heart rate 87 per minute, she is afebrile. Examination of the heart S1, S2. Examination of the lungs, bilateral breath sounds are heard. Abdomen is soft, nontender. Examination of lower extremities shows no evidence of edema. PHARMACY SCHEDULER exam grossly intact. LAB: Show sodium of 139, potassium 3.5, chloride 103, CO2 17, BUN 94, serum creatinine 17.32, hemoglobin 8.9 g/dL. Troponin 0.082. ASSESSMENT: 1. End-stage renal disease, currently on a Friday, Friday, Friday schedule as outpatient. The patient did not come for treatment for more than three weeks as outpatient, stating that she felt she did not need dialysis anymore. I have discussed with the patient and she states that she will be compliant with her treatments now. 2. Uremia, improved post dialysis. Expect further improvement with ongoing regular dialysis treatments. 3. Severe metabolic acidosis, anion gap associated with advanced renal failure. 4. Severe hyperphosphatemia associated with end-stage renal disease and CKD mineral bone disorder. 5. Hypocalcemia associated with end-stage renal disease and vitamin D deficiency is quite likely as well. 6. Mild hyperkalemia, improved post dialysis. 7. Anemia of chronic disease. PLAN: Repeat hemodialysis today. The patient can be discharged and follow up as outpatient for hemodialysis an agree with phosphate binders. Continue with the [facility] and will evaluate again as outpatient. Thank you for this consultation. We will continue to follow the patient with you during her hospitalization. MMODL / IJN: [id number] /
[2021-06-21 16:40] LABS: Hepatitis B Surface AB- Quant <3.5 mIU/mL; Hepatitis B Surface Antibody Non-Reactive (Non-Reactive); Hepatitis B Surface Antigen Non-Reactive (Non-Reactive)
[2021-06-21] MEDS ORDERED: MELATONIN 5 MG TABLET PO PRN (22:19)
[2021-06-22] MEDS: levOCARNitine (WITH SUGAR) 100 MG/ML BOTTLE PO SCH (07:07)
[2021-06-22 07:49] VITALS: PULSE 87; RESP 18; TEMP 98.5
[2021-06-22] MEDS: CALCIUM ACETATE 667 MG TAB PO SCH (07:50)
[2021-06-22] MEDS: hydrALAZINE HCL 25 MG TAB PO SCH (07:51)
[2021-06-22] MEDS: amLODIPine 5 MG TAB PO SCH (07:51)
[2021-06-22] MEDS: METOPROLOL TARTRATE 50 MG TAB PO SCH (07:51)
[2021-06-22 10:34] VITALS: BP 153/68
--- NOTE | 2021-06-22 12:17 | P.DS ---
Providers Date of admission: 06/20/21 17:43 Attending physician: Krish Sanchez Consults: 06/20/21 17:54 Consult Physician Stat Consulting Provider: Vanessa Adler Consult Reason/Comments: Dialysis Do you want consulting provider notified?: Already Contacted Primary care physician: Thomas López [facility] Course: Final diagnoses Anion gap metabolic acidosis secondary to renal failure and hyperuricemia, kristen comer will continue on her Tums Hyperphosphatasemia secondary to missing hemodialysis, patient is resumed on phosphate binders continue on Tums, patient received hemodialysis yesterday and plan is for her to receive hemodialysis at 4 PM at the dialysis center today Elevated troponins without any acute ST or T-wave changes, troponin elevation secondary to end-stage renal disease Anemia of chronic disease, evaluation with ferritin erythropoietin supplementation as an outpatient Hyperkalemia secondary to renal failure, approving, Hypertension, resume home medications. Outpatient, continue on hemodialysis Hospital course Patient was evaluated in the [facility] after coming in for generalized weakness that was sensitive significant I abnormality she is otherwise hemanalysis for the last 3 weeks. Patient was evaluated Dr. Adler who resumed dialysis inpatient, and today has recommended patient be discharged and return to follow-up at hemodialysis Center at 4 PM for her normal session. Patient's creatinine today is 17.32 which is much improved from 25.69. Her carbon dioxide level is 17, chloride normal limits well 3 and a potassium is normalized at 3.5. We are still pending laboratory from today. Patient's calcium is improving at 6.5 she'll need repeat labs, her troponin is 0.082. BNP is 25,400. 06/22/2021 Patient was evaluated the bedside her vital signs are stable, afebrile, heart rate 87, blood pressure 153/68. Patient is pain-free at this time, she denies any chest pain, pressure, palpitations. She denies any cough or shortness of breath. Patient denies any nausea vomiting or diarrhea. She does state that she is had a decreased appetite over the last few weeks. Focal neurological exam is negative. Lungs are clear to auscultation. Patient is stable for discharge to follow up with hemodialysis and she will have a repeat CBC and BMP completed later on this evening. Patient Condition at Discharge: Fair Plan - Discharge Summary Discharge Rx Participant: Yes New Discharge Prescriptions: New Calcium Acetate [PhosLo] 1,334 mg PO TID-W/MEALS #90 tab Continue hydrALAZINE HCL [Apresoline] 25 mg PO BID #60 tab levOCARNitine [Levocarnitine] 330 mg PO AC-BID #60 tablet Furosemide [Lasix] 20 mg PO DAILY Metoprolol Tartrate [Lopressor] 50 mg PO BID #60 tab amLODIPine [Norvasc] 5 mg PO BID #60 tab Discharge Medication List Metoprolol Tartrate [Lopressor] 50 mg PO BID #60 tab 04/30/21 [Rx] amLODIPine [Norvasc] 5 mg PO BID #60 tab 04/30/21 [Rx] hydrALAZINE HCL [Apresoline] 25 mg PO BID #60 tab 04/30/21 [Rx] levOCARNitine [Levocarnitine] 330 mg PO AC-BID #60 tablet 04/30/21 [Rx] Furosemide [Lasix] 20 mg PO DAILY 06/20/21 [History] Calcium Acetate [PhosLo] 1,334 mg PO TID-W/MEALS #90 tab 06/21/21 [Rx] Follow up Appointment(s)/Referral(s): Vanessa Adler MD [STAFF PHYSICIAN] - 1 Week (Please follow up dialysis per order) Maribel Guzman MD [Primary Care Provider] - 3 Days (.Office is closed. Please call to schedule appointment) Activity/Diet/Wound Care/Special Instructions: Patient is to follow-up at 4 PM for her dialysis appointment Discharge Disposition: HOME SELF-CARE
--- NOTE | 2021-06-22 20:35 | PN ---
PROGRESS NOTE Patient is seen for followup for end-stage renal disease. Patient was admitted with uremic symptoms and extreme fatigue secondary to not having had dialysis for about 3 weeks prior to admission. The patient was dialyzed 2 days in a row. She can be discharged today and she will be dialyzed as outpatient. PHYSICAL EXAMINATION: On examination today, blood pressure was elevated at 178/101. It did come down to 153/68, heart rate 87 per minute. Patient is afebrile. EXAMINATION OF THE HEART: S1 and S2. EXAMINATION OF LUNGS: Bilateral breath sounds are heard. ABDOMEN: Soft, nontender. LOWER EXTREMITIES: Examination of lower extremities shows no evidence of edema. PHYSICIAN OFFICE NURSE EXAM: Grossly intact. LABS: Labs showed sodium of 139 on 06/21. Serum creatinine was down to 17.3. ASSESSMENT: 1. End-stage renal disease with no dialysis for about 3 weeks prior to admission, as patient felt that she did not need dialysis. Currently she states that she will continue with her regular scheduled treatments as outpatient. The patient has had 2 consecutive treatments here in the hospital. 2. Severe metabolic acidosis associated with renal failure and noncompliance with dialysis. 3. 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 PLAN: The patient can be discharged. Follow up as outpatient for hemodialysis today and continue on a Friday, Friday, Friday schedule. MMPARMJITL / ADIAN: [id number] /
[2021-06-22] MEDS ORDERED: hydrALAZINE HCL 50 MG TAB PO SCH (21:00)
== END 2021-06-22 10:28 | disposition home or self-care (01) | DRG 640 ==
LOC: EC 15:28 → 3SCARD 17:43
PROVIDERS: ADMIT Hospitalist; ATTEND Hospitalist
PROC: 5A1D70Z Performance of Urinary Filtration, Intermittent, Less than 6 Hours Per Day (ICD-10-PCS; principal; 2021-06-20)
DX: E87.2 Acidosis (principal); N18.6 End stage renal disease; K92.0 Hematemesis; I12.0 Hypertensive chronic kidney disease with stage 5 chronic kidney disease or end stage renal disease; E11.22 Type 2 diabetes mellitus with diabetic chronic kidney disease; D63.1 Anemia in chronic kidney disease; E83.51 Hypocalcemia; E83.9 Disorder of mineral metabolism, unspecified; E83.39 Other disorders of phosphorus metabolism; Z91.15 Patient's noncompliance with renal dialysis; Z99.2 Dependence on renal dialysis; Z20.822 Contact with and (suspected) exposure to COVID-19; E87.5 Hyperkalemia; E55.9 Vitamin D deficiency, unspecified; E79.0 Hyperuricemia without signs of inflammatory arthritis and tophaceous disease; R19.7 Diarrhea, unspecified; R77.8 Other specified abnormalities of plasma proteins; Z79.899 Other long term (current) drug therapy; Z87.891 Personal history of nicotine dependence; Z82.49 Family history of ischemic heart disease and other diseases of the circulatory system
CPT/HCPCS: 36415; 71046; 80048; 80053; 81001; 83735; 83880; 84100; 84484; 85025; 85610; 85730; 86706; 87340; 87635; 90935; 93005; 99291

== ENCOUNTER 2021-08-30 07:56 | Emergency (ER) | payer OTHER ==
[2021-08-30 08:00] VITALS: BP 191/97; PULSE 105; RESP 18; TEMP 97.8
--- NOTE | 2021-08-30 08:52 | ED ---
Recheck HPI - General Chief Complaint: Recheck/Abnormal Lab/Rx Stated Complaint: Dialysis Pt, covid exposure Time Seen by Provider: 08/30/21 08:01 Source: patient, RN notes reviewed Mode of arrival: ambulatory Limitations: no limitations - History of Present Illness Initial Comments: Patient is a 51-year-old female that presents to the emergency department to get Covid tested. Patient notes she does have dialysis several times a week and was sent here by dialysis to get Covid tested. Patient notes she was 6 a couple weeks ago but is currently feeling better. Patient denied any symptoms at this time. She was otherwise well-appearing. She denied any chest pain shortness of breath headache nausea vomiting diarrhea constipation fever fatigue chills. - Related Data Home Medications Medication Instructions Recorded Confirmed Furosemide [Lasix] 20 mg PO DAILY 06/20/21 06/20/21 Previous Rx's Medication Instructions Recorded Metoprolol Tartrate [Lopressor] 50 mg PO BID #60 tab 04/30/21 amLODIPine [Norvasc] 5 mg PO BID #60 tab 04/30/21 hydrALAZINE HCL [Apresoline] 25 mg PO BID #60 tab 04/30/21 levOCARNitine [Levocarnitine] 330 mg PO AC-BID #60 tablet 04/30/21 Calcium Acetate [PhosLo] 1,334 mg PO TID-W/MEALS #90 tab 06/21/21 Allergies Allergy/AdvReac Type Severity Reaction Status Date / Time No Known Allergies Allergy Verified 08/30/21 08:00 Review of Systems ROS Statement: Those systems with pertinent positive or pertinent negative responses have been documented in the HPI. ROS Other: All systems not noted in ROS Statement are negative. Past Medical History Past Medical History: Dialysis, Hypertension, Renal Disease Additional Past Medical History / Comment(s): CKD with a previous GFR GFR of 14 History of Any Multi-Drug Resistant Organisms: None Reported Past Surgical History: No Surgical Hx Reported Additional Past Surgical History / Comment(s): lt upper arm graft fistula not working Past Anesthesia/Blood Transfusion Reactions: No Reported Reaction Past Psychological History: No Psychological Hx Reported Smoking Status: Former smoker Past Alcohol Use History: None Reported Past Drug Use History: None Reported - Past Family History Father History Unknown: Yes Family Medical History: Hypertension, Renal Disease Mother History Unknown: Yes Additional Family Medical History / Comment(s): in her sleep. Brother(s) Family Medical History: Myocardial Infarction ([place]) Additional Family Medical History / Comment(s): Brother with myocardial infarction at 43 years old HD. General Exam Limitations: no limitations General appearance: alert, in no apparent distress Head exam: Present: atraumatic, normocephalic, normal inspection Eye exam: Present: normal appearance, PERRL, EOMI. Absent: scleral icterus, conjunctival injection, periorbital swelling ENT exam: Present: normal exam, mucous membranes moist Neck exam: Present: normal inspection, other (Jaundice.) Respiratory exam: Present: normal lung sounds bilaterally. Absent: respiratory distress, wheezes, rales, rhonchi, stridor Cardiovascular Exam: Present: regular rate, normal rhythm, normal heart sounds. Absent: systolic murmur, diastolic murmur, rubs, gallop, clicks Extremities exam: Present: normal inspection, full ROM, normal capillary refill. Absent: tenderness, pedal edema, joint swelling, calf tenderness Neurological exam: Present: alert, oriented X3 Psychiatric exam: Present: normal affect, normal mood Skin exam: Present: warm, dry, intact, normal color. Absent: rash Course Vital Signs 08/30/21 07:58 Temperature 97.8 F Pulse Rate 105 H Respiratory 18 Rate Blood Pressure 191/97 O2 Sat by Pulse 99 Oximetry Medical Decision Making - Medical Decision Making 51-year-old female here for Covid testing. Covid test ordered. Covid test negative. Patient is real discharge home. Case discussed with Dr. Benitez, patient discharge home. - Lab Data Lab Results 08/30/21 Range/Units 08:05 Coronavirus (PCR) Not Detected (Not Detectd) Disposition Clinical Impression: Encounter for screening for COVID-19 Disposition: HOME SELF-CARE Condition: Stable Instructions (If sedation given, give patient instructions): Coronavirus Disease 2019 (COVID-19) Additional Instructions: Please return to the Emergency Department if symptoms worsen or any other concerns. Is patient prescribed a controlled substance at d/c from ED?: No Referrals: Maribel Guzman MD [Primary Care Provider] - 1-2 days Time of Disposition: 08:51
== END 2021-08-30 08:57 | disposition home or self-care (01) ==
LOC: EC 07:56
DX: Z20.822 Contact with and (suspected) exposure to COVID-19 (principal); I12.9 Hypertensive chronic kidney disease with stage 1 through stage 4 chronic kidney disease, or unspecified chronic kidney disease; N18.9 Chronic kidney disease, unspecified; Z99.2 Dependence on renal dialysis; Z87.891 Personal history of nicotine dependence
CPT/HCPCS: 87635; 99282

== ENCOUNTER → 2022-04-03 | Day surgery (SDC) | payer OTHER ==
[2022-03-28 11:17] VITALS: BMI 21.3
[~2022-04-03] MED LIST changes: +ACETAMINOPHEN TAB 500 MG TAB PO ONE; -LACTATED RINGERS 1,000 ML IV SCH; +MIDAZOLAM 2 MG/2 ML VIAL IV ONE; +SODIUM CHLORIDE 0.9% 500 ML 500 ML IV ONE; +fentaNYL (PF) 50 MCG/ML 2 ML AMP IV ONE
[2022-04-03 10:25] VITALS: PULSE 90; TEMP 97.9
[2022-04-03 10:41] LABS: Basophils # (A) 0.1 k/uL (0-0.2); Basophils % (A) 1 %; Eosinophils # (A) 0.2 k/uL (0-0.7); Eosinophils % (A) 2 %; HCT 32.5 % (34.0-46.0); Lymphocytes # (A) 1.6 k/uL (1.0-4.8); Lymphocytes % (A) 17 %; MCH 27.3 pg (25.0-35.0); MCHC 33.8 g/dL (31.0-37.0); MCV 80.7 fL (80.0-100.0); Monocytes # (A) 0.4 k/uL (0-1.0); Monocytes % (A) 4 %; Neutrophils # (A) 7.2 k/uL (1.3-7.7); Neutrophils % (A) 75 %; Platelet Count 100 k/uL (150-450); RBC 4.03 m/uL (3.80-5.40); RDW 15.8 % (11.5-15.5); WBC 9.6 k/uL (3.8-10.6)
[2022-04-03 11:02] LABS: Calcium 8.9 mg/dL (8.4-10.2)
[2022-04-03 11:08] LABS: Potassium 5.4 mmol/L (3.5-5.1)
[2022-04-03] MEDS: LIDOCAINE 1% INJ 10MG/ML (30 ML VIAL-PF) SQ ONE ×2 (12:27→12:37)
--- NOTE | 2022-04-03 13:23 | P.OP ---
Date of Procedure: 04/03/22 Description of Procedure: DATE OF PROCEDURE: 04/03/2022 PREOPERATIVE DIAGNOSIS: Nonfunctioning tunneled dialysis catheter, end-stage renal disease PROCEDURE: 1. Replacement of tunneled dialysis catheter with 19 cm curved catheter Fluoroscopic interpretation evaluation Moderate conscious sedation 30 minutes PROCEDURE: The patient was brought to the Back Closer placed in supine position. The previously placed catheter was prepped and draped in usual sterile fashion. A preprocedure timeout was performed, all parties were in agreement. The skin at the neck was anesthetized 1% lidocaine plain and IV apex of the previous catheter, an incision was made in carried down to the level of the catheter itself. The catheter was grasped and elevated. It was transected and a wire was placed on the port. The catheter was removed and the hole was backfilled with a large dilator. The previous catheter was then removed from the chest wall of blunt dissection. Attention was then turned towards the tunnel of the new catheter. The chest wall was anesthetized with 1% lidocaine plain. A small wilner and the skin was made and the previously flushed catheter was tunneled through the anticipated location. Using Seldinger technique and fluoroscopic assistance the tear-away sheath was then placed. The inner cannula and wire were removed. The catheter was placed in the tear-away sheath was removed in standard fashion. The catheter showed good positioning was final resting place in the cavoatrial junction. The catheter aspirated and flushed freely. There was some increased oozing from the neck site therefore a piece of Surgicel was placed. Pressure was held which significant improvement bleeding. The incision at the neck was reapproximated with interrupted sutures of 4-0 Vicryl. The catheter was sutured in place with 3-0 nylon. Dressings were placed. The patient was allowed to awaken from anesthesia and transferred to recovery in stable condition having tolerated the procedure well. Plan - Discharge Summary Discharge Rx Participant: No New Discharge Prescriptions: No Action hydrALAZINE HCL [Apresoline] 25 mg PO BID #60 tab levOCARNitine [Levocarnitine] 330 mg PO AC-BID #60 tablet Furosemide [Lasix] 20 mg PO DAILY Metoprolol Tartrate [Lopressor] 50 mg PO BID #60 tab amLODIPine [Norvasc] 5 mg PO BID #60 tab Calcium Acetate [PhosLo] 1,334 mg PO TID-W/MEALS #90 tab cloNIDine HCL 0.2 mg PO TID Discharge Medication List Metoprolol Tartrate [Lopressor] 50 mg PO BID #60 tab 04/30/21 [Rx] amLODIPine [Norvasc] 5 mg PO BID #60 tab 04/30/21 [Rx] hydrALAZINE HCL [Apresoline] 25 mg PO BID #60 tab 04/30/21 [Rx] levOCARNitine [Levocarnitine] 330 mg PO AC-BID #60 tablet 04/30/21 [Rx] Furosemide [Lasix] 20 mg PO DAILY 06/20/21 [History] Calcium Acetate [PhosLo] 1,334 mg PO TID-W/MEALS #90 tab 06/21/21 [Rx] cloNIDine HCL 0.2 mg PO TID 03/28/22 [History]
--- NOTE | 2022-04-03 13:41 | IR ---
Fluoroscopy HISTORY: Dialysis catheter placement 1.2 minutes fluoroscopy time supplied to the referring clinician. 14 intraoperative C-arm images doc ument the procedure. See dictated report from vascular surgery.
[2022-04-03 14:24] VITALS: BP 158/95; RESP 16
== END | disposition home or self-care (01) ==
LOC: CATHCVL 10:00
PROVIDERS: ATTEND Surgery
DX: T82.41XA Breakdown (mechanical) of vascular dialysis catheter, initial encounter (principal); N18.6 End stage renal disease; Z87.891 Personal history of nicotine dependence; Z84.1 Family history of disorders of kidney and ureter; Z83.3 Family history of diabetes mellitus; Z82.49 Family history of ischemic heart disease and other diseases of the circulatory system; Z79.82 Long term (current) use of aspirin; Z79.899 Other long term (current) drug therapy
CPT/HCPCS: 36558; 36589; 77001; 80048; 85025; C1769; C1750; J2250; J0690; J2001; J3010; 36571; 76937

== ENCOUNTER 2023-01-03 11:35 | Emergency (ER) | payer OTHER ==
[2023-01-03 11:39] VITALS: RESP 18; TEMP 97.7
[2023-01-03] MEDS ORDERED: hydrALAZINE HCL 20 MG/ML 1 ML VIAL IVP STA ×2 (12:01→14:12)
[2023-01-03 12:24] LABS: Anisocytosis Slight; Basophils % (A) 0 %; Eosinophils # (A) 0.3 k/uL (0-0.7); Eosinophils % (A) 6 %; HGB 9.8 gm/dL (11.4-16.0); Lymphocytes # (A) 1.6 k/uL (1.0-4.8); Lymphocytes % (A) 28 %; MCH 26.7 pg (25.0-35.0); MCV 76.4 fL (80.0-100.0); Mean Platelet Volume 9.1; Microcytosis Slight; Monocytes # (A) 0.3 k/uL (0-1.0); Monocytes % (A) 5 %; Neutrophils # (A) 3.3 k/uL (1.3-7.7); Neutrophils % (A) 59 %; Platelet Count 115 k/uL (150-450); RBC 3.67 m/uL (3.80-5.40); RDW 17.5 % (11.5-15.5); WBC 5.6 k/uL (3.8-10.6)
[2023-01-03 12:45] LABS: Albumin 3.8 g/dL (3.5-5.0); Calcium 8.8 mg/dL (8.4-10.2); Potassium 4.4 mmol/L (3.5-5.1); Total Bilirubin 1.2 mg/dL (0.2-1.3); Total Protein 6.8 g/dL (6.3-8.2)
--- NOTE | 2023-01-03 12:47 | XR ---
EXAMINATION TYPE: XR chest 2V DATE OF EXAM: 01/03/2023 COMPARISON: Chest x-ray November 16, 2022 HISTORY: Difficulty in breathing. TECHNIQUE: Frontal and lateral views of the chest are obtained. FINDINGS: Stable right internal jugular dialysis catheter. There is no suspicious focal air space [place], pleural effusion, or pneumothorax seen. The cardiac silhouette size is upper limits of normal currently. The osseous structures are intact. IMPRESSION: No acute process. No significant change from prior.
--- NOTE | 2023-01-03 14:21 | ED ---
General Adult HPI - General Chief complaint: Recheck/Abnormal Lab/Rx Stated complaint: hypertension Time Seen by Provider: 01/03/23 11:45 Source: patient, family, RN notes reviewed, old records reviewed Mode of arrival: ambulatory Limitations: no limitations - History of Present Illness Initial comments: This is a 52-year-old female who presents emergency Department with a past medical history significant for dialysis. Patient states she went to dialysis today when she got there her blood pressure was normal but it went up and she had not yet taken her blood pressure medicines for the day. The patient took her blood pressure medication about 7:00 this morning and then he continued to remain high so the nurses at the dialysis center to take her second dose of the day and she did but when she left dialysis her blood pressure remained high so kat fernandez sent her down to the emergency department. Patient's only complaint is she has a very mild headache. Patient denies any blurred vision. Patient is a chest pain difficult breathing shortness of breath. Patient is in no distress and she states she just came in to get her blood pressure back to normal. Patient states she doesn't not take her blood pressure medications unless her blood pressure is high even though she supposed take it consistently 3 times a day. - Related Data Home Medications Medication Instructions Recorded Confirmed Calcium Acetate [PhosLo] 1,334 mg PO TID-W/MEALS 11/17/22 11/17/22 Calcium Acetate [PhosLo] 667 mg PO DAILY PRN 11/17/22 11/17/22 Nephro-Isadora 0.8mg 1 tab PO DAILY 11/17/22 11/17/22 Spironolactone [Aldactone] 25 mg PO DAILY 11/17/22 11/17/22 carvediloL [Coreg] 25 mg PO BID 11/17/22 11/17/22 cloNIDine HCL [Catapres] 0.3 mg PO TID 11/17/22 11/17/22 lisinopriL [Prinivil] 20 mg PO BID 11/17/22 11/17/22 Previous Rx's Medication Instructions Recorded Aspirin 81 mg PO DAILY #30 tab 11/21/22 Atorvastatin [Lipitor] 40 mg PO HS #30 tab 11/21/22 levETIRAcetam [Keppra] 500 mg PO Q12HR #60 tab 11/21/22 Allergies Allergy/AdvReac Type Severity Reaction Status Date / Time latex Allergy Rash/Hives Verified 01/03/23 11:39 Review of Systems ROS Statement: Those systems with pertinent positive or pertinent negative responses have been documented in the HPI. ROS Other: All systems not noted in ROS Statement are negative. Past Medical History Past Medical History: Dialysis, Hypertension, Renal Disease Additional Past Medical History / Comment(s): Dialysis MOWEFR. History of Any Multi-Drug Resistant Organisms: None Reported Past Surgical History: No Surgical Hx Reported Additional Past Surgical History / Comment(s): Left upper arm graft fistula. Partial hysterectomy. Past Anesthesia/Blood Transfusion Reactions: No Reported Reaction Past Psychological History: No Psychological Hx Reported Smoking Status: Former smoker Past Alcohol Use History: None Reported Past Drug Use History: None Reported - Past Family History Father History Unknown: Yes Family Medical History: Hypertension, Renal Disease Mother History Unknown: Yes Additional Family Medical History / Comment(s): in her sleep. Brother(s) Family Medical History: Myocardial Infarction ([place]) Additional Family Medical History / Comment(s): Brother with myocardial infarction at 43 years old HD. General Exam - General Exam Comments Initial Comments: GENERAL: Patient is well-developed and well-nourished. Patient is nontoxic and well- hydrated and is in no acute distress. ENT: Neck is soft and supple. No significant lymphadenopathy is noted. Oropharynx is clear. Moist mucous membranes. Neck has full range of motion without eliciting any pain. EYES: The sclera were anicteric and conjunctiva were pink and moist. Extraocular movements were intact and pupils were equal round and reactive to light. Eyelids were unremarkable. PULMONARY: Unlabored respirations. Good breath sounds bilaterally. No audible rales rhonchi or wheezing was noted. CARDIOVASCULAR: There is a regular rate and rhythm without any murmurs gallops or rubs. ABDOMEN: Soft and nontender with normal bowel sounds. SKIN: Skin is clear with no lesions or rashes and otherwise unremarkable. NEUROLOGIC: Patient is alert and oriented x3. Cranial nerves II through XII are grossly intact. Motor and sensory are also intact. Normal speech, volume and content. Symmetrical smile. MUSCULOSKELETAL: Normal extremities with adequate strength and full range of motion. No lower extremity swelling or edema. No calf tenderness. LYMPHATICS: No significant lymphadenopathy is noted PSYCHIATRIC: Normal psychiatric evaluation. Limitations: no limitations Course Vital Signs 01/03/23 01/03/23 01/03/23 11:36 12:00 13:19 Temperature 97.7 F Pulse Rate 90 85 Respiratory 18 18 Rate Blood Pressure 222/120 234/129 171/95 O2 Sat by Pulse 100 97 Oximetry 01/03/23 13:50 Temperature Pulse Rate Respiratory Rate Blood Pressure 160/93 O2 Sat by Pulse Oximetry Medical Decision Making - Medical Decision Making EKG was interpreted by myself shows a sinus rhythm at 87 bpm UT interval 270 QRS is 70 QT interval 424 QTC is 468. Patient's EKG shows no significant ST segment elevation or depression. Was pt. sent in by a medical professional or institution (, DAVID, WIRE SPIRAL BINDER, urgent care, hospital, or senior living...) When possible be specific @ -The dialysis center sent the patient into the emergency department Did you speak to anyone other than the patient for history (EMS, parent, family, police, friend...)? What history was obtained from this source @ -No Did you review nursing and triage notes (agree or disagree)? Why? @ -I reviewed and agree with nursing and triage notes Were old charts reviewed (outside hosp., previous admission, EMS record, old EKG, old radiological studies, urgent care reports/EKG's, senior living records)? Report findings @ -I reviewed prior lab work part charts in this patient. Differential Diagnosis (chest pain, altered mental status, abdominal pain women, abdominal pain men, vaginal bleeding, weakness, fever, dyspnea, syncope, headache, dizziness, GI bleed, back pain, seizure, CVA, palpatations, mental health, musculoskeletal)? @ -not applicable EKG interpreted by me (3pts min.). @ -As above X-rays interpreted by me (1pt min.). @ -As x-ray was interpreted by myself shows no acute abnormality. CT interpreted by me (1pt min.). @ -None done U/S interpreted by me (1pt. min.). @ -None done What testing was considered but not performed or refused? (CT, X-rays, U/S, labs)? Why? @ -None What meds were considered but not given or refused? Why? @ -None Did you discuss the management of the patient with other professionals (professionals i.e. , DAVID, W[employer] SP[employer]AL [employer]ER, lab, RT, psych nurse, social service agency director, mandate retail service merchandiser, teacher, collection officer, residential case manager)? Give summary @ -No Was smoking cessation discussed for >3mins.? @ -No Was critical care preformed (if so, how long)? @ -No Were there social determinants of health that impacted care today? How? (Homelessness, low income, unemployed, alcoholism, drug addiction, barakat sportation, low edu. Level, literacy, decrease access to med. care, [place] [facility], rehab)? @ -No Was there de-escalation of care discussed even if they declined (Discuss DNR or withdrawal of care, Hospice)? DNR status @ -No What co-morbidities impacted this encounter? (DM, HTN, Smoking, COPD, CAD, Cancer, CVA, ARF, Chemo, Hep., AIDS, mental health diagnosis, sleep apnea, morbid obesity)? @ -None Was patient admitted / discharged? Hospital course, mention meds given and route, prescriptions, significant lab abnormalities, going to OR and other pertinent info. @ -Patient's blood pressure was elevated she was given 20 mg of hydralazine IV her blood pressure came down to systolic in the 170s with a diastolic around 100 so patient was given 10 more of hydralazine her blood pressure came down nicely and she was no longer having any headache Undiagnosed new problem with uncertain prognosis? @ -No Drug Therapy requiring intensive monitoring for toxicity (Heparin, Nitro, Insulin, Cardizem)? @ -No Were any procedures done? @ -No Diagnosis/symptom? @ -Hypertensive urgency Acute, or Chronic, or Acute on Chronic? @ -Acute Uncomplicated (without systemic symptoms) or Complicated (systemic symptoms)? @ -Amputated Side effects of treatment? @ -No Exacerbation, Progression, or Severe Exacerbation? @ -No Poses a threat to life or bodily function? How? (Chest pain, [place], [place], pneumonia, PE, COPD, DKA, ARF, appy, cholecystitis, CVA, Diverticulitis, Homicidal, Suicidal, threat to staff... and all critical care pts) @ -Yes this could lead to hypertensive emergency potential morbidity or - Lab Data Result diagrams: 01/03/23 12:09 01/03/23 12:09 Lab Results 01/03/23 01/03/23 01/03/23 Range/Units 12:09 12:09 12:09 WBC 5.6 (3.8-10.6) k/uL RBC 3.67 L (3.80-5.40) m/uL Hgb 9.8 L (11.4-16.0) gm/dL Hct 28.0 L (34.0-46.0) % MCV 76.4 L (80.0-100.0) fL MCH 26.7 (25.0-35.0) pg MCHC 35.0 (31.0-37.0) g/dL RDW 17.5 H (11.5-15.5) % Plt Count 115 L (150-450) k/uL MPV 9.1 Neutrophils % 59 % Lymphocytes % 28 % Monocytes % 5 % Eosinophils % 6 % Basophils % 0 % Neutrophils # 3.3 (1.3-7.7) k/uL Lymphocytes # 1.6 (1.0-4.8) k/uL Monocytes # 0.3 (0-1.0) k/uL Eosinophils # 0.3 (0-0.7) k/uL Basophils # 0.0 (0-0.2) k/uL Anisocytosis Slight Microcytosis Slight Sodium 135 L (137-145) mmol/L Potassium 4.4 (3.5-5.1) mmol/L Chloride 96 L (98-107) mmol/L Carbon Dioxide 36 H (22-30) mmol/L Anion Gap 3 mmol/L BUN 12 (7-17) mg/dL Creatinine 4.50 H (0.52-1.04) mg/dL Est GFR (CKD-EPI)AfAm 12 (>60 ml/min/1.73 sqM) Est GFR (CKD-EPI)NonAf 11 (>60 ml/min/1.73 sqM) Glucose 225 H (74-99) mg/dL Calcium 8.8 (8.4-10.2) mg/dL Total Bilirubin 1.2 (0.2-1.3) mg/dL AST 27 (14-36) U/L ALT 46 H (4-34) U/L Alkaline Phosphatase 104 (38-126) U/L Troponin I <0.012 (0.000-0.034) ng/mL Total Protein 6.8 (6.3-8.2) g/dL Albumin 3.8 (3.5-5.0) g/dL Disposition Clinical Impression: Hypertensive urgency Disposition: HOME SELF-CARE Condition: Good Instructions (If sedation given, give patient instructions): Chronic Hypertension (ED) Additional Instructions: Patient should take her high blood pressure medications as prescribed Is patient prescribed a controlled substance at d/c from ED?: No Referrals: Chinedu Pepe MD [Primary Care Provider] - 1-2 days Time of Disposition: 14:21
[2023-01-03 14:42] VITALS: BP 163/89; PULSE 86
== END 2023-01-03 14:50 | disposition home or self-care (01) ==
LOC: EC 11:35
DX: I16.0 Hypertensive urgency (principal); Z87.891 Personal history of nicotine dependence; Z79.899 Other long term (current) drug therapy; Z91.040 Latex allergy status
CPT/HCPCS: 36415; 93005; 80053; 84484; 85025; 71046; 99284; 96374; 96376; J0360; 96375

== ENCOUNTER → 2023-01-07 | Outpatient (CLI) | payer OTHER ==
[2023-01-07 16:17] LABS: Basophils # (A) 0.03 X 10*3/uL (0.00-0.10); Basophils % (A) 0.6 %; Eosinophils # (A) 0.17 X 10*3/uL (0.04-0.35); Eosinophils % (A) 3.2 %; HCT 29.1 % (37.2-46.3); HGB 9.6 g/dL (12.0-15.0); Immature Grans, Automated 0.4 %; Lymphocytes # (A) 1.81 X 10*3/uL (0.90-5.00); Lymphocytes % (A) 33.8 %; MCH 25.8 pg (27.0-32.0); MCV 78.2 fL (80.0-97.0); Monocytes # (A) 0.37 X 10*3/uL (0.20-1.00); Monocytes % (A) 6.9 %; NRBC Per 100 WBC 0 /100 WBCS (0.0-0.0); Neutrophils # (A) 2.95 X 10*3/uL (1.80-7.70); Neutrophils % (A) 55.1 %; Platelet Count 113 X 10*3/uL (140-440); RBC 3.72 X 10*6/uL (4.10-5.20); RDW 16.8 % (11.5-14.5); WBC 5.35 X 10*3/uL (4.50-10.00)
[2023-01-07 16:18] LABS: RBC Morphology NORMAL
[2023-01-07 16:19] LABS: African American GFR (CKD) 6.4 (60.0-200.0); BUN/Creat Ratio 2.81 Ratio (12.00-20.00); Blood Urea Nitrogen 21.6 mg/dL (9.0-27.0); Calcium 9.4 mg/dL (8.7-10.3); Non-African American GFR(CKD) 5.5 (60.0-200.0); Potassium 4.9 mmol/L (3.5-5.5)
[2023-01-07 21:27] LABS: Appearance,Urine Cloudy (Clear); Bilirubin,Urine Negative (Negative); Blood,Urine Negative (Negative); Color,Urine Yellow (Yellow); Ketones,Urine Negative (Negative); Nitrite,Urine Negative (Negative); PH, Urine 8.5 (5.0-8.0); Specific Gravity,Urine 1.007 (1.001-1.030); Urobilinogen,Urine 0.2 (0.2,1.0)
[2023-01-07 21:49] LABS: Bacteria,Urine 3+ /HPF (None Seen)
== END | disposition home or self-care (01) ==
LOC: LABPAT 12:12
PROVIDERS: ATTEND Urology
DX: Z01.812 Encounter for preprocedural laboratory examination (principal); D41.02 Neoplasm of uncertain behavior of left kidney; R31.29 Other microscopic hematuria
CPT/HCPCS: 80048; 81001; 85025; 87086

== ENCOUNTER 2023-01-14 13:23 | Emergency (ER) | payer OTHER ==
[2023-01-14 13:53] VITALS: TEMP 97
[2023-01-14] MEDS ORDERED: hydrALAZINE HCL 20 MG/ML 1 ML VIAL IVP STA ×2 (14:03→14:53)
--- NOTE | 2023-01-14 14:40 | ED ---
Recheck HPI - General Chief Complaint: Recheck/Abnormal Lab/Rx Stated Complaint: high blood pressure Time Seen by Provider: 01/14/23 13:47 Source: patient, RN notes reviewed Mode of arrival: ambulatory Limitations: no limitations - History of Present Illness Initial Comments: 52-year-old female presents emergency Department chief complaint of hypertensio n. Patient states she closed monitors her blood pressure at home secondary to recent elevated blood pressure. Patient states is more elevated today she did take an extra clonidine. Patient states she's taken her other medications as directed though in the past she states she only takes medications when she has an elevated blood pressure. Patient denies any chest pain headache dizziness blurred vision shortness of breath nausea vomiting. Patient states she has not missed any dialysis appointments. Patient denies any leg pain and leg swelling. Patient offers no other associated symptoms. - Related Data Home Medications Medication Instructions Recorded Confirmed Calcium Acetate [PhosLo] 1,334 mg PO TID-W/MEALS 11/17/22 01/10/23 Calcium Acetate [PhosLo] 667 mg PO DAILY PRN 11/17/22 01/10/23 Nephro-Isadora 0.8mg 1 tab PO DAILY 11/17/22 01/10/23 Spironolactone [Aldactone] 25 mg PO DAILY 11/17/22 01/10/23 carvediloL [Coreg] 25 mg PO BID 11/17/22 01/10/23 cloNIDine HCL [Catapres] 0.3 mg PO TID 11/17/22 01/10/23 Dulaglutide [Trulicity] 0.75 mg SQ FR 01/10/23 01/10/23 lisinopriL 40 mg PO HS 01/10/23 01/10/23 Previous Rx's Medication Instructions Recorded Aspirin 81 mg PO DAILY #30 tab 11/21/22 Atorvastatin [Lipitor] 40 mg PO HS #30 tab 11/21/22 Allergies Allergy/AdvReac Type Severity Reaction Status Date / Time latex Allergy Rash/Hives Verified 01/14/23 13:44 Review of Systems ROS Statement: Those systems with pertinent positive or pertinent negative responses have been documented in the HPI. ROS Other: All systems not noted in ROS Statement are negative. Past Medical History Past Medical History: Dialysis, Hypertension, Renal Disease Additional Past Medical History / Comment(s): Dialysis MOWEFR. History of Any Multi-Drug Resistant Organisms: None Reported Past Surgical History: No Surgical Hx Reported Additional Past Surgical History / Comment(s): Left upper arm graft fistula. Partial hysterectomy. Past Anesthesia/Blood Transfusion Reactions: No Reported Reaction Past Psychological History: No Psychological Hx Reported Smoking Status: Former smoker Past Alcohol Use History: None Reported Past Drug Use History: None Reported - Past Family History Father History Unknown: Yes Family Medical History: Hypertension, Renal Disease Mother History Unknown: Yes Additional Family Medical History / Comment(s): in her sleep. Brother(s) Family Medical History: Myocardial Infarction ([place]) Additional Family Medical History / Comment(s): Brother with myocardial infarction at 43 years old HD. General Exam Limitations: no limitations General appearance: alert, in no apparent distress Head exam: Present: atraumatic, normocephalic, normal inspection Eye exam: Present: normal appearance, PERRL, EOMI. Absent: scleral icterus, conjunctival injection, periorbital swelling Neck exam: Present: normal inspection, full ROM. Absent: tenderness, meningismus, lymphadenopathy Respiratory exam: Present: normal lung sounds bilaterally. Absent: respiratory distress, wheezes, rales, rhonchi, stridor Cardiovascular Exam: Present: regular rate, normal rhythm, normal heart sounds. Absent: systolic murmur, diastolic murmur, rubs, gallop, clicks Neurological exam: Present: alert Skin exam: Present: warm, dry, intact, normal color. Absent: rash Course Vital Signs 01/14/23 01/14/23 01/14/23 13:42 13:51 14:30 Temperature 97.7 F 97.0 F L Pulse Rate 84 89 83 Pulse Rate [ Bilateral] Respiratory 18 18 16 Rate Blood Pressure 180/110 201/130 209/134 O2 Sat by Pulse 100 100 95 Oximetry 01/14/23 01/14/23 14:34 14:54 Temperature Pulse Rate 87 Pulse Rate [ 83 Bilateral] Respiratory 16 Rate Blood Pressure 173/96 O2 Sat by Pulse Oximetry Medical Decision Making - Medical Decision Making Was pt. sent in by a medical professional or institution (, PA, MEAT LOINER, urgent care, hospital, or prison...) When possible be specific @ -No Did you speak to anyone other than the patient for history (EMS, parent, family, police, friend...)? What history was obtained from this source @ -No Did you review nursing and triage notes (agree or disagree)? Why? @ -I reviewed and agree with nursing and triage notes Were old charts reviewed (outside hosp., previous admission, EMS record, old EKG, old radiological studies, urgent care reports/EKG's, prison records)? Report findings @ -Reviewed prior laboratory studies CBC, comp including EKG Differential Diagnosis (chest pain, altered mental status, abdominal pain women, abdominal pain men, vaginal bleeding, weakness, fever, dyspnea, syncope, headache, dizziness, GI bleed, back pain, seizure, CVA, palpatations, mental health, musculoskeletal)? @ -[Hypertension, renal failure, medication noncompliance, this is this is not all inclusive EKG interpreted by me (3pts min.). @ -None X-rays interpreted by me (1pt min.). @ -None done CT interpreted by me (1pt min.). @ -None done U/S interpreted by me (1pt. min.). @ -None done What testing was considered but not performed or refused? (CT, X-rays, U/S, labs)? Why? @ -None What meds were considered but not given or refused? Why? @ -None Did you discuss the management of the patient with other professionals (professionals i.e. , PA, MEAT LOINER, lab, RT, psych nurse, social media assistant, etl lead, teacher, county health officer, home health care case manager)? Give summary @ -No Was smoking cessation discussed for >3mins.? @ -No Was critical care preformed (if so, how long)? @ -No Were there social determinants of health that impacted care today? How? (Homelessness, low income, unemployed, alcoholism, drug addiction, transportation, low edu. Level, literacy, decrease access to med. care, assisted, rehab)? @ -No Was there de-escalation of care discussed even if they declined (Discuss DNR or withdrawal of care, Hospice)? DNR status @ -No What co-morbidities impacted this encounter? (DM, HTN, Smoking, COPD, CAD, Cancer, CVA, ARF, Chemo, Hep., AIDS, mental health diagnosis, sleep apnea, morbid obesity)? @ -Renal failure, dialysis, hypertension Was patient admitted / discharged? Hospital course, mention meds given and route, prescriptions, significant lab abnormalities, going to OR and other pertinent info. @ -Discharge patient was given hydralazine blood pressure has improved. She is asymptomatic. Laboratory studies are unchanged from her baseline. She does have chronic renal failure on dialysis. Patient is not fully medication compliant. Patient will follow-up with primary care physician return parameters were discussed. Undiagnosed new problem with uncertain prognosis? @ -No Drug Therapy requiring intensive monitoring for toxicity (Heparin, Nitro, Insulin, Cardizem)? @ -No Were any procedures done? @ -No Diagnosis/symptom? @ -Hypertension Acute, or Chronic, or Acute on Chronic? @ -Acute Uncomplicated (without systemic symptoms) or Complicated (systemic symptoms)? @ -Uncomplicated Side effects of treatment? @ -No Exacerbation, Progression, or Severe Exacerbation? @ -No Poses a threat to life or bodily function? How? (Chest pain, USA, OR, pneumonia, PE, COPD, DKA, ARF, appy, cholecystitis, CVA, Diverticulitis, Homicidal, Suicidal, threat to staff... and all critical care pts) @ -No Disposition Clinical Impression: Renal failure, Hypertensive urgency Disposition: HOME SELF-CARE Condition: Stable Instructions (If sedation given, give patient instructions): Hypertension (ED) Additional Instructions: Please return to the Emergency Department if symptoms worsen or any other concerns. Is patient prescribed a controlled substance at d/c from ED?: No Referrals: Chinedu Pepe MD [STAFF PHYSICIAN] - 1-2 days Time of Disposition: 15:05
[2023-01-14 14:52] LABS: Albumin 3.7 g/dL (3.5-5.0); Calcium 9.1 mg/dL (8.4-10.2); Potassium 4.5 mmol/L (3.5-5.1); Total Bilirubin 0.9 mg/dL (0.2-1.3); Total Protein 6.4 g/dL (6.3-8.2)
[2023-01-14 14:54] VITALS: PULSE 87
[2023-01-14 15:02] LABS: Anisocytosis Slight; Basophils % (A) 0 %; Eosinophils # (A) 0.1 k/uL (0-0.7); Eosinophils % (A) 2 %; HCT 30.1 % (34.0-46.0); HGB 10.4 gm/dL (11.4-16.0); Lymphocytes # (A) 1.6 k/uL (1.0-4.8); Lymphocytes % (A) 30 %; MCH 26.4 pg (25.0-35.0); MCHC 34.5 g/dL (31.0-37.0); MCV 76.6 fL (80.0-100.0); Mean Platelet Volume 10.4; Microcytosis Slight; Monocytes # (A) 0.3 k/uL (0-1.0); Monocytes % (A) 5 %; Neutrophils # (A) 3.3 k/uL (1.3-7.7); Neutrophils % (A) 61 %; Platelet Count 125 k/uL (150-450); RBC 3.93 m/uL (3.80-5.40); RDW 18.2 % (11.5-15.5); WBC 5.4 k/uL (3.8-10.6)
[2023-01-14 15:03] VITALS: BP 133/84; RESP 18
== END 2023-01-14 15:28 | disposition home or self-care (01) ==
LOC: EC 13:23
DX: I16.0 Hypertensive urgency (principal); N19 Unspecified kidney failure; Z87.891 Personal history of nicotine dependence; Z91.040 Latex allergy status; Z79.899 Other long term (current) drug therapy
CPT/HCPCS: 36415; 80053; 85025; 99284; 96374; J0360

== ENCOUNTER 2023-01-16 05:34 | Inpatient (IN) | payer OTHER ==
[2023-01-10 11:42] VITALS: BMI 21.6
[2023-01-16] MEDS ORDERED: HYDROmorphone 0.5 MG/0.5 ML SYRINGE IVP PRN (05:47)
[2023-01-16] MEDS ORDERED: LACTATED RINGERS 1,000 ML IV SCH (05:47)
[2023-01-16] MEDS ORDERED: ONDANSETRON 4 MG/2 ML VIAL IVP ONE (05:47)
[2023-01-16] MEDS ORDERED: DEXAMETHASONE SOD PHOSPHATE 4 MG/ML 1 ML VIAL IV ONE (05:47)
[2023-01-16] MEDS ORDERED: SODIUM CHLORIDE 0.9% 1,000 ML IV ONE (06:03)
[2023-01-16 06:31] LABS: Glucose,Whole Blood 170 mg/dL (70-110)
[2023-01-16] MEDS ORDERED: LABETALOL SYRINGE 5 MG/ML IVP ONE (06:54)
[2023-01-16 06:55] LABS: Albumin 3.4 g/dL (3.5-5.0); Calcium 8.6 mg/dL (8.4-10.2); Potassium 4.2 mmol/L (3.5-5.1); Total Protein 5.9 g/dL (6.3-8.2)
[2023-01-16 06:59] LABS: Anisocytosis Slight; Basophils % (A) 0 %; Eosinophils # (A) 0.1 k/uL (0-0.7); Eosinophils % (A) 3 %; HCT 26.7 % (34.0-46.0); HGB 9.4 gm/dL (11.4-16.0); Lymphocytes # (A) 1.4 k/uL (1.0-4.8); Lymphocytes % (A) 35 %; MCH 27.2 pg (25.0-35.0); MCHC 35.3 g/dL (31.0-37.0); MCV 77.1 fL (80.0-100.0); Mean Platelet Volume 9.8; Microcytosis Slight; Monocytes # (A) 0.3 k/uL (0-1.0); Monocytes % (A) 7 %; Neutrophils # (A) 2.1 k/uL (1.3-7.7); Neutrophils % (A) 52 %; Platelet Count 128 k/uL (150-450); RBC 3.47 m/uL (3.80-5.40); RDW 18.7 % (11.5-15.5); WBC 4.1 k/uL (3.8-10.6)
[2023-01-16] MEDS ORDERED: fentaNYL (PF) 50 MCG/ML 2 ML AMP ONE (07:31)
[2023-01-16] MEDS ORDERED: HYDROmorphone (PF) 1 MG/ML ONE (07:31)
[2023-01-16] MEDS ORDERED: PROPOFOL 10 MG/ML 20 ML VIAL IV ONE (07:31)
[2023-01-16] MEDS ORDERED: hydrALAZINE HCL 20 MG/ML 1 ML VIAL ONE (07:31)
[2023-01-16] MEDS ORDERED: LIDOCAINE 2% INJ 20 MG/ML (2 ML VIAL) ONE (07:31)
[2023-01-16] MEDS ORDERED: MIDAZOLAM 2 MG/2 ML VIAL ONE (07:31)
[2023-01-16] MEDS ORDERED: GLYCOPYRROLATE 0.2 MG/ML 2 ML VIAL ONE (07:31)
[2023-01-16] MEDS ORDERED: NEOSTIGMINE 1 MG/ML 10 ML VIAL ONE (07:31)
[2023-01-16] MEDS ORDERED: ROCURONIUM 10 MG/ML (5 ML VIAL) IV ONE (07:31)
[2023-01-16] MEDS ORDERED: SUCCINYLCHOLINE CHLORIDE 200 MG/10 ML VIAL IV ONE (07:31)
[2023-01-16] MEDS ORDERED: LACTATED RINGERS 1,000 ML IV ONE ×2 (07:45→09:30)
[2023-01-16] MEDS ORDERED: BUPIVACAINE (PF) 0.5% 30 ML VIAL SQ ONE ×2 (08:10→09:42)
--- NOTE | 2023-01-16 09:50 | P.HPIHPCON ---
History of Present Illness H&P Date: 01/16/23 Chief Complaint: left renal mass This is a 52 yo female with hx ESRD on HD and evidence of 2.6 cm left upper pole renal cystic mass. Discussed with her given this finding it is Highly concerning for renal cell carcinoma. Discussed given that she is on hemodialysis the option of a robotic radical nephrectomy. Discussed with her the risk which includes but not limited to bleeding, infection, injury to nearby organs which includes the spleen, pancreas, bowel. Risk of anesthesia was discussed with her. Discussed risk of heart attack, stroke, blood clots in even loss of life. She understood all the risk and agreed Consent for Procedure: I have explained the operation/procedure to the patient, including the risks, benefits, side effects, alternative therapies (including not receiving the proposed treatment or service), the likelihood of the patient achieving his/her goals, and potential recuperation problems for the procedure/sedation/analgesia, as well as any blood products, if indicated. I also explained to the patient the risks, benefits and side effects of the alternatives, as well as the risks related to not receiving the proposed procedure, care, treatment, or services. Past Medical History Past Medical History: Dialysis, Hypertension, Renal Disease Additional Past Medical History / Comment(s): Dialysis MOWEFR. History of Any Multi-Drug Resistant Organisms: None Reported Past Surgical History: No Surgical Hx Reported Additional Past Surgical History / Comment(s): Left upper arm graft fistula. Partial hysterectomy. Past Anesthesia/Blood Transfusion Reactions: No Reported Reaction Past Psychological History: No Psychological Hx Reported Smoking Status: Former smoker Past Alcohol Use History: None Reported Past Drug Use History: None Reported - Past Family History Father History Unknown: Yes Family Medical History: Hypertension, Renal Disease Mother History Unknown: Yes Additional Family Medical History / Comment(s): in her sleep. Brother(s) Family Medical History: Myocardial Infarction ([place]) Additional Family Medical History / Comment(s): Brother with myocardial infarction at 43 years old HD. Medications and Allergies Home Medications Medication Instructions Recorded Confirmed Type Calcium Acetate [PhosLo] 1,334 mg PO TID-W/MEALS 11/17/22 01/16/23 History Calcium Acetate [PhosLo] 667 mg PO DAILY PRN 11/17/22 01/16/23 History Nephro-Isadora 0.8mg 1 tab PO DAILY 11/17/22 01/16/23 History Spironolactone [Aldactone] 25 mg PO DAILY 11/17/22 01/16/23 History carvediloL [Coreg] 25 mg PO BID 11/17/22 01/16/23 History cloNIDine HCL [Catapres] 0.3 mg PO TID 11/17/22 01/16/23 History Aspirin 81 mg PO DAILY #30 tab 11/21/22 01/16/23 Rx Atorvastatin [Lipitor] 40 mg PO HS #30 tab 11/21/22 01/16/23 Rx Dulaglutide [Trulicity] 0.75 mg SQ FR 01/10/23 01/16/23 History lisinopriL 40 mg PO HS 01/10/23 01/16/23 History Cholecalciferol (Vitamin D3) 1,250 mcg PO DAILY 01/16/23 01/16/23 History [Vitamin D3 (125 MCG = 5,000 IU)] Ergocalciferol [Vitamin D2 (1250 1,250 mcg PO DAILY 01/16/23 01/16/23 History Mcg = 41919 Iu)] hydrALAZINE HCL [Apresoline] 10 mg PO TID 01/16/23 01/16/23 History Allergies Allergy/AdvReac Type Severity Reaction Status Date / Time latex Allergy Rash/Hives Verified 01/16/23 06:46 Surgical - Exam Vital Signs Temp Pulse Resp BP Pulse Ox 97.6 F 96 18 198/109 100 01/16/23 06:05 01/16/23 06:05 01/16/23 06:05 01/16/23 06:05 01/16/23 06:05 - General no distress, no pain - Eyes normal ocular movement, no pale - ENT normal nares, normal mucosa - Respiratory normal expansion, normal respiratory effort - Abdomen Abdomen: soft, non tender Results - Labs 01/16/23 06:26 01/16/23 06:26 Abnormal Lab Results - Last 24 Hours (Table) 01/07/23 01/16/23 01/16/23 Range/Units 12:33 06:24 06:26 RBC 3.47 L (3.80-5.40) m/uL Hgb 9.4 L (11.4-16.0) gm/dL Hct 26.7 L (34.0-46.0) % MCV 77.1 L (80.0-100.0) fL RDW 18.7 H (11.5-15.5) % Plt Count 128 L (150-450) k/uL Sodium (137-145) mmol/L Chloride (98-107) mmol/L Carbon Dioxide (22-30) mmol/L Creatinine (0.52-1.04) mg/dL Glucose (74-99) mg/dL POC Glucose (mg/dL) 170 H (70-110) mg/dL Total Protein (6.3-8.2) g/dL Albumin (3.5-5.0) g/dL Crossmatch See Detail 01/16/23 Range/Units 06:26 RBC (3.80-5.40) m/uL Hgb (11.4-16.0) gm/dL Hct (34.0-46.0) % MCV (80.0-100.0) fL RDW (11.5-15.5) % Plt Count (150-450) k/uL Sodium 134 L (137-145) mmol/L Chloride 95 L (98-107) mmol/L Carbon Dioxide 33 H (22-30) mmol/L Creatinine 5.45 H (0.52-1.04) mg/dL Glucose 167 H (74-99) mg/dL POC Glucose (mg/dL) (70-110) mg/dL Total Protein 5.9 L (6.3-8.2) g/dL Albumin 3.4 L (3.5-5.0) g/dL Crossmatch Diabetes panel 01/16/23 Range/Units 06:26 Sodium 134 L (137-145) mmol/L Potassium 4.2 (3.5-5.1) mmol/L Chloride 95 L (98-107) mmol/L Carbon Dioxide 33 H (22-30) mmol/L BUN 13 (7-17) mg/dL Creatinine 5.45 H (0.52-1.04) mg/dL Glucose 167 H (74-99) mg/dL Calcium 8.6 (8.4-10.2) mg/dL AST 18 (14-36) U/L ALT 22 (4-34) U/L Alkaline Phosphatase 84 (38-126) U/L Total Protein 5.9 L (6.3-8.2) g/dL Albumin 3.4 L (3.5-5.0) g/dL Calcium panel 01/16/23 Range/Units 06:26 Calcium 8.6 (8.4-10.2) mg/dL Albumin 3.4 L (3.5-5.0) g/dL Pituitary panel 01/16/23 Range/Units 06:26 Sodium 134 L (137-145) mmol/L Potassium 4.2 (3.5-5.1) mmol/L Chloride 95 L (98-107) mmol/L Carbon Dioxide 33 H (22-30) mmol/L BUN 13 (7-17) mg/dL Creatinine 5.45 H (0.52-1.04) mg/dL Glucose 167 H (74-99) mg/dL Calcium 8.6 (8.4-10.2) mg/dL Adrenal panel 01/16/23 Range/Units 06:26 Sodium 134 L (137-145) mmol/L Potassium 4.2 (3.5-5.1) mmol/L Chloride 95 L (98-107) mmol/L Carbon Dioxide 33 H (22-30) mmol/L BUN 13 (7-17) mg/dL Creatinine 5.45 H (0.52-1.04) mg/dL Glucose 167 H (74-99) mg/dL Calcium 8.6 (8.4-10.2) mg/dL Total Bilirubin 1.0 (0.2-1.3) mg/dL AST 18 (14-36) U/L ALT 22 (4-34) U/L Alkaline Phosphatase 84 (38-126) U/L Total Protein 5.9 L (6.3-8.2) g/dL Albumin 3.4 L (3.5-5.0) g/dL Assessment and Plan Assessment: OR for left robotic radical nephrectomy
[2023-01-16] MEDS ORDERED: CALCIUM ACETATE 667 MG TAB PO PRN (09:53)
--- NOTE | 2023-01-16 09:53 | P.OP ---
Date of Procedure: 01/16/23 Preoperative Diagnosis: Left renal mass Postoperative Diagnosis: Same Procedure(s) Performed: Left robotic radical nephrectomy Implants: None Anesthesia: SHLOMO Surgeon: Chuck Alvarez Estimated Blood Loss (ml): 75 Pathology: other (left kidney) Condition: stable Disposition: PACU Indications for Procedure: This is a 52 yo female with hx ESRD on HD and evidence of 2.6 cm left upper pole renal cystic mass. Discussed with her given this finding it is Highly concerning for renal cell carcinoma. Discussed given that she is on hemodialysis the option of a robotic radical nephrectomy. Discussed with her the risk which includes but not limited to bleeding, infection, injury to nearby organs which includes the spleen, pancreas, bowel. Risk of anesthesia was discussed with her. Discussed risk of heart attack, stroke, blood clots in even loss of life. She understood all the risk and agreed Description of Procedure: The patient was taken to the operating room . General anesthesia was induced. She was prepped and draped in sterile fashion, she was placed in modified flank position . All pressure points were padded. The abdominal insufflation was achieved with the Veress needle. A 8 mm camera port was placed. Robotic trocars and assistant baseball coach ports were placed under direct vision. The robot was docked into place. The colon was mobilized medially by incising along the white line of Toldt. Next the spleen and the pancrease were mobilized. Of note the liver was adherent to the sidewall, which caused some difficulty mobilizing the spleen completely given that the liver was pushing on the spleen. Once the bowel, spleen and pancreas were mobilized. At this time the gonadal vessel was visualized. Once the gonadal vessel and ureter was visualized , next after the psoas plane was developed the ureter and gonadal vessel was retracted anteriorly off the psoas muscle. Dissection proceeded cranially towards the renal hilum. The upper pole attachments were dissected. Care was taken to safely mobilize the kidney free of all visceral structures.The renal vessels were dissected. At this point the renal vessels were exposed. Next the renal hilum was ligated using the robotic vascular stapler. The adrenal gland was mobilized. Lateral and remaining kidney attachments were released. The ureter was dissected further distally. The ureter was ligated using the vascular stapler. The kidney was placed in an Endo Catch bag. Hemostatic agent were applied to the surgical field. The robot was then de-docked and the specimen was then removed by extending the assistant baseball coach port. Fascia was closed with one layer using #1PDS Skin was closed with subcuticular sutures and dermabond. The patient was awoken from general anesthesia in stable condition. Please refer to the final pathology report for final diagnosis
[2023-01-16] MEDS ORDERED: ONDANSETRON 4 MG/2 ML VIAL IVP PRN (09:54)
[2023-01-16] MEDS ORDERED: SODIUM CHLORIDE 0.9% 500 ML 500 ML IV ONE (10:04)
[2023-01-16] MEDS ORDERED: HYDROmorphone 0.5 MG/0.5 ML SYRINGE IVP ONE (11:14)
[2023-01-16] MEDS: HYDROmorphone 1 MG/ML 1 ML SYRINGE IVP PRN ×3 (11:55→21:06)
[2023-01-16] MEDS: CALCIUM ACETATE 667 MG TAB PO SCH ×2 (11:57→17:16)
[2023-01-16] MEDS: hydrALAZINE HCL 10 MG TAB PO SCH ×2 (13:03→21:05)
[2023-01-16] MEDS: cloNIDine HCL 0.1 MG TAB PO SCH ×2 (13:03→21:05)
[2023-01-16] MEDS: KETOROLAC 15 MG/ML 1 ML VIAL IVP PRN (13:05)
[2023-01-16] MEDS: HEPARIN SODIUM,PORCINE/PF 5,000 UNIT/0.5 ML SYRINGE SQ SCH ×2 (13:05→23:51)
[2023-01-16] MEDS: carvediloL 12.5 MG TAB PO SCH (17:16)
[2023-01-16] MEDS ORDERED: lisinopriL 20 MG TAB PO SCH (21:00)
[2023-01-16] MEDS ORDERED: ATORVASTATIN 40 MG TAB PO SCH (21:00)
[2023-01-17] MEDS: HYDROmorphone 1 MG/ML 1 ML SYRINGE IVP PRN (05:19)
--- NOTE | 2023-01-17 08:01 | P.DS ---
Providers Date of admission: 01/16/23 05:34 Attending physician: Chuck Alvarez MD Primary care physician: Chinedu Gomezhven [facility] Course: The patient was admitted and underwent a left robotic-assisted radical prostatectomy by today. She did well overnight. His urine is clear. Her abdomen is soft. She is tolerating food. Her pain is under control. She's ready for discharge home. She will follow-up in the office in one week. Postoperative instructions been given. Path is pending. She's given a prescription of [place]. She's been instructed to contact us with any problems. Patient Condition at Discharge: Good Plan - Discharge Summary Discharge Rx Participant: Yes New Discharge Prescriptions: New HYDROcodone/APAP 5-325MG [[place] 5-325] 1 tab PO Q4HR PRN #14 tab PRN Reason: Pain No Action carvediloL [Coreg] 25 mg PO BID Calcium Acetate [PhosLo] 667 mg PO DAILY PRN PRN Reason: w/snacks cloNIDine HCL [Catapres] 0.3 mg PO TID Nephro-Isadora 0.8mg 1 tab PO DAILY Aspirin 81 mg PO DAILY #30 tab Atorvastatin [Lipitor] 40 mg PO HS #30 tab lisinopriL 40 mg PO HS Dulaglutide [Trulicity] 0.75 mg SQ FR Ergocalciferol [Vitamin D2 (1250 Mcg = 05891 Iu)] 1,250 mcg PO DAILY Spironolactone [Aldactone] 25 mg PO DAILY Calcium Acetate [PhosLo] 1,334 mg PO TID-W/MEALS hydrALAZINE HCL [Apresoline] 10 mg PO TID Cholecalciferol (Vitamin D3) [Vitamin D3 (125 MCG = 5,000 IU)] 1,250 mcg PO DAILY Discharge Medication List Calcium Acetate [PhosLo] 1,334 mg PO TID-W/MEALS 11/17/22 [History] Calcium Acetate [PhosLo] 667 mg PO DAILY PRN 11/17/22 [History] Nephro-Isadora 0.8mg 1 tab PO DAILY 11/17/22 [History] Spironolactone [Aldactone] 25 mg PO DAILY 11/17/22 [History] carvediloL [Coreg] 25 mg PO BID 11/17/22 [History] cloNIDine HCL [Catapres] 0.3 mg PO TID 11/17/22 [History] Aspirin 81 mg PO DAILY #30 tab 11/21/22 [Rx] Atorvastatin [Lipitor] 40 mg PO HS #30 tab 11/21/22 [Rx] Dulaglutide [Trulicity] 0.75 mg SQ FR 01/10/23 [History] lisinopriL 40 mg PO HS 01/10/23 [History] Cholecalciferol (Vitamin D3) [Vitamin D3 (125 MCG = 5,000 IU)] 1,250 mcg PO SANTA Y 01/16/23 [History] Ergocalciferol [Vitamin D2 (1250 Mcg = 47303 Iu)] 1,250 mcg PO DAILY 01/16/23 [History] hydrALAZINE HCL [Apresoline] 10 mg PO TID 01/16/23 [History] HYDROcodone/APAP 5-325MG [[place] 5-325] 1 tab PO Q4HR PRN #14 tab 01/17/23 [Rx] Follow up Appointment(s)/Referral(s): Chuck Alvarez MD [STAFF PHYSICIAN] - 1 Week Discharge Disposition: HOME SELF-CARE
[2023-01-17] MEDS: HEPARIN SODIUM,PORCINE/PF 5,000 UNIT/0.5 ML SYRINGE SQ SCH (08:24)
[2023-01-17 08:33] VITALS: BP 128/75; PULSE 92; RESP 17; TEMP 97.7
[2023-01-17] MEDS: CALCIUM ACETATE 667 MG TAB PO SCH (08:34)
[2023-01-17] MEDS: KETOROLAC 15 MG/ML 1 ML VIAL IVP PRN (08:34)
[2023-01-17] MEDS: carvediloL 12.5 MG TAB PO SCH (08:35)
[2023-01-17] MEDS ORDERED: FOLIC ACID-VIT B COMPLEX-VIT C 1 CAP PO SCH (09:00)
--- NOTE | 2023-01-19 09:17 | CONS ---
CONSULTATION CHIEF COMPLAINT: Chronic renal failure and left renal cyst. HISTORY OF PRESENT ILLNESS: This lady has chronic renal failure and lesion in the left kidney and she is admitted for an elective excision. REVIEW OF SYSTEMS: She is experiencing no headaches, shortness of breath, chest pain, abdominal pain, nausea, vomiting, diarrhea, melena, hematuria, etc. Past medical history, family history, personal and social histories are found in her admitting summary. She has stage 5 CKD and diabetes mellitus. She is allergic to latex. MEDICATIONS: 1. Carvedilol. 2. Lisinopril. 3. Vitamin D3. 4. Spironolactone. 5. Clonidine. 6. Aspirin. 7. Atorvastatin. She does not check her blood sugars at home. She used to smoke, but stopped last year. She does not drink. PHYSICAL EXAMINATION: VITAL SIGNS: Blood pressure is 156/82, pulse 63, respirations 16. She is afebrile. GENERAL: She appeared to be slender and in no acute distress. SKIN: Color is normal. Skin is warm, dry. LYMPHATICS: Lymph nodes are not enlarged. HEAD, EARS, EYES, NOSE, MOUTH AND THROAT: Normal NECK: Neck veins not distended. Thyroid is not enlarged. CHEST: Clear. CARDIAC: Normal. ABDOMEN: Soft, nontender. EXTREMITIES: Normal. IMPRESSION: 1. Chronic renal failure. 2. History of hypertension. 3. History of type 2 diabetes mellitus. RECOMMENDATIONS: None at this time. MMODL / IJN: [id number] /
--- NOTE | 2023-01-19 09:26 | PN ---
PROGRESS NOTE DATE OF SERVICE: 01/17/2023 CHIEF COMPLAINT: Status post excision of left renal cyst. HISTORY OF PRESENT ILLNESS: This lady is doing well. She has had no fever, chills, abdominal pain, etc. She is going home today. PHYSICAL EXAMINATION: CHEST: Clear. CARDIAC: Normal. Incisions are not inflamed. IMPRESSION: 1. Left renal cyst. 2. Hypertension. 3. Chronic kidney disease. 4. Type 2 diabetes. PLAN: Home today. MMODL / IJN: [id number] /
--- NOTE | 2023-01-22 08:57 | CDI ---
Documentation Clarification Form Date: 01/22/2023 From: Nimo Gottlieb Admit Date: 01/16/2023 5:34:00 AM Patient Name: Daphney Mcclendon Visit Number: [id number] Discharge Date: 01/17/2023 9:10:00 AM ATTENTION: The Clinical Documentation Specialists (CDI) and [facility] Coding Staff appreciate your assistance in clarifying documentation. Please respond to the clarification below the line at the bottom and electronically sign. The CDI & [facility] Coding staff will review the response and follow-up if needed. Please note: Queries are made part of the Legal Health Record. If you have any questions, please contact the author of this message via ITS. Dr. 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 Coding guidelines do not allow coding professionals to code based on pathology results; therefore, clarification is requested. History/risk factors: ESRD on HD Clinical Indicators: This is a 52 yo female with hxESRDon HDand evidence of 2.6 cm left upper pole renalcystic mass. Discussed with her given this finding it is Highly concerning forrenal cell carcinoma. Treatment: Leftroboticradical nephrectomy Please clarify if you agree with the pathology report diagnosis of Clear cellrenal cell carcinoma: [ X] Yes [ ] No [ ] Other (please specify) [ ] Unable to determine MTDD
--- NOTE | 2023-02-07 14:19 | CDI ---
Documentation Clarification Form Date: 02/07/23 From: Nimo Gottlieb Admit Date: 01/16/2023 5:34:00 AM Patient Name: Daphney Mcclendon Visit Number: [id number] Discharge Date: 01/17/2023 9:10:00 AM ATTENTION: The Clinical Documentation Specialists (CDI) and [facility] Coding Staff appreciate your assistance in clarifying documentation. Please respond to the clarification below the line at the bottom and electronically sign. The CDI & [facility] Coding staff will review the response and follow-up if needed. Please note: Queries are made part of the Legal Health Record. If you have any questions, please contact the author of this message via ITS. Dr. Kory Duran, Conflicting documentation has been found in the medical record. As attending physician, please provide clarification. DCS, Hospital Course, 01/17, Prostatectomy Procedure Note, Procedure performed, 01/16 Nephrectomy History/Risk Factors: Diabetes, ESRD, HTN, Renal Cell Carcinoma Clinical Indicators: 01/16 Path report, 01/16 Surgical H&P Treatment: Procedure performed, 01/16 Nephrectomy Please clarify which diagnosis is most appropriate: [ ] Prostatectomy [ ] Nephrectomy [ ] Other (please specify) [ ] Unable to determine nephrectomy MTDD
== END 2023-01-17 09:10 | disposition home or self-care (01) | DRG 442 ==
LOC: 2ORMAIN 05:34 → 4SSUR 11:17
PROVIDERS: ADMIT Urology; ATTEND Urology
PROC: 8E0W4CZ Robotic Assisted Procedure of Trunk Region, Percutaneous Endoscopic Approach (ICD-10-PCS; principal; 2023-01-16 07:30)
PROC: 0TT74ZZ Resection of Left Ureter, Percutaneous Endoscopic Approach (ICD-10-PCS; principal; 2023-01-16 07:30)
PROC: 0TT14ZZ Resection of Left Kidney, Percutaneous Endoscopic Approach (ICD-10-PCS; principal; 2023-01-16 07:30)
DX: C64.2 Malignant neoplasm of left kidney, except renal pelvis (principal); I12.0 Hypertensive chronic kidney disease with stage 5 chronic kidney disease or end stage renal disease; E11.22 Type 2 diabetes mellitus with diabetic chronic kidney disease; N28.1 Cyst of kidney, acquired; N18.6 End stage renal disease; Z99.2 Dependence on renal dialysis; Z79.85 Long-term (current) use of injectable non-insulin antidiabetic drugs; Z79.82 Long term (current) use of aspirin; Z79.899 Other long term (current) drug therapy; Z87.891 Personal history of nicotine dependence; Z91.040 Latex allergy status
CPT/HCPCS: 80053; 85025; 86850; 86900; 86901; 86920; 88307

== ENCOUNTER 2023-02-08 22:21 | Emergency (ER) | payer OTHER ==
[2023-02-08 22:41] VITALS: TEMP 98.4
--- NOTE | 2023-02-08 23:18 | ED ---
General Adult HPI - General Chief complaint: Recheck/Abnormal Lab/Rx Stated complaint: High BP 200/40 Time Seen by Provider: 02/08/23 23:17 Source: patient, RN notes reviewed Mode of arrival: ambulatory Limitations: no limitations - History of Present Illness Initial comments: Patient is a 52-year-old female presents to the emergency department for high blood pressure. Patient has a mild headache she checked her blood pressure was high. Patient has history and takes Catapres, lisinopril, hydralazine. States her hydralazine dose was recently increased to 100 mg daily. No chest or shortness of breath. Patient is a hemodialysis patient Friday. She has not missed any appointments. - Related Data Home Medications Medication Instructions Recorded Confirmed Calcium Acetate [PhosLo] 1,334 mg PO TID-W/MEALS 11/17/22 01/16/23 Calcium Acetate [PhosLo] 667 mg PO DAILY PRN 11/17/22 01/16/23 Nephro-Isadora 0.8mg 1 tab PO DAILY 11/17/22 01/16/23 Spironolactone [Aldactone] 25 mg PO DAILY 11/17/22 01/16/23 carvediloL [Coreg] 25 mg PO BID 11/17/22 01/16/23 cloNIDine HCL [Catapres] 0.3 mg PO TID 11/17/22 01/16/23 Dulaglutide [Trulicity] 0.75 mg SQ FR 01/10/23 01/16/23 lisinopriL 40 mg PO HS 01/10/23 01/16/23 Cholecalciferol (Vitamin D3) 1,250 mcg PO DAILY 01/16/23 01/16/23 [Vitamin D3 (125 MCG = 5,000 IU)] Ergocalciferol [Vitamin D2 (1250 1,250 mcg PO DAILY 01/16/23 01/16/23 Mcg = 10145 Iu)] hydrALAZINE HCL [Apresoline] 10 mg PO TID 01/16/23 01/16/23 Previous Rx's Medication Instructions Recorded Aspirin 81 mg PO DAILY #30 tab 11/21/22 Atorvastatin [Lipitor] 40 mg PO HS #30 tab 11/21/22 HYDROcodone/APAP 5-325MG [Hobson 1 tab PO Q4HR PRN #14 tab 01/17/23 5-325] Allergies Allergy/AdvReac Type Severity Reaction Status Date / Time latex Allergy Rash/Hives Verified 01/16/23 06:46 Review of Systems ROS Statement: Those systems with pertinent positive or pertinent negative responses have been documented in the HPI. ROS Other: All systems not noted in ROS Statement are negative. Past Medical History Past Medical History: Dialysis, Hypertension, Renal Disease Additional Past Medical History / Comment(s): Dialysis MOWEFR. History of Any Multi-Drug Resistant Organisms: None Reported Past Surgical History: No Surgical Hx Reported Additional Past Surgical History / Comment(s): Left upper arm graft fistula. Partial hysterectomy. Past Anesthesia/Blood Transfusion Reactions: No Reported Reaction Past Psychological History: No Psychological Hx Reported Smoking Status: Former smoker - Past Family History Father History Unknown: Yes Family Medical History: Hypertension, Renal Disease Mother History Unknown: Yes Additional Family Medical History / Comment(s): in her sleep. Brother(s) Family Medical History: Myocardial Infarction ([place]) Additional Family Medical History / Comment(s): Brother with myocardial infarction at 43 years old HD. General Exam - General Exam Comments Initial Comments: Visual Physical Exam Vital signs reviewed General: Well-appearing, nontoxic, no acute distress. Head: Normocephalic, atraumatic Eyes: PERRLA, EOMI ENT: Airway patent Chest: Nonlabored breathing Skin: No visual rash, normal skin tone Neuro: Alert and oriented 3 Musculoskeletal: No gross abnormalities Limitations: no limitations General appearance: alert, in no apparent distress Head exam: Present: atraumatic, normocephalic, normal inspection Respiratory exam: Present: normal lung sounds bilaterally. Absent: respiratory distress, wheezes, rales, rhonchi, stridor Cardiovascular Exam: Present: regular rate, normal rhythm, normal heart sounds. Absent: systolic murmur, diastolic murmur, rubs, gallop, clicks GI/Abdominal exam: Present: soft, normal bowel sounds. Absent: distended, tenderness, guarding, rebound, rigid Neurological exam: Present: alert, oriented X3, CN II-XII intact Psychiatric exam: Present: normal affect, normal mood Skin exam: Present: warm, dry, intact, normal color. Absent: rash Course Vital Signs 02/08/23 02/09/23 02/09/23 22:35 01:31 02:02 Temperature 98.4 F Pulse Rate 102 H 100 96 Respiratory 16 18 18 Rate Blood Pressure 231/118 224/102 194/116 O2 Sat by Pulse 100 100 98 Oximetry 02/09/23 02/09/23 02:48 03:22 Temperature Pulse Rate Respiratory Rate Blood Pressure 174/95 150/78 O2 Sat by Pulse 97 Oximetry Medical Decision Making - Medical Decision Making Was pt. sent in by a medical professional or institution (, PA, BOTTLED BEVERAGE INSPECTOR, urgent care, hospital, or fci...) When possible be specific @ -No Did you speak to anyone other than the patient for history (EMS, parent, family, police, friend...)? What history was obtained from this source @ -No Did you review nursing and triage notes (agree or disagree)? Why? @ -I reviewed and agree with nursing and triage notes Were old charts reviewed (outside hosp., previous admission, EMS record, old EKG, old radiological studies, urgent care reports/EKG's, fci records)? Report findings @ -No old charts were reviewed Differential Diagnosis (chest pain, altered mental status, abdominal pain women, abdominal pain men, vaginal bleeding, weakness, fever, dyspnea, syncope, heada kate, dizziness, GI bleed, back pain, seizure, CVA, palpatations, mental health)? @ -Differential Headache: Migraine, tension, cluster, carbon monoxide, central venous thrombosis, pension karma temporal arteritis, acute closure glaucoma, intercranial hemorrhage, mastoiditis, sinusitis, head injury, hypertension induced headache. this is not meant to be an all-inclusive list. EKG interpreted by me (3pts min.). @ -As above X-rays interpreted by me (1pt min.). @ -Yes, showing small left pleural effusion CT interpreted by me (1pt min.). @ -None done U/S interpreted by me (1pt. min.). @ -None done What testing was considered but not performed or refused? (CT, X-rays, U/S, labs)? Why? @ -None What meds were considered but not given or refused? Why? @ -None Did you discuss the management of the patient with other professionals (p rofessionals i.e. , PA, BOTTLED BEVERAGE INSPECTOR, lab, RT, psych nurse, social services coordinator, program management manager, teacher, custom protection officer, watch case polisher)? Give summary @ -No Was smoking cessation discussed for >3mins.? @ -No Was critical care preformed (if so, how long)? @ -No Were there social determinants of health that impacted care today? How? (Homelessness, low income, unemployed, alcoholism, drug addiction, transpor tation, low edu. Level, literacy, decrease access to med. care, [facility], rehab)? @ -No Was there de-escalation of care discussed even if they declined (Discuss DNR or withdrawal of care, Hospice)? DNR status @ -No What co-morbidities impacted this encounter? (DM, HTN, Smoking, COPD, CAD, Cancer, CVA, ARF, Chemo, Hep., AIDS, mental health diagnosis, sleep apnea, morbid obesity)? @ -Hypertension, kidney failure Was patient admitted / discharged? Hospital course, mention meds given and r oute, prescriptions, significant lab abnormalities, going to OR and other pertinent info. @ -Patient presenting for mild headache with elevated blood pressure. Blood pressure is 231/118. No chest pain or shortness of breath. Labs obtained kidney function consistent with renal failure. Potassium within normal limits. Patient given IV labetalol with improvement of pressure and resolved headache. Patient to follow up with primary care provider and Dr. King. Undiagnosed new problem with uncertain prognosis? @ -No Drug Therapy requiring intensive monitoring for toxicity (Heparin, Nitro, Insulin, Cardizem)? @ -No Were any procedures done? @ -No Diagnosis/symptom? @ -hypertensive urgency, renal failure Acute, or Chronic, or Acute on Chronic? @ -acute Uncomplicated (without systemic symptoms) or Complicated (systemic symptoms)? @ -uncomplicated Side effects of treatment? @ -No Exacerbation, Progression, or Severe Exacerbation? @ -No Poses a threat to life or bodily function? How? (Chest pain, USA, [place], pneumonia, PE, COPD, DKA, ARF, appy, cholecystitis, CVA, Diverticulitis, Homicidal, Suicidal, threat to staff... and all critical care pts) @ -No Dr. Long is my attending - Lab Data Result diagrams: 02/08/23 23:53 02/08/23 23:53 Lab Results 02/08/23 02/08/23 Range/Units 23:53 23:53 WBC 5.2 (3.8-10.6) k/uL RBC 4.02 (3.80-5.40) m/uL Hgb 10.0 L (11.4-16.0) gm/dL Hct 30.6 L (34.0-46.0) % MCV 76.1 L (80.0-100.0) fL MCH 24.9 L (25.0-35.0) pg MCHC 32.7 (31.0-37.0) g/dL RDW 16.1 H (11.5-15.5) % Plt Count 188 (150-450) k/uL MPV 9.8 Neutrophils % 65 % Lymphocytes % 25 % Monocytes % 6 % Eosinophils % 2 % Basophils % 0 % Neutrophils # 3.4 (1.3-7.7) k/uL Lymphocytes # 1.3 (1.0-4.8) k/uL Monocytes # 0.3 (0-1.0) k/uL Eosinophils # 0.1 (0-0.7) k/uL Basophils # 0.0 (0-0.2) k/uL Anisocytosis Slight Microcytosis Slight Sodium 134 L (137-145) mmol/L Potassium 4.2 (3.5-5.1) mmol/L Chloride 91 L (98-107) mmol/L Carbon Dioxide 33 H (22-30) mmol/L Anion Gap 10 mmol/L BUN 24 H (7-17) mg/dL Creatinine 7.07 H* (0.52-1.04) mg/dL Est GFR (CKD-EPI)AfAm 7 (>60 ml/min/1.73 sqM) Est GFR (CKD-EPI)NonAf 6 (>60 ml/min/1.73 sqM) Glucose 285 H (74-99) mg/dL Calcium 8.8 (8.4-10.2) mg/dL Total Bilirubin 0.8 (0.2-1.3) mg/dL AST 26 (14-36) U/L ALT 14 (4-34) U/L Alkaline Phosphatase 71 (38-126) U/L Total Protein 7.1 (6.3-8.2) g/dL Albumin 3.8 (3.5-5.0) g/dL Disposition Clinical Impression: Hypertensive urgency, Renal failure Disposition: HOME SELF-CARE Condition: Good Instructions (If sedation given, give patient instructions): Chronic Hypertension (ED), Hypertensive Crisis (ED) Additional Instructions: Follow-up with primary care provider and c.o.d. audit clerk in 1-2 days. Return to the emergency department if you experience new, concerning, or worsening symptoms. Is patient prescribed a controlled substance at d/c from ED?: No Referrals: Chinedu Pepe MD [Primary Care Provider] - 1-2 days
--- NOTE | 2023-02-08 23:36 | XR ---
EXAM: XR Chest, 2 Views CLINICAL HISTORY: ITS.REASON XR Reason: high BP TECHNIQUE: Frontal and lateral views of the chest. COMPARISON: 01/31/23 FINDINGS: Lungs: Unremarkable. No consolidation. Pleural space: Small left pleural effusion. No pneumothorax. Heart: Unremarkable. No cardiomegaly or pulmonary vascular congestion. Bones/joints: No acute fracture. No dislocation. Tubes, lines and devices: Tunneled right sided supraclavicular dialysis catheter with tip at the cavoatrial junction. IMPRESSION: 1. Small left pleural effusion.
[2023-02-09 00:15] LABS: Anisocytosis Slight; Basophils % (A) 0 %; Eosinophils # (A) 0.1 k/uL (0-0.7); Eosinophils % (A) 2 %; HCT 30.6 % (34.0-46.0); Lymphocytes # (A) 1.3 k/uL (1.0-4.8); Lymphocytes % (A) 25 %; MCH 24.9 pg (25.0-35.0); MCHC 32.7 g/dL (31.0-37.0); MCV 76.1 fL (80.0-100.0); Mean Platelet Volume 9.8; Microcytosis Slight; Monocytes # (A) 0.3 k/uL (0-1.0); Monocytes % (A) 6 %; Neutrophils # (A) 3.4 k/uL (1.3-7.7); Neutrophils % (A) 65 %; Platelet Count 188 k/uL (150-450); RBC 4.02 m/uL (3.80-5.40); RDW 16.1 % (11.5-15.5); WBC 5.2 k/uL (3.8-10.6)
[2023-02-09 00:29] LABS: Albumin 3.8 g/dL (3.5-5.0); Calcium 8.8 mg/dL (8.4-10.2); Potassium 4.2 mmol/L (3.5-5.1); Total Bilirubin 0.8 mg/dL (0.2-1.3); Total Protein 7.1 g/dL (6.3-8.2)
[2023-02-09 01:32] VITALS: RESP 18
[2023-02-09] MEDS ORDERED: SODIUM CHLORIDE 0.9% 1,000 ML IV STA (01:42)
[2023-02-09] MEDS ORDERED: hydrALAZINE HCL 20 MG/ML 1 ML VIAL IVP STA (01:42)
[2023-02-09] MEDS ORDERED: LABETALOL 5 MG/ML VIAL MDV IVP STA (01:50)
[2023-02-09 02:02] VITALS: PULSE 96
[2023-02-09] MEDS ORDERED: ACETAMINOPHEN TAB 500 MG TAB PO STA (02:35)
[2023-02-09 03:23] VITALS: BP 150/78
== END 2023-02-09 03:41 | disposition home or self-care (01) ==
LOC: EC 22:21
DX: I16.0 Hypertensive urgency (principal); N19 Unspecified kidney failure; J90 Pleural effusion, not elsewhere classified; Z87.891 Personal history of nicotine dependence; Z91.040 Latex allergy status; Z79.899 Other long term (current) drug therapy; Z99.2 Dependence on renal dialysis
CPT/HCPCS: 36415; 71046; 80053; 85025; 93005; 96361; 96374; 99283

== ENCOUNTER 2023-04-21 07:32 | Inpatient (IN) | payer OTHER ==
[2023-04-21] MEDS ORDERED: hydrALAZINE HCL 20 MG/ML 1 ML VIAL IVP STA (07:54)
--- NOTE | 2023-04-21 07:56 | ED ---
General Adult HPI - General Source: patient Mode of arrival: ambulatory <Joe Larios - Last Filed: 04/21/23 15:22> <Jasson Long - Last Filed: 04/21/23 19:23> - General Chief complaint: Recheck/Abnormal Lab/Rx Stated complaint: hypertension Time Seen by Provider: 04/21/23 07:45 - History of Present Illness Initial comments: Dictation was produced using [employer]! dictation software. please excuse any grammatical, word or spelling errors. Chief Complaint: 52-year-old hypertensive female with past medical history of ESRD presents near for elevated blood pressure History of Present Illness: Patient's 52-year-old female she has history of hypertension. She takes multiple blood pressure medications. List includes hydralazine, clonidine, spironolactone and carvedilol. Patient went to dialysis today and had her blood pressure measures found to be significantly elevated states that her blood pressures generally very high right to dialysis. Her blood pressures typically 116 systolic when she measures at home. Denies any chest pain or shortness of breath. No numbness and paresthesias to arms or legs she has no physical complaints. The ROS documented in this emergency department record has been reviewed and confirmed by me. Those systems with pertinent positive or negative responses have been documented in the HPI. All other systems are other negative and/or noncontributory. (Joe Larios) - Related Data Home Medications Medication Instructions Recorded Confirmed Nephro-Isadora 0.8mg 1 tab PO DAILY 11/17/22 04/21/23 carvediloL [Coreg] 25 mg PO BID 11/17/22 04/21/23 cloNIDine HCL [Catapres] 0.3 mg PO TID 11/17/22 04/21/23 hydrALAZINE HCL [Apresoline] 10 mg PO TID PRN 01/16/23 04/21/23 Amoxicillin 250 mg PO BID 04/21/23 04/21/23 Aspirin EC [Ecotrin Low Dose] 81 mg PO DAILY 04/21/23 04/21/23 Cholecalciferol (Vitamin D3) 1,250 mcg PO MO 04/21/23 04/21/23 [Vitamin D3] Dulaglutide [Trulicity] 3 mg SQ FR 04/21/23 04/21/23 Lactulose [Constulose] 10 gm PO DAILY PRN 04/21/23 04/21/23 hydrALAZINE HCL [Apresoline] 100 mg PO BID 04/21/23 04/21/23 lisinopriL [Zestril] 20 mg PO BID 04/21/23 04/21/23 Previous Rx's Medication Instructions Recorded Atorvastatin [Lipitor] 40 mg PO HS #30 tab 11/21/22 Allergies Allergy/AdvReac Type Severity Reaction Status Date / Time latex Allergy Rash/Hives Verified 04/21/23 08:57 Review of Systems ROS Other: All systems not noted in ROS Statement are negative. <Joe Larios - Last Filed: 04/21/23 15:22> ROS Other: All systems not noted in ROS Statement are negative. <Jasson Long - Last Filed: 04/21/23 19:23> ROS Statement: Those systems with pertinent positive or pertinent negative responses have been documented in the HPI. Past Medical History Past Medical History: Diabetes Mellitus, Dialysis, Hypertension, Renal Disease Additional Past Medical History / Comment(s): Dialysis MOWEFR. History of Any Multi-Drug Resistant Organisms: None Reported Past Surgical History: No Surgical Hx Reported Additional Past Surgical History / Comment(s): Left upper arm graft fistula. Partial hysterectomy. left kidney removal december 2022- Past Anesthesia/Blood Transfusion Reactions: No Reported Reaction Past Psychological History: No Psychological Hx Reported Smoking Status: Former smoker Past Alcohol Use History: None Reported Past Drug Use History: None Reported - Past Family History Father History Unknown: Yes Family Medical History: Hypertension, Renal Disease Mother History Unknown: Yes Additional Family Medical History / Comment(s): in her sleep. Brother(s) Family Medical History: Myocardial Infarction ([place]) Additional Family Medical History / Comment(s): Brother with myocardial infa rction at 43 years old HD. <Joe Larios - Last Filed: 04/21/23 15:22> General Exam <Joe Larios - Last Filed: 04/21/23 15:22> - General Exam Comments Initial Comments: PHYSICAL EXAM: General Impression: Alert and oriented x3, not in acute distress HEENT: Normocephalic atraumatic, extra-ocular movements intact, pupils equal and reactive to light bilaterally, mucous membranes moist. Cardiovascular: Heart regular rate and rhythm Chest: Able to complete full sentences, no retractions, no tachypnea Abdomen: abdomen soft, non-tender, non-distended, no organomegaly Musculoskeletal: Pulses present and equal in all extremities, no peripheral edema Motor: no focal deficits noted Neurological: CN II-XII grossly intact, no focal motor or sensory deficits noted Skin: Intact with no visualized rashes Psych: Normal affect and mood (Joe Larios) Course <Joe Larios - Last Filed: 04/21/23 15:22> Vital Signs 04/21/23 04/21/23 04/21/23 07:33 07:54 08:53 Temperature 98.5 F Pulse Rate 94 93 94 Pulse Rate [ Industrial Methods Consultant ] Respiratory 18 18 18 Rate Blood Pressure 242/140 232/135 201/111 Blood Pressure [Right Arm] O2 Sat by Pulse 99 100 100 Oximetry 04/21/23 04/21/23 04/21/23 10:01 11:56 14:12 Temperature Pulse Rate 95 90 89 Pulse Rate [ Industrial Methods Consultant ] Respiratory 16 16 18 Rate Blood Pressure 203/118 184/115 205/121 Blood Pressure [Right Arm] O2 Sat by Pulse 100 100 100 Oximetry 04/21/23 04/21/23 04/21/23 14:45 15:21 17:03 Temperature 97.8 F Pulse Rate 90 92 Pulse Rate [ 92 Industrial Methods Consultant ] Respiratory 16 16 18 Rate Blood Pressure 201/122 189/119 Blood Pressure 218/132 [Right Arm] O2 Sat by Pulse 100 Oximetry 04/21/23 18:30 Temperature Pulse Rate 92 Pulse Rate [ Industrial Methods Consultant ] Respiratory 16 Rate Blood Pressure 219/140 Blood Pressure [Right Arm] O2 Sat by Pulse 100 Oximetry - Reevaluation(s) Reevaluation #1: 04/21/23 08:50 Dr. Gambino was contacted and will perform dialysis in the emergency department. He did request that patient be given 100 mg of oral hydralazine. Patient currently on 110 mg of hydralazine 3 times a day. (Joe Larios) Reevaluation #2: 04/21/23 11:56 Dr. Gambino did evaluate the patient at the bedside and made recommendations. (Joe Larios) Reevaluation #3: 04/21/23 15:14 Case discussed with hospitalist, Dr. Peace does not feel the patient meets criteria for admission if ultimately her disposition will be discharge after dialysis (Joe Larios) EKG Findings - EKG Comments: EKG Findings:: My EKG interpretation: Ventricular rate 94, sinus rhythm,. Interval 160, QRS 82, QTc 440. No MI prolongation, no QTC prolongation, no ST or T-wave changes noted. Overall, this EKG is unremarkable <Joe Larios - Last Filed: 04/21/23 15:22> Medical Decision Making - Lab Data Result diagrams: 04/21/23 07:58 04/21/23 07:58 <Joe Larios - Last Filed: 04/21/23 15:22> - Lab Data Result diagrams: 04/21/23 07:58 04/21/23 07:58 <Jasson Long - Last Filed: 04/21/23 19:23> - Medical Decision Making Was pt. sent in by a medical professional or institution (, PA, RISK ASSESSMENT CONSULTANT, urgent care, hospital, or care home...) When possible be specific @ -No Did you speak to anyone other than the patient for history (EMS, parent, family, police, friend...)? What history was obtained from this source @ -No Did you review nursing and triage notes (agree or disagree)? Why? @ -I reviewed and agree with nursing and triage notes Were old charts reviewed (outside hosp., previous admission, EMS record, old EKG, old radiological studies, urgent care reports/EKG's, care home records)? Report findings @ -No old charts were reviewed Differential Diagnosis (chest pain, altered mental status, abdominal pain women, abdominal pain men, vaginal bleeding, musculoskeletal, weakness, fever, dyspnea, syncope, headache, dizziness, GI bleed, back pain, seizure, CVA, palpatations, mental health)? @ -not applicable EKG interpreted by me (3pts min.). @ -None done X-rays interpreted by me (1pt min.). @ -None done CT interpreted by me (1pt min.). @ -None done U/S interpreted by me (1pt. min.). @ -None done What testing was considered but not performed or refused? (CT, X-rays, U/S, labs)? Why? @ -None What meds were considered but not given or refused? Why? @ -None Did you discuss the management of the patient with other professionals (professionals i.e. , PA, RISK ASSESSMENT CONSULTANT, lab, RT, psych nurse, social media campaign manager, edi programmer analyst, teacher, public relations officer, patient case manager)? Give summary @ -Discussed with correctional supply supervisor, Dr. Gambino Was smoking cessation discussed for >3mins.? @ -No Was critical care preformed (if so, how long)? @ -No Were there social determinants of health that impacted care today? How? (Homelessness, low income, unemployed, alcoholism, drug addiction, transportation, low edu. Level, literacy, decrease access to med. care, half-way, rehab)? @ -No Was there de-escalation of care discussed even if they declined (Discuss DNR or withdrawal of care, Hospice)? DNR status @ -No What co-morbidities impacted this encounter? (DM, HTN, Smoking, COPD, CAD, Cancer, CVA, ARF, Chemo, Hep., AIDS, mental health diagnosis, sleep apnea, morbid obesity)? @ -hypertension Was patient admitted / discharged? Hospital course, mention meds given and route, prescriptions, significant lab abnormalities, going to OR and other pertinent info. @ -52-year-old female presents to the emergency department with hypertension. Vital signs upon arrival shows blood pressure 242/140, worse vital signs within acceptable limits. Patient is a heavy symptoms to suggest hypertensive emergency. Case is discussed with correctional supply supervisor requested administration of antihypertensive medications. He was like patient to be reevaluated after dialysis. Twisting Operator did make recommendations on blood pressure management. Patient given oral antihypertensives per recommendation by nephrology with improvement of blood pressures. Patient vaguely reevaluated at bedside with stable medical condition. Her blood pressures are improving slightly. Nephrology recommended renal ultrasound and further blood testing for further evaluation of hypertension Undiagnosed new problem with uncertain prognosis? @ -No Drug Therapy requiring intensive monitoring for toxicity (Heparin, Nitro, Insulin, Cardizem)? @ -No Were any procedures done? @ -No Diagnosis/symptom? Acute, or Chronic, or Acute on Chronic? Uncomplicated (without systemic symptoms) or Complicated (systemic symptoms)? @ -1. Hypertension Side effects of treatment? @ -No Exacerbation, Progression, or Severe Exacerbation? @ -No Poses a threat to life or bodily function? How? (Chest pain, USA, [place], pneumonia, PE, COPD, DKA, ARF, appy, cholecystitis, CVA, Diverticulitis, Homicidal, Suicidal, threat to staff... and all critical care pts) @ -No Patient care signed out to oncoming physician for follow-up and reevaluation after dialysis (Joe Larios) The patient was signed out to me from Dr. Larios pending completion of dialysis and reevaluation. Patient initially been seen by the correctional supply supervisor, Dr. Gambino. On reevaluation, the patient had completed dialysis however her blood pressure did continue to remain significantly elevated. I did contact Dr. Gambino once again regarding this and he did state that the patient did need to be admitted for continued blood pressure control. He recommended additionally adding 10 mg of amlodipine daily and labetalol when necessary. The patient was given a dose of labetalol here in emergency department. The patient however had a continued headache but did not complain of any further pain. The patient was told of this plan and was agreeable. The patient was admitted in stable condition. (Jasson Long) - Lab Data Lab Results 04/21/23 04/21/23 Range/Units 07:58 07:58 WBC 6.8 (3.8-10.6) k/uL RBC 5.30 (3.80-5.40) m/uL Hgb 13.4 (11.4-16.0) gm/dL Hct 39.7 (34.0-46.0) % MCV 74.8 L (80.0-100.0) fL MCH 25.2 (25.0-35.0) pg MCHC 33.7 (31.0-37.0) g/dL RDW 18.2 H (11.5-15.5) % Plt Count 99 L (150-450) k/uL MPV 10.5 Neutrophils % 55 % Lymphocytes % 30 % Monocytes % 5 % Eosinophils % 7 % Basophils % 0 % Neutrophils # 3.8 (1.3-7.7) k/uL Lymphocytes # 2.1 (1.0-4.8) k/uL Monocytes # 0.4 (0-1.0) k/uL Eosinophils # 0.5 (0-0.7) k/uL Basophils # 0.0 (0-0.2) k/uL Manual Slide Review Performed Hypochromasia (manual) Present Anisocytosis Slight Microcytosis Moderate Target Cells Present Sodium 133 L (137-145) mmol/L Potassium 4.3 (3.5-5.1) mmol/L Chloride 91 L (98-107) mmol/L Carbon Dioxide 29 (22-30) mmol/L Anion Gap 13 mmol/L BUN 38 H (7-17) mg/dL Creatinine 10.72 H* (0.52-1.04) mg/dL Est GFR (CKD-EPI)AfAm 4 (>60 ml/min/1.73 sqM) Est GFR (CKD-EPI)NonAf 4 (>60 ml/min/1.73 sqM) Glucose 156 H (74-99) mg/dL Calcium 9.5 (8.4-10.2) mg/dL Disposition <Joe Larios - Last Filed: 04/21/23 15:22> Is patient prescribed a controlled substance at d/c from ED?: No Time of Disposition: 17:30 Decision to Admit Reason: Admit from EC Decision Date: 04/21/23 Decision Time: 17:30 <Jasson Long - Last Filed: 04/21/23 19:23> Clinical Impression: Hypertensive emergency, ESRD (end stage renal disease) on dialysis Disposition: ADMITTED IP TO THIS [facility] Condition: Stable Referrals: Chinedu Pepe MD [STAFF PHYSICIAN] - 1-2 days
[2023-04-21 08:23] LABS: Anisocytosis Slight; Basophils % (A) 0 %; Eosinophils # (A) 0.5 k/uL (0-0.7); Eosinophils % (A) 7 %; HCT 39.7 % (34.0-46.0); HGB 13.4 gm/dL (11.4-16.0); Lymphocytes # (A) 2.1 k/uL (1.0-4.8); Lymphocytes % (A) 30 %; MCH 25.2 pg (25.0-35.0); MCHC 33.7 g/dL (31.0-37.0); MCV 74.8 fL (80.0-100.0); Mean Platelet Volume 10.5; Microcytosis Moderate; Monocytes # (A) 0.4 k/uL (0-1.0); Monocytes % (A) 5 %; Neutrophils # (A) 3.8 k/uL (1.3-7.7); Neutrophils % (A) 55 %; RDW 18.2 % (11.5-15.5); WBC 6.8 k/uL (3.8-10.6)
[2023-04-21 08:29] LABS: African American GFR (CKD) 4 (>60 ml/min/1.73 sqM); Anion Gap 13 mmol/L; Blood Urea Nitrogen 38 mg/dL (7-17); Calcium 9.5 mg/dL (8.4-10.2); Carbon Dioxide 29 mmol/L (22-30); Chloride 91 mmol/L (98-107); Glucose 156 mg/dL (74-99); Non-African American GFR(CKD) 4 (>60 ml/min/1.73 sqM); Potassium 4.3 mmol/L (3.5-5.1); Sodium 133 mmol/L (137-145)
[2023-04-21] MEDS ORDERED: hydrALAZINE HCL 50 MG TAB PO STA (08:46)
[2023-04-21 09:25] LABS: Target Cells Present
[2023-04-21 09:27] LABS: Hypochromasia (M) Present; Platelet Count 99 k/uL (150-450)
--- NOTE | 2023-04-21 11:27 | P.NPCON ---
History of Present Illness - Reason for Consult end stage renal disease - History of Present Illness Reason for consultation: End-stage renal disease History of present illness: Patient is a 52-year-old female seen in renal consultation for end-stage renal disease. Patient was seen and examined in the emergency room. She is maintained on hemodialysis on Friday schedule. Patient went to hemodialysis and her blood pressure was over 200 systolic and she was subsequently sent to the ER. Patient denies any headaches, vision changes, chest pain or shortness of breath. No vomiting or diarrhea. Patient's blood pressure was similar in the ER. Patient states she's been taking all her medications and additional 10 mg doses of hydralazine as needed. She states her blood pressure at home is usually in the range of systolic 110-120. She is currently resting in bed. She is due for dialysis today. Vital signs are stable. Blood pressure high. General: No acute distress. HEENT: Head exam is unremarkable. LUNGS: No audible rhonchi or wheezes. HEART: Rate and Rhythm are regular. ABDOMEN: Nontender. EXTREMITITES: No edema. Past Medical History Past Medical History: Diabetes Mellitus, Dialysis, Hypertension, Renal Disease Additional Past Medical History / Comment(s): Dialysis MOWEFR. History of Any Multi-Drug Resistant Organisms: None Reported Past Surgical History: No Surgical Hx Reported Additional Past Surgical History / Comment(s): Left upper arm graft fistula. Partial hysterectomy. left kidney removal december 2022- Past Anesthesia/Blood Transfusion Reactions: No Reported Reaction Past Psychological History: No Psychological Hx Reported Smoking Status: Former smoker Past Alcohol Use History: None Reported Past Drug Use History: None Reported - Past Family History Father History Unknown: Yes Family Medical History: Hypertension, Renal Disease Mother History Unknown: Yes Additional Family Medical History / Comment(s): in her sleep. Brother(s) Family Medical History: Myocardial Infarction (ID) Additional Family Medical History / Comment(s): Brother with myocardial infarction at 43 years old HD. Medications and Allergies Home Medications Medication Instructions Recorded Confirmed Type Nephro-Isadora 0.8mg 1 tab PO DAILY 11/17/22 04/21/23 History carvediloL [Coreg] 25 mg PO BID 11/17/22 04/21/23 History cloNIDine HCL [Catapres] 0.3 mg PO TID 11/17/22 04/21/23 History Atorvastatin [Lipitor] 40 mg PO HS #30 tab 11/21/22 04/21/23 Rx hydrALAZINE HCL [Apresoline] 10 mg PO TID PRN 01/16/23 04/21/23 History Amoxicillin 250 mg PO BID 04/21/23 04/21/23 History Aspirin EC [Ecotrin Low Dose] 81 mg PO DAILY 04/21/23 04/21/23 History Cholecalciferol (Vitamin D3) 1,250 mcg PO MO 04/21/23 04/21/23 History [Vitamin D3] Dulaglutide [Trulicity] 3 mg SQ FR 04/21/23 04/21/23 History Lactulose [Constulose] 10 gm PO DAILY PRN 04/21/23 04/21/23 History hydrALAZINE HCL [Apresoline] 100 mg PO BID 04/21/23 04/21/23 History lisinopriL [Zestril] 20 mg PO BID 04/21/23 04/21/23 History Allergies Allergy/AdvReac Type Severity Reaction Status Date / Time latex Allergy Rash/Hives Verified 04/21/23 08:57 Physical Exam Vitals: Vital Signs Temp Pulse Resp BP Pulse Ox 04/21/23 10:01 95 16 203/118 100 04/21/23 08:53 94 18 201/111 100 04/21/23 07:54 93 18 232/135 100 04/21/23 07:33 98.5 F 94 18 242/140 99 Intake and Output 04/20/23 04/21/23 04/21/23 22:59 06:59 14:59 Other: Weight 53.977 kg Results - Lab Results Most recent lab results WBC 6.8 k/uL (3.8-10.6) 04/21/23 07:58 RBC 5.30 m/uL (3.80-5.40) 04/21/23 07:58 Hgb 13.4 gm/dL (11.4-16.0) 04/21/23 07:58 Hct 39.7 % (34.0-46.0) 04/21/23 07:58 MCV 74.8 fL (80.0-100.0) L 04/21/23 07:58 MCH 25.2 pg (25.0-35.0) 04/21/23 07:58 MCHC 33.7 g/dL (31.0-37.0) 04/21/23 07:58 RDW 18.2 % (11.5-15.5) H 04/21/23 07:58 Plt Count 99 k/uL (150-450) L 04/21/23 07:58 MPV 10.5 04/21/23 07:58 Neutrophils % 55 % 04/21/23 07:58 Lymphocytes % 30 % 04/21/23 07:58 Monocytes % 5 % 04/21/23 07:58 Eosinophils % 7 % 04/21/23 07:58 Basophils % 0 % 04/21/23 07:58 Neutrophils # 3.8 k/uL (1.3-7.7) 04/21/23 07:58 Lymphocytes # 2.1 k/uL (1.0-4.8) 04/21/23 07:58 Monocytes # 0.4 k/uL (0-1.0) 04/21/23 07:58 Eosinophils # 0.5 k/uL (0-0.7) 04/21/23 07:58 Basophils # 0.0 k/uL (0-0.2) 04/21/23 07:58 Manual Slide Review Performed 04/21/23 07:58 Hypochromasia (manual) Present 04/21/23 07:58 Anisocytosis Slight 04/21/23 07:58 Microcytosis Moderate 04/21/23 07:58 Target Cells Present 04/21/23 07:58 Sodium 133 mmol/L (137-145) L 04/21/23 07:58 Potassium 4.3 mmol/L (3.5-5.1) 04/21/23 07:58 Chloride 91 mmol/L (98-107) L 04/21/23 07:58 Carbon Dioxide 29 mmol/L (22-30) 04/21/23 07:58 Anion Gap 13 mmol/L 04/21/23 07:58 BUN 38 mg/dL (7-17) H 04/21/23 07:58 Creatinine 10.72 mg/dL (0.52-1.04) H* 04/21/23 07:58 Est GFR (CKD-EPI)AfAm 4 (>60 ml/min/1.73 sqM) 04/21/23 07:58 Est GFR (CKD-EPI)NonAf 4 (>60 ml/min/1.73 sqM) 04/21/23 07:58 Glucose 156 mg/dL (74-99) H 04/21/23 07:58 Calcium 9.5 mg/dL (8.4-10.2) 04/21/23 07:58 04/21/23 07:58 04/21/23 07:58 Assessment and Plan Plan: Assessment: 1. End-stage renal disease maintained on hemodialysis on Friday schedule. 2. Hypertensive urgency. 3. Left renal mass status post left nephrectomy in December 2022. 4. Chronic kidney disease mineral bone disease. Plan: Hemodialysis today. Check renin and aldosterone levels. Check renal duplex ultrasound. Check plasma metanephrines. Increase frequency of hydralazine to 100 mg 3 times daily. Add amlodipine 10 mg once daily. I advised patient to get a new blood pressure monitor for home. Advised patient to monitor blood pressure closely at home and to notify physician is staying above 135/80. Risks of uncontrolled hypertension including CVA and ID have been discussed with patient multiple times. Thank you for the consultation. I will continue to follow the patient with you during her hospital stay.
[2023-04-21] MEDS ORDERED: ACETAMINOPHEN TAB 500 MG TAB PO STA (13:50)
[2023-04-21] MEDS ORDERED: diphenhydrAMINE 50 MG/ML 1 ML VIAL IVP STA (13:50)
[2023-04-21] MEDS ORDERED: cloNIDine HCL 0.1 MG TAB PO STA (14:50)
[2023-04-21] MEDS ORDERED: LABETALOL 5 MG/ML VIAL MDV IVP STA (17:33)
--- NOTE | 2023-04-21 18:38 | US ---
EXAMINATION TYPE: US renals and bladder DATE OF EXAM: 04/21/2023 COMPARISON: 04/23/21 CLINICAL INDICATION: Female, 52 years old with history of hypertension; hypertension. Pt is on dialys is. EXAM MEASUREMENTS: Right Kidney: 7.3 x 3.7 x 3.7 cm Left Kidney: 7.0 x 4.6 x 3.0 cm Right Kidney: Cyst seen in lower pole measuring 2.2 x 2.4 x 2.0cm Left Kidney: Cystic structure seen in mid pole measuring 2.5 x 2.5 x 2.1cm. Parenchyma difficult to v isualize Bladder: wnl Bilateral Jets seen: No Limited exam without evidence for solid mass. Bilateral cystic change. IMPRESSION: No evidence for obstructive uropathy in this limited exam. Bilateral renal cysts.
[2023-04-21] MEDS ORDERED: NALOXONE 0.4 MG/ML 1 ML VIAL IV PRN (19:09)
[2023-04-21] MEDS: amLODIPine 10 MG TAB PO SCH (19:29)
[2023-04-21] MEDS: LABETALOL 5 MG/ML VIAL MDV IVP PRN (21:30)
[2023-04-22] MEDS: LABETALOL 5 MG/ML VIAL MDV IVP PRN ×3 (01:57→15:11)
[2023-04-22 06:05] LABS: Glucose,Whole Blood 122 mg/dL (70-110)
[2023-04-22] MEDS: amLODIPine 10 MG TAB PO SCH (09:10)
[2023-04-22] MEDS ORDERED: hydrALAZINE HCL 10 MG TAB PO PRN (09:59)
[2023-04-22] MEDS ORDERED: LACTULOSE 20 GM/30 ML CUP PO PRN (09:59)
--- NOTE | 2023-04-22 11:13 | P.PN ---
Subjective Patient is seen in follow-up for end-stage renal disease. She is maintained on hemodialysis on Friday schedule. Blood pressure today has been in the systolic 160s to 180s. Diastolic blood pressure 90s to 111. Patient denies chest pain or shortness of breath. No headaches. No vision changes. No vomiting or diarrhea. Vital signs are stable. General: No acute distress. HEENT: Head exam is unremarkable. LUNGS: No audible rhonchi or wheezes. HEART: Rate and Rhythm are regular. ABDOMEN: Nontender. EXTREMITITES: No edema. Objective - Vital Signs Vital signs: Vital Signs Temp 98.4 F 04/22/23 08:45 Pulse 101 H 04/22/23 08:45 Resp 16 04/22/23 08:45 BP 184/111 04/22/23 08:45 Pulse Ox 99 04/22/23 08:45 FiO2 Intake & Output 04/21/23 04/22/23 04/22/23 18:59 06:59 18:59 Intake Total 500 240 Output Total 3000 Balance -2500 240 Weight 53.977 kg 53.977 kg Intake: Oral 240 Hemodialysis 500 Output: Hemodialysis 3000 Other: # Voids 0 - Labs CBC & Chem 7: 04/21/23 07:58 04/21/23 07:58 Labs: Abnormal Lab Results - Last 24 Hours (Table) 04/22/23 Range/Units 06:04 POC Glucose (mg/dL) 122 H (70-110) mg/dL Assessment and Plan Plan: Assessment: 1. End-stage renal disease maintained on hemodialysis on Friday schedule. 2. Hypertensive urgency. 3. Left renal mass status post left nephrectomy in December 2022. 4. Chronic kidney disease mineral bone disease. Plan: Hemodialysis tomorrow. Follow-up renin and aldosterone levels. Check renal duplex ultrasound. Follow-up plasma metanephrines. Increase Coreg dose to 50 mg twice daily. I advised patient to get a new blood pressure monitor for home. Advised patient to monitor blood pressure closely at home and to notify physician is staying above 135/80. Risks of uncontrolled hypertension including CVA and [place] have been discussed with patient multiple times.
[2023-04-22 11:29] LABS: Glucose,Whole Blood 176 mg/dL (70-110)
[2023-04-22] MEDS: ACETAMINOPHEN TAB 325 MG TAB PO PRN (15:10)
[2023-04-22] MEDS: cloNIDine HCL 0.1 MG TAB PO SCH ×2 (15:11→21:30)
--- NOTE | 2023-04-22 15:59 | US ---
EXAMINATION TYPE: US renal artery duplex complete DATE OF EXAM: 04/22/2023 COMPARISON: NONE CLINICAL INDICATION: Female, 52 years old with history of HTN, r/o SALVATORE; HTN Left renal removed in Dec patient on dialysis for renal failure. MEASUREMENTS: RENAL SIZE: Rt Kidney: 7.4 x 3.1 x 2.6 cm, Hypoechoic area lower pole 1.8 x 1.8 x 1.7 cm. Lt Kidney: surgically absent. RESISTANCE INDEX Right: Unable to obtain Left: surgically absent RA/AO RATIO (< 3.5 ) Right: Unable to obtain doppler RA VELOCITY ( < 180 cm/s) Right: Unable to obtain doppler No renal doppler flow visualized. IMPRESSION: Unable to obtain right Dopplers due to patient body habitus. Hypoechoic right lesion could represent a cyst. The left kidney surgically absent.
[2023-04-22] MEDS ORDERED: cloNIDine HCL 0.1 MG TAB PO SCH (16:00)
[2023-04-22 16:40] LABS: Glucose,Whole Blood 208 mg/dL (70-110)
[2023-04-22] MEDS ORDERED: DEXTROSE 50% SYRINGE 50 ML IVP PRN ×2 (17:11)
[2023-04-22] MEDS: INSULIN ASPART (NovoLOG) 100 UNIT/ML VIAL SQ SCH ×2 (17:20→21:31)
[2023-04-22] MEDS: carvediloL 12.5 MG TAB PO SCH (17:20)
[2023-04-22] MEDS ORDERED: carvediloL 12.5 MG TAB PO SCH (17:30)
[2023-04-22 20:08] LABS: Glucose,Whole Blood 227 mg/dL (70-110)
[2023-04-22] MEDS: lisinopriL 20 MG TAB PO SCH (21:31)
[2023-04-22] MEDS: ATORVASTATIN 40 MG TAB PO SCH (21:31)
--- NOTE | 2023-04-22 22:15 | PN ---
PROGRESS NOTE DATE OF SERVICE: 04/22/2023 CHIEF COMPLAINT: Uncontrolled hypertension. HISTORY OF PRESENT ILLNESS: This lady is doing a little bit better. Her blood pressure is coming down. Her systolic is running around 170. PHYSICAL EXAMINATION: CHEST: Clear. CARDIAC: Normal. ABDOMEN: Soft and nontender. IMPRESSION: 1. Hypertension. 2. Renal failure. PLAN: Continue to bring the pressure down, after which she can go home. MMODL / IJN: [id number] /
[2023-04-23 06:18] LABS: Glucose,Whole Blood 152 mg/dL (70-110)
[2023-04-23] MEDS: carvediloL 12.5 MG TAB PO SCH ×2 (06:31→16:15)
[2023-04-23] MEDS: INSULIN ASPART (NovoLOG) 100 UNIT/ML VIAL SQ SCH ×4 (06:35→22:13)
--- NOTE | 2023-04-23 07:36 | HP ---
HISTORY AND PHYSICAL CHIEF COMPLAINT: Hypertensive urgency. HISTORY OF PRESENT ILLNESS: This lady is a 52-year-old lady with end-stage renal disease, who was being dialyzed, and her blood pressure was noted to be quite high, and she was sent to the emergency room. She denied any headache or chest pain. She was not short of breath. REVIEW OF SYSTEMS: She has had no neurologic issues. She has had no cough, hemoptysis, heart disease other than hypertension, DICTATION ENDS HERE MMODL / IJN: [id number] /
--- NOTE | 2023-04-23 07:36 | HP ---
HISTORY AND PHYSICAL CONTINUATION: REVIEW OF SYSTEMS: She was not having any abdominal pain, vomiting, diarrhea, melena, etc. She is in end- stage renal disease. She has had an abnormal Pap smear with abnormal cells and she has had carcinoma of the kidney. Past medical history, family history, personal and social histories reveal that she is allergic to Latex. MEDICATIONS: She is on, 1. Trulicity once a week 3 mg per 5 mL. 2. Lisinopril 20 mg once a day. 3. Carvedilol 25 mg twice a day. 4. Hydralazine 100 mg once a day. 5. Vitamin D. 6. Vicodin p.r.n. 7. Spironolactone 25 mg once a day. 8. Clonidine 0.3 three times a day. 9. Calcium. 10.Atorvastatin. SOCIAL HISTORY: She used to smoke and she does not drink. PHYSICAL EXAMINATION: VITAL SIGNS: Blood pressure 184/111. Pulse is 88 and regular, respirations are normal. HEAD, EARS, EYES, NOSE, MOUTH AND THROAT: Normal. NECK: Neck veins not distended. CHEST: Clear. CARDIAC: Demonstrates sinus rhythm and no murmurs or extra sounds. ABDOMEN: Soft, nontender. EXTREMITIES: Normal. NEUROLOGICAL: Intact. ASSESSMENT: She is admitted to the hospital with diagnoses of: 1. Hypertensive urgency. 2. Stage 5 CKD, on dialysis. 3. History of hyperlipidemia. 4. History of type 2 NIDDM. PLAN: 1. Bedrest. 2. IV fluids. 3. Resume her usual medication program and add further management if this does not bring it under control. MMODL / IJN: [id number] /
[2023-04-23] MEDS: cloNIDine HCL 0.1 MG TAB PO SCH ×3 (11:49→22:12)
[2023-04-23 11:57] LABS: Glucose,Whole Blood 124 mg/dL (70-110)
--- NOTE | 2023-04-23 12:05 | P.PN ---
Subjective Patient is seen in follow-up for end-stage renal disease. She is maintained on hemodialysis on Friday schedule. Blood pressure better controlled. Patient denies chest pain or shortness of breath. No headaches. No vision changes. No vomiting or diarrhea. Vital signs are stable. General: No acute distress. HEENT: Head exam is unremarkable. LUNGS: No audible rhonchi or wheezes. HEART: Rate and Rhythm are regular. ABDOMEN: Nontender. EXTREMITITES: No edema. Objective - Vital Signs Vital signs: Vital Signs Temp 98.1 F 04/23/23 11:28 Pulse 87 04/23/23 11:28 Resp 14 04/23/23 11:28 BP 159/102 04/23/23 11:28 Pulse Ox 100 04/23/23 11:28 FiO2 Intake & Output 04/22/23 04/23/23 04/23/23 18:59 06:59 18:59 Intake Total 480 240 Balance 480 240 Intake: Oral 480 240 Other: # Voids 1 - Labs CBC & Chem 7: 04/21/23 07:58 04/21/23 07:58 Labs: Abnormal Lab Results - Last 24 Hours (Table) 04/22/23 04/22/23 04/23/23 Range/Units 16:39 20:07 06:17 POC Glucose (mg/dL) 208 H 227 H 152 H (70-110) mg/dL 04/23/23 Range/Units 11:48 POC Glucose (mg/dL) 124 H (70-110) mg/dL Assessment and Plan Plan: Assessment: 1. End-stage renal disease maintained on hemodialysis on Friday schedule. 2. Hypertensive urgency. Improved. Renin 4.5 and aldosterone level 7. Renal duplex ultrasound could not be done. Kidney noted to be atrophic. 3. Left renal mass status post left nephrectomy in December 2022. 4. Chronic kidney disease mineral bone disease. Plan: Currently seen while undergoing hemodialysis. Follow-up plasma metanephrines. Maintain current antihypertensives. I advised patient to get a new blood pressure monitor for home. Advised patient to monitor blood pressure closely at home and to notify physician is staying above 135/80. Risks of uncontrolled hypertension including CVA and [place] have been discussed with patient multiple times.
[2023-04-23] MEDS: lisinopriL 20 MG TAB PO SCH ×2 (12:14→22:13)
[2023-04-23] MEDS: ASPIRIN 81 MG PO SCH (12:14)
[2023-04-23] MEDS: amLODIPine 10 MG TAB PO SCH (12:14)
[2023-04-23] MEDS: FOLIC ACID-VIT B COMPLEX-VIT C 1 CAP PO SCH (12:15)
[2023-04-23 16:38] LABS: Glucose,Whole Blood 141 mg/dL (70-110)
[2023-04-23] MEDS: hydrALAZINE HCL 25 MG TAB PO SCH ×2 (17:28→22:12)
[2023-04-23 20:11] LABS: Glucose,Whole Blood 190 mg/dL (70-110)
--- NOTE | 2023-04-23 20:33 | PN ---
PROGRESS NOTE DATE OF SERVICE: 04/23/2023 CHIEF COMPLAINT: Hypertensive urgency. HISTORY OF PRESENT ILLNESS: This lady is doing better and feeling fine, but her blood pressure is still high. She was dialyzed today. PHYSICAL EXAMINATION: CHEST: Clear. CARDIAC: Normal. ABDOMEN: Soft and nontender. IMPRESSION: 1. Hypertensive urgency. 2. Stage 5 chronic kidney disease. PLAN: Add Apresoline 3 times a day [id number]. MMODL / IJN: [id number] /
[2023-04-23] MEDS: ATORVASTATIN 40 MG TAB PO SCH (22:13)
[2023-04-24 06:12] LABS: Glucose,Whole Blood 142 mg/dL (70-110)
[2023-04-24] MEDS: INSULIN ASPART (NovoLOG) 100 UNIT/ML VIAL SQ SCH ×2 (06:16→11:42)
[2023-04-24] MEDS: carvediloL 12.5 MG TAB PO SCH (06:48)
[2023-04-24] MEDS: ASPIRIN 81 MG PO SCH (08:11)
[2023-04-24] MEDS: lisinopriL 20 MG TAB PO SCH (08:12)
[2023-04-24] MEDS: hydrALAZINE HCL 25 MG TAB PO SCH (08:12)
[2023-04-24] MEDS: ACETAMINOPHEN TAB 325 MG TAB PO PRN (08:12)
[2023-04-24] MEDS: amLODIPine 10 MG TAB PO SCH (08:12)
[2023-04-24] MEDS: cloNIDine HCL 0.1 MG TAB PO SCH (08:12)
[2023-04-24] MEDS: FOLIC ACID-VIT B COMPLEX-VIT C 1 CAP PO SCH (08:13)
[2023-04-24 08:24] VITALS: RESP 16
[2023-04-24] MEDS ORDERED: hydrALAZINE HCL 50 MG TAB PO SCH (11:15)
[2023-04-24 11:37] VITALS: PULSE 96; TEMP 97.8
[2023-04-24 11:39] LABS: Glucose,Whole Blood 177 mg/dL (70-110)
--- NOTE | 2023-04-24 12:30 | P.PN ---
Subjective Patient is seen in follow-up for end-stage renal disease. She is maintained on hemodialysis on Friday schedule. Blood pressure on the higher side today. Patient denies chest pain or shortness of breath. No headaches. No vision changes. No vomiting or diarrhea. Vital signs are stable. General: No acute distress. HEENT: Head exam is unremarkable. LUNGS: No audible rhonchi or wheezes. HEART: Rate and Rhythm are regular. ABDOMEN: Nontender. EXTREMITITES: No edema. Objective - Vital Signs Vital signs: Vital Signs Temp 97.8 F 04/24/23 11:36 Pulse 96 04/24/23 11:36 Resp 16 04/24/23 11:36 BP 178/105 04/24/23 11:36 Pulse Ox 99 04/24/23 11:36 FiO2 Intake & Output 04/23/23 04/24/23 04/24/23 18:59 06:59 18:59 Intake Total 984 Output Total 2300 Balance -1316 Intake: Oral 684 Hemodialysis 300 Output: Urine 0 Hemodialysis 2300 Other: # Voids 1 - Labs CBC & Chem 7: 04/21/23 07:58 04/21/23 07:58 Labs: Abnormal Lab Results - Last 24 Hours (Table) 04/23/23 04/23/23 04/24/23 Range/Units 16:35 19:54 06:10 POC Glucose (mg/dL) 141 H 190 H 142 H (70-110) mg/dL 04/24/23 Range/Units 11:38 POC Glucose (mg/dL) 177 H (70-110) mg/dL Assessment and Plan Plan: Assessment: 1. End-stage renal disease maintained on hemodialysis on Friday schedule. 2. Hypertensive urgency. Improved. Renin 4.5 and aldosterone level 7. Renal duplex ultrasound could not be done. Kidney noted to be atrophic. 3. Left renal mass status post left nephrectomy in December 2022. 4. Chronic kidney disease mineral bone disease. Plan: Hemodialysis tomorrow. Follow-up plasma metanephrines. Increase hydralazine dose to 100 mg 3 times daily. I advised patient to get a new blood pressure monitor for home. Advised patient to monitor blood pressure closely at home and to notify physician is staying above 135/80. Risks of uncontrolled hypertension including CVA and ID have been discussed with patient multiple times. If blood pressure still staying persistently elevated, will add Aldactone.
[2023-04-24 12:58] VITALS: BP 148/50
--- NOTE | 2023-04-25 01:33 | DS ---
DISCHARGE SUMMARY CHIEF COMPLAINT: Hypertensive urgency. HISTORY OF PRESENT ILLNESS AND PHYSICAL EXAMINATION: Details of this lady's history and physical can be found in the initial workup. LABORATORY STUDIES: While she is in a hospital, she had laboratory studies, details of which can be found in the laboratory section of her chart. COURSE IN THE HOSPITAL: After she was admitted, she was placed back on her antihypertensive medications and her blood pressure remained elevated. Her medication program was increased and blood pressure is coming down nicely with a systolic around 170. She is doing well. It was anxious to be discharged and she was sent home on the and she will follow up in the office in a few days. FINAL DIAGNOSIS: 1. Hypertensive urgency. 2. Stage 5 chronic kidney disease, on dialysis. OPERATIONS: None. CONSULTATIONS: None. She is improved. MMODL / IJN: [id number] /
== END 2023-04-24 13:43 | disposition home or self-care (01) | DRG 199 ==
LOC: EC 07:32 → 3SCARD 19:11
PROVIDERS: ADMIT Family Medicine; ATTEND Family Medicine
PROC: 5A1D70Z Performance of Urinary Filtration, Intermittent, Less than 6 Hours Per Day (ICD-10-PCS; principal; 2023-04-21)
DX: I16.0 Hypertensive urgency (principal); I12.0 Hypertensive chronic kidney disease with stage 5 chronic kidney disease or end stage renal disease; N18.6 End stage renal disease; Z99.2 Dependence on renal dialysis; E78.5 Hyperlipidemia, unspecified; I16.1 Hypertensive emergency; Z79.84 Long term (current) use of oral hypoglycemic drugs; Z90.5 Acquired absence of kidney; M89.8X9 Other specified disorders of bone, unspecified site; N28.1 Cyst of kidney, acquired; Z82.49 Family history of ischemic heart disease and other diseases of the circulatory system; Z87.891 Personal history of nicotine dependence; R87.619 Unspecified abnormal cytological findings in specimens from cervix uteri; E11.22 Type 2 diabetes mellitus with diabetic chronic kidney disease; Z79.82 Long term (current) use of aspirin; Z79.899 Other long term (current) drug therapy; Z90.711 Acquired absence of uterus with remaining cervical stump; Z91.040 Latex allergy status
CPT/HCPCS: 36415; 76770; 80048; 82088; 83835; 84244; 85025; 90935; 93005; 93975; 96374; 96375; 99285

== ENCOUNTER 2023-07-28 07:31 | Emergency (ER) | payer OTHER ==
--- NOTE | 2023-07-28 07:50 | ED ---
General Adult HPI - General Source: patient, RN notes reviewed Mode of arrival: ambulatory Limitations: no limitations <Sahil Boateng - Last Filed: 07/28/23 07:49> <Sanjuana Payton - Last Filed: 07/28/23 11:27> - General Chief complaint: Recheck/Abnormal Lab/Rx Stated complaint: HTN Time Seen by Provider: 07/28/23 07:49 - History of Present Illness Initial comments: 54-year-old female presents emergency Department chief complaint of hypertension. Patient was at dialysis morning they ran third of her treatment a nd sent her here for evaluation. Patient states that she took all her blood pressure meds this morning. Patient states that she does have a long history of hypertension takes multiple medications. Patient denies any complaints otherwise denies any increasing chest pain shortness breath fevers chills nausea vomiting. (Sahil Boategn) Patient is a 53-year-old female presenting to the ER with a chief complaint of hypertension. Patient has a past medical history significant for renal disease on dialysis. Patient was at dialysis this morning and during treatment her sys tolic blood pressure was reading in the 200s. Dialysis sent her to the ER for evaluation. Patient attends dialysis Friday, Friday, and Friday every week her last treatment was on 07/25/23. Patient takes numerous antihypertensive medications including amlodipine carvedilol hydralazine cl onidine and lisinopril at home. She states she has taken these today. Patient denies any headache, double/blurry vision, chest pain, or palpitations, shortness of breath, abdominal pain, urinary complaints, constipation/diarrhea or peripheral edema. (Sanjuana Payton) - Related Data Home Medications Medication Instructions Recorded Confirmed Nephro-Isadora 0.8mg 1 tab PO DAILY 11/17/22 04/21/23 carvediloL [Coreg] 25 mg PO BID 11/17/22 04/21/23 cloNIDine HCL [Catapres] 0.3 mg PO TID 11/17/22 04/21/23 Amoxicillin 250 mg PO BID 04/21/23 04/21/23 Aspirin EC [Ecotrin Low Dose] 81 mg PO DAILY 04/21/23 04/21/23 Cholecalciferol (Vitamin D3) 1,250 mcg PO MO 04/21/23 04/21/23 [Vitamin D3] Dulaglutide [Trulicity] 3 mg SQ FR 04/21/23 04/21/23 Lactulose [Constulose] 10 gm PO DAILY PRN 04/21/23 04/21/23 hydrALAZINE HCL [Apresoline] 100 mg PO BID 04/21/23 04/21/23 lisinopriL [Zestril] 20 mg PO BID 04/21/23 04/21/23 Previous Rx's Medication Instructions Recorded Atorvastatin [Lipitor] 40 mg PO HS #30 tab 11/21/22 amLODIPine [Norvasc] 10 mg PO DAILY #10 tab 04/24/23 Allergies Allergy/AdvReac Type Severity Reaction Status Date / Time latex Allergy Rash/Hives Verified 07/28/23 07:45 Review of Systems ROS Other: All systems not noted in ROS Statement are negative. <Sahil Boateng - Last Filed: 07/28/23 07:49> ROS Other: All systems not noted in ROS Statement are negative. <Sanjuana Payton - Last Filed: 07/28/23 11:27> ROS Statement: Those systems with pertinent positive or pertinent negative responses have been documented in the HPI. Past Medical History Past Medical History: Diabetes Mellitus, Dialysis, Hypertension, Renal Disease Additional Past Medical History / Comment(s): Dialysis MOWEFR. History of Any Multi-Drug Resistant Organisms: None Reported Past Surgical History: No Surgical Hx Reported Additional Past Surgical History / Comment(s): Left upper arm graft fistula. P artial hysterectomy. Past Anesthesia/Blood Transfusion Reactions: No Reported Reaction Past Psychological History: No Psychological Hx Reported Smoking Status: Former smoker Past Alcohol Use History: None Reported Past Drug Use History: None Reported - Past Family History Father History Unknown: Yes Family Medical History: Hypertension, Renal Disease Mother History Unknown: Yes Additional Family Medical History / Comment(s): in her sleep. Brother(s) Family Medical History: Myocardial Infarction ([place]) Additional Family Medical History / Comment(s): Brother with myocardial infarction at 43 years old HD. <Sahil Boateng - Last Filed: 07/28/23 07:49> General Exam Limitations: no limitations <Sahil Boateng - Last Filed: 07/28/23 07:49> General appearance: alert, in no apparent distress Eye exam: Present: normal appearance, PERRL, EOMI. Absent: scleral icterus, conjunctival injection, periorbital swelling Respiratory exam: Present: normal lung sounds bilaterally. Absent: respiratory distress, wheezes, rales, rhonchi, stridor Cardiovascular Exam: Present: regular rate, normal rhythm, normal heart sounds. Absent: systolic murmur, diastolic murmur, rubs, gallop, clicks GI/Abdominal exam: Present: soft, normal bowel sounds. Absent: distended, tenderness, guarding, rebound, rigid Neurological exam: Present: alert, oriented X3, CN II-XII intact Psychiatric exam: Present: normal affect, normal mood Skin exam: Present: warm, dry, intact, normal color. Absent: rash <Sanjuana Payton - Last Filed: 07/28/23 11:27> - General Exam Comments Initial Comments: Visual Physical Exam Vital signs reviewed General: Well-appearing, nontoxic, no acute distress. Head: Normocephalic, atraumatic Eyes: PERRLA, EOMI ENT: Airway patent Chest: Nonlabored breathing Skin: No visual rash, normal skin tone Neuro: Alert and oriented 3 Musculoskeletal: No gross abnormalities (Sahil Boateng) Course Vital Signs 07/28/23 07:40 Temperature 98 F Pulse Rate 98 Respiratory 18 Rate Blood Pressure 204/112 O2 Sat by Pulse 100 Oximetry EKG Findings - EKG Comments: EKG Findings:: EKG done at 8:24. Shows normal sinus rhythm with no acute T-wave abnormalities noted. Ventricular rate 95, ND interval 173, QRS duration 91, QT/QTc 374/427. <Sanjuana Payton - Last Filed: 07/28/23 11:27> Medical Decision Making <Sahil Boateng - Last Filed: 07/28/23 07:49> - Lab Data Result diagrams: 07/28/23 08:20 07/28/23 08:20 - EKG Data -: EKG Interpreted by Me <Sanjuana Payton - Last Filed: 07/28/23 11:27> - Medical Decision Making I performed a quick note portion of this chart signed Sahil Boateng PA-C (Sahil Boateng) Was pt. sent in by a medical professional or institution (, PA, MANNEQUIN MOLD MAKER, urgent care, hospital, or custodial...) When possible be specific @ -Yes dialysis Did you speak to anyone other than the patient for history (EMS, parent, family, police, friend...)? What history was obtained from this source @ -No Did you review nursing and triage notes (agree or disagree)? Why? @ -I reviewed and agree with nursing and triage notes Were old charts reviewed (outside hosp., previous admission, EMS record, old EKG, old radiological studies, urgent care reports/EKG's, custodial records)? Report findings @ -No old charts were reviewed Differential Diagnosis (chest pain, altered mental status, abdominal pain women, abdominal pain men, vaginal bleeding, weakness, fever, dyspnea, syncope, head ache, dizziness, GI bleed, back pain, seizure, CVA, palpatations, mental health, musculoskeletal)? @ -Hypertension, hypertensive emergency, hypertensive urgency EKG interpreted by me (3pts min.). @ -As above X-rays interpreted by me (1pt min.). @ -None done CT interpreted by me (1pt min.). @ -None done U/S interpreted by me (1pt. min.). @ -None done What testing was considered but not performed or refused? (CT, X-rays, U/S, labs)? Why? @ -None What meds were considered but not given or refused? Why? @ -None Did you discuss the management of the patient with other professionals (professionals i.e. , PA, MANNEQUIN MOLD MAKER, lab, RT, psych nurse, licensed social worker, roads superintendent, teacher, agricultural extension officer, manager case management)? Give summary @ -No Was smoking cessation discussed for >3mins.? @ -No Was critical care preformed (if so, how long)? @ -No Were there social determinants of health that impacted care today? How? (Homelessness, low income, unemployed, alcoholism, drug addiction, transportation, low edu. Level, literacy, decrease access to med. care, halfway, rehab)? @ -No Was there de-escalation of care discussed even if they declined (Discuss DNR or withdrawal of care, Hospice)? DNR status @ -No What co-morbidities impacted this encounter? (DM, HTN, Smoking, COPD, CAD, Cancer, CVA, ARF, Chemo, Hep., AIDS, mental health diagnosis, sleep apnea, morbid obesity)? @ -Hypertension, renal disease Was patient admitted / discharged? Hospital course, mention meds given and route, prescriptions, significant lab abnormalities, going to OR and other pertinent info. @ -Discharged. Patient is a 53-year-old female presented to the ER with chief complaint of hypertension. Patient was sent in from dialysis in which she only completed 30 minutes. EKG and labs were performed in the ER. Patient was given 20 mg IV labetalol for blood pressure control. Patient will be discharged in stable condition with instructions to follow-up with dialysis before her next treatment 07/30/23. Patient stated she would reach out to dialysis to schedule her next appointment. Undiagnosed new problem with uncertain prognosis? @ -No Drug Therapy requiring intensive monitoring for toxicity (Heparin, Nitro, Insulin, Cardizem)? @ -No Were any procedures done? @ -No Diagnosis/symptom? @ -Hypertension Acute, or Chronic, or Acute on Chronic? @ -Acute Uncomplicated (without systemic symptoms) or Complicated (systemic symptoms)? @ -Uncomplicated Side effects of treatment? @ -No Exacerbation, Progression, or Severe Exacerbation? @ -No Poses a threat to life or bodily function? How? (Chest pain, [place], [place], pneumonia, PE, COPD, DKA, ARF, appy, cholecystitis, CVA, Diverticulitis, Homicidal, Suicidal, threat to staff... and all critical care pts) @ -No (Sanjuana Payton) - Lab Data Lab Results 07/28/23 07/28/23 Range/Units 08:20 08:20 WBC 7.2 (3.8-10.6) k/uL RBC 4.79 (3.80-5.40) m/uL Hgb 12.6 (11.4-16.0) gm/dL Hct 37.6 (34.0-46.0) % MCV 78.4 L (80.0-100.0) fL MCH 26.3 (25.0-35.0) pg MCHC 33.6 (31.0-37.0) g/dL RDW 18.2 H (11.5-15.5) % Plt Count 125 L (150-450) k/uL MPV 9.4 Neutrophils % 62 % Lymphocytes % 22 % Monocytes % 4 % Eosinophils % 10 % Basophils % 0 % Neutrophils # 4.5 (1.3-7.7) k/uL Lymphocytes # 1.6 (1.0-4.8) k/uL Monocytes # 0.3 (0-1.0) k/uL Eosinophils # 0.7 (0-0.7) k/uL Basophils # 0.0 (0-0.2) k/uL Anisocytosis Slight Microcytosis Slight Sodium 138 (137-145) mmol/L Potassium 4.5 (3.5-5.1) mmol/L Chloride 96 L (98-107) mmol/L Carbon Dioxide 26 (22-30) mmol/L Anion Gap 16 mmol/L BUN 33 H (7-17) mg/dL Creatinine 8.04 H* (0.52-1.04) mg/dL Est GFR (CKD-EPI)AfAm 6 (>60 ml/min/1.73 sqM) Est GFR (CKD-EPI)NonAf 5 (>60 ml/min/1.73 sqM) Glucose 158 H (74-99) mg/dL Calcium 10.0 (8.4-10.2) mg/dL Phosphorus 4.0 (2.5-4.5) mg/dL Magnesium 2.3 (1.6-2.3) mg/dL Total Bilirubin 0.8 (0.2-1.3) mg/dL AST 34 (14-36) U/L ALT 26 (4-34) U/L Alkaline Phosphatase 106 (38-126) U/L Total Protein 8.2 (6.3-8.2) g/dL Albumin 4.7 (3.5-5.0) g/dL - EKG Data EKG Comments: EKG done at 8:24. Shows normal sinus rhythm with no acute T-wave abnormalities noted. Ventricular rate 95, ND interval 173, QRS duration 91, QT/QTc 374/427. (Sanjuana Payton) Disposition <Sahil Boateng - Last Filed: 07/28/23 07:49> Is patient prescribed a controlled substance at d/c from ED?: No Time of Disposition: 11: <Sanjuana Payton - Last Filed: 07/28/23 11:27> Clinical Impression: Hypertension Disposition: HOME SELF-CARE Condition: Stable Additional Instructions: Please return to the Emergency Department if symptoms worsen or any other concerns. Please follow-up with dialysis treatment before 07/30/23. Referrals: Chinedu Pepe MD [Primary Care Provider] - 1-2 days
[2023-07-28 08:00] VITALS: PULSE 98; RESP 18; TEMP 98
[2023-07-28 08:44] LABS: Anisocytosis Slight; Basophils % (A) 0 %; Eosinophils # (A) 0.7 k/uL (0-0.7); Eosinophils % (A) 10 %; HCT 37.6 % (34.0-46.0); HGB 12.6 gm/dL (11.4-16.0); Lymphocytes # (A) 1.6 k/uL (1.0-4.8); Lymphocytes % (A) 22 %; MCH 26.3 pg (25.0-35.0); MCHC 33.6 g/dL (31.0-37.0); MCV 78.4 fL (80.0-100.0); Mean Platelet Volume 9.4; Microcytosis Slight; Monocytes # (A) 0.3 k/uL (0-1.0); Monocytes % (A) 4 %; Neutrophils # (A) 4.5 k/uL (1.3-7.7); Neutrophils % (A) 62 %; Platelet Count 125 k/uL (150-450); RBC 4.79 m/uL (3.80-5.40); RDW 18.2 % (11.5-15.5); WBC 7.2 k/uL (3.8-10.6)
[2023-07-28] MEDS ORDERED: LABETALOL 5 MG/ML VIAL MDV IVP STA (09:33)
[2023-07-28 10:23] LABS: ALT 26 U/L (4-34); AST 34 U/L (14-36); African American GFR (CKD) 6 (>60 ml/min/1.73 sqM); Albumin 4.7 g/dL (3.5-5.0); Alkaline Phosphatase 106 U/L (38-126); Anion Gap 16 mmol/L; Blood Urea Nitrogen 33 mg/dL (7-17); Carbon Dioxide 26 mmol/L (22-30); Chloride 96 mmol/L (98-107); Glucose 158 mg/dL (74-99); Magnesium 2.3 mg/dL (1.6-2.3); Non-African American GFR(CKD) 5 (>60 ml/min/1.73 sqM); Potassium 4.5 mmol/L (3.5-5.1); Sodium 138 mmol/L (137-145); Total Bilirubin 0.8 mg/dL (0.2-1.3); Total Protein 8.2 g/dL (6.3-8.2)
[2023-07-28 11:44] VITALS: BP 136/86
== END 2023-07-28 11:32 | disposition home or self-care (01) ==
LOC: EC 07:31
DX: I10 Essential (primary) hypertension (principal); E11.9 Type 2 diabetes mellitus without complications; Z79.82 Long term (current) use of aspirin; Z79.84 Long term (current) use of oral hypoglycemic drugs; Z79.899 Other long term (current) drug therapy; Z91.040 Latex allergy status; Z87.891 Personal history of nicotine dependence
CPT/HCPCS: 36415; 93005; 80053; 83735; 84100; 85025; 99283; 96374; J1920

== ENCOUNTER → 2023-08-12 | Outpatient (CLI) | payer OTHER ==
--- NOTE | 2023-08-08 12:24 | XR ---
EXAMINATION TYPE: XR chest 2V DATE OF EXAM: 08/08/2023 10:36 AM COMPARISON: Chest radiographs from 02/08/2023 TECHNIQUE: XR chest 2V Frontal and lateral views of the chest. CLINICAL INDICATION:Female, 53 years old with history of C64.2 kidney ca; FINDINGS: Lungs/Pleura: There is no evidence of pleural effusion, focal consolidation, or pneumothorax. Pulmonary vascularity: Unremarkable. Heart/mediastinum: Cardiomediastinal silhouette is enlarged and stable. Atherosclerotic calcificatio ns are seen in the aorta. Musculoskeletal: No acute osseous pathology. Other findings: None Lines/Tubes: Right IJ central venous catheter with distal tip at the superior cavoatrial junction in stable positi on. IMPRESSION: No acute cardiopulmonary disease/process.
--- NOTE | 2023-08-13 08:49 | CT ---
EXAMINATION TYPE: CT abdomen wo/w con CT DLP: 493.6 mGycm, Automated exposure control for dose reduction was used. DATE OF EXAM: 08/12/2023 5:01 PM COMPARISON: Kidney ultrasound 04/21/2023 CLINICAL INDICATION:Female, 53 years old with history of C64.2 kidney ca; Kidney Ca. Left kidney margareth catina. TECHNIQUE: Axial CT of the ;CT abdomen wo/w con;Sagittal and coronal reformats were created on a [employer] workstation. Contrast used:80 cc mL of Isovue 300 without and with IV Contrast, (none if empty) Oral contrast used: with Oral Contrast (none if empty) FINDINGS: LOWER CHEST: Unremarkable ABDOMEN LIVER: Enlarged left hepatic lobe that wraps around the left abdomen compatible with [place] tail. GALLBLADDER AND BILE DUCTS: Unremarkable. PANCREAS: Unremarkable. SPLEEN: Unremarkable. ADRENAL GLANDS: Unremarkable. KIDNEYS AND URETERS: The left kidney is surgically absent there is soft tissue nodularity measuring 2 0 x 17 mm in the surgical bed. Right kidney demonstrates no evidence for obstructive uropathy there is scattered simple appearing re nal cysts. PELVIS BLADDER: Unremarkable REPRODUCTIVE: Unremarkable. ABDOMEN & PELVIS STOMACH AND BOWEL: No evidence of bowel obstruction. PERITONEUM/RETROPERITONEUM: No evidence of pneumoperitoneum or free fluid. VASCULATURE: Mild atherosclerotic calcifications are present throughout the abdominal aorta and its b ranches. No evidence of aortic aneurysm. MUSCULOSKELETAL: No acute osseous abnormalities LYMPH NODES: No gross evidence for lymphadenopathy. SOFT TISSUE/ABDOMINAL WALL: Unremarkable IMPRESSION: Left nephrectomy bed soft tissue mass measuring 20 x 17 mm concerning for residual malignancy. No add itional sites of metastatic disease definitively visualized. Consider PET/CT for additional staging.
== END | disposition home or self-care (01) ==
LOC: RADCTMAIN 08-08 10:14
PROVIDERS: ATTEND Urology
DX: C64.2 Malignant neoplasm of left kidney, except renal pelvis (principal)
CPT/HCPCS: 71046; 74170; Q9967

== ENCOUNTER 2023-08-17 06:45 | Emergency (ER) | payer OTHER ==
[2023-08-17 07:04] VITALS: TEMP 97.9
--- NOTE | 2023-08-17 08:30 | ED ---
General Adult HPI - General Chief complaint: Recheck/Abnormal Lab/Rx Stated complaint: High Bp 226/100 Time Seen by Provider: 08/17/23 07:00 Source: patient, RN notes reviewed Mode of arrival: ambulatory Limitations: no limitations - History of Present Illness Initial comments: 53-year-old -[place] female with past medical history significant for hypertension, end-stage renal disease presents emergency Department with chief complaint of high blood pressure. Patient reports that she was at her dialysis appointment today when he took her blood pressure was getting readings over 200/100. She denies any symptoms at this time. Denies dizziness, lightheadedness, vision changes or vision loss, headache, nausea, vomiting, chest pain, shortness of breath. - Related Data Home Medications Medication Instructions Recorded Confirmed Nephro-Isadora 0.8mg 1 tab PO DAILY 11/17/22 04/21/23 carvediloL [Coreg] 25 mg PO BID 11/17/22 04/21/23 cloNIDine HCL [Catapres] 0.3 mg PO TID 11/17/22 04/21/23 Amoxicillin 250 mg PO BID 04/21/23 04/21/23 Aspirin EC [Ecotrin Low Dose] 81 mg PO DAILY 04/21/23 04/21/23 Cholecalciferol (Vitamin D3) 1,250 mcg PO MO 04/21/23 04/21/23 [Vitamin D3] Dulaglutide [Trulicity] 3 mg SQ FR 04/21/23 04/21/23 Lactulose [Constulose] 10 gm PO DAILY PRN 04/21/23 04/21/23 hydrALAZINE HCL [Apresoline] 100 mg PO BID 04/21/23 04/21/23 lisinopriL [Zestril] 20 mg PO BID 04/21/23 04/21/23 Previous Rx's Medication Instructions Recorded Atorvastatin [Lipitor] 40 mg PO HS #30 tab 11/21/22 amLODIPine [Norvasc] 10 mg PO DAILY #10 tab 04/24/23 Allergies Allergy/AdvReac Type Severity Reaction Status Date / Time latex Allergy Rash/Hives Verified 08/17/23 06:58 Review of Systems ROS Statement: Those systems with pertinent positive or pertinent negative responses have been documented in the HPI. ROS Other: All systems not noted in ROS Statement are negative. Past Medical History Past Medical History: Diabetes Mellitus, Dialysis, Hypertension, Renal Disease Additional Past Medical History / Comment(s): Dialysis MOWEFR. History of Any Multi-Drug Resistant Organisms: None Reported Past Surgical History: No Surgical Hx Reported Additional Past Surgical History / Comment(s): Left upper arm graft fistula. Partial hysterectomy. Past Anesthesia/Blood Transfusion Reactions: No Reported Reaction Past Psychological History: No Psychological Hx Reported Smoking Status: Former smoker Past Alcohol Use History: None Reported Past Drug Use History: None Reported - Past Family History Father History Unknown: Yes Family Medical History: Hypertension, Renal Disease Mother History Unknown: Yes Additional Family Medical History / Comment(s): in her sleep. Brother(s) Family Medical History: Myocardial Infarction ([place]) Additional Family Medical History / Comment(s): Brother with myocardial infarction at 43 years old HD. General Exam - General Exam Comments Initial Comments: General: Alert, in no acute distress Head: atraumatic normocephalic. Eyes PERRL, EOMI intact, mucous membranes moist Respiratory: Lungs clear to auscultation bilaterally chest: Dialysis catheter in the right chest without surrounding erythema or purulent discharge. Cardiovascular: Heart rate regular rate and rhythm Abdominal: Soft without guarding or rebound Extremities: Normal inspection with full range of motion and normal capillary refill Neuroogic: alert and oriented 3, CN II-XII intact, able to ambulate with steady gait Skin: warm dry and intact with normal color Limitations: no limitations Course Vital Signs 08/17/23 08/17/23 08/17/23 06:56 07:11 08:11 Temperature 97.9 F Pulse Rate 102 H 95 90 Respiratory 18 16 18 Rate Blood Pressure 195/115 171/98 139/86 O2 Sat by Pulse 100 100 100 Oximetry 08/17/23 08:48 Temperature Pulse Rate 68 Respiratory 16 Rate Blood Pressure 144/90 O2 Sat by Pulse 98 Oximetry Medical Decision Making - Medical Decision Making Was pt. sent in by a medical professional or institution (, PA, DECK LID FITTER, urgent care, hospital, or fpc...) When possible be specific @ -[No] Did you speak to anyone other than the patient for history (EMS, parent, family, police, friend...)? What history was obtained from this source @ -[No] Did you review nursing and triage notes (agree or disagree)? Why? @ -[I reviewed and agree with nursing and triage notes] Were old charts reviewed (outside hosp., previous admission, EMS record, old EKG, old radiological studies, urgent care reports/EKG's, fpc records)? Report findings @ -[No old charts were reviewed] Differential Diagnosis (chest pain, altered mental status, abdominal pain women, abdominal pain men, vaginal bleeding, weakness, fever, dyspnea, syncope, headache, dizziness, GI bleed, back pain, seizure, CVA, palpatations, mental health, musculoskeletal)? @ -[not applicable] EKG interpreted by me (3pts min.). @ -[As above] X-rays interpreted by me (1pt min.). @ -[None done] CT interpreted by me (1pt min.). @ -[None done] U/S interpreted by me (1pt. min.). @ -[None done] What testing was considered but not performed or refused? (CT, X-rays, U/S, labs)? Why? @ -[None] What meds were considered but not given or refused? Why? @ -[None] Did you discuss the management of the patient with other professionals (professionals i.e. , PA, DECK LID FITTER, lab, RT, psych nurse, social work instructor, scrap crane operator, teacher, tactical intelligence officer, manager of case management)? Give summary @ -[No] Was smoking cessation discussed for >3mins.? @ -[No] Was critical care preformed (if so, how long)? @ -[No] Were there social determinants of health that impacted care today? How? (Homelessness, low income, unemployed, alcoholism, drug addiction, transportation, low edu. Level, literacy, decrease access to med. care, half-way, rehab)? @ -[No] Was there de-escalation of care discussed even if they declined (Discuss DNR or withdrawal of care, Hospice)? DNR status @ -[No] What co-morbidities impacted this encounter? (DM, HTN, Smoking, COPD, CAD, Cancer, CVA, ARF, Chemo, Hep., AIDS, mental health diagnosis, sleep apnea, morbid obesity)? @ -[None] Was patient admitted / discharged? Hospital course, mention meds given and route, prescriptions, significant lab abnormalities, going to OR and other pertinent info. @ -Discharged. This is a pleasant 53-year-old -[place] female who presents the emergency department with hypertension. Patient had a thorough history and physical exam performed. Heart rate regular rate and rhythm, lungs clear to auscultation bilaterally patient's initial blood pressure is 190s over 90s. Patient's blood pressure trending down during the course of the ED. Patient's blood pressure upon discharge was 140/90. Patient continuously denying any active symptoms during her evaluation. Patient will be discharged home in stable condition. Strict return precautions were discussed. Patient discharged in stable condition. Case is discussed with . Dr. Ibrahim [facility] who agrees with plan of care Undiagnosed new problem with uncertain prognosis? @ -[No] Drug Therapy requiring intensive monitoring for toxicity (Heparin, Nitro, Insulin, Cardizem)? @ -[No] Were any procedures done? @ -[No] Diagnosis/symptom? @ -HTN - Hx of ESRD Acute, or Chronic, or Acute on Chronic? @ -Acute Uncomplicated (without systemic symptoms) or Complicated (systemic symptoms)? @ -Uncomplicated treatment? @ -[No] Exacerbation, Progression, or Severe Exacerbation? @ -[No] Poses a threat to life or bodily function? How? (Chest pain, [place], [place], pneumonia, PE, COPD, DKA, ARF, appy, cholecystitis, CVA, Diverticulitis, Homicidal, Suicidal, threat to staff... and all critical care pts) @ -Low likelihood Disposition Clinical Impression: Hypertension Disposition: HOME SELF-CARE Condition: Stable Additional Instructions: Please return to the nearest emergency department if chest pain or shortness of breath develop Is patient prescribed a controlled substance at d/c from ED?: No Referrals: Chinedu Pepe MD [Primary Care Provider] - 1-2 days Time of Disposition: 08:30
[2023-08-17 09:10] VITALS: BP 144/90; PULSE 68; RESP 16
== END 2023-08-17 08:49 | disposition home or self-care (01) ==
LOC: EC 06:45
DX: I12.0 Hypertensive chronic kidney disease with stage 5 chronic kidney disease or end stage renal disease (principal); E11.22 Type 2 diabetes mellitus with diabetic chronic kidney disease; N18.6 End stage renal disease; I25.2 Old myocardial infarction; Z87.891 Personal history of nicotine dependence; Z79.82 Long term (current) use of aspirin; Z79.84 Long term (current) use of oral hypoglycemic drugs; Z79.899 Other long term (current) drug therapy; Z91.040 Latex allergy status; Z99.2 Dependence on renal dialysis
CPT/HCPCS: 93005; 99283

== ENCOUNTER 2023-10-15 09:44 | Emergency (ER) | payer OTHER ==
[2023-10-15 10:02] VITALS: RESP 18; TEMP 98.1
--- NOTE | 2023-10-15 10:16 | ED ---
General Adult HPI - General Chief complaint: Recheck/Abnormal Lab/Rx Stated complaint: Elevated BP Time Seen by Provider: 10/15/23 10:03 Source: patient, EMS Mode of arrival: EMS Limitations: no limitations - History of Present Illness Initial comments: The patient is a 53 yr old female with a history of hypertension, end-stage renal disease which she has dialysis for, MWF, who presents for reevaluation of elevated Elevated blood pressure. Patient received dialysis morning, completed dialysis with 1.2 L removed. They rechecked her blood pressure and it was found to the elevated at 180/90. Patient denies any symptoms. She denies any chest pain, palpitations, shortness breath, headache or vision changes. Denies any neurological symptoms. Patient states she feels at her baseline and would not be here if they did not send her over for reevaluation. She has been seen in the emergency room for elevated blood pressure after dialysis the past. Patient takes blood pressure medications including lisinopril and amlodipine in the morning at 5 AM and did take it this morning. She denies missing any recent illnesses. - Related Data Home Medications Medication Instructions Recorded Confirmed carvediloL [Coreg] 50 mg PO BID 11/17/22 10/15/23 cloNIDine HCL [Catapres] 0.3 mg PO TID 11/17/22 10/15/23 Aspirin EC [Ecotrin Low Dose] 81 mg PO DAILY 04/21/23 10/15/23 Cholecalciferol (Vitamin D3) 1,250 mcg PO Q30D 04/21/23 10/15/23 [Vitamin D3] Dulaglutide [Trulicity] 3 mg SQ FR 04/21/23 10/15/23 hydrALAZINE HCL [Apresoline] 100 mg PO TID 04/21/23 10/15/23 lisinopriL [Zestril] 20 mg PO BID 04/21/23 10/15/23 Calcium Acetate [Phoslo] 1,334 mg PO TID-W/MEALS 10/15/23 10/15/23 Ondansetron Odt [Zofran Odt] 4 mg PO TID PRN 10/15/23 10/15/23 Sevelamer [Renvela] 800 mg PO BID-W/MEALS 10/15/23 10/15/23 Previous Rx's Medication Instructions Recorded Atorvastatin [Lipitor] 40 mg PO HS #30 tab 11/21/22 amLODIPine [Norvasc] 10 mg PO DAILY #10 tab 04/24/23 Allergies Allergy/AdvReac Type Severity Reaction Status Date / Time latex Allergy Rash/Hives Verified 10/15/23 11:42 Review of Systems ROS Statement: Those systems with pertinent positive or pertinent negative responses have been documented in the HPI. ROS Other: All systems not noted in ROS Statement are negative. Past Medical History Past Medical History: Diabetes Mellitus, Dialysis, Hypertension, Renal Disease Additional Past Medical History / Comment(s): Dialysis MOWEFR. History of Any Multi-Drug Resistant Organisms: None Reported Past Surgical History: No Surgical Hx Reported Additional Past Surgical History / Comment(s): Left upper arm graft fistula. Partial hysterectomy. Past Anesthesia/Blood Transfusion Reactions: No Reported Reaction Past Psychological History: No Psychological Hx Reported Smoking Status: Former smoker Past Alcohol Use History: None Reported Past Drug Use History: None Reported - Past Family History Father History Unknown: Yes Family Medical History: Hypertension, Renal Disease Mother History Unknown: Yes Additional Family Medical History / Comment(s): in her sleep. Brother(s) Family Medical History: Myocardial Infarction (ID) Additional Family Medical History / Comment(s): Brother with myocardial infarction at 43 years old HD. General Exam Limitations: no limitations General appearance: alert, in no apparent distress Head exam: Present: atraumatic Eye exam: Present: normal appearance, PERRL, EOMI ENT exam: Present: normal exam Neck exam: Present: normal inspection, full ROM Respiratory exam: Present: normal lung sounds bilaterally Cardiovascular Exam: Present: normal rhythm, tachycardia GI/Abdominal exam: Present: soft Extremities exam: Present: full ROM Back exam: Present: full ROM Neurological exam: Present: alert, oriented X3, CN II-XII intact Psychiatric exam: Present: normal affect, normal mood Skin exam: Present: warm, dry Course Vital Signs 10/15/23 10/15/23 10/15/23 09:49 09:52 09:56 Temperature 98.4 F 98.1 F Pulse Rate 105 H 87 Respiratory 18 18 Rate Blood Pressure 187/93 187/98 187/98 O2 Sat by Pulse 100 98 100 Oximetry 10/15/23 10/15/23 10/15/23 10:00 10:15 10:30 Temperature Pulse Rate 103 H Respiratory 11 L Rate Blood Pressure 187/98 183/103 177/99 O2 Sat by Pulse 100 99 100 Oximetry 10/15/23 10/15/23 10/15/23 10:45 11:00 11:15 Temperature Pulse Rate 100 99 101 H Respiratory 8 L 18 18 Rate Blood Pressure 184/100 164/91 175/106 O2 Sat by Pulse 100 100 100 Oximetry 10/15/23 10/15/23 10/15/23 11:16 11:30 11:45 Temperature Pulse Rate 101 H 101 H 100 Respiratory 18 18 18 Rate Blood Pressure 181/105 181/105 169/114 O2 Sat by Pulse 100 100 100 Oximetry 10/15/23 10/15/23 10/15/23 12:00 12:15 12:16 Temperature Pulse Rate 101 H 98 98 Respiratory 18 16 18 Rate Blood Pressure 169/114 178/104 178/104 O2 Sat by Pulse 100 100 100 Oximetry 10/15/23 12:48 Temperature Pulse Rate 93 Respiratory 18 Rate Blood Pressure 163/101 O2 Sat by Pulse 100 Oximetry EKG Findings - EKG Comments: EKG Findings:: EKG showed sinus tachycardia at a rate of 105bpm, borderline LAD. no acute ST T segment elevation. poor quality due to tremors Medical Decision Making - Medical Decision Making Was pt. sent in by a medical professional or institution (DAVID Browning, TRUCK DRIVER SUPERVISOR, urgent care, hospital, or half-way...) When possible be specific @ -Dialysis Center Did you speak to anyone other than the patient for history (EMS, parent, family, police, friend...)? What history was obtained from this source @ -[No] Did you review nursing and triage notes (agree or disagree)? Why? @ -[I reviewed and agree with nursing and triage notes] Were old charts reviewed (outside hosp., previous admission, EMS record, old EKG, old radiological studies, urgent care reports/EKG's, half-way records)? Report findings @ -Yes old charts were reviewed including charts from July 2023 emergency room visit for elevated blood pressure from dialysis Differential Diagnosis (chest pain, altered mental status, abdominal pain women, abdominal pain men, vaginal bleeding, weakness, fever, dyspnea, syncope, headache, dizziness, GI bleed, back pain, seizure, CVA, palpatations, mental health, musculoskeletal)? @ -Hypertension, end-stage renal failure, electrolyte abnormality EKG interpreted by me (3pts min.). @ -EKG showed sinus tachycardia at a rate of 105bpm, borderline LAD. no acute ST T segment elevation. poor quality due to tremors X-rays interpreted by me (1pt min.). @ -[None done] CT interpreted by me (1pt min.). @ -[None done] U/S interpreted by me (1pt. min.). @ -[None done] What testing was considered but not performed or refused? (CT, X-rays, U/S, labs)? Why? @ -[None] What meds were considered but not given or refused? Why? @ -[None] Did you discuss the management of the patient with other professionals (professionals i.e. , PA, TRUCK DRIVER SUPERVISOR, lab, RT, psych nurse, director social, tire rebuilder, teacher, chief digital officer, family preservation caseworker)? Give summary @ -[No] Was smoking cessation discussed for >3mins.? @ -[No] Was critical care preformed (if so, how long)? @ -[No] Were there social determinants of health that impacted care today? How? (Homelessness, low income, unemployed, alcoholism, drug addiction, transportation, low edu. Level, literacy, decrease access to med. care, fpc, rehab)? @ -[No] Was there de-escalation of care discussed even if they declined (Discuss DNR or withdrawal of care, Hospice)? DNR status @ -[No] What co-morbidities impacted this encounter? (DM, HTN, Smoking, COPD, CAD, Cancer, CVA, ARF, Chemo, Hep., AIDS, mental health diagnosis, sleep apnea, morbid obesity)? @ -Hypertension, end-stage renal failure Was patient admitted / discharged? Hospital course, mention meds given and route , prescriptions, significant lab abnormalities, going to OR and other pertinent info. @ -Patient discharged home. She is to continue her blood pressure medication and continue her dialysis appointments as scheduled. Discussed returning for any uncontrolled blood pressure or change in symptoms. I discussed patient's symptoms are And management with attending physician Dr. Hayes. Undiagnosed new problem with uncertain prognosis? @ -[No] Drug Therapy requiring intensive monitoring for toxicity (Heparin, Nitro, Insul in, Cardizem)? @ -[No] Were any procedures done? @ -[No] Diagnosis/symptom? @ -Hypertension, end-stage renal disease Acute, or Chronic, or Acute on Chronic? @ -Acute on chronic, chronic Uncomplicated (without systemic symptoms) or Complicated (systemic symptoms)? @ -Uncomplicated Side effects of treatment? @ -[No] Exacerbation, Progression, or Severe Exacerbation? @ -Exacerbation Poses a threat to life or bodily function? How? (Chest pain, USA, ID, pneumonia, PE, COPD, DKA, ARF, appy, cholecystitis, CVA, Diverticulitis, Homicidal, Suicidal, threat to staff... and all critical care pts) @ -Yes, the worsening renal failure or complication - Lab Data Result diagrams: 10/15/23 10:31 10/15/23 10:24 Lab Results 10/15/23 10/15/23 Range/Units 10:24 10:31 WBC 5.7 (3.8-10.6) k/uL RBC 4.61 (3.80-5.40) m/uL Hgb 12.1 (11.4-16.0) gm/dL Hct 34.5 (34.0-46.0) % MCV 74.7 L (80.0-100.0) fL MCH 26.2 (25.0-35.0) pg MCHC 35.1 (31.0-37.0) g/dL RDW 16.7 H (11.5-15.5) % Plt Count 100 L (150-450) k/uL MPV 9.8 Neutrophils % 78 % Lymphocytes % 14 % Monocytes % 3 % Eosinophils % 4 % Basophils % 1 % Neutrophils # 4.5 (1.3-7.7) k/uL Lymphocytes # 0.8 L (1.0-4.8) k/uL Monocytes # 0.2 (0-1.0) k/uL Eosinophils # 0.2 (0-0.7) k/uL Basophils # 0.0 (0-0.2) k/uL Anisocytosis Slight Microcytosis Slight Sodium 135 L (137-145) mmol/L Potassium 4.7 (3.5-5.1) mmol/L Chloride 95 L (98-107) mmol/L Carbon Dioxide 29 (22-30) mmol/L Anion Gap 11 mmol/L BUN 25 H (7-17) mg/dL Creatinine 6.12 H (0.52-1.04) mg/dL Est GFR (CKD-EPI)AfAm 8 (>60 ml/min/1.73 sqM) Est GFR (CKD-EPI)NonAf 7 (>60 ml/min/1.73 sqM) Glucose 188 H (74-99) mg/dL Calcium 9.4 (8.4-10.2) mg/dL Total Bilirubin 1.2 (0.2-1.3) mg/dL AST 29 (14-36) U/L ALT 32 (4-34) U/L Alkaline Phosphatase 122 (38-126) U/L Total Protein 8.1 (6.3-8.2) g/dL Albumin 4.4 (3.5-5.0) g/dL - EKG Data -: EKG Interpreted by Me Disposition Clinical Impression: Hypertension, End stage chronic kidney disease Disposition: HOME SELF-CARE Condition: Good Is patient prescribed a controlled substance at d/c from ED?: No If prescribed controlled substance>3 days was MAPS reviewed?: No Referrals: Chinedu Pepe MD [Primary Care Provider] - 1-2 days
[2023-10-15] MEDS ORDERED: hydrALAZINE HCL 50 MG TAB PO STA (10:19)
[2023-10-15] MEDS ORDERED: hydrALAZINE HCL 20 MG/ML 1 ML VIAL IVP STA (10:20)
[2023-10-15 10:41] LABS: Anisocytosis Slight; Basophils % (A) 1 %; Eosinophils # (A) 0.2 k/uL (0-0.7); Eosinophils % (A) 4 %; HCT 34.5 % (34.0-46.0); HGB 12.1 gm/dL (11.4-16.0); Lymphocytes # (A) 0.8 k/uL (1.0-4.8); Lymphocytes % (A) 14 %; MCH 26.2 pg (25.0-35.0); MCHC 35.1 g/dL (31.0-37.0); MCV 74.7 fL (80.0-100.0); Mean Platelet Volume 9.8; Microcytosis Slight; Monocytes # (A) 0.2 k/uL (0-1.0); Monocytes % (A) 3 %; Neutrophils # (A) 4.5 k/uL (1.3-7.7); Neutrophils % (A) 78 %; Platelet Count 100 k/uL (150-450); RBC 4.61 m/uL (3.80-5.40); RDW 16.7 % (11.5-15.5); WBC 5.7 k/uL (3.8-10.6)
[2023-10-15 11:53] LABS: ALT 32 U/L (4-34); AST 29 U/L (14-36); African American GFR (CKD) 8 (>60 ml/min/1.73 sqM); Albumin 4.4 g/dL (3.5-5.0); Alkaline Phosphatase 122 U/L (38-126); Anion Gap 11 mmol/L; Blood Urea Nitrogen 25 mg/dL (7-17); Calcium 9.4 mg/dL (8.4-10.2); Carbon Dioxide 29 mmol/L (22-30); Chloride 95 mmol/L (98-107); Glucose 188 mg/dL (74-99); Non-African American GFR(CKD) 7 (>60 ml/min/1.73 sqM); Potassium 4.7 mmol/L (3.5-5.1); Sodium 135 mmol/L (137-145); Total Bilirubin 1.2 mg/dL (0.2-1.3); Total Protein 8.1 g/dL (6.3-8.2)
[2023-10-15 12:59] VITALS: BP 163/101; PULSE 93
== END 2023-10-15 13:09 | disposition home or self-care (01) ==
LOC: EC 09:44
DX: I12.0 Hypertensive chronic kidney disease with stage 5 chronic kidney disease or end stage renal disease (principal); E11.22 Type 2 diabetes mellitus with diabetic chronic kidney disease; N18.6 End stage renal disease; Z99.2 Dependence on renal dialysis; Z79.82 Long term (current) use of aspirin; Z79.84 Long term (current) use of oral hypoglycemic drugs; Z79.899 Other long term (current) drug therapy; Z91.040 Latex allergy status; Z87.891 Personal history of nicotine dependence
CPT/HCPCS: 36415; 80053; 85025; 99284; 96374; J0360

== ENCOUNTER → 2023-10-28 | Outpatient (CLI) | payer OTHER ==
--- NOTE | 2023-10-28 09:24 | XR ---
EXAMINATION TYPE: XR chest 2V DATE OF EXAM: 10/28/2023 9:20 AM COMPARISON: Chest radiographs from 08/08/2023 TECHNIQUE: XR chest 2V Frontal and lateral views of the chest. CLINICAL INDICATION:Female, 53 years old with history of C64.2 MALIGNANT NEOPLASM OF LEFT KIDNEY, EXC EPT RE; FINDINGS: Lungs/Pleura: There is no evidence of pleural effusion, focal consolidation, or pneumothorax. Pulmonary vascularity: Unremarkable. Heart/mediastinum: Cardiomediastinal silhouette is enlarged and stable. Atherosclerotic calcificatio ns are seen in the aorta. Musculoskeletal: No acute osseous pathology. Other findings: None Lines/Tubes: Right IJ central venous catheter with distal tip at the superior cavoatrial junction in stable positi on. IMPRESSION: No acute cardiopulmonary disease/process.
--- NOTE | 2023-10-28 10:38 | CT ---
EXAMINATION TYPE: CT abdomen wo/w con CT DLP: 450.50 mGycm, Automated exposure control for dose reduction was used. DATE OF EXAM: 10/28/2023 10:19 AM COMPARISON: CT abdomen 08/12/2023 CLINICAL INDICATION:Female, 53 years old with history of C64.2 MALIGNANT NEOPLASM OF LEFT KIDNEY, EXC EPT RE; Malignant neoplasm of left kidney TECHNIQUE: Standard CT of the abdomen following the administration of 100 cc of Isovue 300 IV contr ast material and oral contrast. Coronal and sagittal reformats were performed. FINDINGS: LOWER CHEST: Bibasilar linear atelectasis. Cardiomegaly. Partial visualization of catheter within the right atrium. ABDOMEN LIVER: Enlarged left hepatic lobe that wraps around the left abdomen compatible with [place] tail. GALLBLADDER AND BILE DUCTS: Unremarkable. PANCREAS: Unremarkable. SPLEEN: Unremarkable. ADRENAL GLANDS: Unremarkable. KIDNEYS AND URETERS: The left kidney is surgically absent. There is redemonstration of a round soft t issue lesion within the left nephrectomy bed measuring up to 2.2 cm, previously measured up to 2.8 cm in dimension when measured with similar technique. Right kidney demonstrates no evidence for obstructive uropathy. There is scattered simple appearing r enal cysts. Nonobstructive right renal calculi identified measuring up to 3 mm. Mildly complex cyst i nferior pole right renal cyst with thin peripheral calcification redemonstrated. STOMACH AND BOWEL: No evidence of bowel obstruction. PERITONEUM/RETROPERITONEUM: No evidence of pneumoperitoneum or free fluid. VASCULATURE: Mild atherosclerotic calcifications are present throughout the abdominal aorta and its b ranches. No evidence of aortic aneurysm. MUSCULOSKELETAL: No acute osseous abnormalities LYMPH NODES: No gross evidence for lymphadenopathy. SOFT TISSUE/ABDOMINAL WALL: Unremarkable IMPRESSION: Redemonstration of left nephrectomy bed lesion measuring up to 2.2 cm which is slightly decreased in size from prior exam when it measured up to 2.8 cm. No new adenopathy identified. Could represent pos tsurgical collection versus residual/recurrent neoplasm. Continued surveillance is recommended.
== END | disposition home or self-care (01) ==
LOC: RADCTMAIN 10-27 10:08
PROVIDERS: ATTEND Urology
DX: C64.2 Malignant neoplasm of left kidney, except renal pelvis (principal); Z90.5 Acquired absence of kidney
CPT/HCPCS: 71046; 74170; Q9967

== ENCOUNTER 2024-08-06 18:11 | Emergency (ER) | payer OTHER ==
--- NOTE | 2024-08-06 18:28 | ED ---
Recheck HPI - General Source: patient, RN notes reviewed Mode of arrival: ambulatory Limitations: no limitations <Celsa Donahue - Last Filed: 08/06/24 18:27> <Kennedy Carney - Last Filed: 08/07/24 18:25> - General Chief Complaint: Recheck/Abnormal Lab/Rx Stated Complaint: Vomiting,Hypertension Time Seen by Provider: 08/06/24 18:27 - History of Present Illness Initial Comments: Quick [id number] female with end-stage renal disease on hemodialysis, Friday, presenting to the emergency department chief complaint of hypertension and headaches. Patient had blood pressure reading earlier of 18 6. She denies chest pain, shortness of breath, heart palpitations. Still produces urine. (Celsa Donahue) Agree with above The patient did have a normal dialysis session today. No chest pain or dyspnea (Kennedy Carney) - Related Data Home Medications Medication Instructions Recorded Confirmed carvediloL [Coreg] 50 mg PO BID 11/17/22 10/15/23 cloNIDine HCL [Catapres] 0.3 mg PO TID 11/17/22 10/15/23 Aspirin EC [Ecotrin Low Dose] 81 mg PO DAILY 04/21/23 10/15/23 Cholecalciferol (Vitamin D3) 1,250 mcg PO Q30D 04/21/23 10/15/23 [Vitamin D3 (1250 Mcg = 50,000 Iu)] Dulaglutide [Trulicity] 3 mg SQ FR 04/21/23 10/15/23 hydrALAZINE HCL [Apresoline] 100 mg PO TID 04/21/23 10/15/23 lisinopriL [Zestril] 20 mg PO BID 04/21/23 10/15/23 Calcium Acetate [Phoslo] 1,334 mg PO TID-W/MEALS 10/15/23 10/15/23 Ondansetron Odt [Zofran Odt] 4 mg PO TID PRN 10/15/23 10/15/23 Sevelamer [Renvela] 800 mg PO BID-W/MEALS 10/15/23 10/15/23 Previous Rx's Medication Instructions Recorded Atorvastatin [Lipitor] 40 mg PO HS #30 tab 11/21/22 amLODIPine [Norvasc] 10 mg PO DAILY #10 tab 04/24/23 Allergies Allergy/AdvReac Type Severity Reaction Status Date / Time latex Allergy Rash/Hives Verified 08/06/24 18:15 Review of Systems ROS Other: All systems not noted in ROS Statement are negative. <Celsa Donahue - Last Filed: 08/06/24 18:27> ROS Other: All systems not noted in ROS Statement are negative. Constitutional: Denies: fever, chills, weakness Respiratory: Denies: cough, dyspnea Cardiovascular: Denies: chest pain, palpitations, edema, syncope Gastrointestinal: Denies: abdominal pain, nausea, vomiting Genitourinary: Denies: dysuria, hematuria Musculoskeletal: Denies: back pain Skin: Denies: rash Neurological: Denies: headache, weakness, numbness <Kennedy Carney - Last Filed: 08/07/24 18:25> ROS Statement: Those systems with pertinent positive or pertinent negative responses have been documented in the HPI. Past Medical History Past Medical History: Diabetes Mellitus, Dialysis, Hypertension, Renal Disease Additional Past Medical History / Comment(s): Dialysis MOWEFR. History of Any Multi-Drug Resistant Organisms: None Reported Past Surgical History: No Surgical Hx Reported Additional Past Surgical History / Comment(s): Left upper arm graft fistula. Partial hysterectomy. Past Anesthesia/Blood Transfusion Reactions: No Reported Reaction Past Psychological History: No Psychological Hx Reported Smoking Status: Former smoker Past Alcohol Use History: None Reported Past Drug Use History: None Reported - Past Family History Father History Unknown: Yes Family Medical History: Hypertension, Renal Disease Mother History Unknown: Yes Additional Family Medical History / Comment(s): in her sleep. Brother(s) Family Medical History: Myocardial Infarction (VT) Additional Family Medical History / Comment(s): Brother with myocardial inf arction at 43 years old HD. <Celsa Donahue - Last Filed: 08/06/24 18:27> General Exam Limitations: no limitations <Celsa Donhaue - Last Filed: 08/06/24 18:27> Limitations: no limitations General appearance: alert, in no apparent distress Head exam: Present: atraumatic, normocephalic Eye exam: Present: normal appearance. Absent: scleral icterus, conjunctival injection Neck exam: Present: normal inspection Respiratory exam: Present: normal lung sounds bilaterally. Absent: respiratory distress, wheezes, rales, rhonchi, stridor, accessory muscle use Cardiovascular Exam: Present: regular rate, normal rhythm, normal heart sounds. Absent: systolic murmur, diastolic murmur, rubs, gallop GI/Abdominal exam: Present: soft. Absent: distended, tenderness, guarding, rebound, rigid, mass Extremities exam: Present: normal inspection, normal capillary refill. Absent: pedal edema, calf tenderness Back exam: Present: normal inspection Neurological exam: Present: alert Skin exam: Present: warm, dry, intact, normal color. Absent: rash <Kennedy Carney - Last Filed: 08/07/24 18:25> - General Exam Comments Initial Comments: Visual Physical Exam Vital signs reviewed General: Well-appearing, nontoxic, no acute distress. Head: Normocephalic, atraumatic Eyes: PERRLA, EOMI ENT: Airway patent Chest: Nonlabored breathing Skin: No visual rash, normal skin tone Neuro: Alert and oriented 3 Musculoskeletal: No gross abnormalities (Celsa Donahue) Course Vital Signs 08/06/24 08/06/24 08/06/24 18:13 22:15 22:33 Temperature 98.4 F 98.3 F Pulse Rate 109 H 104 H Pulse Rate [ 103 H Sitting Division Service Manager] Respiratory 18 17 Rate Blood Pressure 214/123 208/114 O2 Sat by Pulse 100 100 Oximetry 08/06/24 08/06/24 08/07/24 23:03 23:30 01:23 Temperature Pulse Rate 104 H 92 Pulse Rate [ Sitting Division Service Manager] Respiratory 17 18 Rate Blood Pressure 195/107 179/109 128/79 O2 Sat by Pulse 100 99 Oximetry Medical Decision Making <Celsa Donahue - Last Filed: 08/06/24 18:27> - Lab Data Result diagrams: 08/06/24 19:00 08/06/24 19:24 - EKG Data -: EKG Interpreted by Me EKG shows normal: sinus rhythm, axis (Left axis deviation), intervals (Normal) Rate: tachycardia (Rate 102 bpm) Interpretation: LVH, other (Possible old anterior infarct) <Kennedy Carney - Last Filed: 08/07/24 18:25> - Medical Decision Making I completed the quick note portion of this chart signed Celsa Donahue PA-C (Celsa Donahue) Was pt. sent in by a medical professional or institution ([facility] Browning, INVESTMENT BANKER, urgent care, hospital, or retirement...) When possible be specific @ -[No] Did you speak to anyone other than the patient for history (EMS, parent, family, police, friend...)? What history was obtained from this source @ -[No] Did you review nursing and triage notes (agree or disagree)? Why? @ -[I reviewed and agree with nursing and triage notes] Were old charts reviewed (outside hosp., previous admission, EMS record, old EKG, old radiological studies, urgent care reports/EKG's, retirement records)? Report findings @ -[No old charts were reviewed] Differential Diagnosis (chest pain, altered mental status, abdominal pain women, abdominal pain men, vaginal bleeding, weakness, fever, dyspnea, syncope, headache, dizziness, GI bleed, back pain, seizure, CVA, palpatations, mental health, musculoskeletal)? @ -[Amphetamine Toxicity Anxiety Disorders Apnea, Sleep Cocaine-Related Cardiomyopathy Heart Failure Hyperthyroidism, Thyroid Storm, and Graves Disease Hypertrophic Cardiomyopathy Myocardial Infarction Phencyclidine Toxicity Primary Aldosteronism Stroke, Hemorrhagic Stroke, Ischemic EKG interpreted by me (3pts min.). @ -[Interpreted as above X-rays interpreted by me (1pt min.). @ -[None done] CT interpreted by me (1pt min.). @ -[None done] U/S interpreted by me (1pt. min.). @ -[None done] What testing was considered but not performed or refused? (CT, X-rays, U/S, labs)? Why? @ -[None] What meds were considered but not given or refused? Why? @ -[None] Did you discuss the management of the patient with other professionals (professionals i.e. DAVID Browning, INVESTMENT BANKER, lab, RT, psych nurse, forensic social worker, customer strategy manager, teacher, field artillery officer, case hardener)? Give summary @ -[No] Was smoking cessation discussed for >3mins.? @ -[No] Was critical care preformed (if so, how long)? @ -[No] Were there social determinants of health that impacted care today? How? (Homelessness, low income, unemployed, alcoholism, drug addiction, tr ansportation, low edu. Level, literacy, decrease access to med. care, longterm, rehab)? @ -[No] Was there de-escalation of care discussed even if they declined (Discuss DNR or withdrawal of care, Hospice)? DNR status @ -[No] What co-morbidities impacted this encounter? (DM, HTN, Smoking, COPD, CAD, Ca ncer, CVA, ARF, Chemo, Hep., AIDS, mental health diagnosis, sleep apnea, morbid obesity)? @ -[This patient is a 54-year-old woman with history of hypertension who presents after noting her blood pressure being elevated at home. The patient's physical exam and workup are benign. She did have good response to medications here, was feeling better and wanted to go home. We discussed appropriate fu rther care and follow-up as well as return parameters Was patient admitted / discharged? Hospital course, mention meds given and route, prescriptions, significant lab abnormalities, going to OR and other pertinent info. @ -[hospital course] Undiagnosed new problem with uncertain prognosis? @ -[No] Drug Therapy requiring intensive monitoring for toxicity (Heparin, Nitro, Insulin, Cardizem)? @ -[No] Were any procedures done? @ -[No] Diagnosis/symptom? @ -[Acute on chronic hypertension Acute, or Chronic, or Acute on Chronic? @ -[default] Uncomplicated (without systemic symptoms) or Complicated (systemic symptoms)? @ -[Complicated Side effects of treatment? @ -[No] Exacerbation, Progression, or Severe Exacerbation? @ -[No] Poses a threat to life or bodily function? How? (Chest pain, USA, VT, pneumonia, PE, COPD, DKA, ARF, appy, cholecystitis, CVA, Diverticulitis, Homicidal, Suicidal, threat to staff... and all critical care pts) @ -[No] (Kennedy Carney) - Lab Data Lab Results 08/06/24 08/06/24 08/06/24 Range/Units 19:00 19:00 19:24 WBC 5.5 (3.8-10.6) k/uL RBC 5.12 (3.80-5.40) m/uL Hgb 12.9 (11.4-16.0) gm/dL Hct 38.1 (34.0-46.0) % MCV 74.4 L (80.0-100.0) fL MCH 25.3 (25.0-35.0) pg MCHC 33.9 (31.0-37.0) g/dL RDW 17.8 H (11.5-15.5) % Plt Count 106 L (150-450) k/uL MPV 10.0 Neutrophils % 64 % Lymphocytes % 24 % Monocytes % 4 % Eosinophils % 7 % Basophils % 0 % Neutrophils # 3.5 (1.3-7.7) k/uL Lymphocytes # 1.3 (1.0-4.8) k/uL Monocytes # 0.2 (0-1.0) k/uL Eosinophils # 0.4 (0-0.7) k/uL Basophils # 0.0 (0-0.2) k/uL Anisocytosis Slight Microcytosis Moderate PT 12.1 (10.0-12.5) sec INR 1.1 (<1.2) APTT 24.2 (22.0-30.0) sec Sodium (137-145) mmol/L Potassium (3.5-5.1) mmol/L Chloride (98-107) mmol/L Carbon Dioxide (22-30) mmol/L Anion Gap mmol/L BUN (7-17) mg/dL Creatinine (0.52-1.04) mg/dL Est GFR (CKD-EPI)AfAm (>60 ml/min/1.73 sqM) Est GFR (CKD-EPI)NonAf (>60 ml/min/1.73 sqM) Glucose (74-99) mg/dL Calcium (8.4-10.2) mg/dL Phosphorus (2.5-4.5) mg/dL Magnesium (1.6-2.3) mg/dL Total Bilirubin (0.2-1.3) mg/dL AST (14-36) U/L ALT (4-34) U/L Alkaline Phosphatase (38-126) U/L Troponin I <0.012 (0.000-0.034) ng/mL Total Protein (6.3-8.2) g/dL Albumin (3.5-5.0) g/dL 08/06/24 Range/Units 19:24 WBC (3.8-10.6) k/uL RBC (3.80-5.40) m/uL Hgb (11.4-16.0) gm/dL Hct (34.0-46.0) % MCV (80.0-100.0) fL MCH (25.0-35.0) pg MCHC (31.0-37.0) g/dL RDW (11.5-15.5) % Plt Count (150-450) k/uL MPV Neutrophils % % Lymphocytes % % Monocytes % % Eosinophils % % Basophils % % Neutrophils # (1.3-7.7) k/uL Lymphocytes # (1.0-4.8) k/uL Monocytes # (0-1.0) k/uL Eosinophils # (0-0.7) k/uL Basophils # (0-0.2) k/uL Anisocytosis Microcytosis PT (10.0-12.5) sec INR (<1.2) APTT (22.0-30.0) sec Sodium 133 L (137-145) mmol/L Potassium 4.1 (3.5-5.1) mmol/L Chloride 96 L (98-107) mmol/L Carbon Dioxide 29 (22-30) mmol/L Anion Gap 8 mmol/L BUN 17 (7-17) mg/dL Creatinine 5.24 H (0.52-1.04) mg/dL Est GFR (CKD-EPI)AfAm 10 (>60 ml/min/1.73 sqM) Est GFR (CKD-EPI)NonAf 9 (>60 ml/min/1.73 sqM) Glucose 171 H (74-99) mg/dL Calcium 9.3 (8.4-10.2) mg/dL Phosphorus 3.8 (2.5-4.5) mg/dL Magnesium 1.9 (1.6-2.3) mg/dL Total Bilirubin 0.8 (0.2-1.3) mg/dL AST 23 (14-36) U/L ALT 18 (4-34) U/L Alkaline Phosphatase 104 (38-126) U/L Troponin I (0.000-0.034) ng/mL Total Protein 6.8 (6.3-8.2) g/dL Albumin 4.1 (3.5-5.0) g/dL Disposition <Celsa Donahue - Last Filed: 08/06/24 18:27> Is patient prescribed a controlled substance at d/c from ED?: No <Kennedy Carney - Last Filed: 08/07/24 18:25> Clinical Impression: Hypertension Disposition: HOME SELF-CARE Condition: Good Instructions (If sedation given, give patient instructions): Chronic Hypertension (DC) Referrals: Chinedu Pepe MD [Primary Care Provider] - 1-2 days
[2024-08-06 19:25] LABS: INR 1.1 (<1.2); Partial Thromboplastin Time 24.2 sec (22.0-30.0); Prothrombin Time 12.1 sec (10.0-12.5)
[2024-08-06 19:26] LABS: Anisocytosis Slight; Basophils % (A) 0 %; Eosinophils # (A) 0.4 k/uL (0-0.7); Eosinophils % (A) 7 %; HCT 38.1 % (34.0-46.0); HGB 12.9 gm/dL (11.4-16.0); Lymphocytes # (A) 1.3 k/uL (1.0-4.8); Lymphocytes % (A) 24 %; MCH 25.3 pg (25.0-35.0); MCHC 33.9 g/dL (31.0-37.0); MCV 74.4 fL (80.0-100.0); Microcytosis Moderate; Monocytes # (A) 0.2 k/uL (0-1.0); Monocytes % (A) 4 %; Neutrophils # (A) 3.5 k/uL (1.3-7.7); Neutrophils % (A) 64 %; Platelet Count 106 k/uL (150-450); RBC 5.12 m/uL (3.80-5.40); RDW 17.8 % (11.5-15.5); WBC 5.5 k/uL (3.8-10.6)
[2024-08-06 22:32] VITALS: TEMP 98.3
[2024-08-06] MEDS: ONDANSETRON 4 MG/2 ML VIAL IVP STA (22:33)
[2024-08-06] MEDS: hydrALAZINE HCL 20 MG/ML 1 ML VIAL IVP STA (22:33)
[2024-08-06] MEDS: cloNIDine HCL 0.1 MG TAB PO STA (22:35)
[2024-08-06] MEDS: carvediloL 12.5 MG TAB PO STA (23:34)
[2024-08-06] MEDS: lisinopriL 20 MG TAB PO STA (23:35)
[2024-08-07 00:29] LABS: ALT 18 U/L (4-34); AST 23 U/L (14-36); African American GFR (CKD) 10 (>60 ml/min/1.73 sqM); Albumin 4.1 g/dL (3.5-5.0); Alkaline Phosphatase 104 U/L (38-126); Anion Gap 8 mmol/L; Blood Urea Nitrogen 17 mg/dL (7-17); Calcium 9.3 mg/dL (8.4-10.2); Carbon Dioxide 29 mmol/L (22-30); Chloride 96 mmol/L (98-107); Glucose 171 mg/dL (74-99); Magnesium 1.9 mg/dL (1.6-2.3); Non-African American GFR(CKD) 9 (>60 ml/min/1.73 sqM); Phosphorus 3.8 mg/dL (2.5-4.5); Potassium 4.1 mmol/L (3.5-5.1); Sodium 133 mmol/L (137-145); Total Bilirubin 0.8 mg/dL (0.2-1.3); Total Protein 6.8 g/dL (6.3-8.2)
[2024-08-07 01:24] VITALS: BP 128/79; PULSE 92; RESP 18
[2024-08-07] MEDS: hydrALAZINE HCL 20 MG/ML 1 ML VIAL IVP STA (01:45)
== END 2024-08-07 01:46 | disposition home or self-care (01) ==
LOC: EC 18:11
DX: I12.0 Hypertensive chronic kidney disease with stage 5 chronic kidney disease or end stage renal disease (principal); N18.6 End stage renal disease; Z87.891 Personal history of nicotine dependence; Z91.040 Latex allergy status; Z99.2 Dependence on renal dialysis
CPT/HCPCS: 36415; 93005; 80053; 83735; 84100; 84484; 85025; 85610; 85730; 99284; 96374; 96375; J0360; J2405